=== PATIENT | female | born 1980 | race Caucasian/White ===

== ENCOUNTER 2020-08-30 12:00 | Emergency (ER) | payer MEDICAID ==
--- OUTSIDE RECORDS SUMMARY | 2020-08-30 12:07 | XMS REPORT | Continuity of Care Document ---
:1980 Author Organization [facility] t Address [address] [place] [address] Care Team Providers Name Role Phone Asked, Pcp Primary Care Physician Unavailable Problems Condition Condition Condition Status Onset Resolution Last Treating Co mments Source Name Details Category Date Date Treatment Clinician Date Tinea Tinea Problem Active [place] pedis Pedis 3-12 da 00:00: Medical 00 Group Diverticul Diverticul Problem Active [facility] itis itis 3-12 da 00:00: Medical 00 Group Irritable Irritable Problem Active [facility] bowel Bowel 3-12 da syndrome Syndrome 00:00: Medica l with with 00 Group diarrhea Diarrhea Calculus Calculus Problem Active [facility] of of 309 da gallbladde Gallbladde 00:00: Me dical r with r with 00 Group cholecysti Cholecysti tis tis Dysmenorrh Dysmenorrh Problem Active [facility] ea ea 3-09 da 00:00: Medical 00 Group Menometror Menometror Problem Active [facility] rhagia rhagia 3 da 00:00: Medical 00 Group Nausea and Nausea and Problem Active [facility] vomiting Vomiting 3 da 00:00: Medical 00 Group Chronic Chronic Problem Active [facility] post-traum Post-traum 1-23 da atic atic 00:00: [facility] stress Stress 00 al disorder Disorder [facility] Trichomona Trichomona Problem Active M [facility] l l 1-21 da vaginitis Vaginitis 00:00: Medi shan 00 Group Schizoaffe Schizoaffe Problem Active [facility] ctive ctive 1-20 da disorder, Disorder, 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 Bipolar 00 al type Type Health Outreac [facility] Program Polymenorr Polymenorr Problem Active [facility] hea hea 1-15 da 00:00: Medical 00 Group Gynecologi Gynecologi Problem Active [facility] c c 1-15 da examinatio Examinatio 00:00: Me dical n n 00 Group Venereal Venereal Problem Active [facility] disease Disease 1-15 da screening Screening 00:00: Medi shan 00 Group Screening Screening Problem Active [facility] for for 1-15 da malignant Malignant 00:00: Medi shan neoplasm Neoplasm 00 Group of breast of Breast Bipolar Bipolar Problem Active 2018-04 [facility] disorder Disorder 1-18 da 00:00: Medical 00 Group Anxiety Anxiety Problem Active 2018-04 [facility] 1-18 da 00:00: Medical 00 Group Posttrauma Posttrauma Problem Active 2018-04 [facility] tic stress tic Stress 1-18 da disorder Disorder 00:00: Medica l 00 Group DESIRES Diagnosis Active 2010-12-31 Sc moria PERMANENT 9-20 06:57:00 l STERILIZAT DESIRES 00:00: Her carlos ION PERMANENT 00 STERILIZAT ION Active 12/22/2010 [facility] V22.2 Diagnosis Active 2011-03-03 Mem oria 7-13 15:12:00 l V22.2 06:00: [place] 00 Active 10/14/2010 [facility] Allergies, Adverse Reactions, Alerts Allergy Allergy Status Severity Reaction(s) Onset Inactive Treating Comm ents Source Name Type Date Date Clinician Predniso Allergy Active Moderate Hallucinatio 2019-04 [place] ne to to severe ns 1-25 da [facility] 00:00: Medical e 00 Group Benztrop Propensi Active Anaphylaxis [place] ty to 07-31 Methodi adverse 00:00: st reaction 00 s to drug Butorpha Propensi Active Rash [place] nol ty to 07-31 Methodi Tartrate adverse 00:00: st reaction 00 s to drug Benadryl Allergy Active Moderate Hives [place] [facility] to da [facility] Medical e Group Cogentin Allergy Active Moderate Respiratory [place] to to severe distress da [facility] Medical e Group STADOL Allergy Active Moderate Hives [place] to da [facility] Medical e Group Social History Social Habit Start Date Stop Date Quantity Comments Source Tobacco use and 2017-12-02 2017-12-02 Never used [facility] ethodist exposure 00:00:00 00:00:00 Alcohol intake 2017-12-02 2017-12-02 Current drinker Judy on [facility] 00:00:00 00:00:00 of alcohol (finding) Sex Ass[birth year] At [birth year] [facility] ethodist 00:00:00 00:00:00 Smoking Status Start Date Stop Date Source Heavy Tobacco Smoker [facility] Current every day smoker 2017-12-02 00:00:00 [place] [facility] Medications Ordered Filled Start Stop Current Ordering Indication Dosage Frequency Signature Comments Components Source Medication Medication Date Date Medication? Clinician (SIG) Name Name acetaminoph No Abbye 1 tab, M emoria en-hydrocod 12-31 Ladonna Route: PO, l one 500 16:31: Keely Drug Form: He rmann mg-5 mg 00 TAB, Q4H, oral tablet PRN Pain, Start date: 12/31/10 11:31:00, Duration: 30 day, Stop date: 01/30/11 11:30:00 hydromorpho No Juan A 0.5 mg, Memoria ne 12-31 Brien 0.25 mL, l 14:44: Route: [place] 00 IVP, Drug form: INJ, Q5Min, PRN Pain, Start date: 12/31/10 9:44:00, Duration: 5 doses or times, Stop date: Limited # of times acetaminoph No Juan A 1,000 mg, Memoria en 10 mg/mL 12-31 Brien Route: IV, l intravenous 14:44: Drug form: [place] solution 00 INJ, ONCE, PRN Pain, Start date: 12/31/10 9:44:00, Duration: 1 doses or times, Stop date: Limited # of times, Infuse over 15 minutes (for patient weight 50 kg or greater)In fuse over 15 minutes (for patient weight 50 kg or greater) ondansetron No Juan A 4 mg, 2 Memoria 12-31 Brien mL, Route: l 14:44: IVP, Drug form: INJ, ONCE, PRN Nausea & Vomiting, Start date: 12/31/10 9:44:00 flumazenil No Juan A 0.2 mg, 2 Memoria 12-31 Brien mL, Route: l 14:44: IVP, Drug form: INJ, PRN, PRN Other -See Comment, Initial dose, Start date: 12/31/10 9:44:00, Duration: 30 day, Stop date: 01/30/11 9:43:00 naloxone No Juan A 0.04 mg, M emoria 12-31 Brien 0.1 mL, l 14:44: Route: [place] 00 IVP, Drug form: INJ, Q2MIN, PRN Narcotic Reversal, Start date: 12/31/10 9:44:00, Duration: 8 doses or times, Stop date: Limited # of times ibuprofen Yes Tatyana N 800 mg, 1 Memoria 800 mg oral 12-31 Paula tab, PO, l tablet 13:24: Q8H, PRN, Leodan n 34 30 tab, Pain, Substituti on Allowed, Take with foodTake with food Vicodin Yes Tatyana N 1 tab, PO, Memoria 5/500 oral 12-31 Paula Q4H, PRN, l tablet 13:24: 20 tab, [place] 29 for pain, Substituti on Allowed, Maintenanc e, TAB M-M-R II 2011-0 No Ginette 0.5 ml, Me moria 7-25 Dontrell Route: l 04:00: Alec SUB-Q, [place] 00 Drug Form: PDR/INJ, KALEE, Start date: 10/25/10 23:00:00, Duration: 1 doses or times Fluzone Fluzone No Fluzone [facility] Quad Quad Quad da [facility] (PF) 60 mcg (PF) 60 mcg (PF) 60 al (15 mcg x (15 mcg x mcg (15 He alth 4)/0.5 mL 4)/0.5 mL mcg x Outr eac IM syringe IM syringe 4)/0.5 mL h IM syringe Program hydroxyzine hydroxyzine No hydroxyzin [facility] HCl 50 mg HCl 50 mg e HCl 50 d a tablet Take tablet Take mg tablet [facility] 1 tablet 3 1 tablet 3 Take 1 a l times a day times a day tablet 3 Health by oral by oral times a Outrea c route as route as day by h needed. needed. oral route Pro gram as needed. medroxyprog medroxyprog No medroxypro [facility] esterone 10 esterone 10 gesterone da mg tablet mg tablet 10 mg Epis copy worker tablet al Health Outreac h Program ondansetron ondansetron No 1 QID ondansetro [facility] 4 mg 4 mg n 4 mg da disintegrat disintegrat disintegra Medical ing tablet ing tablet ting Jennifer up Place 1 Place 1 tablet tablet [address] 1 times a day times a day tablet 4 by by times a translingua translingua day by l route as l route as translingu needed for needed for al route 3 days. 3 days. as needed for 3 days. metronidazo metronidazo No metronidaz [place] le 500 mg le 500 mg ole 500 mg da tablet tablet tablet [facility] quetiapine quetiapine No .5 Q1D quetiapine [facility] 100 mg 100 mg 100 mg da tablet Take tablet Take tablet Medical 0.5 tablets 0.5 tablets Take 0.5 Group every day every day tablets by oral by oral every day route at route at by oral bedtime. bedtime. route at bedtime. topiramate topiramate No topiramate [facility] 100 mg 100 mg 100 mg da tablet TAKE tablet TAKE tablet Medical 1 TABLET BY 1 TABLET BY TAKE 1 Group MOUTH AT MOUTH AT TABLET BY BEDTIME BEDTIME MOUTH AT BEDTIME clonazepam clonazepam No clonazepam [facility] 0.5 mg 0.5 mg 0.5 mg da tablet TAKE tablet TAKE tablet Medical 1 TABLET BY 1 TABLET BY TAKE 1 Group MOUTH ONCE MOUTH ONCE TABLET BY DAILY DAILY MOUTH ONCE NEEDED FOR NEEDED FOR DAILY ANXIETY ANXIETY NEEDED FOR ANXIETY ibuprofen ibuprofen No ibuprofen [facility] 800 mg 800 mg 800 mg da tablet TAKE tablet TAKE tablet Medical 1 TABLET BY 1 TABLET BY TAKE 1 Group MOUTH EVERY MOUTH EVERY TABLET BY 8 HOURS 8 HOURS MOUTH NEEDED NEEDED EVERY 8 HOURS NEEDED Macrobid Macrobid No 1capsul Q12H Macrobid [facility] 100 mg 100 mg e(s) 100 mg da capsule capsule capsule Medica l Take 1 Take 1 Take 1 Group capsule capsule capsule every 12 every 12 every 12 hours by hours by hours by oral route oral route oral route for 7 days. for 7 days. for 7 days. naproxen naproxen No naproxen [facility] 500 mg 500 mg 500 mg da tablet tablet tablet [facility] Outre[facility] quetiapine quetiapine No quetiapine [facility] 200 mg 200 mg 200 mg da tablet tablet tablet [facility] Outreac [facility] Program quetiapine quetiapine No quetiapine [facility] ER 200 mg ER 200 mg ER 200 mg da tablet,exte tablet,exte tablet,ext [facility] nded nded ended al release 24 release 24 release 24 Health hr Take 2 hr Take 2 hr Take 2 Outreac tablets tablets tablets h every day every day every day Program by oral by oral by oral route at route at route at bedtime. bedtime. bedtime. Immunizations Ordered Immunization Filled Immunization Date Status Commen Source Name Name influenza, influenza, 2019-12-19 Completed [place] injectable, injectable, 00:00:00 [facility] Grou p quadrivalent quadrivalent influenza, influenza, 2019-04-19 Completed [place] injectable, injectable, 00:00:00 Medical Grou p quadrivalent quadrivalent influenza, influenza, 2018-12-03 Completed [place] injectable, injectable, 00:00:00 Medical Grou p quadrivalent quadrivalent Tdap 2017-12-02 Completed [place] 00:00:00 [facility] Vital Signs Vital Name Observation Time Observation Value Comments Source BP Diastolic 2020-08-27 00:00:00 76 mm[Hg] [facility] Height 2020-08-27 00:00:00 64 [in_i] [facility] BMI (Body Mass 2020-08-27 00:00:00 25.1 kg/m2 [facility] Medical Index) Group BP Systolic 2020-08-27 00:00:00 117 mm[Hg] [facility] Body Weight 2020-08-27 00:00:00 2344 [oz_av] [facility] BP Diastolic 2020-08-12 00:00:00 84 mm[Hg] [facility] Height 2020-08-12 00:00:00 64 [in_i] [facility] BMI (Body Mass 2020-08-12 00:00:00 25.1 kg/m2 [facility] Medical Index) Group BP Systolic 2020-08-12 00:00:00 126 mm[Hg] [facility] Body Weight 2020-08-12 00:00:00 2336 [oz_av] [facility] BP Diastolic 2020-07-09 00:00:00 82 mm[Hg] [facility] Height 2020-07-09 00:00:00 64 [in_i] [facility] BMI (Body Mass 2020-07-09 00:00:00 25.2 kg/m2 [facility] Medical Index) Group BP Systolic 2020-07-09 00:00:00 118 mm[Hg] [facility] Body Weight 2020-07-09 00:00:00 2352 [oz_av] [facility] BP Diastolic 2020-06-13 00:00:00 81 mm[Hg] [facility] Height 2020-06-13 00:00:00 64 [in_i] [facility] BMI (Body Mass 2020-06-13 00:00:00 26.4 kg/m2 [facility] Medical Index) Group BP Systolic 2020-06-13 00:00:00 133 mm[Hg] [facility] Body Weight 2020-06-13 00:00:00 2464 [oz_av] [facility] BP Diastolic 2020-04-08 00:00:00 86 mm[Hg] [facility] Height 2020-04-08 00:00:00 64 [in_i] [facility] BMI (Body Mass 2020-04-08 00:00:00 25.5 kg/m2 [facility] sponsor or advocate and Medical Index) Group BP Systolic 2020-04-08 00:00:00 132 mm[Hg] [facility] Body Weight 2020-04-08 00:00:00 2377.6 [oz_av] [facility] sponsor or advocate [facility] Medical Group BP Diastolic 2020-03-26 00:00:00 87 mm[Hg] [facility] Height 2020-03-26 00:00:00 64 [in_i] [facility] BMI (Body Mass 2020-03-26 00:00:00 24.8 kg/m2 [facility] advocate and Medical Index) Group BP Systolic 2020-03-26 00:00:00 129 mm[Hg] [facility] Body Weight 2020-03-26 00:00:00 2312 [oz_av] [facility] BP Diastolic 2020-03-10 00:00:00 78 mm[Hg] [facility] Height 2020-03-10 00:00:00 64 [in_i] [facility] BMI (Body Mass 2020-03-10 00:00:00 24.8 kg/m2 [facility] or advocate and Medical Index) Group BP Systolic 2020-03-10 00:00:00 120 mm[Hg] [facility] Body Weight 2020-03-10 00:00:00 2307.2 [oz_av] [facility] or advocate [facility] Group BP Diastolic 2020-02-25 00:00:00 59 mm[Hg] [facility] Height 2020-02-25 00:00:00 64 [in_i] [facility] BMI (Body Mass 2020-02-25 00:00:00 24.7 kg/m2 [facility] sponsor or advocate and Medical Index) Group BP Systolic 2020-02-25 00:00:00 96 mm[Hg] [facility] Body Weight 2020-02-25 00:00:00 2302.4 [oz_av] [facility] or advocate [facility] Medical Group BP Diastolic 2020-02-18 00:00:00 74 mm[Hg] [facility] Height 2020-02-18 00:00:00 64 [in_i] [facility] BMI (Body Mass 2020-02-18 00:00:00 24.9 [facility] BP Systolic 2020-02-18 00:00:00 110 mm[Hg] [facility] Body Weight 2020-02-18 00:00:00 2320 [oz_av] [facility] BP Diastolic 2019-12-31 00:00:00 71 mm[Hg] [facility] Height 2019-12-31 00:00:00 64 [in_i] [facility] BMI (Body Mass 2019-12-31 00:00:00 24.8 kg/[facility]2 [facility] BP Systolic 2019-12-31 00:00:00 114 mm[Hg] [facility] Body Weight 2019-12-31 00:00:00 2307.2 [oz_av] [facility] sponsor or advocate [facility] Medical Group BP Diastolic 2019-11-02 00:00:00 81 mm[Hg] [facility] Height 2019-11-02 00:00:00 64 [in_i] [facility] BMI (Body Mass 2019-11-02 00:00:00 24.7 kg/m2 [facility] BP Systolic 2019-11-02 00:00:00 117 mm[Hg] [facility] Body Weight 2019-11-02 00:00:00 2304 [oz_av] [facility] BP Diastolic 2019-10-01 00:00:00 80 mm[Hg] [facility] Height 2019-10-01 00:00:00 64 [in_i] [facility] BMI (Body Mass 2019-10-01 00:00:00 24.2 kg/m2 [facility] BP Systolic 2019-10-01 00:00:00 136 mm[Hg] [facility] Body Weight 2019-10-01 00:00:00 141 [lb_av] [facility] BP Diastolic 2019-09-25 00:00:00 82 mm[Hg] [facility] Height 2019-09-25 00:00:00 64 [in_i] [facility] BMI (Body Mass 2019-09-25 00:00:00 24[facility] BP Systolic 2019-09-25 00:00:00 134 mm[Hg] [facility] Body Weight 2019-09-25 00:00:00 2270.4 [oz_av] [facility] sponsor or advocate [facility] Group BP Diastolic 2019-09-21 00:00:00 76 mm[Hg] [facility] Height 2019-09-21 00:00:00 64 [in_i] [facility] BMI (Body Mass 2019-09-21 00:00:00 23.7 kg/m2 [facility] Medical Index) Group BP Systolic 2019-09-21 00:00:00 108 mm[Hg] [facility] Body Weight 2019-09-21 00:00:00 2208 [oz_av] [facility] BP Diastolic 2019-09-17 00:00:00 76 mm[Hg] [facility] Height 2019-09-17 00:00:00 64 [in_i] [facility] BMI (Body Mass 2019-09-17 00:00:00 23.9 [facility] BP Systolic 2019-09-17 00:00:00 112 mm[Hg] [facility] Body Weight 2019-09-17 00:00:00 2224 [oz_av] [facility] BP Diastolic 2019-06-22 00:00:00 77 mm[Hg] [facility] Height 2019-06-22 00:00:00 64 [in_i] [facility] BMI (Body Mass 2019-06-22 00:00:00 24.8 [facility] BP Systolic 2019-06-22 00:00:00 110 mm[Hg] [facility] Body Weight 2019-06-22 00:00:00 2310 [oz_av] [facility] BP Diastolic 2019-06-21 00:00:00 72 mm[Hg] [facility] Height 2019-06-21 00:00:00 64 [in_i] [facility] BMI (Body Mass 2019-06-21 00:00:00 24.9 kg/m2 [facility] or advocate and Medical Index) Group BP Systolic 2019-06-21 00:00:00 120 mm[Hg] [facility] Body Weight 2019-06-21 00:00:00 2320 [oz_av] [facility] BP Diastolic 2019-06-19 00:00:00 80 mm[Hg] [facility] Height 2019-06-19 00:00:00 64 [in_i] [facility] BMI (Body Mass 2019-06-19 00:00:00 25 kg/m2 [facility] or advocate and Medical Index) Group BP Systolic 2019-06-19 00:00:00 112 mm[Hg] [facility] Body Weight 2019-06-19 00:00:00 2327 [oz_av] [facility] BP Diastolic 2019-06-18 00:00:00 74 mm[Hg] [facility] Height 2019-06-18 00:00:00 64 [in_i] [facility] BMI (Body Mass 2019-06-18 00:00:00 24.7 kg/m2 [facility] or advocate and Medical Index) Group BP Systolic 2019-06-18 00:00:00 126 mm[Hg] [facility] Body Weight 2019-06-18 00:00:00 2299.2 [oz_av] [facility] or [facility] Group BP Diastolic 2019-06-14 00:00:00 63 mm[Hg] [facility] Height 2019-06-14 00:00:00 64 [in_i] [facility] BMI (Body Mass 2019-06-14 00:00:00 24.8 kg/m2 [facility] or advocate and Medical Index) Group BP Systolic 2019-06-14 00:00:00 128 mm[Hg] [facility] Body Weight 2019-06-14 00:00:00 144.4 [lb_av] [facility] BP Diastolic 2019-06-11 00:00:00 54 mm[Hg] [facility] Height 2019-06-11 00:00:00 64 [in_i] [facility] BMI (Body Mass 2019-06-11 00:00:00 25.6 kg/m2 [facility] or advocate and Medical Index) Group BP Systolic 2019-06-11 00:00:00 115 mm[Hg] [facility] Body Weight 2019-06-11 00:00:00 149 [lb_av] [facility] BP Diastolic 2019-05-15 00:00:00 82 mm[Hg] [facility] Height 2019-05-15 00:00:00 64 [in_i] [facility] BMI (Body Mass 2019-05-15 00:00:00 25.1 kg/m2 [facility] or advocate and Medical Index) Group BP Systolic 2019-05-15 00:00:00 124 mm[Hg] [facility] Body Weight 2019-05-15 00:00:00 2340 [oz_av] [facility] BP Diastolic 2019-05-08 00:00:00 86 mm[Hg] [facility] Height 2019-05-08 00:00:00 64 [in_i] [facility] BMI (Body Mass 2019-05-08 00:00:00 24 kg/m2 [facility] or advocate and Medical Index) Group BP Systolic 2019-05-08 00:00:00 139 mm[Hg] [facility] Body Weight 2019-05-08 00:00:00 2240 [oz_av] [facility] BP Diastolic 2019-05-04 00:00:00 85 mm[Hg] [facility] Height 2019-05-04 00:00:00 64 [in_i] [facility] BMI (Body Mass 2019-05-04 00:00:00 24.1 kg/m2 [facility] sponsor or advocate and Medical Index) Group BP Systolic 2019-05-04 00:00:00 120 mm[Hg] [facility] Body Weight 2019-05-04 00:00:00 140.2 [lb_av] [facility] Height 2019-04-23 00:00:00 64 [in_i] [facility] BMI (Body Mass 2019-04-23 00:00:00 24.2 kg/m2 [facility] sponsor or advocate [facility] Religious Index) [facility] Outreach [facility] Body Weight 2019-04-23 00:00:00 141 [lb_av] [facility] BP Diastolic 2019-04-18 00:00:00 72 mm[Hg] [facility] Height 2019-04-18 00:00:00 64 [in_i] [facility] BMI (Body Mass 2019-04-18 00:00:00 24.2 kg/m2 [facility] or advocate and Medical Index) Group BP Systolic 2019-04-18 00:00:00 114 mm[Hg] [facility] Body Weight 2019-04-18 00:00:00 140.8 [lb_av] [facility] BP Diastolic 2019-04-17 00:00:00 67 mm[Hg] [facility] Height 2019-04-17 00:00:00 64 [in_i] [facility] BMI (Body Mass 2019-04-17 00:00:00 24.9 kg/m2 [facility] or advocate and Medical Index) Group BP Systolic 2019-04-17 00:00:00 114 mm[Hg] [facility] Body Weight 2019-04-17 00:00:00 2325 [oz_av] [facility] BP Diastolic 2019-04-16 00:00:00 71 mm[Hg] [facility] Height 2019-04-16 00:00:00 64 [in_i] [facility] BMI (Body Mass 2019-04-16 00:00:00 24.6 kg/m2 [facility] sponsor or advocate and Medical Index) Group BP Systolic 2019-04-16 00:00:00 112 mm[Hg] [facility] Body Weight 2019-04-16 00:00:00 2291.2 [oz_av] [facility] BP Diastolic 2019-04-13 00:00:00 74 mm[Hg] [facility] Height 2019-04-13 00:00:00 64 [in_i] [facility] BMI (Body Mass 2019-04-13 00:00:00 29 kg/m2 [facility] or advocate and Medical Index) Group BP Systolic 2019-04-13 00:00:00 120 mm[Hg] [facility] Body Weight 2019-04-13 00:00:00 2705 [oz_av] [facility] BP Diastolic 2019-02-19 00:00:00 74 mm[Hg] [facility] Height 2019-02-19 00:00:00 64 [in_i] [facility] BMI (Body Mass 2019-02-19 00:00:00 24 kg/m2 [facility] or advocate and Medical Index) Group BP Systolic 2019-02-19 00:00:00 104 mm[Hg] [facility] Body Weight 2019-02-19 00:00:00 2240 [oz_av] [facility] BP Diastolic 2019-01-12 00:00:00 62 mm[Hg] [facility] BP Systolic 2019-01-12 00:00:00 116 mm[Hg] [facility] Body Weight 2019-01-12 00:00:00 2256 [oz_av] [facility] Systolic (mm Hg) 2010-12-31 16:00:00 Can rial [place] Respitory Rate 2010-12-31 16:00:00 Memori al [place] Diastolic (mm Hg) 2010-12-31 16:00:00 Mem orial [place] Respitory Rate 2010-12-31 15:30:00 Memori al [place] Diastolic (mm Hg) 2010-12-31 15:30:00 Mem orial [place] Systolic (mm Hg) 2010-12-31 15:30:00 Can rial [place] Diastolic (mm Hg) 2010-12-31 15:15:00 Mem orial [place] Systolic (mm Hg) 2010-12-31 15:15:00 Acn rial [place] Respitory Rate 2010-12-31 15:15:00 Memori al [place] Heart Rate 2010-12-31 12:44:00 [facility] Weight 2010-12-29 19:04:00 [facility] Height 2010-12-29 19:04:00 157.48 cm [facility] Procedures Procedure Date / Time Performing Clinician Source Performed XR, abdomen 2020-07-09 00:00:00 [place] [facility] Appendectomy 2019-09-24 00:00:[address] [place] [facility] [address], abdomen + pelvis, 2019-09-17 00:00:00 [facility] w/o contrast Group NM, hepatobiliary scan, 2019-06-19 00:00:00 [facility] US, abdomen 2019-06-14 00:00:00 [place] [facility] US, pelvis, complete 2019-06-11 00:00:00 [facility] XR, knee 2019-04-19 00:00:00 [place] [facility] MRI, knee, w/o contrast 2019-04-16 00:00:00 [facility] Tubal Ligation 2010-10-25 00:00:00 [place] [facility] Injection of Bilateral 2001-04-04 00:00:00 [facility] Breast Surgery [facility] [facility] Plan of Care Planned Activity Planned Date Details Comments Source Future Scheduled Test 2020-11-02 INFLUENZA VACCINE [facility] 00:00:00 [code = INFLUENZA VACCINE] Diagnostic Test 2020-08-27 urinalysis, [place] [facility] Pending 00:00:00 dipstick [code = Group urinalysis, dipstick] Future Scheduled Test 2000-11-20 Screening for [place] [facility] 00:00:00 malignant neoplasm of cervix (procedure) [code = 422089886] Future Scheduled Test 1997-11-20 Hepatitis C [place] [facility] 00:00:00 screening (procedure) [code = 931815829] Future Scheduled Test 1991 COVID-19 VACCINE [facility] [place] [facility] 00:00:00 (1) [code = COVID-19 VACCINE (1)] Instructions [facility] [facility] Encounters Start End Encounter Admission Attending Care Care Encounter Source Date/Time Date/Time Type Type Clinicians Facility Department ID 2020-08-27 2020-08-27 Kallie CARRANZA [place] - [id number] Jocelin guevara 00:00:00 00:00:00 Sofia Chao, Medical Medical SOFTWARE CONTROLS ENGINEER: [address], [place] [address] , Ph. 2020-08-12 2020-08-12 Kallie SHEPARD [place] - [id number] M [place] 00:00:00 00:00:00 Sofia Chao Medical Medical SOFTWARE CONTROLS ENGINEER: [address] [place] [address] , Ph. 2020-07-09 2020-07-09 Wendy SHEPARD [place] - [id number] M [place] 00:00:00 00:00:00 Discovery anselmo Wilcox SOFTWARE CONTROLS ENGINEER: [address] [place] [address] , Ph. 2020-06-13 2020-06-13 Kallie SHEPARD [place] - [id number] M [place] 00:00:00 00:00:00 Sofia Chao Medical Medical SOFTWARE CONTROLS ENGINEER: [address] [place] [phone] , Ph. 2020-04-08 2020-04-08 Kallie CARRANZA [place] - [id number] M [place] 00:00:00 00:00:00 Sofia Chao Medical Medical SOFTWARE CONTROLS ENGINEER: [address] [place] [phone] , Ph. 2020-03-26 2020-03-26 Kallie SHEPARD [place] - [id number] M [place] 00:00:00 00:00:00 Sofia Chao Medical Medical SOFTWARE CONTROLS ENGINEER: [address] [place] [address], [place] [address] , Ph. 2020-03-10 2020-03-10 Kallie SHEPARD [place] - [id number] M [place] 00:00:00 00:00:00 Sofia Chao Medical Medical SOFTWARE CONTROLS ENGINEER: [address] [place] [phone] , Ph. 2020-02-25 2020-02-25 Kallie SHEPARD [place] - [id number] M [place] 00:00:00 00:00:00 Sofia Chao Medical Medical SOFTWARE CONTROLS ENGINEER: [address] [facility] [address], [place] [address] , Ph. 2020-02-18 2020-02-18 Wendy MM [place] - [id number] M [place] 00:00:00 00:00:00 Discovery anselmo Wilcox SOFTWARE CONTROLS ENGINEER: [address] [place] [address] 201, [facility] [address] , Ph. 2019-12-31 2019-12-31 Kallie MM [place] - [id number] M [place] 00:00:00 00:00:00 Sofia Chao Medical Medical SOFTWARE CONTROLS ENGINEER: [address] [place] [address] 201, [place] [address] , Ph. 2019-11-02 2019-11-02 Kallie TERE [place] - [id number] M at[place] 00:00:00 00:00:00 Sofia Chao Medical Medical SOFTWARE CONTROLS ENGINEER: [address] [place] [address] 201, [place] [address] , Ph. 2019-10-01 2019-10-01 Tone TERE [place] - [id number] M [place] 00:00:00 00:00:00 DO Jed: Discovery abiola maya [address] [place] [address] 201, [facility] [address] , Ph. [phone] 2019-09-25 2019-09-25 Kallie MM [place] - [id number] M [place] 00:00:00 00:00:00 Sofia Chao Medical Medical SOFTWARE CONTROLS ENGINEER: [address] [place] [address] 201, [place] [address] , Ph. 2019-09-21 2019-09-21 Kallie MM [place] - [id number] M at[place] 00:00:00 00:00:00 Sofia Chao Medical Medical SOFTWARE CONTROLS ENGINEER: [address] [place] [address] 201, [place] [phone] , Ph. 2019-09-17 2019-09-17 Kallie CARRANZAG [place] - [id number] M at[place]or 00:00:00 00:00:00 Sofia Chao Medical Medical SOFTWARE CONTROLS ENGINEER: [address] [facility] [address], [place] [address] , Ph. 2019-08-29 2019-08-29 Wendy MMG [place] - [id number] M at[place] 00:00:00 00:00:00 Discovery anselmo Wilcox SOFTWARE CONTROLS ENGINEER: [address] [facility] 201, [facility] [address] , Ph. 2019-06-22 2019-06-22 Kallie CARRANZAG [place] - [id number] M at[place] 00:00:00 00:00:00 Sofia Chao Medical Medical SOFTWARE CONTROLS ENGINEER: [address] [facility] [address], [place] [address] , Ph. 2019-06-21 2019-06-21 Kallie MMG [place] - [id number] M at[place] 00:00:00 00:00:00 Sofia Chao Medical Medical SOFTWARE CONTROLS ENGINEER: [address] [facility] [address], [place] [address] , Ph. 2019-06-19 2019-06-19 Kallie MMG [place] - [id number] M at[place] 00:00:00 00:00:00 Sofia Chao Medical Medical SOFTWARE CONTROLS ENGINEER: [address] [facility] [address], [place] [address] , Ph. 2019-06-18 2019-06-18 Kallie MMTalon [place] - [id number] M at[place]or 00:00:00 00:00:00 Sofia Chao Medical Medical SOFTWARE CONTROLS ENGINEER: [address] [address], [place] [address] , Ph. 2019-06-14 2019-06-14 Efraín [facility] [place] - [id number] M atagor 00:00:00 00:00:00 Slick Rebollar MD: Medical Medica [address], [place] [address] , Ph. [phone] 2019-06-11 2019-06-11 Coby Rodriguez [facility] [place] - [id number] [place] 00:00:00 00:00:00 Discovery anselmo Sism NP: [address] [place] [address] 101, [place] [address] , Ph. [phone] 2019-05-15 2019-05-15 Kallie CARRANZA [place] - [id number] M at[place] 00:00:00 00:00:00 Sofia Chao Medical Medical SOFTWARE CONTROLS ENGINEER: [address] [place] [address] [address], [place] [address] , Ph. 2019-05-09 2019-05-09 Glynn CHAMBERLAIN [place] - [id number] M at[place]or 00:00:00 00:00:00 Lucinda Woods PSYD: [address] [place] [facility] - [address], [address], [facility] [address] Progr am , Ph. [phone] 2019-05-08 Kallie CARRANZA [place] - [id number] M at[place] 00:00:00 00:00:00 Sofia Chao Medical Medical SOFTWARE CONTROLS ENGINEER: [address] [place] [address] [address], [place] [address] , Ph. 2019-05-04 2019-05-04 Coby Rodriguez [facility] [place] - [id number] [place] 00:00:00 00:00:00 Discovery anselmo Sims WHNP: 600 [facility] 101, [place] [address] , Ph. [phone] 2019-04-30 2019-04-30 Glynn CHAMBERLAIN [place] - [id number] M [place] 00:00:00 00:00:00 Leon [place] da PSYD: [address] [place] [address], [facility] [address] [facility] am , Ph. [phone] 2019-04-26 Glynn CHAMBERLAIN [place] - [id number] M at[place] 00:00:00 00:00:00 Charlese, [place] da PSYD: [address] Religious Epi [address] [place] [facility] [address], Behavioral [facility] [address] [facility] am , Ph. [phone] 2019-04-23 Sam CHAMBERLAIN [place] - [id number] M [place] 00:00:00 00:00:00 Monet Puentes MD: Religious Epi scop 1700 HOP - [facility] [address] [facility] [address], [facility] [address] , Ph. [phone] 2019-04-18 Coby Rodriguez [facility] [place] - [id number] [place] 00:00:00 00:00:00 Discovery Emma SimsNP: [address] [facility] [address] [address] , Ph. [phone] 2019-04-17 2019-04-17 Kallie CARRANZA [place] - [id number] M [place] 00:00:00 00:00:00 Sofia Chao, Medical Medical SOFTWARE CONTROLS ENGINEER: [address] [facility] [address], [place] [address] , Ph. 2019-04-16 2019-04-16 Kallie CARRANZA [place] - [id number] M [place] 00:00:00 00:00:00 Sofia Chao Medical Medical SOFTWARE CONTROLS ENGINEER: [address], [place] [address] , Ph. 2019-04-13 2019-04-13 Kallie CARRANZA [place] - [id number] M [place] 00:00:00 00:00:00 Sofia Chao, Medical Medical SOFTWARE CONTROLS ENGINEER: [address] [facility] [address], [place] [address] , Ph. 2019-03-14 2019-03-14 Levi CARRANZA [place] - [id number] [place] 00:00:00 00:00:00 Ariel Ferrer Medical Medical MD: [address] [facility] [address], [place] [address] , Ph. 2019-02-19 2019-02-19 Levi CARRANZA [place] - [id number] [place] 00:00:00 00:00:00 Denton Ulloa Medical MD: [address] [facility] [address], [place] [address] , Ph. 2019-01-12 2019-01-12 Kallie CARRANZA [place] - [id number] M [place] 00:00:00 00:00:00 Sofia Chao Medical Medical SOFTWARE CONTROLS ENGINEER: [address] [facility] [address], [place] [address] , Ph. Results Test Description Test Time Test Comments Results Result Comments Source Urinalysis macro (dipstick) panel - Urine 2020-08-27 14:29:0 0 Test Item Value Reference Range Interpretation Comme nts Leukocytes (test code = Leukocytes) Negative Nitrite (test code = Nitrite) negative Urobilinogen (test code = Urobilinogen) 1 Protein (test code = Protein) Negative pH (test code = pH) 5.5 Blood (test code = Blood) Moderate Specific [place] (test code = Specific [place]) 1.030 Ketone (test code = Ketone) Trace Bilirubin (test code = Bilirubin) Small Glucose (test code = Glucose) Negative Appearance (test code = Appearance) Cloudy Color (test code = Color) Yellow [facility] W Auto Differential panel - [id number] 09:32:00 Test Item Value Reference Range Interpretation Comments white blood count (test code = 10.1 K/uL 4.0-11.5 white blood count) red blood count (test code = red 4.77 M/uL 3.80-5.20 blood count) hemoglobin (test code = 15.0 g/dL 10.5-15.7 hemoglobin) hematocrit (test code = 44.7 % 34.0-50.0 hematocrit) MCV [Entitic volume] (test code = 93.7 fL 86-100 85560-2) mean corpuscular hemoglobin (test 31.4 pg 26.2-33.4 code = mean corpuscular hemoglobin) mean corpuscular HGB conc (test 33.6 g/dL 30-34 code = mean corpuscular HGB conc) red cell distribution width (test 13.9 % 12.0-15.5 code = red cell distribution width) platelet count (test code = 205 K/uL 165-450 platelet count) mean platelet volume (test code = 10.5 fL 9.4-12.6 mean platelet volume) Segmented neutrophils/100 65.9 % 44.4-80.1 leukocytes in Blood (test code = 44679-5) Immature granulocytes [#/volume] 0.0 K/uL 0.0-0.03 in Blood (test code = 17557-3) lymphocyte% (test code = 25.2 % 10.0-50.0 lymphocyte%) mono % (test code = mono %) 6.3 % 3.6-12.0 eos % (test code = eos %) 1.7 % 0.0-5.4 Basophils/100 leukocytes in 0.6 % 0.1-1.2 Unspecified specimen (test code = 94261-7) Band form neutrophils [#/volume] 6.65 K/uL 1.56-6.13 H in Blood (test code = 73077-7) Lymphocytes [#/volume] in 2.5 K/uL 1.18-3.74 Unspecified specimen by Automated count (test code = 35156-3) mono # (test code = mono #) 0.63 K/uL 0.24-0.86 eos # (test code = eos #) 0.17 K/uL 0.04-0.36 basophil # (test code = basophil 0.06 K/uL 0.01-0.08 #) NRBC% (test code = NRBC%) 0 /100 WBC 0-0.2 NRBC# (test code = NRBC#) 0 K/uL [facility], method unspecified - [id number] 09:32:00NeutrophilsBandLymphocyteAtypical LymphMonocyteEosinophilBasophilMetamyelocyteMyelocytePromyelocyteBlastsNucleated Red Blood CellDifferential CommentAbs Neutrophil Count (Man)Abs Lymph Count (Man)Abs Monocyte Count (Man)Abs Eosinophil Count (Man)Abs Basophil Count (Man)Platelet EstimatePlatelet Morphol ogyPolychromasiaHypochromasiaPoikilocytosisAnisocytosisMicrocytosisMacrocytosisS chistocytesTarget CellsTear Drop CellsOvalocytesToxic GranulationHypersegmented PolysToxic VacuolationSmudge CellsGiant PlateletsSickle CellsConerly Critical Care HospitalUrinalysis complete W Reflex Culture panel - [id number] 09:32:00 Test Item Value Reference Range Interpretation Comments Color of Urine by Auto (test code dk. yellow = 10471-0) Appearance of Urine (test code = turbid clear 5767-9) Glucose [Mass/volume] in Urine negative negative (test code = 2350-7) bilirubin, urine (test code = moderate negative bilirubin, urine) ketone, urine (test code = trace negative H ketone, urine) Specific gravity of Urine by 1.020 1.003-1.030 Automated test strip (test code = 40146-4) Hemoglobin [Presence] in Urine by negative H Test strip (test code = 5794-3) pH of Urine (test code = 2756-5) 6.500 5-9 protein urine (UA) (test code = =1+ (30 negative H protein urine (UA)) Urobilinogen [Presence] in Urine 4.0 E.U./dL 0.2-1.0 (test code = 01174-6) Nitrite [Presence] in Urine by positive negative Test strip (test code = 5802-4) urine leukocyte esterase (test trace negative H code = urine leukocyte esterase) Erythrocytes [Presence] in Urine =4-6 0-5 H (test code = 32189-1) WBC, urine (test code = WBC, =0-2 0-5 urine) bacteria, urine (test code = few none detect bacteria, urine) Casts [#/area] in Urine sediment =2-5 none detect by Automated count (test code = 32612-9) urine culture added? (test code = yes urine culture added?) squamous epithelial cell urine =0-5 0-5 (test code = squamous epithelial cell urine) Amorphous sediment [Presence] in moderate none seen Urine sediment by Light microscopy (test code = 8246-1) [facility] HospitalBacteria identified in Urine by [id number] 09:32:00 Test Item Value Reference Range Interpretation Comments Bacteria identified in scant skin ambrose Urine by Culture (test present. pathogen not code = 630-4) present at 2 days. [facility] HospitalUrinalysis macro (dipstick) panel - [id number] 11:47:00 Test Item Value Reference Range Interpretation Comments Leukocytes (test code = Negative Leukocytes) Nitrite (test code = negative Nitrite) Urobilinogen (test code = .2 Urobilinogen) Protein (test code = Negative Protein) pH (test code = pH) 7.0 Blood (test code = Blood) Hemolyzed: Trace Specific [place] (test code 1.015 = Specific [place]) Ketone (test code = Ketone) Negative Bilirubin (test code = Negative Bilirubin) Glucose (test code = Negative Glucose) Appearance (test code = Cloudy Appearance) Color (test code = Color) Yellow [facility] HospitalUrinalysis macro (dipstick) panel - [id number] 11:47:00 Test Item Value Reference Range Interpretation Comments Leukocytes (test code = Negative Leukocytes) Nitrite (test code = negative Nitrite) Urobilinogen (test code = .2 Urobilinogen) Protein (test code = Negative Protein) pH (test code = pH) 7.0 Blood (test code = Blood) Hemolyzed: Trace Specific [place] (test code 1.015 = Specific [place]) Ketone (test code = Ketone) Negative Bilirubin (test code = Negative Bilirubin) Glucose (test code = Negative Glucose) Appearance (test code = Cloudy Appearance) Color (test code = Color) Yellow [facility] W Auto Differential panel - [id number] 11:00:00 Test Item Value Reference Range Interpretation Comments white blood count (test code = 10.1 K/uL 4.0-11.5 white blood count) red blood count (test code = red 3.82 M/uL 3.80-5.20 blood count) hemoglobin (test code = 12.1 g/dL 10.5-15.7 hemoglobin) hematocrit (test code = 35.6 % 34.0-50.0 hematocrit) MCV [Entitic volume] (test code = 93.2 fL 86-100 12224-9) mean corpuscular hemoglobin (test 31.7 pg 26.2-33.4 code = mean corpuscular hemoglobin) mean corpuscular HGB conc (test 34.0 g/dL 30-34 code = mean corpuscular HGB conc) red cell distribution width (test 14.8 % 12.0-15.5 code = red cell distribution width) platelet count (test code = 206 K/uL 165-450 platelet count) mean platelet volume (test code = 10.0 fL 9.4-12.6 mean platelet volume) Segmented neutrophils/100 66.9 % 44.4-80.1 leukocytes in Blood (test code = 56846-6) Immature granulocytes [#/volume] 0.0 K/uL 0.0-0.03 in Blood (test code = 46913-8) lymphocyte% (test code = 25.1 % 10.0-50.0 lymphocyte%) mono % (test code = mono %) 4.1 % 3.6-12.0 eos % (test code = eos %) 3.0 % 0.0-5.4 Basophils/100 leukocytes in 0.6 % 0.1-1.2 Unspecified specimen (test code = 91248-4) Band form neutrophils [#/volume] 6.77 K/uL 1.56-6.13 H in Blood (test code = 45055-3) Lymphocytes [#/volume] in 2.5 K/uL 1.18-3.74 Unspecified specimen by Automated count (test code = 09482-3) mono # (test code = mono #) 0.41 K/uL 0.24-0.86 eos # (test code = eos #) 0.30 K/uL 0.04-0.36 basophil # (test code = basophil 0.06 K/uL 0.01-0.08 #) NRBC% (test code = NRBC%) 0 /100 WBC 0-0.2 NRBC# (test code = NRBC#) 0 K/uL [facility] HospitalDifferential panel, method unspecified - [id number] 11:00:00NeutrophilsBandLymphocyteAtypical LymphMonocyteEosinophilBasophilMetamyelocyteMyelocytePromyelocyteBlastsNucleated Red Blood CellAbs Neutrophil Count (Man)Abs Lymph Count (Man)Abs Monocyte Count (Man)Abs Eosinophil Count (Man)Abs Basophil Count (Man)Platelet EstimatePlatelet MorphologyPoikilocytosisToxic GranulationBurr CellsConerly Critical Care HospitalBasi metabolic 2000 panel - Serum or [id number] 11:00:00 Test Item Value Reference Range Interpretation Comments glucose (test code = glucose) 86 mg/dL 74-106 Urea nitrogen [Mass/volume] in 9 mg/dL 6-20 Serum or Plasma (test code = 3094-0) osmolality calculated,serum (test 272 mOsm/kg 280-300 L code = osmolality calculated,serum) creatinine (test code = 0.8 mg/dL 0.50-0.90 creatinine) glomerular filtration rate (test >60.00 code = glomerular filtration rate) Urea nitrogen/Creatinine [Mass 11.3 12-20 L Ratio] in Serum or Plasma (test code = 3097-3) sodium level (test code = sodium 137 mmol/L 135-145 level) Potassium [Moles/volume] in Body 3.9 mmol/L 3.5-5.2 fluid (test code = 2821-7) chloride level (test code = 108 mmol/L 98-108 chloride level) CO2 (test code = CO2) 21 mmol/L 21-32 anion gap (test code = anion gap) 11.9 mEq/L 12-20 L calcium level (test code = 8.7 mg/dL 8.6-10.0 calcium level) [facility] W Auto Differential panel - [id number] 11:00:00 Test Item Value Reference Range Interpretation Comments white blood count (test code = 10.1 K/uL 4.0-11.5 white blood count) red blood count (test code = red 3.82 M/uL 3.80-5.20 blood count) hemoglobin (test code = 12.1 g/dL 10.5-15.7 hemoglobin) hematocrit (test code = 35.6 % 34.0-50.0 hematocrit) MCV [Entitic volume] (test code = 93.2 fL 86-100 18372-6) mean corpuscular hemoglobin (test 31.7 pg 26.2-33.4 code = mean corpuscular hemoglobin) mean corpuscular HGB conc (test 34.0 g/dL 30-34 code = mean corpuscular HGB conc) red cell distribution width (test 14.8 % 12.0-15.5 code = red cell distribution width) platelet count (test code = 206 K/uL 165-450 platelet count) mean platelet volume (test code = 10.0 fL 9.4-12.6 mean platelet volume) Segmented neutrophils/100 66.9 % 44.4-80.1 leukocytes in Blood (test code = 16187-3) Immature granulocytes [#/volume] 0.0 K/uL 0.0-0.03 in Blood (test code = 92374-6) lymphocyte% (test code = 25.1 % 10.0-50.0 lymphocyte%) mono % (test code = mono %) 4.1 % 3.6-12.0 eos % (test code = eos %) 3.0 % 0.0-5.4 Basophils/100 leukocytes in 0.6 % 0.1-1.2 Unspecified specimen (test code = 62416-3) Band form neutrophils [#/volume] 6.77 K/uL 1.56-6.13 H in Blood (test code = 51112-0) Lymphocytes [#/volume] in 2.5 K/uL 1.18-3.74 Unspecified specimen by Automated count (test code = 01403-4) mono # (test code = mono #) 0.41 K/uL 0.24-0.86 eos # (test code = eos #) 0.30 K/uL 0.04-0.36 basophil # (test code = basophil 0.06 K/uL 0.01-0.08 #) NRBC% (test code = NRBC%) 0 /100 WBC 0-0.2 NRBC# (test code = NRBC#) 0 K/uL [facility] HospitalDifferential panel, method unspecified - [id number] 11:00:00NeutrophilsBandLymphocyteAtypical LymphMonocyteEosinophilBasophilMetamyelocyteMyelocytePromyelocyteBlastsNucleated Red Blood CellAbs Neutrophil Count (Man)Abs Lymph Count (Man)Abs Monocyte Count (Man)Abs Eosinophil Count (Man)Abs Basophil Count (Man)Platelet EstimatePlatelet MorphologyPoikilocytosisToxic GranulationBurr CellsConerly Critical Care HospitalBasic metabolic 2000 panel - Serum or [id number] 11:00:00 Test Item Value Reference Range Interpretation Comments glucose (test code = glucose) 86 mg/dL 74-106 Urea nitrogen [Mass/volume] in 9 mg/dL 6-20 Serum or Plasma (test code = 3094-0) osmolality calculated,serum (test 272 mOsm/kg 280-300 L code = osmolality calculated,serum) creatinine (test code = 0.8 mg/dL 0.50-0.90 creatinine) glomerular filtration rate (test >60.00 code = glomerular filtration rate) Urea nitrogen/Creatinine [Mass 11.3 12-20 L Ratio] in Serum or Plasma (test code = 3097-3) sodium level (test code = sodium 137 mmol/L 135-145 level) Potassium [Moles/volume] in Body 3.9 mmol/L 3.5-5.2 fluid (test code = 2821-7) chloride level (test code = 108 mmol/L 98-108 chloride level) CO2 (test code = CO2) 21 mmol/L 21-32 anion gap (test code = anion gap) 11.9 mEq/L 12-20 L calcium level (test code = 8.7 mg/dL 8.6-10.0 calcium level) [facility] HospitalUrinalysis complete panel - [id number] 10:43:00 Test Item Value Reference Range Interpretation Comments Color of Urine by Auto (test yellow code = 55525-2) Appearance of Urine (test code cloudy clear A = 5767-9) Glucose [Presence] in Urine by negative negative Automated test strip (test code = 89716-4) Bilirubin.total [Mass/volume] negative negative in Urine (test code = 1978-6) Ketones [Mass/volume] in Urine negative negative by Automated test strip (test code = 54570-5) Specific gravity of Urine by 1.027 1.003-1.030 Automated test strip (test code = 80001-9) blood urine (test code = blood =1 negative H urine) pH of Urine (test code = 8.500 5-9 2756-5) protein urine (UA) (test code = trace negative protein urine (UA)) Urobilinogen [Presence] in normal 0.2-1.0 Urine (test code = 85055-0) Nitrite [Presence] in Urine by negative negative Test strip (test code = 5802-4) Leukocyte esterase [Presence] =1 negative H in Urine by Automated test strip (test code = 51377-1) Erythrocytes [#/volume] in =1-5 0-5 Urine by Automated count (test code = 798-9) Leukocytes [#/area] in Urine =1-5 0-5 sediment by Automated count (test code = 03104-7) Epithelial cells [Presence] in =1-5 0-5 Urine sediment by Light microscopy (test code = 37147-4) Bacteria identified in Urine by trace none detect Culture (test code = 630-4) Casts [#/area] in Urine none detected none detect sediment by Automated count (test code = 65147-1) urine culture added? (test code yes = urine culture added?) [facility] GroupBacteria identified in Urine by [id number] 10:43:00 Test Item Value Reference Range Interpretation Comments Bacteria identified in no growth at 1 day Urine by Culture (test code = 630-4) [facility] GroupUrinalysis complete panel - [id number] 10:43:00 Test Item Value Reference Range Interpretation Comments Color of Urine by Auto (test yellow code = 86113-2) Appearance of Urine (test code cloudy clear A = 5767-9) Glucose [Presence] in Urine by negative negative Automated test strip (test code = 73683-9) Bilirubin.total [Mass/volume] negative negative in Urine (test code = 1977-09) Ketones [Mass/volume] in Urine negative negative by Automated test strip (test code = 28358-3) Specific gravity of Urine by 1.027 1.003-1.030 Automated test strip (test code = 79177-3) blood urine (test code = blood =1 negative H urine) pH of Urine (test code = 8.500 5-9 2756-5) protein urine (UA) (test code = trace negative protein urine (UA)) Urobilinogen [Presence] in normal 0.2-1.0 Urine (test code = 42903-1) Nitrite [Presence] in Urine by negative negative Test strip (test code = 5802-4) Leukocyte esterase [Presence] =1 negative H in Urine by Automated test strip (test code = 85157-4) Erythrocytes [#/volume] in =1-5 0-5 Urine by Automated count (test code = 798-9) Leukocytes [#/area] in Urine =1-5 0-5 sediment by Automated count (test code = 38683-8) Epithelial cells [Presence] in =1-5 0-5 Urine sediment by Light microscopy (test code = 42414-8) Bacteria identified in Urine by trace none detect Culture (test code = 630-4) Casts [#/area] in Urine none detected none detect sediment by Automated count (test code = 01667-7) urine culture added? (test code yes = urine culture added?) [facility] HospitalBacteria identified in Urine by [id number] 10:43:00 Test Item Value Reference Range Interpretation Comments Bacteria identified in no growth at 1 day Urine by Culture (test code = 630-4) [facility] HospitalUrinalysis complete panel - [id number] 09:25:00 Test Item Value Reference Range Interpretation Comments Color of Urine by Auto (test code = yellow 32940-1) Appearance of Urine (test code = SL cloudy clear A 5767-9) Glucose [Presence] in Urine by negative negative Automated test strip (test code = 52691-2) Bilirubin.total [Mass/volume] in negative negative Urine (test code = 1977-09) Ketones [Mass/volume] in Urine by =1 negative H Automated test strip (test code = 70606-6) Specific gravity of Urine by 1.032 1.003-1.030 H Automated test strip (test code = 41138-5) blood urine (test code = blood =2 negative H urine) pH of Urine (test code = 2756-5) 6.000 5-9 protein urine (UA) (test code = =1+ (30 negative H protein urine (UA)) Urobilinogen [Presence] in Urine =2.0 0.2-1.0 H (test code = 19790-0) Nitrite [Presence] in Urine by Test negative negative strip (test code = 5802-4) Leukocyte esterase [Presence] in negative negative Urine by Automated test strip (test code = 82604-5) Erythrocytes [#/volume] in Urine by =11-14 0-5 H Automated count (test code = 798-9) Leukocytes [#/area] in Urine =1-5 0-5 sediment by Automated count (test code = 27075-3) Epithelial cells [Presence] in =6-10 0-5 Urine sediment by Light microscopy (test code = 68644-4) Bacteria identified in Urine by small(1 none detect Culture (test code = 630-4) Casts [#/area] in Urine sediment by =2-5 none detect Automated count (test code = 10092-3) urine culture added? (test code = no urine culture added?) [facility] Group[facility]inal[facility] complete [facility] - [id number] 09:25:00 Test Item Value Reference Range Interpretation Comments Color of Urine by Auto (test code = yellow 76171-9) Appearance of Urine (test code = SL cloudy clear A 5767-9) Glucose [Presence] in Urine by negative negative Automated test strip (test code = 56810-4) Bilirubin.total [Mass/volume] in negative negative Urine (test code = 1978-6) Ketones [Mass/volume] in Urine by =1 negative H Automated test strip (test code = 17497-1) Specific gravity of Urine by 1.032 1.003-1.030 H Automated test strip (test code = 82954-8) blood urine (test code = blood =2 negative H urine) pH of Urine (test code = 2756-5) 6.000 5-9 protein urine (UA) (test code = =1+ (30 negative H protein urine (UA)) Urobilinogen [Presence] in Urine =2.0 0.2-1.0 H (test code = 44601-4) Nitrite [Presence] in Urine by Test negative negative strip (test code = 5802-4) Leukocyte esterase [Presence] in negative negative Urine by Automated test strip (test code = 68589-3) Erythrocytes [#/volume] in Urine by =11-14 0-5 H Automated count (test code = 798-9) Leukocytes [#/area] in Urine =1-5 0-5 sediment by Automated count (test code = 78960-4) Epithelial cells [Presence] in =6-10 0-5 Urine sediment by Light microscopy (test code = 58620-8) Bacteria identified in Urine by small(1 none detect Culture (test code = 630-4) Casts [#/area] in Urine sediment by =2-5 none detect Automated count (test code = 95845-2) urine culture added? (test code = no urine culture added?) [facility] GroupUrinalysis complete panel - [id number] 09:25:00 Test Item Value Reference Range Interpretation Comments Color of Urine by Auto (test code = yellow 73571-6) Appearance of Urine (test code = SL cloudy clear A 5767-9) Glucose [Presence] in Urine by negative negative Automated test strip (test code = 66529-5) Bilirubin.total [Mass/volume] in negative negative Urine (test code = 1978-6) Ketones [Mass/volume] in Urine by =1 negative H Automated test strip (test code = 91868-2) Specific gravity of Urine by 1.032 1.003-1.030 H Automated test strip (test code = 07101-2) blood urine (test code = blood =2 negative H urine) pH of Urine (test code = 2756-5) 6.000 5-9 protein urine (UA) (test code = =1+ (30 negative H protein urine (UA)) Urobilinogen [Presence] in Urine =2.0 0.2-1.0 H (test code = 25258-6) Nitrite [Presence] in Urine by Test negative negative strip (test code = 5802-4) Leukocyte esterase [Presence] in negative negative Urine by Automated test strip (test code = 72767-5) Erythrocytes [#/volume] in Urine by =11-14 0-5 H Automated count (test code = 798-9) Leukocytes [#/area] in Urine =1-5 0-5 sediment by Automated count (test code = 04940-5) Epithelial cells [Presence] in =6-10 0-5 Urine sediment by Light microscopy (test code = 61567-7) Bacteria identified in Urine by small(1 none detect Culture (test code = 630-4) Casts [#/area] in Urine sediment by =2-5 none detect Automated count (test code = 68881-3) urine culture added? (test code = no urine culture added?) [facility] W Auto Differential panel - [id number] 08:06:00 Test Item Value Reference Range Interpretation Comments white blood count (test code = 13.2 K/uL 4.0-11.5 white blood count) red blood count (test code = red 4.84 M/uL 3.80-5.20 blood count) hemoglobin (test code = 14.8 g/dL 10.5-15.7 hemoglobin) hematocrit (test code = 43.4 % 34.0-50.0 hematocrit) MCV [Entitic volume] (test code = 89.7 fL 86-100 72939-4) mean corpuscular hemoglobin (test 30.6 pg 26.2-33.4 code = mean corpuscular hemoglobin) mean corpuscular HGB conc (test 34.1 g/dL 30-34 H code = mean corpuscular HGB conc) red cell distribution width (test 13.1 % 12.0-15.5 code = red cell distribution width) platelet count (test code = 182 K/uL 165-450 platelet count) mean platelet volume (test code = 10.3 fL 9.4-12.6 mean platelet volume) Segmented neutrophils/100 72.9 % 44.4-80.1 leukocytes in Blood (test code = 63159-2) Immature granulocytes [#/volume] 0.0 K/uL 0.0-0.03 in Blood (test code = 06935-3) lymphocyte% (test code = 19.5 % 10.0-50.0 lymphocyte%) mono % (test code = mono %) 5.1 % 3.6-12.0 eos % (test code = eos %) 1.7 % 0.0-5.4 Basophils/100 leukocytes in 0.5 % 0.1-1.2 Unspecified specimen (test code = 28167-2) Band form neutrophils [#/volume] 9.66 K/uL 1.56-6.13 H in Blood (test code = 75659-6) Lymphocytes [#/volume] in 2.6 K/uL 1.18-3.74 Unspecified specimen by Automated count (test code = 88854-9) mono # (test code = mono #) 0.67 K/uL 0.24-0.86 eos # (test code = eos #) 0.23 K/uL 0.04-0.36 basophil # (test code = basophil 0.06 K/uL 0.01-0.08 #) NRBC% (test code = NRBC%) 0 /100 WBC 0-0.2 NRBC# (test code = NRBC#) 0 K/uL [facility] method unspecified - [id number] 08:06:00NeutrophilsBandLymphocyteMonocyteEosinophilPlatelet EstimateMataTrace [facility] HospitalComprehensive metabolic 2000 panel - Serum or [id number] 08:06:00 Test Item Value Reference Range Interpretation Comments Glucose [Mass/volume] in Serum or 103 mg/dL 74-106 Plasma (test code = 2345-7) Urea nitrogen [Mass/volume] in 11 mg/dL 6-20 Serum or Plasma (test code = 3094-0) osmolality calculated,serum (test 274 mOsm/kg 280-300 L code = osmolality calculated,serum) creatinine (test code = 0.8 mg/dL 0.50-0.90 creatinine) glomerular filtration rate (test >60.00 code = glomerular filtration rate) Urea nitrogen/Creatinine [Mass 13.8 12-20 Ratio] in Serum or Plasma (test code = 3097-3) sodium level (test code = sodium 137 mmol/L 135-145 level) potassium level (test code = 4.1 mmol/L 3.5-5.2 potassium level) chloride level (test code = 103 mmol/L 98-108 chloride level) CO2 (test code = CO2) 21 mmol/L 21-32 anion gap (test code = anion gap) 17.1 mEq/L 12-20 calcium level (test code = 9.5 mg/dL 8.6-10.0 calcium level) total protein (test code = total 7.8 g/dL 6.6-8.7 protein) albumin (test code = albumin) 4.6 g/dL 3.5-5.2 globulin (test code = globulin) 3.2 gm/dL A/G ratio (test code = A/G ratio) 1.4 >1.0 bilirubin,total (test code = 1.2 mg/dL 0.0-1.2 bilirubin,total) AST/SGOT (test code = AST/SGOT) 17 U/L 15-32 Alanine aminotransferase 10 U/L 0-33 [Enzymatic activity/volume] in Serum or Plasma (test code = 1742-6) Alkaline phosphatase [Enzymatic 63 U/L 35-105 activity/volume] in Serum or Plasma (test code = 6768-6) [facility] [En[facility]atic activity/volume] in Serum or Plasma 2019-09-24 08:06:00 Test Item Value Reference Range Interpretation Comments lipase (test code = lipase) 27 U/L 13-60 [facility] W Auto Differential panel - [id number] 08:06:00 Test Item Value Reference Range Interpretation Comments white blood count (test code = 13.2 K/uL 4.0-11.5 white blood count) red blood count (test code = red 4.84 M/uL 3.80-5.20 blood count) hemoglobin (test code = 14.8 g/dL 10.5-15.7 hemoglobin) hematocrit (test code = 43.4 % 34.0-50.0 hematocrit) MCV [Entitic volume] (test code = 89.7 fL 86-100 91093-9) mean corpuscular hemoglobin (test 30.6 pg 26.2-33.4 code = mean corpuscular hemoglobin) mean corpuscular HGB conc (test 34.1 g/dL 30-34 H code = mean corpuscular HGB conc) red cell distribution width (test 13.1 % 12.0-15.5 code = red cell distribution width) platelet count (test code = 182 K/uL 165-450 platelet count) mean platelet volume (test code = 10.3 fL 9.4-12.6 mean platelet volume) Segmented neutrophils/100 72.9 % 44.4-80.1 leukocytes in Blood (test code = 99975-1) Immature granulocytes [#/volume] 0.0 K/uL 0.0-0.03 in Blood (test code = 71534-0) lymphocyte% (test code = 19.5 % 10.0-50.0 lymphocyte%) mono % (test code = mono %) 5.1 % 3.6-12.0 eos % (test code = eos %) 1.7 % 0.0-5.4 Basophils/100 leukocytes in 0.5 % 0.1-1.2 Unspecified specimen (test code = 13773-8) Band form neutrophils [#/volume] 9.66 K/uL 1.56-6.13 H in Blood (test code = 58918-2) Lymphocytes [#/volume] in 2.6 K/uL 1.18-3.74 Unspecified specimen by Automated count (test code = 22519-0) mono # (test code = mono #) 0.67 K/uL 0.24-0.86 eos # (test code = eos #) 0.23 K/uL 0.04-0.36 basophil # (test code = basophil 0.06 K/uL 0.01-0.08 #) NRBC% (test code = NRBC%) 0 /100 WBC 0-0.2 NRBC# (test code = NRBC#) 0 K/uL [facility], method unspecified - [id number] 08:06:00NeutrophilsBandLymphocyteMonocyteEosinophilPlatelet EstimateMataTrace [facility] HospitalComprehensive metabolic 2000 panel - Serum or [id number] 08:06:00 Test Item Value Reference Range Interpretation Comments Glucose [Mass/volume] in Serum or 103 mg/dL 74-106 Plasma (test code = 2345-7) Urea nitrogen [Mass/volume] in 11 mg/dL 6-20 Serum or Plasma (test code = 3094-0) osmolality calculated,serum (test 274 mOsm/kg 280-300 L code = osmolality calculated,serum) creatinine (test code = 0.8 mg/dL 0.50-0.90 creatinine) glomerular filtration rate (test >60.00 code = glomerular filtration rate) Urea nitrogen/Creatinine [Mass 13.8 12-20 Ratio] in Serum or Plasma (test code = 3097-3) sodium level (test code = sodium 137 mmol/L 135-145 level) potassium level (test code = 4.1 mmol/L 3.5-5.2 potassium level) chloride level (test code = 103 mmol/L 98-108 chloride level) CO2 (test code = CO2) 21 mmol/L 21-32 anion gap (test code = anion gap) 17.1 mEq/L 12-20 calcium level (test code = 9.5 mg/dL 8.6-10.0 calcium level) total protein (test code = total 7.8 g/dL 6.6-8.7 protein) albumin (test code = albumin) 4.6 g/dL 3.5-5.2 globulin (test code = globulin) 3.2 gm/dL A/G ratio (test code = A/G ratio) 1.4 >1.0 bilirubin,total (test code = 1.2 mg/dL 0.0-1.2 bilirubin,total) AST/SGOT (test code = AST/SGOT) 17 U/L 15-32 Alanine aminotransferase 10 U/L 0-33 [Enzymatic activity/volume] in Serum or Plasma (test code = 1742-6) Alkaline phosphatase [Enzymatic 63 U/L 35-105 activity/volume] in Serum or Plasma (test code = 6768-6) [facility] [Enzymatic activity/volume] in Serum or Plasma 2019-09-24 08:06:00 Test Item Value Reference Range Interpretation Comments lipase (test code = lipase) 27 U/L 13-60 [facility] W Auto Differential panel - [id number] 08:06:00 Test Item Value Reference Range Interpretation Comments white blood count (test code = 13.2 K/uL 4.0-11.5 white blood count) red blood count (test code = red 4.84 M/uL 3.80-5.20 blood count) hemoglobin (test code = 14.8 g/dL 10.5-15.7 hemoglobin) hematocrit (test code = 43.4 % 34.0-50.0 hematocrit) MCV [Entitic volume] (test code = 89.7 fL 86-100 87849-7) mean corpuscular hemoglobin (test 30.6 pg 26.2-33.4 code = mean corpuscular hemoglobin) mean corpuscular HGB conc (test 34.1 g/dL 30-34 H code = mean corpuscular HGB conc) red cell distribution width (test 13.1 % 12.0-15.5 code = red cell distribution width) platelet count (test code = 182 K/uL 165-450 platelet count) mean platelet volume (test code = 10.3 fL 9.4-12.6 mean platelet volume) Segmented neutrophils/100 72.9 % 44.4-80.1 leukocytes in Blood (test code = 98302-0) Immature granulocytes [#/volume] 0.0 K/uL 0.0-0.03 in Blood (test code = 46156-9) lymphocyte% (test code = 19.5 % 10.0-50.0 lymphocyte%) mono % (test code = mono %) 5.1 % 3.6-12.0 eos % (test code = eos %) 1.7 % 0.0-5.4 Basophils/100 leukocytes in 0.5 % 0.1-1.2 Unspecified specimen (test code = 59059-9) Band form neutrophils [#/volume] 9.66 K/uL 1.56-6.13 H in Blood (test code = 36723-3) Lymphocytes [#/volume] in 2.6 K/uL 1.18-3.74 Unspecified specimen by Automated count (test code = 61526-6) mono # (test code = mono #) 0.67 K/uL 0.24-0.86 eos # (test code = eos #) 0.23 K/uL 0.04-0.36 basophil # (test code = basophil 0.06 K/uL 0.01-0.08 #) NRBC% (test code = NRBC%) 0 /100 WBC 0-0.2 NRBC# (test code = NRBC#) 0 K/uL [facility]Different[facility], method unspecified - [id number] 08:06:00NeutrophilsBandLymphocyteMonocyteEosinophilPlatelet EstimateConerly Critical Care HospitalComprehensive metabolic 2000 panel - Serum or [id number] 08:06:00 Test Item Value Reference Range Interpretation Comments Glucose [Mass/volume] in Serum or 103 mg/dL 74-106 Plasma (test code = 2345-7) Urea nitrogen [Mass/volume] in 11 mg/dL 6-20 Serum or Plasma (test code = 3094-0) osmolality calculated,serum (test 274 mOsm/kg 280-300 L code = osmolality calculated,serum) creatinine (test code = 0.8 mg/dL 0.50-0.90 creatinine) glomerular filtration rate (test >60.00 code = glomerular filtration rate) Urea nitrogen/Creatinine [Mass 13.8 12-20 Ratio] in Serum or Plasma (test code = 3097-3) sodium level (test code = sodium 137 mmol/L 135-145 level) potassium level (test code = 4.1 mmol/L 3.5-5.2 potassium level) chloride level (test code = 103 mmol/L 98-108 chloride level) CO2 (test code = CO2) 21 mmol/L 21-32 anion gap (test code = anion gap) 17.1 mEq/L 12-20 calcium level (test code = 9.5 mg/dL 8.6-10.0 calcium level) total protein (test code = total 7.8 g/dL 6.6-8.7 protein) albumin (test code = albumin) 4.6 g/dL 3.5-5.2 globulin (test code = globulin) 3.2 gm/dL A/G ratio (test code = A/G ratio) 1.4 >1.0 bilirubin,total (test code = 1.2 mg/dL 0.0-1.2 bilirubin,total) AST/SGOT (test code = AST/SGOT) 17 U/L 15-32 Alanine aminotransferase 10 U/L 0-33 [Enzymatic activity/volume] in Serum or Plasma (test code = 1742-6) Alkaline phosphatase [Enzymatic 63 U/L 35-105 activity/volume] in Serum or Plasma (test code = 6768-6) [facility] HospitalLip[facility] [Enzymatic activity/volume] in Serum or Plasma 2019-09-24 08:06:00 Test Item Value Reference Range Interpretation Comments lipase (test code = lipase) 27 [facility] 13-60 [facility] [id number] 01:35:00Results [facility] HospitalUrinalysis macro (dipstick) panel - [id number] 08:40:00 Test Item Value Reference Range Interpretation Comments Leukocytes (test code = Negative Leukocytes) Nitrite (test code = negative Nitrite) Urobilinogen (test code = 1 Urobilinogen) Protein (test code = Negative Protein) pH (test code = pH) 8.5 Blood (test code = Blood) Hemolyzed: Trace Specific [place] (test code 1.025 = Specific [place]) Ketone (test code = Ketone) Negative Bilirubin (test code = Negative Bilirubin) Glucose (test code = Negative Glucose) Appearance (test code = Cloudy Appearance) Color (test code = Color) Yellow [facility] HospitalUrinalysis macro (dipstick) panel - [id number] 08:40:00 Test Item Value Reference Range Interpretation Comments Leukocytes (test code = Negative Leukocytes) Nitrite (test code = negative Nitrite) Urobilinogen (test code = 1 Urobilinogen) Protein (test code = Negative Protein) pH (test code = pH) 8.5 Blood (test code = Blood) Hemolyzed: Trace Specific [place] (test code 1.025 = Specific [place]) Ketone (test code = Ketone) Negative Bilirubin (test code = Negative Bilirubin) Glucose (test code = Negative Glucose) Appearance (test code = Cloudy Appearance) Color (test code = Color) Yellow [facility] HospitalUr[facility] macro (dipstick) panel - [id number] 08:40:00 Test Item Value Reference Range Interpretation Comments Leukocytes (test code = Negative Leukocytes) Nitrite (test code = negative Nitrite) Urobilinogen (test code = 1 Urobilinogen) Protein (test code = Negative Protein) pH (test code = pH) 8.5 Blood (test code = Blood) Hemolyzed: Trace Specific [place] (test code 1.025 = Specific [place]) Ketone (test code = Ketone) Negative Bilirubin (test code = Negative Bilirubin) Glucose (test code = Negative Glucose) Appearance (test code = Cloudy Appearance) Color (test code = Color) Yellow [facility] Hospital[facility] macro (dipstick) panel - [id number] 08:40:00 Test Item Value Reference Range Interpretation Comments Leukocytes (test code = Negative Leukocytes) Nitrite (test code = negative Nitrite) Urobilinogen (test code = 1 Urobilinogen) Protein (test code = Negative Protein) pH (test code = pH) 8.5 Blood (test code = Blood) Hemolyzed: Trace Specific [place] (test code 1.025 = Specific [place]) Ketone (test code = Ketone) Negative Bilirubin (test code = Negative Bilirubin) Glucose (test code = Negative Glucose) Appearance (test code = Cloudy Appearance) Color (test code = Color) Yellow [facility] HospitalAc[facility] hepatitis 2000 panel - Serum [id number] 10:52:00 Test Item Value Reference Range Interpretation Comments hep B core Ab,IgM (test code = hep B negative negative core Ab,IgM) hepatitis C virus antibody (test <0.1 0.0-0.9 code = hepatitis C virus antibody) hepatitis A IgM antibody (test code negative negative = hepatitis A IgM antibody) .hepatitis B surface antigen (test negative negative code = .hepatitis B surface antigen) [facility] HospitalAmylase [Enzymatic activity/volume] in Serum or Plasma 2019-06-19 10:05:00 Test Item Value Reference Range Interpretation Comments Amylase [Enzymatic activity/volume] in 60 U/L 28-100 Serum or Plasma (test code = 1798-8) [facility] [Enzymatic activity/volume] in Serum or Plasma 2019-06-19 10:05:00 Test Item Value Reference Range Interpretation Comments lipase (test code = lipase) 52 U/L 13-60 [facility] W Auto Differential panel - [id number] 08:00:00 Test Item Value Reference Range Interpretation Comments white blood count (test code = 7.6 K/uL 4.0-11.5 white blood count) red blood count (test code = red 4.41 M/uL 3.80-5.20 blood count) hemoglobin (test code = 13.8 g/dL 10.5-15.7 hemoglobin) hematocrit (test code = 40.7 % 34.0-50.0 hematocrit) Erythrocyte mean corpuscular 92.3 fL 86-100 volume [Entitic volume] (test code = 46437-3) mean corpuscular hemoglobin (test 31.3 pg 26.2-33.4 code = mean corpuscular hemoglobin) mean corpuscular HGB conc (test 33.9 g/dL 30-34 code = mean corpuscular HGB conc) red cell distribution width (test 13.4 % 12.0-15.5 code = red cell distribution width) platelet count (test code = 185 K/uL 165-450 platelet count) mean platelet volume (test code = 10.3 fL 9.4-12.6 mean platelet volume) Neutrophils.segmented/100 60.5 % 44.4-80.1 leukocytes in Blood (test code = 63735-2) Granulocytes Immature [#/volume] 0.0 K/uL 0.0-0.03 in Blood (test code = 94862-3) lymphocyte% (test code = 30.4 % 10.0-50.0 lymphocyte%) mono % (test code = mono %) 6.3 % 3.6-12.0 eos % (test code = eos %) 2.0 % 0.0-5.4 Basophils/100 leukocytes in 0.4 % 0.1-1.2 Unspecified specimen (test code = 77951-0) Neutrophils.band form [#/volume] 4.59 K/uL 1.56-6.13 in Blood (test code = 49371-4) Lymphocytes [#/volume] in 2.3 K/uL 1.18-3.74 Unspecified specimen by Automated count (test code = 87351-9) mono # (test code = mono #) 0.48 K/uL 0.24-0.86 eos # (test code = eos #) 0.15 K/uL 0.04-0.36 basophil # (test code = basophil 0.03 K/uL 0.01-0.08 #) NRBC% (test code = NRBC%) 0 /100 WBC 0-0.2 NRBC# (test code = NRBC#) 0 K/uL [facility], [id number] 08:00:00 NeutrophilsBandLymphocyteAtypical LymphMonocyteEosinophilBasophilMetamyelocyteMyelocyteNucleated RedBlood CellPlatelet EstimatePlatelet MorphologyPolychromasiaPoikilocytosisAnisocytosisMacrocytosisToxic GranulationDohle BodiesBurr CellsRouleauToxic VacuolationGiant PlateletsDifferential comment-[facility] GroupComprehensive metabolic 2000 panel - Serum or [id number] 08:00:00 Test Item Value Reference Range Interpretation Comments glucose (test code = glucose) 100 mg/dL 74-106 Urea nitrogen [Mass/volume] in 8 mg/dL 6-20 Serum or Plasma (test code = 3094-0) osmolality calculated,serum (test 276 mOsm/kg 280-300 L code = osmolality calculated,serum) creatinine (test code = 0.8 mg/dL 0.50-0.90 creatinine) glomerular filtration rate (test >60.00 code = glomerular filtration rate) Urea nitrogen/Creatinine [Mass 10.0 12-20 L Ratio] in Serum or Plasma (test code = 3097-3) sodium level (test code = sodium 139 mmol/L 135-145 level) Potassium [Moles/volume] in Body 4.0 mmol/L 3.5-5.2 fluid (test code = 2821-7) chloride level (test code = 100 mmol/L 98-108 chloride level) CO2 (test code = CO2) 27 mmol/L 21-32 anion gap (test code = anion gap) 16.0 mEq/L 12-20 calcium level (test code = 9.5 mg/dL 8.6-10.0 calcium level) total protein (test code = total 7.8 g/dL 6.6-8.7 protein) albumin (test code = albumin) 4.6 g/dL 3.5-5.2 globulin (test code = globulin) 3.2 gm/dL A/G ratio (test code = A/G ratio) 1.4 >1.0 bilirubin,total (test code = 0.8 mg/dL 0.0-1.2 bilirubin,total) AST/SGOT (test code = AST/SGOT) 16 U/L 15-32 Alanine aminotransferase 9 U/L 0-33 [Enzymatic activity/volume] in Serum or Plasma (test code = 1742-6) Alkaline phosphatase [Enzymatic 64 U/L 35-105 activity/volume] in Serum or Plasma (test code = 6768-6) [facility] W Auto Differential panel - [id number] 08:00:00 Test Item Value Reference Range Interpretation Comments white blood count (test code = 7.6 K/uL 4.0-11.5 white blood count) red blood count (test code = red 4.41 M/uL 3.80-5.20 blood count) hemoglobin (test code = 13.8 g/dL 10.5-15.7 hemoglobin) hematocrit (test code = 40.7 % 34.0-50.0 hematocrit) Erythrocyte mean corpuscular 92.3 fL 86-100 volume [Entitic volume] (test code = 31767-8) mean corpuscular hemoglobin (test 31.3 pg 26.2-33.4 code = mean corpuscular hemoglobin) mean corpuscular HGB conc (test 33.9 g/dL 30-34 code = mean corpuscular HGB conc) red cell distribution width (test 13.4 % 12.0-15.5 code = red cell distribution width) platelet count (test code = 185 K/uL 165-450 platelet count) mean platelet volume (test code = 10.3 fL 9.4-12.6 mean platelet volume) Neutrophils.segmented/100 60.5 % 44.4-80.1 leukocytes in Blood (test code = 40753-6) Granulocytes Immature [#/volume] 0.0 K/uL 0.0-0.03 in Blood (test code = 89633-9) lymphocyte% (test code = 30.4 % 10.0-50.0 lymphocyte%) mono % (test code = mono %) 6.3 % 3.6-12.0 eos % (test code = eos %) 2.0 % 0.0-5.4 Basophils/100 leukocytes in 0.4 % 0.1-1.2 Unspecified specimen (test code = 65653-3) Neutrophils.band form [#/volume] 4.59 K/uL 1.56-6.13 in Blood (test code = 46304-2) Lymphocytes [#/volume] in 2.3 K/uL 1.18-3.74 Unspecified specimen by Automated count (test code = 28457-7) mono # (test code = mono #) 0.48 K/uL 0.24-0.86 eos # (test code = eos #) 0.15 K/uL 0.04-0.36 basophil # (test code = basophil 0.03 K/uL 0.01-0.08 #) NRBC% (test code = NRBC%) 0 /100 WBC 0-0.2 NRBC# (test code = NRBC#) 0 K/uL [facility], [id number] 08:00:00 NeutrophilsBandLymphocyteAtypical LymphMonocyteEosinophilBasophilMetamyelocyteMyelocyteNucleated RedBlood CellPlatelet EstimatePlatelet MorphologyPolychromasiaPoikilocytosisAnisocytosisMacrocytosisToxic GranulationDohle BodiesBurr CellsRouleauToxic VacuolationGiant PlateletsDifferential comment-[facility]Comprehensive metabolic 2000 panel - Serum or [id number] 08:00:00 Test Item Value Reference Range Interpretation Comments glucose (test code = glucose) 100 mg/dL 74-106 Urea nitrogen [Mass/volume] in 8 mg/dL 6-20 Serum or Plasma (test code = 3094-0) osmolality calculated,serum (test 276 mOsm/kg 280-300 L code = osmolality calculated,serum) creatinine (test code = 0.8 mg/dL 0.50-0.90 creatinine) glomerular filtration rate (test >60.00 code = glomerular filtration rate) Urea nitrogen/Creatinine [Mass 10.0 12-20 L Ratio] in Serum or Plasma (test code = 3097-3) sodium level (test code = sodium 139 mmol/L 135-145 level) Potassium [Moles/volume] in Body 4.0 mmol/L 3.5-5.2 fluid (test code = 2821-7) chloride level (test code = 100 mmol/L 98-108 chloride level) CO2 (test code = CO2) 27 mmol/L 21-32 anion gap (test code = anion gap) 16.0 mEq/L 12-20 calcium level (test code = 9.5 mg/dL 8.6-10.0 calcium level) total protein (test code = total 7.8 g/dL 6.6-8.7 protein) albumin (test code = albumin) 4.6 g/dL 3.5-5.2 globulin (test code = globulin) 3.2 gm/dL A/G ratio (test code = A/G ratio) 1.4 >1.0 bilirubin,total (test code = 0.8 mg/dL 0.0-1.2 bilirubin,total) AST/SGOT (test code = AST/SGOT) 16 U/L 15-32 Alanine aminotransferase 9 U/L 0-33 [Enzymatic activity/volume] in Serum or Plasma (test code = 1742-6) Alkaline phosphatase [Enzymatic 64 U/L 35-105 activity/volume] in Serum or Plasma (test code = 6768-6) [facility] W Auto Differential panel - [id number] 08:00:00 Test Item Value Reference Range Interpretation Comments white blood count (test code = 7.6 K/uL 4.0-11.5 white blood count) red blood count (test code = red 4.41 M/uL 3.80-5.20 blood count) hemoglobin (test code = 13.8 g/dL 10.5-15.7 hemoglobin) hematocrit (test code = 40.7 % 34.0-50.0 hematocrit) Erythrocyte mean corpuscular 92.3 fL 86-100 volume [Entitic volume] (test code = 14030-8) mean corpuscular hemoglobin (test 31.3 pg 26.2-33.4 code = mean corpuscular hemoglobin) mean corpuscular HGB conc (test 33.9 g/dL 30-34 code = mean corpuscular HGB conc) red cell distribution width (test 13.4 % 12.0-15.5 code = red cell distribution width) platelet count (test code = 185 K/uL 165-450 platelet count) mean platelet volume (test code = 10.3 fL 9.4-12.6 mean platelet volume) Neutrophils.segmented/100 60.5 % 44.4-80.1 leukocytes in Blood (test code = 66680-4) Granulocytes Immature [#/volume] 0.0 K/uL 0.0-0.03 in Blood (test code = 15142-0) lymphocyte% (test code = 30.4 % 10.0-50.0 lymphocyte%) mono % (test code = mono %) 6.3 % 3.6-12.0 eos % (test code = eos %) 2.0 % 0.0-5.4 Basophils/100 leukocytes in 0.4 % 0.1-1.2 Unspecified specimen (test code = 97342-1) Neutrophils.band form [#/volume] 4.59 K/uL 1.56-6.13 in Blood (test code = 92234-4) Lymphocytes [#/volume] in 2.3 K/uL 1.18-3.74 Unspecified specimen by Automated count (test code = 42544-7) mono # (test code = mono #) 0.48 K/uL 0.24-0.86 eos # (test code = eos #) 0.15 K/uL 0.04-0.36 basophil # (test code = basophil 0.03 K/uL 0.01-0.08 #) NRBC% (test code = NRBC%) 0 /100 WBC 0-0.2 NRBC# (test code = NRBC#) 0 K/uL [facility] [id number] 08:00:00 NeutrophilsBandLymphocyteAtypical LymphMonocyteEosinophilBasophilMetamyelocyteMyelocyteNucleated RedBlood CellPlatelet EstimatePlatelet MorphologyPolychromasiaPoikilocytosisAnisocytosisMacrocytosisToxic GranulationDohle BodiesBurr CellsRouleauToxic VacuolationGiant PlateletsDifferential comment-[facility]Comprehensive metabolic 2000 panel - Serum or [id number] 08:00:00 Test Item Value Reference Range Interpretation Comments glucose (test code = glucose) 100 mg/dL 74-106 Urea nitrogen [Mass/volume] in 8 mg/dL 6-20 Serum or Plasma (test code = 3094-0) osmolality calculated,serum (test 276 mOsm/kg 280-300 L code = osmolality calculated,serum) creatinine (test code = 0.8 mg/dL 0.50-0.90 creatinine) glomerular filtration rate (test >60.00 code = glomerular filtration rate) Urea nitrogen/Creatinine [Mass 10.0 12-20 L Ratio] in Serum or Plasma (test code = 3097-3) sodium level (test code = sodium 139 mmol/L 135-145 level) Potassium [Moles/volume] in Body 4.0 mmol/L 3.5-5.2 fluid (test code = 2821-7) chloride level (test code = 100 mmol/L 98-108 chloride level) CO2 (test code = CO2) 27 mmol/L 21-32 anion gap (test code = anion gap) 16.0 mEq/L 12-20 calcium level (test code = 9.5 mg/dL 8.6-10.0 calcium level) total protein (test code = total 7.8 g/dL 6.6-8.7 protein) albumin (test code = albumin) 4.6 g/dL 3.5-5.2 globulin (test code = globulin) 3.2 gm/dL A/G ratio (test code = A/G ratio) 1.4 >1.0 bilirubin,total (test code = 0.8 mg/dL 0.0-1.2 bilirubin,total) AST/SGOT (test code = AST/SGOT) 16 U/L 15-32 Alanine aminotransferase 9 U/L 0-33 [Enzymatic activity/volume] in Serum or Plasma (test code = 1742-6) Alkaline phosphatase [Enzymatic 64 U/L 35-105 activity/volume] in Serum or Plasma (test code = 6768-6) [facility] W Auto Differential panel - [id number] 08:00:00 Test Item Value Reference Range Interpretation Comments white blood count (test code = 7.6 K/uL 4.0-11.5 white blood count) red blood count (test code = red 4.41 M/uL 3.80-5.20 blood count) hemoglobin (test code = 13.8 g/dL 10.5-15.7 hemoglobin) hematocrit (test code = 40.7 % 34.0-50.0 hematocrit) Erythrocyte mean corpuscular 92.3 fL 86-100 volume [Entitic volume] (test code = 17119-6) mean corpuscular hemoglobin (test 31.3 pg 26.2-33.4 code = mean corpuscular hemoglobin) mean corpuscular HGB conc (test 33.9 g/dL 30-34 code = mean corpuscular HGB conc) red cell distribution width (test 13.4 % 12.0-15.5 code = red cell distribution width) platelet count (test code = 185 K/uL 165-450 platelet count) mean platelet volume (test code = 10.3 fL 9.4-12.6 mean platelet volume) Neutrophils.segmented/100 60.5 % 44.4-80.1 leukocytes in Blood (test code = 79562-3) Granulocytes Immature [#/volume] 0.0 K/uL 0.0-0.03 in Blood (test code = 17442-3) lymphocyte% (test code = 30.4 % 10.0-50.0 lymphocyte%) mono % (test code = mono %) 6.3 % 3.6-12.0 eos % (test code = eos %) 2.0 % 0.0-5.4 Basophils/100 leukocytes in 0.4 % 0.1-1.2 Unspecified specimen (test code = 89636-5) Neutrophils.band form [#/volume] 4.59 K/uL 1.56-6.13 in Blood (test code = 40091-3) Lymphocytes [#/volume] in 2.3 K/uL 1.18-3.74 Unspecified specimen by Automated count (test code = 51469-1) mono # (test code = mono #) 0.48 K/uL 0.24-0.86 eos # (test code = eos #) 0.15 K/uL 0.04-0.36 basophil # (test code = basophil 0.03 K/uL 0.01-0.08 #) NRBC% (test code = NRBC%) 0 /100 WBC 0-0.2 NRBC# (test code = NRBC#) 0 K/uL [facility], [id number] 08:00:00 NeutrophilsBandLymphocyteAtypical LymphMonocyteEosinophilBasophilMetamyelocyteMyelocyteNucleated RedBlood CellPlatelet EstimatePlatelet MorphologyPolychromasiaPoikilocytosisAnisocytosisMacrocytosisToxic GranulationDohle BodiesBurr CellsRouleauToxic VacuolationGiant PlateletsDifferential comment-[facility]idianComprehensive metabolic 2000 panel - Serum or [id number] 08:00:00 Test Item Value Reference Range Interpretation Comments glucose (test code = glucose) 100 mg/dL 74-106 Urea nitrogen [Mass/volume] in 8 mg/dL 6-20 Serum or Plasma (test code = 3094-0) osmolality calculated,serum (test 276 mOsm/kg 280-300 L code = osmolality calculated,serum) creatinine (test code = 0.8 mg/dL 0.50-0.90 creatinine) glomerular filtration rate (test >60.00 code = glomerular filtration rate) Urea nitrogen/Creatinine [Mass 10.0 12-20 L Ratio] in Serum or Plasma (test code = 3097-3) sodium level (test code = sodium 139 mmol/L 135-145 level) Potassium [Moles/volume] in Body 4.0 mmol/L 3.5-5.2 fluid (test code = 2821-7) chloride level (test code = 100 mmol/L 98-108 chloride level) CO2 (test code = CO2) 27 mmol/L 21-32 anion gap (test code = anion gap) 16.0 mEq/L 12-20 calcium level (test code = 9.5 mg/dL 8.6-10.0 calcium level) total protein (test code = total 7.8 g/dL 6.6-8.7 protein) albumin (test code = albumin) 4.6 g/dL 3.5-5.2 globulin (test code = globulin) 3.2 gm/dL A/G ratio (test code = A/G ratio) 1.4 >1.0 bilirubin,total (test code = 0.8 mg/dL 0.0-1.2 bilirubin,total) AST/SGOT (test code = AST/SGOT) 16 U/L 15-32 Alanine aminotransferase 9 U/L 0-33 [Enzymatic activity/volume] in Serum or Plasma (test code = 1742-6) Alkaline phosphatase [Enzymatic 64 U/L 35-105 activity/volume] in Serum or Plasma (test code = 6768-6) [facility] GroupUrinal[facility] macro (dipstick) panel - [id number] 10:09:35 Test Item Value Reference Range Interpretation Comments Leukocytes (test code = Negative Leukocytes) Nitrite (test code = negative Nitrite) Urobilinogen (test code = 1 Urobilinogen) Protein (test code = Trace Protein) pH (test code = pH) 6.0 Blood (test code = Blood) Hemolyzed: Trace Specific [place] (test code 1.030 = Specific [place]) Ketone (test code = Ketone) Trace Bilirubin (test code = Moderate Bilirubin) Glucose (test code = Negative Glucose) Appearance (test code = Clear Appearance) Color (test code = Color) Dark Yellow [facility] (dipstick) panel - [id number] 10:09:35 Test Item Value Reference Range Interpretation Comments Leukocytes (test code = Negative Leukocytes) Nitrite (test code = negative Nitrite) Urobilinogen (test code = 1 Urobilinogen) Protein (test code = Trace Protein) pH (test code = pH) 6.0 Blood (test code = Blood) Hemolyzed: Trace Specific [place] (test code 1.030 = Specific [place]) Ketone (test code = Ketone) Trace Bilirubin (test code = Moderate Bilirubin) Glucose (test code = Negative Glucose) Appearance (test code = Clear Appearance) Color (test code = Color) Dark Yellow [facility] (dipstick) panel - [id number] 10:09:35 Test Item Value Reference Range Interpretation Comments Leukocytes (test code = Negative Leukocytes) Nitrite (test code = negative Nitrite) Urobilinogen (test code = 1 Urobilinogen) Protein (test code = Trace Protein) pH (test code = pH) 6.0 Blood (test code = Blood) Hemolyzed: Trace Specific [place] (test code 1.030 = Specific [place]) Ketone (test code = Ketone) Trace Bilirubin (test code = Moderate Bilirubin) Glucose (test code = Negative Glucose) Appearance (test code = Clear Appearance) Color (test code = Color) Dark Yellow [facility] (dipstick) panel - [id number] 10:09:35 Test Item Value Reference Range Interpretation Comments Leukocytes (test code = Negative Leukocytes) Nitrite (test code = negative Nitrite) Urobilinogen (test code = 1 Urobilinogen) Protein (test code = Trace Protein) pH (test code = pH) 6.0 Blood (test code = Blood) Hemolyzed: Trace Specific [place] (test code 1.030 = Specific [place]) Ketone (test code = Ketone) Trace Bilirubin (test code = Moderate Bilirubin) Glucose (test code = Negative Glucose) Appearance (test code = Clear Appearance) Color (test code = Color) Dark Yellow [facility] (dipstick) panel - [id number] 10:09:35 Test Item Value Reference Range Interpretation Comments Leukocytes (test code = Negative Leukocytes) Nitrite (test code = negative Nitrite) Urobilinogen (test code = 1 Urobilinogen) Protein (test code = Trace Protein) pH (test code = pH) 6.0 Blood (test code = Blood) Hemolyzed: Trace Specific [place] (test code 1.030 = Specific [place]) Ketone (test code = Ketone) Trace Bilirubin (test code = Moderate Bilirubin) Glucose (test code = Negative Glucose) Appearance (test code = Clear Appearance) Color (test code = Color) Dark Yellow [facility] (dipstick) panel - [id number] 10:09:35 Test Item Value Reference Range Interpretation Comments Leukocytes (test code = Negative Leukocytes) Nitrite (test code = negative Nitrite) Urobilinogen (test code = 1 Urobilinogen) Protein (test code = Trace Protein) pH (test code = pH) 6.0 Blood (test code = Blood) Hemolyzed: Trace Specific [place] (test code 1.030 = Specific [place]) Ketone (test code = Ketone) Trace Bilirubin (test code = Moderate Bilirubin) Glucose (test code = Negative Glucose) Appearance (test code = Clear Appearance) Color (test code = Color) Dark Yellow [facility] W Auto Differential panel - [id number] 08:58:00 Test Item Value Reference Range Interpretation Comments white blood count (test code = 8.6 K/uL 4.0-11.5 white blood count) red blood count (test code = red 4.35 M/uL 3.80-5.20 blood count) hemoglobin (test code = 13.5 g/dL 10.5-15.7 hemoglobin) hematocrit (test code = 40.8 % 34.0-50.0 hematocrit) Erythrocyte mean corpuscular 93.8 fL 86-100 volume [Entitic volume] (test code = 15031-4) mean corpuscular hemoglobin (test 31.0 pg 26.2-33.4 code = mean corpuscular hemoglobin) mean corpuscular HGB conc (test 33.1 g/dL 30-34 code = mean corpuscular HGB conc) red cell distribution width (test 13.4 % 12.0-15.5 code = red cell distribution width) platelet count (test code = 178 K/uL 165-450 platelet count) mean platelet volume (test code = 10.0 fL 9.4-12.6 mean platelet volume) Neutrophils.segmented/100 63.6 % 44.4-80.1 leukocytes in Blood (test code = 41738-9) Granulocytes Immature [#/volume] 0.0 K/uL 0.0-0.03 in Blood (test code = 71134-2) lymphocyte% (test code = 26.4 % 10.0-50.0 lymphocyte%) mono % (test code = mono %) 6.3 % 3.6-12.0 eos % (test code = eos %) 2.8 % 0.0-5.4 Basophils/100 leukocytes in 0.7 % 0.1-1.2 Unspecified specimen (test code = 35195-4) Neutrophils.band form [#/volume] 5.49 K/uL 1.56-6.13 in Blood (test code = 64596-9) Lymphocytes [#/volume] in 2.3 K/uL 1.18-3.74 Unspecified specimen by Automated count (test code = 93324-0) mono # (test code = mono #) 0.54 K/uL 0.24-0.86 eos # (test code = eos #) 0.24 K/uL 0.04-0.36 basophil # (test code = basophil 0.06 K/uL 0.01-0.08 #) NRBC% (test code = NRBC%) 0 /100 WBC 0-0.2 NRBC# (test code = NRBC#) 0 K/uL [facility], [id number] 08:58:00 NeutrophilsBandLymphocyteAtypical LymphMonocyteEosinophilBasophilMetamyelocyteMyelocytePlatelet EstimatePlatelet MorphologyRouleauDifferential comment-PMaH. C. Watkins [facility] HospitalComprehensive metabolic 2000 panel - Serum or [id number] 08:58:00 Test Item Value Reference Range Interpretation Comments glucose (test code = glucose) 96 mg/dL 74-106 Urea nitrogen [Mass/volume] in 8 mg/dL 6-20 Serum or Plasma (test code = 3094-0) osmolality calculated,serum (test 274 mOsm/kg 280-300 L code = osmolality calculated,serum) creatinine (test code = 0.6 mg/dL 0.50-0.90 creatinine) glomerular filtration rate (test >60.00 code = glomerular filtration rate) Urea nitrogen/Creatinine [Mass 13.3 12-20 Ratio] in Serum or Plasma (test code = 3097-3) sodium level (test code = sodium 138 mmol/L 135-145 level) Potassium [Moles/volume] in Body 4.1 mmol/L 3.5-5.2 fluid (test code = 2821-7) chloride level (test code = 99 mmol/L 98-108 chloride level) CO2 (test code = CO2) 26 mmol/L 21-32 anion gap (test code = anion gap) 17.1 mEq/L 12-20 calcium level (test code = 9.2 mg/dL 8.6-10.0 calcium level) total protein (test code = total 7.5 g/dL 6.6-8.7 protein) albumin (test code = albumin) 4.4 g/dL 3.5-5.2 globulin (test code = globulin) 3.1 gm/dL A/G ratio (test code = A/G ratio) 1.4 >1.0 bilirubin,total (test code = 0.6 mg/dL 0.0-1.2 bilirubin,total) AST/SGOT (test code = AST/SGOT) 16 U/L 15-32 Alanine aminotransferase 9 U/L 0-33 [Enzymatic activity/volume] in Serum or Plasma (test code = 1742-6) Alkaline phosphatase [Enzymatic 67 U/L 35-105 activity/volume] in Serum or Plasma (test code = 6768-6) [facility] - Serum or [id number] 08:58:00 Test Item Value Reference Range Interpretation Comments Bilirubin.direct [Mass/volume] in Serum <0.20 0.0-0.3 or Plasma (test code = 1968-7) [facility] W Auto Differential panel - [id number] 08:58:00 Test Item Value Reference Range Interpretation Comments white blood count (test code = 8.6 K/uL 4.0-11.5 white blood count) red blood count (test code = red 4.35 M/uL 3.80-5.20 blood count) hemoglobin (test code = 13.5 g/dL 10.5-15.7 hemoglobin) hematocrit (test code = 40.8 % 34.0-50.0 hematocrit) Erythrocyte mean corpuscular 93.8 fL 86-100 volume [Entitic volume] (test code = 65167-7) mean corpuscular hemoglobin (test 31.0 pg 26.2-33.4 code = mean corpuscular hemoglobin) mean corpuscular HGB conc (test 33.1 g/dL 30-34 code = mean corpuscular HGB conc) red cell distribution width (test 13.4 % 12.0-15.5 code = red cell distribution width) platelet count (test code = 178 K/uL 165-450 platelet count) mean platelet volume (test code = 10.0 fL 9.4-12.6 mean platelet volume) Neutrophils.segmented/100 63.6 % 44.4-80.1 leukocytes in Blood (test code = 60312-4) Granulocytes Immature [#/volume] 0.0 K/uL 0.0-0.03 in Blood (test code = 03024-1) lymphocyte% (test code = 26.4 % 10.0-50.0 lymphocyte%) mono % (test code = mono %) 6.3 % 3.6-12.0 eos % (test code = eos %) 2.8 % 0.0-5.4 Basophils/100 leukocytes in 0.7 % 0.1-1.2 Unspecified specimen (test code = 52182-0) Neutrophils.band form [#/volume] 5.49 K/uL 1.56-6.13 in Blood (test code = 16121-2) Lymphocytes [#/volume] in 2.3 K/uL 1.18-3.74 Unspecified specimen by Automated count (test code = 22792-0) mono # (test code = mono #) 0.54 K/uL 0.24-0.86 eos # (test code = eos #) 0.24 K/uL 0.04-0.36 basophil # (test code = basophil 0.06 K/uL 0.01-0.08 #) NRBC% (test code = NRBC%) 0 /100 WBC 0-0.2 NRBC# (test code = NRBC#) 0 K/uL [facility], [id number] 08:58:00 NeutrophilsBandLymphocyteAtypical LymphMonocyteEosinophilBasophilMetamyelocyteMyelocytePlatelet EstimatePlatelet MorphologyRouleauDifferential comment-[facility]idianComprehensive metabolic 2000 panel - Serum or [id number] 08:58:00 Test Item Value Reference Range Interpretation Comments glucose (test code = glucose) 96 mg/dL 74-106 Urea nitrogen [Mass/volume] in 8 mg/dL 6-20 Serum or Plasma (test code = 3094-0) osmolality calculated,serum (test 274 mOsm/kg 280-300 L code = osmolality calculated,serum) creatinine (test code = 0.6 mg/dL 0.50-0.90 creatinine) glomerular filtration rate (test >60.00 code = glomerular filtration rate) Urea nitrogen/Creatinine [Mass 13.3 12-20 Ratio] in Serum or Plasma (test code = 3097-3) sodium level (test code = sodium 138 mmol/L 135-145 level) Potassium [Moles/volume] in Body 4.1 mmol/L 3.5-5.2 fluid (test code = 2821-7) chloride level (test code = 99 mmol/L 98-108 chloride level) CO2 (test code = CO2) 26 mmol/L 21-32 anion gap (test code = anion gap) 17.1 mEq/L 12-20 calcium level (test code = 9.2 mg/dL 8.6-10.0 calcium level) total protein (test code = total 7.5 g/dL 6.6-8.7 protein) albumin (test code = albumin) 4.4 g/dL 3.5-5.2 globulin (test code = globulin) 3.1 gm/dL A/G ratio (test code = A/G ratio) 1.4 >1.0 bilirubin,total (test code = 0.6 mg/dL 0.0-1.2 bilirubin,total) AST/SGOT (test code = AST/SGOT) 16 U/L 15-32 Alanine aminotransferase 9 U/L 0-33 [Enzymatic activity/volume] in Serum or Plasma (test code = 1742-6) Alkaline phosphatase [Enzymatic 67 U/L 35-105 activity/volume] in Serum or Plasma (test code = 6768-6) [facility] - Serum or [id number] 08:58:00 Test Item Value Reference Range Interpretation Comments Bilirubin.direct [Mass/volume] in Serum <0.20 0.0-0.3 or Plasma (test code = 1968-7) [facility] W Auto Differential panel - [id number] 08:58:00 Test Item Value Reference Range Interpretation Comments white blood count (test code = 8.6 K/uL 4.0-11.5 white blood count) red blood count (test code = red 4.35 M/uL 3.80-5.20 blood count) hemoglobin (test code = 13.5 g/dL 10.5-15.7 hemoglobin) hematocrit (test code = 40.8 % 34.0-50.0 hematocrit) Erythrocyte mean corpuscular 93.8 fL 86-100 volume [Entitic volume] (test code = 79716-9) mean corpuscular hemoglobin (test 31.0 pg 26.2-33.4 code = mean corpuscular hemoglobin) mean corpuscular HGB conc (test 33.1 g/dL 30-34 code = mean corpuscular HGB conc) red cell distribution width (test 13.4 % 12.0-15.5 code = red cell distribution width) platelet count (test code = 178 K/uL 165-450 platelet count) mean platelet volume (test code = 10.0 fL 9.4-12.6 mean platelet volume) Neutrophils.segmented/100 63.6 % 44.4-80.1 leukocytes in Blood (test code = 81958-1) Granulocytes Immature [#/volume] 0.0 K/uL 0.0-0.03 in Blood (test code = 33067-3) lymphocyte% (test code = 26.4 % 10.0-50.0 lymphocyte%) mono % (test code = mono %) 6.3 % 3.6-12.0 eos % (test code = eos %) 2.8 % 0.0-5.4 Basophils/100 leukocytes in 0.7 % 0.1-1.2 Unspecified specimen (test code = 97516-6) Neutrophils.band form [#/volume] 5.49 K/uL 1.56-6.13 in Blood (test code = 50109-0) Lymphocytes [#/volume] in 2.3 K/uL 1.18-3.74 Unspecified specimen by Automated count (test code = 71035-1) mono # (test code = mono #) 0.54 K/uL 0.24-0.86 eos # (test code = eos #) 0.24 K/uL 0.04-0.36 basophil # (test code = basophil 0.06 K/uL 0.01-0.08 #) NRBC% (test code = NRBC%) 0 /100 WBC 0-0.2 NRBC# (test code = NRBC#) 0 K/uL [facility], [id number] 08:58:00 NeutrophilsBandLymphocyteAtypical LymphMonocyteEosinophilBasophilMetamyelocyteMyelocytePlatelet EstimatePlatelet MorphologyRouleauDifferential comment-[facility]idianComprehensive metabolic 2000 panel - Serum or [id number] 08:58:00 Test Item Value Reference Range Interpretation Comments glucose (test code = glucose) 96 mg/dL 74-106 Urea nitrogen [Mass/volume] in 8 mg/dL 6-20 Serum or Plasma (test code = 3094-0) osmolality calculated,serum (test 274 mOsm/kg 280-300 L code = osmolality calculated,serum) creatinine (test code = 0.6 mg/dL 0.50-0.90 creatinine) glomerular filtration rate (test >60.00 code = glomerular filtration rate) Urea nitrogen/Creatinine [Mass 13.3 12-20 Ratio] in Serum or Plasma (test code = 3097-3) sodium level (test code = sodium 138 mmol/L 135-145 level) Potassium [Moles/volume] in Body 4.1 mmol/L 3.5-5.2 fluid (test code = 2821-7) chloride level (test code = 99 mmol/L 98-108 chloride level) CO2 (test code = CO2) 26 mmol/L 21-32 anion gap (test code = anion gap) 17.1 mEq/L 12-20 calcium level (test code = 9.2 mg/dL 8.6-10.0 calcium level) total protein (test code = total 7.5 g/dL 6.6-8.7 protein) albumin (test code = albumin) 4.4 g/dL 3.5-5.2 globulin (test code = globulin) 3.1 gm/dL A/G ratio (test code = A/G ratio) 1.4 >1.0 bilirubin,total (test code = 0.6 mg/dL 0.0-1.2 bilirubin,total) AST/SGOT (test code = AST/SGOT) 16 U/L 15-32 Alanine aminotransferase 9 U/L 0-33 [Enzymatic activity/volume] in Serum or Plasma (test code = 1742-6) Alkaline phosphatase [Enzymatic 67 U/L 35-105 activity/volume] in Serum or Plasma (test code = 6768-6) [facility] - Serum or [id number] 08:58:00 Test Item Value Reference Range Interpretation Comments Bilirubin.direct [Mass/volume] in Serum <0.20 0.0-0.3 or Plasma (test code = 1968-7) [facility] W Auto Differential panel - [id number] 08:58:00 Test Item Value Reference Range Interpretation Comments white blood count (test code = 8.6 K/uL 4.0-11.5 white blood count) red blood count (test code = red 4.35 M/uL 3.80-5.20 blood count) hemoglobin (test code = 13.5 g/dL 10.5-15.7 hemoglobin) hematocrit (test code = 40.8 % 34.0-50.0 hematocrit) Erythrocyte mean corpuscular 93.8 fL 86-100 volume [Entitic volume] (test code = 17788-7) mean corpuscular hemoglobin (test 31.0 pg 26.2-33.4 code = mean corpuscular hemoglobin) mean corpuscular HGB conc (test 33.1 g/dL 30-34 code = mean corpuscular HGB conc) red cell distribution width (test 13.4 % 12.0-15.5 code = red cell distribution width) platelet count (test code = 178 K/uL 165-450 platelet count) mean platelet volume (test code = 10.0 fL 9.4-12.6 mean platelet volume) Neutrophils.segmented/100 63.6 % 44.4-80.1 leukocytes in Blood (test code = 25393-2) Granulocytes Immature [#/volume] 0.0 K/uL 0.0-0.03 in Blood (test code = 82404-4) lymphocyte% (test code = 26.4 % 10.0-50.0 lymphocyte%) mono % (test code = mono %) 6.3 % 3.6-12.0 eos % (test code = eos %) 2.8 % 0.0-5.4 Basophils/100 leukocytes in 0.7 % 0.1-1.2 Unspecified specimen (test code = 98380-8) Neutrophils.band form [#/volume] 5.49 K/uL 1.56-6.13 in Blood (test code = 16337-5) Lymphocytes [#/volume] in 2.3 K/uL 1.18-3.74 Unspecified specimen by Automated count (test code = 22380-1) mono # (test code = mono #) 0.54 K/uL 0.24-0.86 eos # (test code = eos #) 0.24 K/uL 0.04-0.36 basophil # (test code = basophil 0.06 K/uL 0.01-0.08 #) NRBC% (test code = NRBC%) 0 /100 WBC 0-0.2 NRBC# (test code = NRBC#) 0 K/uL [facility], [id number] 08:58:00 NeutrophilsBandLymphocyteAtypical LymphMonocyteEosinophilBasophilMetamyelocyteMyelocytePlatelet EstimatePlatelet MorphologyRouleauDifferential comment-[facility]idianComprehensive metabolic 2000 panel - Serum or [id number] 08:58:00 Test Item Value Reference Range Interpretation Comments glucose (test code = glucose) 96 mg/dL 74-106 Urea nitrogen [Mass/volume] in 8 mg/dL 6-20 Serum or Plasma (test code = 3094-0) osmolality calculated,serum (test 274 mOsm/kg 280-300 L code = osmolality calculated,serum) creatinine (test code = 0.6 mg/dL 0.50-0.90 creatinine) glomerular filtration rate (test >60.00 code = glomerular filtration rate) Urea nitrogen/Creatinine [Mass 13.3 12-20 Ratio] in Serum or Plasma (test code = 3097-3) sodium level (test code = sodium 138 mmol/L 135-145 level) Potassium [Moles/volume] in Body 4.1 mmol/L 3.5-5.2 fluid (test code = 2821-7) chloride level (test code = 99 mmol/L 98-108 chloride level) CO2 (test code = CO2) 26 mmol/L 21-32 anion gap (test code = anion gap) 17.1 mEq/L 12-20 calcium level (test code = 9.2 mg/dL 8.6-10.0 calcium level) total protein (test code = total 7.5 g/dL 6.6-8.7 protein) albumin (test code = albumin) 4.4 g/dL 3.5-5.2 globulin (test code = globulin) 3.1 gm/dL A/G ratio (test code = A/G ratio) 1.4 >1.0 bilirubin,total (test code = 0.6 mg/dL 0.0-1.2 bilirubin,total) AST/SGOT (test code = AST/SGOT) 16 U/L 15-32 Alanine aminotransferase 9 U/L 0-33 [Enzymatic activity/volume] in Serum or Plasma (test code = 1742-6) Alkaline phosphatase [Enzymatic 67 U/L 35-105 activity/volume] in Serum or Plasma (test code = 6768-6) [facility] - Serum or [id number] 08:58:00 Test Item Value Reference Range Interpretation Comments Bilirubin.direct [Mass/volume] in Serum <0.20 0.0-0.3 or Plasma (test code = 1968-7) [facility] W Auto Differential panel - [id number] 08:58:00 Test Item Value Reference Range Interpretation Comments white blood count (test code = 8.6 K/uL 4.0-11.5 white blood count) red blood count (test code = red 4.35 M/uL 3.80-5.20 blood count) hemoglobin (test code = 13.5 g/dL 10.5-15.7 hemoglobin) hematocrit (test code = 40.8 % 34.0-50.0 hematocrit) Erythrocyte mean corpuscular 93.8 fL 86-100 volume [Entitic volume] (test code = 30775-1) mean corpuscular hemoglobin (test 31.0 pg 26.2-33.4 code = mean corpuscular hemoglobin) mean corpuscular HGB conc (test 33.1 g/dL 30-34 code = mean corpuscular HGB conc) red cell distribution width (test 13.4 % 12.0-15.5 code = red cell distribution width) platelet count (test code = 178 K/uL 165-450 platelet count) mean platelet volume (test code = 10.0 fL 9.4-12.6 mean platelet volume) Neutrophils.segmented/100 63.6 % 44.4-80.1 leukocytes in Blood (test code = 00955-9) Granulocytes Immature [#/volume] 0.0 K/uL 0.0-0.03 in Blood (test code = 40015-4) lymphocyte% (test code = 26.4 % 10.0-50.0 lymphocyte%) mono % (test code = mono %) 6.3 % 3.6-12.0 eos % (test code = eos %) 2.8 % 0.0-5.4 Basophils/100 leukocytes in 0.7 % 0.1-1.2 Unspecified specimen (test code = 14686-2) Neutrophils.band form [#/volume] 5.49 K/uL 1.56-6.13 in Blood (test code = 46329-7) Lymphocytes [#/volume] in 2.3 K/uL 1.18-3.74 Unspecified specimen by Automated count (test code = 00748-8) mono # (test code = mono #) 0.54 K/uL 0.24-0.86 eos # (test code = eos #) 0.24 K/uL 0.04-0.36 basophil # (test code = basophil 0.06 K/uL 0.01-0.08 #) NRBC% (test code = NRBC%) 0 /100 WBC 0-0.2 NRBC# (test code = NRBC#) 0 K/uL [facility], [id number] 08:58:00 NeutrophilsBandLymphocyteAtypical LymphMonocyteEosinophilBasophilMetamyelocyteMyelocytePlatelet EstimatePlatelet MorphologyRouleauDifferential comment-[facility]Comprehensive metabolic 2000 panel - Serum or [id number] 08:58:00 Test Item Value Reference Range Interpretation Comments glucose (test code = glucose) 96 mg/dL 74-106 Urea nitrogen [Mass/volume] in 8 mg/dL 6-20 Serum or Plasma (test code = 3094-0) osmolality calculated,serum (test 274 mOsm/kg 280-300 L code = osmolality calculated,serum) creatinine (test code = 0.6 mg/dL 0.50-0.90 creatinine) glomerular filtration rate (test >60.00 code = glomerular filtration rate) Urea nitrogen/Creatinine [Mass 13.3 12-20 Ratio] in Serum or Plasma (test code = 3097-3) sodium level (test code = sodium 138 mmol/L 135-145 level) Potassium [Moles/volume] in Body 4.1 mmol/L 3.5-5.2 fluid (test code = 2821-7) chloride level (test code = 99 mmol/L 98-108 chloride level) CO2 (test code = CO2) 26 mmol/L 21-32 anion gap (test code = anion gap) 17.1 mEq/L 12-20 calcium level (test code = 9.2 mg/dL 8.6-10.0 calcium level) total protein (test code = total 7.5 g/dL 6.6-8.7 protein) albumin (test code = albumin) 4.4 g/dL 3.5-5.2 globulin (test code = globulin) 3.1 gm/dL A/G ratio (test code = A/G ratio) 1.4 >1.0 bilirubin,total (test code = 0.6 mg/dL 0.0-1.2 bilirubin,total) AST/SGOT (test code = AST/SGOT) 16 U/L 15-32 Alanine aminotransferase 9 U/L 0-33 [Enzymatic activity/volume] in Serum or Plasma (test code = 1742-6) Alkaline phosphatase [Enzymatic 67 U/L 35-105 activity/volume] in Serum or Plasma (test code = 6768-6) [facility] 2000 [facility] - Serum or [id number] 08:58:00 Test Item Value Reference Range Interpretation Comments Bilirubin.direct [Mass/volume] in Serum <0.20 0.0-0.3 or Plasma (test code = 1968-7) [facility], [id number] 00:00:00 Test Item Value Reference Range Interpretation Comments gardnerella vaginalis by negative real-time PCR (test code = gardnerella vaginalis by real-time PCR) atopobium vaginae by real-time negative PCR (test code = atopobium vaginae by real-time PCR) bacterial vaginosis associated negative bacterium 2 (bvab2) by real-time PCR (test code = bacterial vaginosis associated bacterium 2 (bvab2) by real-time PCR) megasphaera species (type 1 and negative type 2) by real-time PCR (test code = megasphaera species (type 1 and type 2) by real-time PCR) lactobacillus (bv & av panel) by see comment real time PCR (test code = lactobacillus (bv & av panel) by real time PCR) [facility], [id number] 00:00:00 Test Item Value Reference Range Interpretation Comments gardnerella vaginalis by negative real-time PCR (test code = gardnerella vaginalis by real-time PCR) atopobium vaginae by real-time negative PCR (test code = atopobium vaginae by real-time PCR) bacterial vaginosis associated negative bacterium 2 (bvab2) by real-time PCR (test code = bacterial vaginosis associated bacterium 2 (bvab2) by real-time PCR) megasphaera species (type 1 and negative type 2) by real-time PCR (test code = megasphaera species (type 1 and type 2) by real-time PCR) lactobacillus (bv & av panel) by see comment real time PCR (test code = lactobacillus (bv & av panel) by real time PCR) [facility], [id number] 00:00:00 Test Item Value Reference Range Interpretation Comments gardnerella vaginalis by negative real-time PCR (test code = gardnerella vaginalis by real-time PCR) atopobium vaginae by real-time negative PCR (test code = atopobium vaginae by real-time PCR) bacterial vaginosis associated negative bacterium 2 (bvab2) by real-time PCR (test code = bacterial vaginosis associated bacterium 2 (bvab2) by real-time PCR) megasphaera species (type 1 and negative type 2) by real-time PCR (test code = megasphaera species (type 1 and type 2) by real-time PCR) lactobacillus (bv & av panel) by see comment real time PCR (test code = lactobacillus (bv & av panel) by real time PCR) [facility] + reflex [id number] 00:00:00 Test Item Value Reference Range Interpretation Comments chlamydia trachomatis by negative real-time PCR (reflex to azithromycin resistance by pyrosequencing) (test code = chlamydia trachomatis by real-time PCR (reflex to azithromycin resistance by pyrosequencing)) trichomonas vaginalis by positive A real-time PCR (reflex to metronidazole resistance) (test code = trichomonas vaginalis by real-time PCR (reflex to metronidazole resistance)) neisseria gonorrhoeae by negative real-time PCR (reflex to antibiotic resistance by molecular analysis) (test code = neisseria gonorrhoeae by real-time PCR (reflex to antibiotic resistance by molecular analysis)) human papillomavirus types 16 not detected and 18 by multiplex real-time PCR (test code = human papillomavirus types 16 and 18 by multiplex real-time PCR) liquid Pap test (test code = normal liquid Pap test) [facility], LB + reflex [id number] 00:00:00 Test Item Value Reference Range Interpretation Comments chlamydia trachomatis by negative real-time PCR (reflex to azithromycin resistance by pyrosequencing) (test code = chlamydia trachomatis by real-time PCR (reflex to azithromycin resistance by pyrosequencing)) trichomonas vaginalis by positive A real-time PCR (reflex to metronidazole resistance) (test code = trichomonas vaginalis by real-time PCR (reflex to metronidazole resistance)) neisseria gonorrhoeae by negative real-time PCR (reflex to antibiotic resistance by molecular analysis) (test code = neisseria gonorrhoeae by real-time PCR (reflex to antibiotic resistance by molecular analysis)) human papillomavirus types 16 not detected and 18 by multiplex real-time PCR (test code = human papillomavirus types 16 and 18 by multiplex real-time PCR) liquid Pap test (test code = normal liquid Pap test) [facility] [id number] 00:00:00 Test Item Value Reference Range Interpretation Comments chlamydia trachomatis by negative real-time PCR (reflex to azithromycin resistance by pyrosequencing) (test code = chlamydia trachomatis by real-time PCR (reflex to azithromycin resistance by pyrosequencing)) trichomonas vaginalis by positive A real-time PCR (reflex to metronidazole resistance) (test code = trichomonas vaginalis by real-time PCR (reflex to metronidazole resistance)) neisseria gonorrhoeae by negative real-time PCR (reflex to antibiotic resistance by molecular analysis) (test code = neisseria gonorrhoeae by real-time PCR (reflex to antibiotic resistance by molecular analysis)) human papillomavirus types 16 not detected and 18 by multiplex real-time PCR (test code = human papillomavirus types 16 and 18 by multiplex real-time PCR) liquid Pap test (test code = normal liquid Pap test) [facility] W Auto Differential panel - [id number] 07:42:00 Test Item Value Reference Range Interpretation Comments white blood count (test code = 9.3 K/uL 4.0-11.5 white blood count) red blood count (test code = red 4.33 M/uL 3.80-5.20 blood count) hemoglobin (test code = 13.5 g/dL 10.5-15.7 hemoglobin) hematocrit (test code = 41.2 % 34.0-50.0 hematocrit) Erythrocyte mean corpuscular 95.2 fL 86-100 volume [Entitic volume] (test code = 80863-1) mean corpuscular hemoglobin (test 31.2 pg 26.2-33.4 code = mean corpuscular hemoglobin) mean corpuscular HGB conc (test 32.8 g/dL 30-34 code = mean corpuscular HGB conc) red cell distribution width (test 12.4 % 12.0-15.5 code = red cell distribution width) platelet count (test code = 177 K/uL 165-450 platelet count) mean platelet volume (test code = 10.9 fL 9.4-12.6 mean platelet volume) Neutrophils.segmented/100 66.1 % 44.4-80.1 leukocytes in Blood (test code = 95319-5) Granulocytes Immature [#/volume] 0.0 K/uL 0.0-0.03 in Blood (test code = 64541-5) lymphocyte% (test code = 24.4 % 10.0-50.0 lymphocyte%) mono % (test code = mono %) 5.2 % 3.6-12.0 eos % (test code = eos %) 3.8 % 0.0-5.4 Basophils/100 leukocytes in 0.3 % 0.1-1.2 Unspecified specimen (test code = 88384-3) Neutrophils.band form [#/volume] 6.15 K/uL 1.56-6.13 H in Blood (test code = 77436-0) Lymphocytes [#/volume] in 2.3 K/uL 1.18-3.74 Unspecified specimen by Automated count (test code = 54847-0) mono # (test code = mono #) 0.48 K/uL 0.24-0.86 eos # (test code = eos #) 0.35 K/uL 0.04-0.36 basophil # (test code = basophil 0.03 K/uL 0.01-0.08 #) NRBC% (test code = NRBC%) 0 /100 WBC 0-0.2 NRBC# (test code = NRBC#) 0 K/uL [facility], [id number] 07:42:00 NeutrophilsBandLymphocyteAtypical LymphMonocyteBasophilPlatelet EstimateDifferential comment-PMaH. C. [facility] HospitalComprehensive metabolic 2000 panel - Serum or [id number] 07:42:00 Test Item Value Reference Range Interpretation Comments Glucose [Mass/volume] in Serum or 88 mg/dL 74-106 Plasma (test code = 2345-7) Urea nitrogen [Mass/volume] in 9 mg/dL 6-20 Serum or Plasma (test code = 3094-0) osmolality calculated,serum (test 276 mOsm/kg 280-300 L code = osmolality calculated,serum) creatinine (test code = 0.7 mg/dL 0.50-0.90 creatinine) glomerular filtration rate (test >60.00 code = glomerular filtration rate) Urea nitrogen/Creatinine [Mass 12.9 12-20 Ratio] in Serum or Plasma (test code = 3097-3) sodium level (test code = sodium 139 mmol/L 135-145 level) potassium level (test code = 4.1 mmol/L 3.5-5.2 potassium level) chloride level (test code = 102 mmol/L 98-108 chloride level) CO2 (test code = CO2) 24 mmol/L 21-32 anion gap (test code = anion gap) 17.1 mEq/L 12-20 calcium level (test code = 9.1 mg/dL 8.6-10.0 calcium level) total protein (test code = total 7.0 g/dL 6.6-8.7 protein) albumin (test code = albumin) 4.3 g/dL 3.5-5.2 globulin (test code = globulin) 2.7 gm/dL A/G ratio (test code = A/G ratio) 1.6 >1.0 bilirubin,total (test code = 0.5 mg/dL 0.0-1.2 bilirubin,total) AST/SGOT (test code = AST/SGOT) 15 U/L 15-32 Alanine aminotransferase 10 U/L 0-33 [Enzymatic activity/volume] in Serum or Plasma (test code = 1742-6) Alkaline phosphatase [Enzymatic 53 U/L 35-105 activity/volume] in Serum or Plasma (test code = 6768-6) [facility] Hospital[facility] 1996 panel - Serum or [id number] 07:42:00 Test Item Value Reference Range Interpretation Comments cholesterol level (test code = 141 mg/dL 150-200 L cholesterol level) triglycerides level (test code = 110 mg/dL <150 triglycerides level) HDL cholesterol (test code = HDL 54 mg/dL >65 L cholesterol) LDL cholesterol direct (test code = 77 mg/dL <100 LDL cholesterol direct) cholesterol risk ratio (test code = 2.611 cholesterol risk ratio) [facility] HospitalThyrotropin [Units/volume] in Serum or [id number] 07:42:00 Test Item Value Reference Range Interpretation Comments Thyrotropin [Units/volume] in 1.29 uIU/mL 0.36-3.74 Serum or Plasma (test code = 3016-3) [facility] HospitalHIV 1+2 Ab [Presence] in [id number] 07:42:00HIV P24 AgHIV-1/2 AbMaH. C. Watkins [facility] HospitalThyroxine (T4) free [Mass/volume] in Serum or [id number] 07:42:00 Test Item Value Reference Range Interpretation Comments free T4 (test code = free T4) 1.42 NG/dL 0.93-1.7 [facility] HospitalReagin Ab [Presence] in Serum by [id number] 07:42:00 Test Item Value Reference Range Interpretation Comments Reagin Ab [Presence] in Serum by nonreactive nonreactive RPR (test code = 43614-9) [facility] HospitalFollitropin [Units/volume] in Serum or [id number] 07:42:00 Test Item Value Reference Range Interpretation Comments follicle stimulating hormone (test 4.1 mIU/mL . code = follicle stimulating hormone) [facility] HospitalProlactin [Mass/volume] in Serum or [id number] 07:42:00 Test Item Value Reference Range Interpretation Comments Prolactin [Mass/volume] in Serum 11.2 NG/mL 4.8-23.3 or Plasma (test code = 2842-3) [facility] HospitalEstradiol (E2) [Mass/volume] in Serum or [id number] 07:42:00 Test Item Value Reference Range Interpretation Comments estradiol serum (test code = 70.5 pg/mL . estradiol serum) [facility] HospitalHepatitis B virus surface Ag [Presence] in Serum 2019-04-19 07:42:00 Test Item Value Reference Range Interpretation Comments .hepatitis B surface antigen (test negative negative code = .hepatitis B surface antigen) [facility] HospitalHepatitis C virus RNA [Units/volume] (viral load) in Serum or Plasma by Probe and signal amplification [id number] 07:42:00 Test Item Value Reference Range Interpretation Comments hepatitis C RNA JAVIER,qual (test code negative negative = hepatitis C RNA JAVIER,qual) [facility] W Auto Differential panel - [id number] 07:42:00 Test Item Value Reference Range Interpretation Comments white blood count (test code = 9.3 K/uL 4.0-11.5 white blood count) red blood count (test code = red 4.33 M/uL 3.80-5.20 blood count) hemoglobin (test code = 13.5 g/dL 10.5-15.7 hemoglobin) hematocrit (test code = 41.2 % 34.0-50.0 hematocrit) Erythrocyte mean corpuscular 95.2 fL 86-100 volume [Entitic volume] (test code = 25326-6) mean corpuscular hemoglobin (test 31.2 pg 26.2-33.4 code = mean corpuscular hemoglobin) mean corpuscular HGB conc (test 32.8 g/dL 30-34 code = mean corpuscular HGB conc) red cell distribution width (test 12.4 % 12.0-15.5 code = red cell distribution width) platelet count (test code = 177 K/uL 165-450 platelet count) mean platelet volume (test code = 10.9 fL 9.4-12.6 mean platelet volume) Neutrophils.segmented/100 66.1 % 44.4-80.1 leukocytes in Blood (test code = 63496-4) Granulocytes Immature [#/volume] 0.0 K/uL 0.0-0.03 in Blood (test code = 07916-1) lymphocyte% (test code = 24.4 % 10.0-50.0 lymphocyte%) mono % (test code = mono %) 5.2 % 3.6-12.0 eos % (test code = eos %) 3.8 % 0.0-5.4 Basophils/100 leukocytes in 0.3 % 0.1-1.2 Unspecified specimen (test code = 01401-0) Neutrophils.band form [#/volume] 6.15 K/uL 1.56-6.13 H in Blood (test code = 47498-4) Lymphocytes [#/volume] in 2.3 K/uL 1.18-3.74 Unspecified specimen by Automated count (test code = 35790-5) mono # (test code = mono #) 0.48 K/uL 0.24-0.86 eos # (test code = eos #) 0.35 K/uL 0.04-0.36 basophil # (test code = basophil 0.03 K/uL 0.01-0.08 #) NRBC% (test code = NRBC%) 0 /100 WBC 0-0.2 NRBC# (test code = NRBC#) 0 K/uL [facility] Hospitaldifferent[facility] panel, [id number] 07:42:00 NeutrophilsBandLymphocyteAtypical LymphMonocyteBasophilPlatelet EstimateDifferential comment-[facility]idianComprehensive metabolic 2000 panel - Serum or [id number] 07:42:00 Test Item Value Reference Range Interpretation Comments Glucose [Mass/volume] in Serum or 88 mg/dL 74-106 Plasma (test code = 2345-7) Urea nitrogen [Mass/volume] in 9 mg/dL 6-20 Serum or Plasma (test code = 3094-0) osmolality calculated,serum (test 276 mOsm/kg 280-300 L code = osmolality calculated,serum) creatinine (test code = 0.7 mg/dL 0.50-0.90 creatinine) glomerular filtration rate (test >60.00 code = glomerular filtration rate) Urea nitrogen/Creatinine [Mass 12.9 12-20 Ratio] in Serum or Plasma (test code = 3097-3) sodium level (test code = sodium 139 mmol/L 135-145 level) potassium level (test code = 4.1 mmol/L 3.5-5.2 potassium level) chloride level (test code = 102 mmol/L 98-108 chloride level) CO2 (test code = CO2) 24 mmol/L 21-32 anion gap (test code = anion gap) 17.1 mEq/L 12-20 calcium level (test code = 9.1 mg/dL 8.6-10.0 calcium level) total protein (test code = total 7.0 g/dL 6.6-8.7 protein) albumin (test code = albumin) 4.3 g/dL 3.5-5.2 globulin (test code = globulin) 2.7 gm/dL A/G ratio (test code = A/G ratio) 1.6 >1.0 bilirubin,total (test code = 0.5 mg/dL 0.0-1.2 bilirubin,total) AST/SGOT (test code = AST/SGOT) 15 U/L 15-32 Alanine aminotransferase 10 U/L 0-33 [Enzymatic activity/volume] in Serum or Plasma (test code = 1742-6) Alkaline phosphatase [Enzymatic 53 U/L 35-105 activity/volume] in Serum or Plasma (test code = 6768-6) [facility] HospitalLip[facility] panel - Serum or [id number] 07:42:00 Test Item Value Reference Range Interpretation Comments cholesterol level (test code = 141 mg/dL 150-200 L cholesterol level) triglycerides level (test code = 110 mg/dL <150 triglycerides level) HDL cholesterol (test code = HDL 54 mg/dL >65 L cholesterol) LDL cholesterol direct (test code = 77 mg/dL <100 LDL cholesterol direct) cholesterol risk ratio (test code = 2.611 cholesterol risk ratio) [facility] HospitalThyrotropin [Units/volume] in Serum or [id number] 07:42:00 Test Item Value Reference Range Interpretation Comments Thyrotropin [Units/volume] in 1.29 uIU/mL 0.36-3.74 Serum or Plasma (test code = 3016-3) [facility]HIV [facility]+2 Ab [Presence] in [id number] 07:42:00HIV P24 AgHIV-1/2 AbMaH. C. Watkins Memorial HospitalThyroxine (T4) free [Mass/volume] in Serum or [id number] 07:42:00 Test Item Value Reference Range Interpretation Comments free T4 (test code = free T4) 1.42 NG/dL 0.93-1.7 [facility] HospitalReagin Ab [Presence] in Serum by [id number] 07:42:00 Test Item Value Reference Range Interpretation Comments Reagin Ab [Presence] in Serum by nonreactive nonreactive RPR (test code = 85283-9) [facility] HospitalFollitropin [Units/volume] in Serum or [id number] 07:42:00 Test Item Value Reference Range Interpretation Comments follicle stimulating hormone (test 4.1 mIU/mL . code = follicle stimulating hormone) [facility] HospitalProlactin [Mass/volume] in Serum or [id number] 07:42:00 Test Item Value Reference Range Interpretation Comments Prolactin [Mass/volume] in Serum 11.2 NG/mL 4.8-23.3 or Plasma (test code = 2842-3) [facility] HospitalEstradiol (E2) [Mass/volume] in Serum or [id number] 07:42:00 Test Item Value Reference Range Interpretation Comments estradiol serum (test code = 70.5 pg/mL . estradiol serum) [facility] HospitalHen[facility] hospitaltis [facility] virus surface Ag [Presence] in Serum 2019-04-19 07:42:00 Test Item Value Reference Range Interpretation Comments .hepatitis B surface antigen (test negative negative code = .hepatitis B surface antigen) [facility] [Units/volume] (viral load) in Serum or Plasma by Probe and signal amplification [id number] 07:42:00 Test Item Value Reference Range Interpretation Comments hepatitis C RNA JAVIER,qual (test code negative negative = hepatitis C RNA JAVIER,qual) [facility] W Auto Differential panel - [id number] 07:42:00 Test Item Value Reference Range Interpretation Comments white blood count (test code = 9.3 K/uL 4.0-11.5 white blood count) red blood count (test code = red 4.33 M/uL 3.80-5.20 blood count) hemoglobin (test code = 13.5 g/dL 10.5-15.7 hemoglobin) hematocrit (test code = 41.2 % 34.0-50.0 hematocrit) Erythrocyte mean corpuscular 95.2 fL 86-100 volume [Entitic volume] (test code = 02821-1) mean corpuscular hemoglobin (test 31.2 pg 26.2-33.4 code = mean corpuscular hemoglobin) mean corpuscular HGB conc (test 32.8 g/dL 30-34 code = mean corpuscular HGB conc) red cell distribution width (test 12.4 % 12.0-15.5 code = red cell distribution width) platelet count (test code = 177 K/uL 165-450 platelet count) mean platelet volume (test code = 10.9 fL 9.4-12.6 mean platelet volume) Neutrophils.segmented/100 66.1 % 44.4-80.1 leukocytes in Blood (test code = 81881-7) Granulocytes Immature [#/volume] 0.0 K/uL 0.0-0.03 in Blood (test code = 51119-5) lymphocyte% (test code = 24.4 % 10.0-50.0 lymphocyte%) mono % (test code = mono %) 5.2 % 3.6-12.0 eos % (test code = eos %) 3.8 % 0.0-5.4 Basophils/100 leukocytes in 0.3 % 0.1-1.2 Unspecified specimen (test code = 72416-7) Neutrophils.band form [#/volume] 6.15 K/uL 1.56-6.13 H in Blood (test code = 77363-9) Lymphocytes [#/volume] in 2.3 K/uL 1.18-3.74 Unspecified specimen by Automated count (test code = 30523-8) mono # (test code = mono #) 0.48 K/uL 0.24-0.86 eos # (test code = eos #) 0.35 K/uL 0.04-0.36 basophil # (test code = basophil 0.03 K/uL 0.01-0.08 #) NRBC% (test code = NRBC%) 0 /100 WBC 0-0.2 NRBC# (test code = NRBC#) 0 K/uL [facility]different[facility], [id number] 07:42:00 NeutrophilsBandLymphocyteAtypical LymphMonocyteBasophilPlatelet EstimateDifferential comment-[facility]idianComprehensive metabolic 2000 panel - Serum or [id number] 07:42:00 Test Item Value Reference Range Interpretation Comments Glucose [Mass/volume] in Serum or 88 mg/dL 74-106 Plasma (test code = 2345-7) Urea nitrogen [Mass/volume] in 9 mg/dL 6-20 Serum or Plasma (test code = 3094-0) osmolality calculated,serum (test 276 mOsm/kg 280-300 L code = osmolality calculated,serum) creatinine (test code = 0.7 mg/dL 0.50-0.90 creatinine) glomerular filtration rate (test >60.00 code = glomerular filtration rate) Urea nitrogen/Creatinine [Mass 12.9 12-20 Ratio] in Serum or Plasma (test code = 3097-3) sodium level (test code = sodium 139 mmol/L 135-145 level) potassium level (test code = 4.1 mmol/L 3.5-5.2 potassium level) chloride level (test code = 102 mmol/L 98-108 chloride level) CO2 (test code = CO2) 24 mmol/L 21-32 anion gap (test code = anion gap) 17.1 mEq/L 12-20 calcium level (test code = 9.1 mg/dL 8.6-10.0 calcium level) total protein (test code = total 7.0 g/dL 6.6-8.7 protein) albumin (test code = albumin) 4.3 g/dL 3.5-5.2 globulin (test code = globulin) 2.7 gm/dL A/G ratio (test code = A/G ratio) 1.6 >1.0 bilirubin,total (test code = 0.5 mg/dL 0.0-1.2 bilirubin,total) AST/SGOT (test code = AST/SGOT) 15 U/L 15-32 Alanine aminotransferase 10 U/L 0-33 [Enzymatic activity/volume] in Serum or Plasma (test code = 1742-6) Alkaline phosphatase [Enzymatic 53 U/L 35-105 activity/volume] in Serum or Plasma (test code = 6768-6) [facility] - Serum or [id number] 07:42:00 Test Item Value Reference Range Interpretation Comments cholesterol level (test code = 141 mg/dL 150-200 L cholesterol level) triglycerides level (test code = 110 mg/dL <150 triglycerides level) HDL cholesterol (test code = HDL 54 mg/dL >65 L cholesterol) LDL cholesterol direct (test code = 77 mg/dL <100 LDL cholesterol direct) cholesterol risk ratio (test code = 2.611 cholesterol risk ratio) [facility] HospitalThyrotropin [Units/volume] in Serum or [id number] 07:42:00 Test Item Value Reference Range Interpretation Comments Thyrotropin [Units/volume] in 1.29 uIU/mL 0.36-3.74 Serum or Plasma (test code = 3016-3) [facility] HospitalHIV 1+2 Ab [Presence] in [id number] 07:42:00HIV P24 AgHIV-1/2 AbMaH. C. [facility] HospitalThyroxine (T4) free [Mass/volume] in Serum or [id number] 07:42:00 Test Item Value Reference Range Interpretation Comments free T4 (test code = free T4) 1.42 NG/dL 0.93-1.7 [facility] HospitalReagin Ab [Presence] in Serum by [id number] 07:42:00 Test Item Value Reference Range Interpretation Comments Reagin Ab [Presence] in Serum by nonreactive nonreactive RPR (test code = 07405-5) [facility] HospitalFollitropin [Units/volume] in Serum or [id number] 07:42:00 Test Item Value Reference Range Interpretation Comments follicle stimulating hormone (test 4.1 mIU/mL . code = follicle stimulating hormone) [facility] HospitalProlactin [Mass/volume] in Serum or [id number] 07:42:00 Test Item Value Reference Range Interpretation Comments Prolactin [Mass/volume] in Serum 11.2 NG/mL 4.8-23.3 or Plasma (test code = 2842-3) [facility] HospitalEstradiol (E2) [Mass/volume] in Serum or [id number] 07:42:00 Test Item Value Reference Range Interpretation Comments estradiol serum (test code = 70.5 pg/mL . estradiol serum) [facility] HospitalHepatitis B virus surface Ag [Presence] in Serum 2019-04-19 07:42:00 Test Item Value Reference Range Interpretation Comments .hepatitis B surface antigen (test negative negative code = .hepatitis B surface antigen) [facility] HospitalHepatitis C virus RNA [Units/volume] (viral load) in Serum or Plasma by Probe and signal amplification [id number] 07:42:00 Test Item Value Reference Range Interpretation Comments hepatitis C RNA JAVIER,qual (test code negative negative = hepatitis C RNA JAVIER,qual) [facility] W Auto Differential panel - [id number] 07:42:00 Test Item Value Reference Range Interpretation Comments white blood count (test code = 9.3 K/uL 4.0-11.5 white blood count) red blood count (test code = red 4.33 M/uL 3.80-5.20 blood count) hemoglobin (test code = 13.5 g/dL 10.5-15.7 hemoglobin) hematocrit (test code = 41.2 % 34.0-50.0 hematocrit) Erythrocyte mean corpuscular 95.2 fL 86-100 volume [Entitic volume] (test code = 79296-7) mean corpuscular hemoglobin (test 31.2 pg 26.2-33.4 code = mean corpuscular hemoglobin) mean corpuscular HGB conc (test 32.8 g/dL 30-34 code = mean corpuscular HGB conc) red cell distribution width (test 12.4 % 12.0-15.5 code = red cell distribution width) platelet count (test code = 177 K/uL 165-450 platelet count) mean platelet volume (test code = 10.9 fL 9.4-12.6 mean platelet volume) Neutrophils.segmented/100 66.1 % 44.4-80.1 leukocytes in Blood (test code = 19971-6) Granulocytes Immature [#/volume] 0.0 K/uL 0.0-0.03 in Blood (test code = 16674-3) lymphocyte% (test code = 24.4 % 10.0-50.0 lymphocyte%) mono % (test code = mono %) 5.2 % 3.6-12.0 eos % (test code = eos %) 3.8 % 0.0-5.4 Basophils/100 leukocytes in 0.3 % 0.1-1.2 Unspecified specimen (test code = 75411-5) Neutrophils.band form [#/volume] 6.15 K/uL 1.56-6.13 H in Blood (test code = 62105-1) Lymphocytes [#/volume] in 2.3 K/uL 1.18-3.74 Unspecified specimen by Automated count (test code = 33863-7) mono # (test code = mono #) 0.48 K/uL 0.24-0.86 eos # (test code = eos #) 0.35 K/uL 0.04-0.36 basophil # (test code = basophil 0.03 K/uL 0.01-0.08 #) NRBC% (test code = NRBC%) 0 /100 WBC 0-0.2 NRBC# (test code = NRBC#) 0 K/uL [facility] Hospitaldifferential panel, [id number] 07:42:00 NeutrophilsBandLymphocyteAtypical LymphMonocyteBasophilPlatelet EstimateDifferential comment-[facility]idianComprehensive metabolic 2000 panel - Serum or [id number] 07:42:00 Test Item Value Reference Range Interpretation Comments Glucose [Mass/volume] in Serum or 88 mg/dL 74-106 Plasma (test code = 2345-7) Urea nitrogen [Mass/volume] in 9 mg/dL 6-20 Serum or Plasma (test code = 3094-0) osmolality calculated,serum (test 276 mOsm/kg 280-300 L code = osmolality calculated,serum) creatinine (test code = 0.7 mg/dL 0.50-0.90 creatinine) glomerular filtration rate (test >60.00 code = glomerular filtration rate) Urea nitrogen/Creatinine [Mass 12.9 12-20 Ratio] in Serum or Plasma (test code = 3097-3) sodium level (test code = sodium 139 mmol/L 135-145 level) potassium level (test code = 4.1 mmol/L 3.5-5.2 potassium level) chloride level (test code = 102 mmol/L 98-108 chloride level) CO2 (test code = CO2) 24 mmol/L 21-32 anion gap (test code = anion gap) 17.1 mEq/L 12-20 calcium level (test code = 9.1 mg/dL 8.6-10.0 calcium level) total protein (test code = total 7.0 g/dL 6.6-8.7 protein) albumin (test code = albumin) 4.3 g/dL 3.5-5.2 globulin (test code = globulin) 2.7 gm/dL A/G ratio (test code = A/G ratio) 1.6 >1.0 bilirubin,total (test code = 0.5 mg/dL 0.0-1.2 bilirubin,total) AST/SGOT (test code = AST/SGOT) 15 U/L 15-32 Alanine aminotransferase 10 U/L 0-33 [Enzymatic activity/volume] in Serum or Plasma (test code = 1742-6) Alkaline phosphatase [Enzymatic 53 U/L 35-105 activity/volume] in Serum or Plasma (test code = 6768-6) [facility] 1996 panel - Serum or [id number] 07:42:00 Test Item Value Reference Range Interpretation Comments cholesterol level (test code = 141 mg/dL 150-200 L cholesterol level) triglycerides level (test code = 110 mg/dL <150 triglycerides level) HDL cholesterol (test code = HDL 54 mg/dL >65 L cholesterol) LDL cholesterol direct (test code = 77 mg/dL <100 LDL cholesterol direct) cholesterol risk ratio (test code = 2.611 cholesterol risk ratio) [facility] HospitalThyrotropin [Units/volume] in Serum or [id number] 07:42:00 Test Item Value Reference Range Interpretation Comments Thyrotropin [Units/volume] in 1.29 uIU/mL 0.36-3.74 Serum or Plasma (test code = 3016-3) [facility] HospitalHIV 1+2 Ab [Presence] in [id number] 07:42:00HIV P24 AgHIV-1/2 AbMaH. C. Watkins Memorial HospitalThyroxine (T4) free [Mass/volume] in Serum or [id number] 07:42:00 Test Item Value Reference Range Interpretation Comments free T4 (test code = free T4) 1.42 NG/dL 0.93-1.7 [facility] HospitalReagin Ab [Presence] in Serum by [id number] 07:42:00 Test Item Value Reference Range Interpretation Comments Reagin Ab [Presence] in Serum by nonreactive nonreactive RPR (test code = 91565-5) [facility] HospitalFollitropin [Units/volume] in Serum or [id number] 07:42:00 Test Item Value Reference Range Interpretation Comments follicle stimulating hormone (test 4.1 mIU/mL . code = follicle stimulating hormone) [facility] HospitalProlactin [Mass/volume] in Serum or [id number] 07:42:00 Test Item Value Reference Range Interpretation Comments Prolactin [Mass/volume] in Serum 11.2 NG/mL 4.8-23.3 or Plasma (test code = 2842-3) [facility] HospitalEstradiol (E2) [Mass/volume] in Serum or [id number] 07:42:00 Test Item Value Reference Range Interpretation Comments estradiol serum (test code = 70.5 pg/mL . estradiol serum) [facility] HospitalHepatitis B virus surface Ag [Presence] in Serum 2019-04-19 07:42:00 Test Item Value Reference Range Interpretation Comments .hepatitis B surface antigen (test negative negative code = .hepatitis B surface antigen) [facility] HospitalHepatitis C virus RNA [Units/volume] (viral load) in Serum or Plasma by Probe and signal amplification [id number] 07:42:00 Test Item Value Reference Range Interpretation Comments hepatitis C RNA JAVIER,qual (test code negative negative = hepatitis C RNA JAVIER,qual) [facility] HospitalUrinalysis macro (dipstick) panel - [id number] 10:09:00 Test Item Value Reference Range Interpretation Comments Leukocytes (test code = Leukocytes) Negative Nitrite (test code = Nitrite) negative Urobilinogen (test code = .2 Urobilinogen) Protein (test code = Protein) Negative pH (test code = pH) 7.0 Blood (test code = Blood) Negative Specific [place] (test code = 1.015 Specific [place]) Ketone (test code = Ketone) Negative Bilirubin (test code = Bilirubin) Negative Glucose (test code = Glucose) Negative Appearance (test code = Appearance) Clear Color (test code = Color) Yellow [facility] HospitalUrinalysis macro (dipstick) panel - [id number] 10:09:00 Test Item Value Reference Range Interpretation Comments Leukocytes (test code = Leukocytes) Negative Nitrite (test code = Nitrite) negative Urobilinogen (test code = .2 Urobilinogen) Protein (test code = Protein) Negative pH (test code = pH) 7.0 Blood (test code = Blood) Negative Specific [place] (test code = 1.015 Specific [place]) Ketone (test code = Ketone) Negative Bilirubin (test code = Bilirubin) Negative Glucose (test code = Glucose) Negative Appearance (test code = Appearance) Clear Color (test code = Color) Yellow [facility]BL[facility] [id number] 12:50:00Positive 1(12/31/2010 07:50:00) ??[facility] [id number] 12:38:00Negative (12/31/2010 07:38:00) ??[facility] [id number] 12:37:00 Test Item Value Reference Range Interpretation Comments INR (test code = INR) 1.1 1 0.85-1.[address] [facility]A[id number] 12:37:00 Test Item Value Reference Range Interpretation Comments PT (test code = PT) 14.2 s 12.0-14.[address] [facility] HospitalRknzalnMHIASZOXFG0723-28-53 12:37:00 Test Item Value Reference Range Interpretation Comments PTT (test code = PTT) 35.7 s 22.9-35.8 N [facility] [id number] 16:00:009.3[facility] 2010-[facility] 16:00:55073.0[facility] QmdcxqbJFIQPMTTHM3137-87-69 16:00:0024.5 [facility] LaoqvuzSRUTMJNKFK7660-97-59 16:00:0033.9[facility] 2010-12-29 16:00:00 Test Item Value Reference Range Interpretation Comments MCH (test code = MCH) 28.0 pg 27.0-31.0 N [facility] [id number] 16:00:0082.5[facility] 2010-12-29 16:00:0035.4[facility] AxweiycAXRLRYPRGZ3547-82-98 16:00:0012.0[facility] VviawqjMMWCVKOHBB6130-80-86 16:00:004.29[facility] GammkgbFEUGPHQQCK4989-58-11 16:00:008.6[facility] [id number] 16:00:00Slight *ABN*(12/29/2010 11:00:00) ??[facility] WibwtgsWVUAZDYWRL6079-98-95 16:00:000.1[facility] [id number] 16:00:001+ *ABN*(12/29/2010 11:00:00) ??[facility] [id number] 16:00:00Slight (12/29/2010 11:00:00) ??[facility] XJZBMSZKJC3781-81-98 16:00:000.5[facility] PlipnncXSRKBIEXJQ8064-27-21 16:00:00 54.3[facility] QwmvvstWFCXCYWWNC4867-62-59 16:00:005.6[facility] 2010-12-29 16:00:000.9[facility] OpiqadyPMMHGDBQTD2410-03-16 16:00:004.7[facility] WrgmfhmOIFWRZPSKZ2262-20-75 16:00:000.5[facility] WbjyowkDZYGLWPLCY7297-36-13 16:00:002.9[facility] JajgimvZUKZLTCQQP9903-92-70 16:00:005.5[facility] PVLQGPMCBM2912-24-22 16:00:0033.7[facility]
[2020-08-30 12:37] LABS: Urine Blood 2+ (Negative); Urine Glucose Negative (Negative); Urine Protein 1+ (Negative)
[2020-08-30 13:33] LABS: Urine Bacteria 20-50 /HPF (<20); Urine RBC <5 /HPF (NONE SEEN); Urine Yeast PRESENT (NONE SEEN)
[2020-08-30] MEDS ORDERED: FENTANYL CITR 100 MCG/2 ML ONE (13:55)
[2020-08-30] MEDS ORDERED: ONDANSETRON 4 MG/2 ML VIAL ONE ×2 (13:55→16:11)
[2020-08-30 14:02] LABS: Absolute Lymphocytes (CBC) 1.4 K/uL (0.7-4.9); Basophils % 0.4 % (0-1.3); Hematocrit 36.6 % (36.0-45.0); Lymphocytes % 20.2 % (15.3-44.8); MPV 8.7 fL (7.6-11.3); RBC Red Blood Cell Count 3.93 M/uL (3.86-4.86)
--- NOTE | 2020-08-30 14:24 | RAD REPORT ---
EXAM DESCRIPTION: CT - Abdomen Pelvis W Contrast - 08/30/2020 2:01 pm CLINICAL HISTORY: Abdominal pain COMPARISON: none. TECHNIQUE: Computed axial tomography of the abdomen pelvis was obtained. 100 cc Isovue-300 was admin istered intravenously. Oral contrast was not requested which limits evaluation of bowel. All CT scans are performed using dose optimization technique as appropriate and may include automated exposure control or mA/KV adjustment according to patient size. FINDINGS: The liver, spleen, pancreas, adrenal and kidneys appear unremarkable. There is no evidence of diverticulitis. Small supraumbilical hernia contains fat. Small to moderate amount of free fluid within cul-de-sac. A 2 centimeter irregularly-shaped right ova heidi cyst IMPRESSION: 2 centimeter irregularly-shaped right ovarian cyst probably has recently ruptured. Small to moderate amount of free fluid within the cul-de-sac.
[2020-08-30 14:40] LABS: Albumin 3.6 g/dL (3.4-5.0); Bilirubin Direct 0.2 mg/dL (0-0.2); Bilirubin Total 0.9 mg/dL (0.2-1.0); Protein, Total 7.8 g/dL (6.4-8.2)
[2020-08-30] MEDS ORDERED: FLUCONAZOLE 100 MG TAB ONE (14:50)
[2020-08-30] MEDS ORDERED: NA CHLORIDE 0.9% 500 ML ONE ×2 (14:51→16:02)
[2020-08-30 14:55] LABS: Potassium 2.9 mmol/L (3.5-5.1)
[2020-08-30 15:13] LABS: Urine Blood 1+ (Negative); Urine Glucose Negative (Negative); Urine Protein Negative (Negative); Urine Specific Gravity <=1.005 (1.005-1.030)
[2020-08-30 15:52] LABS: Urine Bacteria <20 /HPF (<20)
[2020-08-30] MEDS ORDERED: POTASSIUM CL SA 10 MEQ TAB PO ONE (16:02)
[2020-08-30] MEDS ORDERED: KCL 20 MEQ/100 mL IVPB 20 MEQ/100 ML BAG IV ONE (16:02)
--- NOTE | 2020-08-30 16:02 | EDPHYS ---
Physician Documentation [facility] Name: Ashley Boykin Age: 39 yrs Sex: Female : 1980 Arrival Date: 08/30/2020 Time: 12:07 Bed 14 Private MD: TRIP Physician Lyle Beard HPI: 08/30 14:08 This 39 yrs old Female presents to ER via Ambulatory with complaints of UTI, Vomiting, jr8 Abdominal pain . 14:25 The patient presents with abdominal pain in the lower abdomen. Onset: The jr8 symptoms/episode began/occurred gradually. The symptoms do not radiate. Associated signs and symptoms: Pertinent positives: nausea and vomiting. The symptoms are described as crampy. Modifying factors: The symptoms are alleviated by nothing, the symptoms are aggravated by movement. Severity of pain: At its worst the pain was moderate in the emergency department the pain is unchanged. The patient has not experienced similar symptoms in the past. The patient has been recently seen by a physician:. Patient stated that she had seen PCP for abdominal cramping. Saw that she had blood in urine and started her on Abx. Still having pain and now nausea with vomiting. Denies fevers at this time . 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 Flu vaccine is up to date. - Social history:: Smoking status: Patient reports the use of cigarette tobacco products, smokes one-half pack cigarettes per day. ROS: 14:25 Eyes: Negative for injury, pain, redness, and discharge, ENT: Negative for injury, jr8 pain, and discharge, Neck: Negative for injury, pain, and swelling, Cardiovascular: Negative for chest pain, palpitations, and edema, Respiratory: Negative for shortness of breath, cough, wheezing, and pleuritic chest pain, Back: Negative for injury and pain, MS/Extremity: Negative for injury and deformity, Skin: Negative for injury, rash, and discoloration, Neuro: Negative for headache, weakness, numbness, tingling, and seizure. 14:25 Abdomen/GI: Positive for abdominal pain, nausea and vomiting, abdominal cramps, Negative for abdominal distension, hematemesis, rectal bleeding. Exam: 14:31 Constitutional: This is a well developed, well nourished patient who is awake, alert, jr8 and in no acute distress. ENT: Nares patent. No nasal discharge, no septal abnormalities noted. Tympanic membranes are normal and external auditory canals are clear. Oropharynx with no redness, swelling, or masses, exudates, or evidence of obstruction, uvula midline. Mucous membranes moist. Neck: Trachea midline, no thyromegaly or masses palpated, and no cervical lymphadenopathy. Supple, full range of motion without nuchal rigidity, or vertebral point tenderness. No Meningismus. Cardiovascular: Regular rate and rhythm with a normal S1 and S2. No gallops, murmurs, or rubs. Normal PMI, no JVD. No pulse deficits. Respiratory: Lungs have equal breath sounds bilaterally, clear to auscultation and percussion. No rales, rhonchi or wheezes noted. No increased work of breathing, no retractions or nasal flaring. Abdomen/GI: Soft with mild tenderness to lower abdomen bilaterally with normal bowel sounds. No distension or tympany. No guarding or rebound. No evidence of tenderness throughout. Back: No spinal tenderness. No costovertebral tenderness. Full range of motion. Skin: Warm, dry with normal turgor. Normal color with no rashes, no lesions, and no evidence of cellulitis. MS/ Extremity: Pulses equal, no cyanosis. Neurovascular intact. Full, normal range of motion. Neuro: Awake and alert, GCS 15, oriented to person, place, time, and situation. Cranial nerves II-XII grossly intact. Motor strength 5/5 in all extremities. Sensory grossly intact. Cerebellar exam normal. Normal gait. Vital Signs: 12:17 BP 116 / 78; Pulse 84; Resp 16 S; Temp 97.5(TE); Pulse Ox 98% on R/A; Weight 66.22 kg ca1 (R); Height 5 ft. 2 in. (157.48 cm) (R); Pain 7/10; 12:30 BP 124 / 88; Pulse 91; Resp 16; Pulse Ox 100% on R/A; zb 13:30 BP 118 / 76; Pulse 74; Resp 16; Pulse Ox 98% on R/A; zb 17:00 BP 107 / 78; Pulse 70; Resp 16; Pulse Ox 100% on R/A; zb 12:17 Body Mass Index 26.70 (66.22 kg, 157.48 cm) ca1 MDM: 12:40 Patient medically screened. [facility] 16:01 Data reviewed: vital signs, nurses notes, lab test result(s), radiologic studies, CT [facility] scan. Data interpreted: Pulse oximetry: on room air is 98 %. Interpretation: normal. Counseling: I had a detailed discussion with the patient and/or guardian regarding: the historical points, exam findings, and any diagnostic results supporting the discharge/admit diagnosis, lab results, radiology results, the need for outpatient follow up, an OB/Gyne specialist, to return to the emergency department if symptoms worsen or persist or if there are any questions or concerns that arise at home. Response to treatment: the patient's symptoms have markedly improved after treatment. 08/30 12:36 Order name: Urine Dipstick-Ancillary; Complete Time: 12:40 EDMO 08/30 12:39 Order name: Urine --Ancillary (enter results); Complete Time: 13:45 ds4 08/30 12:40 Order name: Urine Microscopic Only; Complete Time: 13:45 [facility] 08/30 13:20 Order name: Basic Metabolic Panel; Complete Time: 14:55 [facility] 08/30 13:20 Order name: CBC with Diff; Complete Time: 14:07 [facility] 08/30 13:20 Order name: Hepatic Function; Complete Time: 14:55 [facility] 08/30 13:20 Order name: Lipase; Complete Time: 14:55 [facility] 08/30 13:22 Order name: CT Abd/Pelvis - IV Contrast Only; Complete Time: 14:25 [facility] 08/30 15:10 Order name: Urine Microscopic Only; Complete Time: 16:00 [facility] 08/30 15:10 Order name: Urine Culture [facility] 08/30 15:12 Order name: Urine Dipstick-Ancillary; Complete Time: 15:21 [facility] 08/30 13:20 Order name: IV Saline Lock; Complete Time: 13:30 [facility] 08/30 13:20 Order name: Labs collected and sent; Complete Time: 13:30 jr8 08/30 13:46 Order name: Straight Cath; Complete Time: 15:14 jr8 Administered Medications: 13:44 Drug: fentaNYL (PF) 50 mcg {Note: RASS 0.} Route: IVP; Site: right antecubital; zb 14:35 Follow up: Response: No adverse reaction; No change in condition; Pain is decreased; zb RASS: Alert and Calm (0) 13:44 Drug: Zofran (Ondansetron) 4 mg Route: IVP; Site: right antecubital; zb 14:35 Follow up: Response: No adverse reaction; Nausea is decreased zb 14:35 Drug: NS 0.9% 500 ml Route: IV; Rate: bolus; Site: right antecubital; zb 16:02 Follow up: Response: No adverse reaction; IV Status: Completed infusion; IV Intake: zb 500ml 14:35 Drug: DiFLUcan (fluconazole) 150 mg Route: PO; zb 16:01 Follow up: Response: No adverse reaction zb 16:01 Drug: Potassium Chloride 20 mEq Route: IV; Rate: calculated rate; Site: right zb antecubital; 17:00 Follow up: Response: No adverse reaction; IV Status: Order to discontinue infusion; IV zb Intake: 50ml 16:01 Drug: NS 0.9% 500 ml Route: IV; Rate: bolus; Site: right antecubital; zb 17:00 Follow up: Response: No adverse reaction; IV Status: Completed infusion; IV Intake: zb 500ml 16:01 Drug: Potassium Chloride 40 mEq Route: PO; zb 17:00 Follow up: Response: No adverse reaction zb 16:03 Drug: Zofran (Ondansetron) 4 mg Route: IVP; Site: right antecubital; zb 17:00 Follow up: Response: No adverse reaction; Nausea is decreased zb 16:03 Drug: TORadol - (ketorolac) 15 mg Route: IVP; Site: right antecubital; zb 17:00 Follow up: Response: No adverse reaction; Marked relief of symptoms zb Disposition: 08/30/20 16:02 Discharged to Home. Impression: Unspecified ovarian cysts - With rupture, Abdominal and pelvic pain. - Condition is Stable. - Discharge Instructions: Abdominal Pain, Adult, Ovarian Cyst. - Prescriptions for Ibuprofen 800 mg Oral Tablet - take 1 tablet by ORAL route every 12 hours As needed take with food; 20 tablet. - Medication Reconciliation Form, Thank You Letter, Antibiotic Education, Prescription Opioid Use, Work release form form. - Follow up: Private Physician; When: 5 - 6 days; Reason: Recheck today's complaints, Continuance of care, Re-evaluation by your physician. - Problem is new. - Symptoms have improved. 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 Signatures: Dispatcher [employer] EDLyle oFwler MD MD cha Roszak, Josh, PA PA jr8 [address], RN RN Radha Lee RN RN zb Corrections: (The following items were deleted from the chart) 08/30 17:02 16:02 08/30/2020 16:02 Discharged to Home. Impression: Unspecified ovarian cysts - With zb rupture; Abdominal and pelvic pain. Condition is Stable. Forms are Medication Reconciliation Form, Thank You Letter, Antibiotic Education, Prescription Opioid Use. Follow up: Private Physician; When: 5 - 6 days; Reason: Recheck today's complaints, Continuance of care, Re-evaluation by your physician. Problem is new. Symptoms have improved. jr8
--- NOTE | 2020-08-30 16:02 | ER ---
Nurse's Notes [facility] Name: Ashley Boykin Age: 39 yrs Sex: Female : 1980 Arrival Date: 08/30/2020 Time: 12:07 Bed 14 Private MD: Diagnosis: Unspecified ovarian cysts-With rupture;Abdominal and pelvic pain Presentation: 08/30 12:17 Chief complaint: Patient states: Was diagnosed with UTI 4 days RN ORTHOPAEDIC, was prescribed ABX ca1 and Zofran but still having N/V, now starting to get dizzy. Coronavirus screen: Client denies travel out of the [place] in the last 14 days. nausea, vomiting. Client presents with at least one sign or symptom that may indicate coronavirus-19. Standard/surgical mask placed on the client. Provider contacted for isolation considerations. Ebola Screen: Patient negative for fever greater than or equal to 101.5 degrees Fahrenheit, and additional compatible Ebola Virus Disease symptoms Patient denies exposure to infectious person. Patient denies travel to an Ebola-affected area in the 21 days before illness onset. No symptoms or risks identified at this time. Initial Sepsis Screen: Does the patient meet any 2 criteria? No. Patient's initial sepsis screen is negative. Does the patient have a suspected source of infection? No. Patient's initial sepsis screen is negative. Risk Assessment: Do you want to hurt yourself or someone else? Patient reports no desire to harm self or others. Onset of symptoms was August 30, 2020. 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 Flu vaccine is up to date. - Social history:: Smoking status: Patient reports the use of cigarette tobacco products, smokes one-half pack cigarettes per day. Screenin:27 Abuse screen: Denies threats or abuse. Denies injuries from another. Nutritional zb screening: No deficits noted. Tuberculosis screening: No symptoms or risk factors identified. Fall Risk None identified. Assessment: 12:25 General: Appears in no apparent distress. uncomfortable, Behavior is calm, cooperative, zb appropriate for age. Pain: Complains of pain in right femoral area, left femoral area and suprapubic area Pain radiates to low back area Pain currently is 6 out of 10 on a pain scale. Quality of pain is described as crampy, throbbing, Pain began 2-3 days ago. Is continuous, Aggravated by eating, drinking, Also complains of nausea. Neuro: Level of Consciousness is awake, alert, obeys commands, Oriented to person, place, time, situation. Cardiovascular: Reports None Patient's skin is warm and dry. Respiratory: Airway is patent Trachea midline Respiratory effort is even, unlabored, Respiratory pattern is regular, symmetrical. GI: Abdomen is round Bowel sounds present X 4 quads. Abd is soft and non tender X 4 quads. Reports intolerance of fluids, intolerance of food, nausea, vomiting. : Reports cramping, in bilateral lower quadrant(s) lower back pain urgency, urinary frequency. Derm: Skin is intact, is healthy with good turgor, Skin is dry, Skin is normal, Skin temperature is warm. Musculoskeletal: Capillary refill < 3 seconds, in bilateral Range of motion: intact in all extremities. 15:14 Reassessment: ECP at bedside discussing care with patient. zb 16:04 Reassessment: d/c pending completion of IV medication. zb 16:59 Reassessment: patient stated that she wanted to go home. before IV medication zb completion notified ecp. elza'ed. IV d/c. discharge instructions given. patient gait even and steady. family at bedside. Vital Signs: 12:17 BP 116 / 78; Pulse 84; Resp 16 S; Temp 97.5(TE); Pulse Ox 98% on R/A; Weight 66.22 kg ca1 (R); Height 5 ft. 2 in. (157.48 cm) (R); Pain 7/10; 12:30 BP 124 / 88; Pulse 91; Resp 16; Pulse Ox 100% on R/A; zb 13:30 BP 118 / 76; Pulse 74; Resp 16; Pulse Ox 98% on R/A; zb 17:00 BP 107 / 78; Pulse 70; Resp 16; Pulse Ox 100% on R/A; zb 12:17 Body Mass Index 26.70 (66.22 kg, 157.48 cm) ca1 ED Course: 12:07 Patient arrived in ED. bp1 12:18 Triage completed. ca1 12:19 Arm band placed on right wrist. ca1 12:21 Radha Gagnon, RN is Primary Nurse. zb 12:28 Patient has correct armband on for positive identification. Bed in low position. Call zb light in reach. Side rails up X 1. Adult w/ patient. Pulse ox on. NIBP on. 12:28 No provider procedures requiring assistance completed. zb 12:39 Montez Ford PA is PHCP. jr8 12:39 Lyle Beard MD is Attending Physician. jr8 14:01 CT Abd/Pelvis - IV Contrast Only In Process Unspecified. EDMS 15:14 Urine collected: straight cath specimen, clear, Amount Returned: 150mL. zb 17:02 IV discontinued, intact, bleeding controlled, No redness/swelling at site. Pressure zb dressing applied. Administered Medications: 13:44 Drug: fentaNYL (PF) 50 mcg {Note: RASS 0.} Route: IVP; Site: right antecubital; zb 14:35 Follow up: Response: No adverse reaction; No change in condition; Pain is decreased; zb RASS: Alert and Calm (0) 13:44 Drug: Zofran (Ondansetron) 4 mg Route: IVP; Site: right antecubital; zb 14:35 Follow up: Response: No adverse reaction; Nausea is decreased zb 14:35 Drug: NS 0.9% 500 ml Route: IV; Rate: bolus; Site: right antecubital; zb 16:02 Follow up: Response: No adverse reaction; IV Status: Completed infusion; IV Intake: zb 500ml 14:35 Drug: DiFLUcan (fluconazole) 150 mg Route: PO; zb 16:01 Follow up: Response: No adverse reaction zb 16:01 Drug: Potassium Chloride 20 mEq Route: IV; Rate: calculated rate; Site: right zb antecubital; 17:00 Follow up: Response: No adverse reaction; IV Status: Order to discontinue infusion; IV zb Intake: 50ml 16:01 Drug: NS 0.9% 500 ml Route: IV; Rate: bolus; Site: right antecubital; zb 17:00 Follow up: Response: No adverse reaction; IV Status: Completed infusion; IV Intake: zb 500ml 16:01 Drug: Potassium Chloride 40 mEq Route: PO; zb 17:00 Follow up: Response: No adverse reaction zb 16:03 Drug: Zofran (Ondansetron) 4 mg Route: IVP; Site: right antecubital; zb 17:00 Follow up: Response: No adverse reaction; Nausea is decreased zb 16:03 Drug: TORadol - (ketorolac) 15 mg Route: IVP; Site: right antecubital; zb 17:00 Follow up: Response: No adverse reaction; Marked relief of symptoms zb Intake: 16:02 IV: 500ml; Total: 500ml. zb 17:00 IV: 500ml; Total: 1000ml. zb 17:00 IV: 50ml; Total: 1050ml. zb Outcome: 16:02 Discharge ordered by . nubia 17:00 Discharged to home ambulatory, with family. zb 17:00 Condition: stable 17:00 Discharge instructions given to patient, family, Instructed on discharge instructions, follow up and referral plans. medication usage, Demonstrated understanding of instructions, follow-up care, medications, Prescriptions given X 1. 17:02 Patient left the ED. zb Signatures: Dispatcher [employer] EDMS Montez Ford PA PA jrMaegan Velasquez RN RN ca1 Paniauga, Brittany bp1 Brown, Zipporah, RN RN zyadi
[2020-08-30] MEDS ORDERED: KETOROLAC 30 MG/ML INJ ONE (16:11)
[2020-08-30 17:17] VITALS: TEMP 97.5
[2020-08-30 17:29] VITALS: BP 107/78; O2SAT 100
== END 2020-08-30 17:02 | disposition home or self-care (01) ==
LOC: ER 12:00
DX: N83.201 Unspecified ovarian cyst, right side (principal); F41.9 Anxiety disorder, unspecified; F20.9 Schizophrenia, unspecified; F32.9 Major depressive disorder, single episode, unspecified; F17.210 Nicotine dependence, cigarettes, uncomplicated
CPT/HCPCS: 96365; 96361; 87088; 85025; 87086; 80048; 36415; 81025; 82565; 80076; 83690; 74177; 96375; 99284; Q9967; J3480; J3010; J7040 ×2; J2405 ×2; 81003; 81015

== ENCOUNTER 2020-11-10 19:15 | Emergency (ER) | payer OTHER ==
--- OUTSIDE RECORDS SUMMARY | 2020-11-10 19:22 | XMS REPORT | Continuity of Care Document ---
:1980 Author Organization [facility] t Address [address] [place] [address] Care Team Providers Name Role Phone Unavailable Unavailable Unavailable Problems Condition Condition Condition Status Onset Resolution Last Treating Co mments Source Name Details Category Date Date Treatment Clinician Date Tinea Tinea Problem Active [facility] pedis Pedis 3-12 da 00:00: Medical 00 Group Diverticul Diverticul Problem Active M [facility] itis itis 312 da 00:00: Medical 00 Group Irritable Irritable Problem Active [facility] bowel Bowel 312 da syndrome Syndrome 00:00: Medica l with with 00 Group diarrhea Diarrhea Calculus Calculus Problem Active [facility] of of 309 da gallbladde Gallbladde 00:00: Me dical r with r with 00 Group cholecysti Cholecysti tis tis Dysmenorrh Dysmenorrh Problem Active 2019-0 M [facility] ea ea 309 da 00:00: Medical 00 Group Menometror Menometror Problem Active 2019- M [facility] rhagia rhagia 309 da 00:00: Medical 00 Group Nausea and Nausea and Problem Active M [facility] vomiting Vomiting 3-09 da 00:00: Medical 00 Group Chronic Chronic Problem Active [facility] post-traum Post-traum 1-23 da atic atic 00:00: [facility] stress Stress 00 al disorder Disorder [facility] Trichomona Trichomona Problem Active M [facility] l l 1-21 da vaginitis Vaginitis 00:00: Medi shan 00 Group Schizoaffe Schizoaffe Problem Active [facility] ctive ctive 1-20 da disorder, Disorder, 00:00: Epis rn endoscopy bipolar Bipolar 00 al type Type Health [...] l 00 Group DESIRES Diagnosis Active 2010-12-31 Me moria PERMANENT 9-20 06:57:00 l STERILIZAT DESIRES 00:00: Her carlos ION PERMANENT 00 STERILIZAT ION Active 12/22/2010 [facility] V22.2 Diagnosis Active 2011-03-03 Mem oria 7-13 15:12:00 l V22.2 06:00: [place] 00 Active 10/14/2010 [facility] Allergies, Adverse Reactions, Alerts Allergy Allergy Status Severity Reaction(s) Onset Inactive Treating Comm ents Source Name Type Date Date Clinician Predniso Allergy Active Moderate Hallucinatio 2019-04 [place] ne to to severe ns 1-25 da [facility] 00:00: Medical e 00 Group Benadryl Allergy Active Moderate Hives [place] [facility] to [facility] Medical e Group Cogentin Allergy Active Moderate Respiratory [place] to to severe distress da [facility] Medical e Group STADOL Allergy Active Moderate Hives [place] to [facility] Medical e Group Social History Smoking Status Start Date Stop Date Source Heavy Tobacco Smoker Luc[facility] Medications Ordered Filled Start Stop Current Ordering Indication Dosage Frequency Signature Comments Components Source Medication Medication Date Date Medication? Clinician (SIG) Name Name acetaminoph No Abbey 1 tab, M emoria en-hydrocod 12-31 Ladonna Route: PO, l one 500 16:31: Keely Drug Form: He rmann mg-5 mg 00 TAB, Q4H, oral tablet PRN Pain, Start date: 12/31/10 11:31:00, Duration: 30 day, Stop date: 01/30/11 11:30:00 hydromorpho No Juan A 0.5 mg, Memoria ne 12-31 Brien 0.25 mL, l 14:44: Route: Duncan 00 IVP, Drug form: INJ, Q5Min, PRN Pain, Start date: 12/31/10 9:44:00, Duration: 5 doses or times, Stop date: Limited # of times acetaminoph No Juan A 1,000 mg, Memoria en 10 mg/mL 12-31 Brien Route: IV, l intravenous 14:44: Drug form: Duncan solution 00 INJ, ONCE, PRN Pain, Start date: 12/31/10 9:44:00, Duration: 1 doses or times, Stop date: Limited # of times, Infuse over 15 minutes (for patient weight 50 kg or greater)In fuse over 15 minutes (for patient weight 50 kg or greater) ondansetron No Juan A 4 mg, 2 Memoria 12-31 Brien mL, Route: l 14:44: IVP, Drug [place] 00 form: INJ, ONCE, PRN Nausea & Vomiting, Start date: 12/31/10 9:44:00 flumazenil No Juan A 0.2 mg, 2 Memoria 12-31 Brien mL, Route: l 14:44: IVP, Drug [place] 00 form: INJ, PRN, PRN Other -See Comment, Initial dose, Start date: 12/31/10 9:44:00, Duration: 30 day, Stop date: 01/30/11 9:43:00 naloxone No Juan A 0.04 mg, M stanislavria 12-31 Brien 0.1 mL, l 14:44: Route: IVP, Drug form: INJ, Q2MIN, PRN Narcotic [...] Q4H, PRN, l tablet 13:24: 20 tab, [place] 29 for pain, Substituti on Allowed, Maintenanc e, TAB M-M-R II No Ginette 0.5 ml, Me moria 10-26 Dontrell Route: l 04:00: Alec SUB-Q, Drug Form: PDR/INJ, ONCALL, Start date: 10/25/10 23:00:00, Duration: 1 doses [...] mg tablet mg tablet 10 mg Epis rn endoscopy tablet al [facility] acetaminoph acetaminoph No acetaminop [facility] en 300 en 300 hen 300 da mg-codeine mg-codeine mg-codeine Medical 30 mg 30 mg 30 mg Group tablet TAKE tablet TAKE tablet ONE (1) OR ONE (1) OR TAKE ONE TWO (2) TWO (2) (1) OR TWO TABLET(S) TABLET(S) (2) BY MOUTH BY MOUTH TABLET(S) EVERY SIX EVERY SIX BY MOUTH HOURS HOURS EVERY SIX NEEDED FOR NEEDED FOR HOURS PAIN. PAIN. NEEDED FOR PAIN. metronidazo metronidazo No metronidaz [facility] le 500 mg le 500 mg ole 500 mg da tablet tablet tablet [facility] clonazepam clonazepam No clonazepam [facility] 0.5 mg 0.5 mg 0.5 mg da tablet TAKE tablet TAKE tablet Medical ONE (1) ONE (1) TAKE ONE Group TABLET(S) TABLET(S) (1) BY MOUTH BY MOUTH TABLET(S) ONCE A DAY ONCE A DAY BY MOUTH NEEDED NEEDED ONCE A DAY FOR FOR NEEDED ANXIETY. ANXIETY. FOR ANXIETY. ibuprofen ibuprofen No ibuprofen [facility] 800 mg 800 mg 800 mg da tablet TAKE tablet TAKE tablet Medical ONE (1) ONE (1) TAKE ONE Group TABLET(S) TABLET(S) (1) BY MOUTH BY MOUTH TABLET(S) EVERY EIGHT EVERY EIGHT BY MOUTH HOURS HOURS EVERY NEEDED. NEEDED. EIGHT HOURS NEEDED. ondansetron ondansetron No ondansetro [facility] 4 mg 4 mg n 4 mg da disintegrat disintegrat disintegra Medical ing tablet ing tablet ting Jennifer up DISSOLVE DISSOLVE tablet ONE (1) ONE (1) DISSOLVE TABLET(S) TABLET(S) ONE (1) BY MOUTH BY MOUTH TABLET(S) FOUR TIMES FOUR TIMES BY MOUTH A DAY A DAY FOUR TIMES NEEDED. NEEDED. A DAY NEEDED. Paxil 10 mg Paxil 10 mg No 1 Q1D Paxil 10 [facility] tablet Take tablet Take mg tablet da 1 tablet 1 tablet Take 1 Medic al every day every day tablet Jennifer up by oral by oral every day route. route. by oral route. quetiapine quetiapine No quetiapine [facility] 100 mg 100 mg 100 mg da tablet TAKE tablet TAKE tablet Medical ONE (1) ONE (1) TAKE ONE Group TABLET BY TABLET BY (1) TABLET MOUTH AT MOUTH AT BY MOUTH BEDTIME. BEDTIME. AT BEDTIME. topiramate topiramate No topiramate [facility] 100 mg 100 mg 100 mg da tablet TAKE tablet TAKE tablet Medical ONE (1) ONE (1) TAKE ONE Group TABLET BY TABLET BY (1) TABLET MOUTH AT MOUTH AT BY MOUTH BEDTIME. BEDTIME. AT BEDTIME. naproxen naproxen No naproxen [facility] 500 mg 500 mg 500 mg da tablet tablet tablet [facility] quetiapine quetiapine No quetiapine [facility] 200 mg 200 mg 200 mg da tablet tablet tablet [facility] quetiapine quetiapine No quetiapine [...] Ordered Immunization Filled Immunization Date Status Commen ts Source Name Name influenza, influenza, 2019-12-19 Completed [facility] injectable, injectable, 00:00:00 Medical Grou p quadrivalent quadrivalent influenza, influenza, 2019-04-19 Completed [facility] injectable, injectable, 00:00:00 Medical Grou p quadrivalent quadrivalent influenza, influenza, 2018-12-03 Completed [facility] injectable, injectable, 00:00:00 Medical Grou p quadrivalent quadrivalent measles/mumps/rubell 2010-10-27 Completed [facility] a virus vaccine 11:36:00 Vital Signs Vital Name Observation Time Observation Value Comments Source BP Diastolic 2020-11-04 00:00:00 79 mm[Hg] [facility] Height 2020-11-04 00:00:00 64 [in_i] [facility] BMI (Body Mass 2020-11-04 00:00:00 24 kg/m2 [facility] 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) Group BP Systolic 2020-11-04 00:00:00 120 mm[Hg] [facility] Body Weight 2020-11-04 00:00:00 140.1 [lb_av] [facility] BP Diastolic 2020-10-03 00:00:00 83 mm[Hg] [facility] Height 2020-10-03 00:00:00 64 [in_i] [facility] BMI (Body Mass 2020-10-03 00:00:00 23.9 kg/m2 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 BP Systolic 2020-10-03 00:00:00 117 mm[Hg] [facility] Body Weight 2020-10-03 00:00:00 139.3 [lb_av] [facility] BP Diastolic 2020-09-23 00:00:00 83 mm[Hg] [facility] Height 2020-09-23 00:00:00 64 [in_i] [facility] BMI (Body Mass 2020-09-23 00:00:00 24.2 kg/m2 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) Group BP Systolic 2020-09-23 00:00:00 129 mm[Hg] [facility] Body Weight 2020-09-23 00:00:00 141 [lb_av] [facility] BP Diastolic 2020-09-16 00:00:00 85 mm[Hg] [facility] Height 2020-09-16 00:00:00 64 [in_i] [facility] BMI (Body Mass 2020-09-16 00:00:00 23.9 kg/m2 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) Group BP Systolic 2020-09-16 00:00:00 119 mm[Hg] [facility] Body Weight 2020-09-16 00:00:00 2230.4 [oz_av] [facility] BP Diastolic 2020-09-12 00:00:00 92 mm[Hg] [facility] Height 2020-09-12 00:00:00 64 [in_i] [facility] BMI (Body Mass 2020-09-12 00:00:00 24.2 kg/m2 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) Group BP Systolic 2020-09-12 00:00:00 144 mm[Hg] [facility] Body Weight 2020-09-12 00:00:00 141 [lb_av] [facility] BP Diastolic 2020-09-03 00:00:00 71 mm[Hg] [facility] Height 2020-09-03 00:00:00 64 [in_i] [facility] BMI (Body Mass 2020-09-03 00:00:00 24.8 kg/m2 [facility] Medical Index) Group BP Systolic 2020-09-03 00:00:00 108 mm[Hg] [facility] Body Weight 2020-09-03 00:00:00 2312 [oz_av] [facility] BP Diastolic 2020-08-27 00:00:00 76 mm[Hg] [facility] Height 2020-08-27 00:00:00 64 [in_i] [facility] BMI (Body Mass 2020-08-27 00:00:00 25.1 kg/m2 [facility] Medical Index) Group BP Systolic 2020-08-27 00:00:00 117 mm[Hg] [facility] Body Weight 2020-08-27 00:00:00 2344 [oz_av] [facility] BP Diastolic 2020-08-12 00:00:00 84 mm[Hg] [facility] Height 2020-08-12 00:00:00 64 [in_i] [facility] BMI (Body Mass 2020-08-12 00:00:00 25.1 kg/m2 [facility] Medical Index) Group BP Systolic 2020-08-12 00:00:00 126 mm[Hg] [facility] Body Weight 2020-08-12 00:00:00 2336 [oz_av] [facility] BP Diastolic 2020-07-09 00:00:00 82 mm[Hg] [facility] Height 2020-07-09 00:00:00 64 [in_i] [facility] BMI (Body Mass 2020-07-09 00:00:00 25.2 kg/m2 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) Group BP Systolic 2020-07-09 00:00:00 118 mm[Hg] [facility] Body Weight 2020-07-09 00:00:00 2352 [oz_av] [facility] BP Diastolic 2020-06-13 00:00:00 81 mm[Hg] [facility] Height 2020-06-13 00:00:00 64 [in_i] [facility] BMI (Body Mass 2020-06-13 00:00:00 26.4 [facility] BP Systolic 2020-06-13 00:00:00 133 mm[Hg] [facility] Body Weight 2020-06-13 00:00:00 2464 [oz_av] [facility] BP Diastolic 2020-04-08 00:00:00 86 mm[Hg] [facility] Height 2020-04-08 00:00:00 64 [in_i] [facility] BMI (Body Mass 2020-04-08 00:00:00 25.5 kg/m2 [facility] Medical Index) Group BP Systolic 2020-04-08 00:00:00 132 mm[Hg] [facility] Body Weight 2020-04-08 00:00:00 2377.6 [oz_av] [facility] BP Diastolic 2020-03-26 00:00:00 87 mm[Hg] [facility] Height 2020-03-26 00:00:00 64 [in_i] [facility] BMI (Body Mass 2020-03-26 00:00:00 24.8 kg/m2 [facility] BP Systolic 2020-03-26 00:00:00 129 mm[Hg] [facility] Body Weight 2020-03-26 00:00:00 2312 [oz_av] [facility] BP Diastolic 2020-03-10 00:00:00 78 mm[Hg] [facility] Height 2020-03-10 00:00:00 64 [in_i] [facility] BMI (Body Mass 2020-03-10 00:00:00 24.8 kg/m2 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) Group BP Systolic 2020-03-10 00:00:00 120 mm[Hg] [facility] Body Weight 2020-03-10 00:00:00 2307.2 [oz_av] [facility] BP Diastolic 2020-02-25 00:00:00 59 mm[Hg] [facility] Height 2020-02-25 00:00:00 64 [in_i] [facility] BMI (Body Mass 2020-02-25 00:00:00 24.7 kg/m2 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) Group BP Systolic 2020-02-25 00:00:00 96 mm[Hg] [facility] Body Weight 2020-02-25 00:00:00 2302.4 [oz_av] [facility] BP Diastolic 2020-02-18 00:00:00 74 mm[Hg] [facility] Height 2020-02-18 00:00:00 64 [in_i] [facility] BMI (Body Mass 2020-02-18 00:00:00 24.9 kg/m2 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) Group BP Systolic 2020-02-18 00:00:00 110 mm[Hg] [facility] Body Weight 2020-02-18 00:00:00 2320 [oz_av] [facility] BP Diastolic 2019-12-31 00:00:00 71 mm[Hg] [facility] Height 2019-12-31 00:00:00 64 [in_i] [facility] BMI (Body Mass 2019-12-31 00:00:00 24.8 kg/m2 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) Group BP Systolic 2019-12-31 00:00:00 114 mm[Hg] [facility] Body Weight 2019-12-31 00:00:00 2307.2 [oz_av] [facility] BP Diastolic 2019-11-02 00:00:00 81 mm[Hg] [facility] Height 2019-11-02 00:00:00 64 [in_i] [facility] BMI (Body Mass 2019-11-02 00:00:00 24.7 kg/m2 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) Group BP Systolic 2019-11-02 00:00:00 117 mm[Hg] [facility] Body Weight 2019-11-02 00:00:00 2304 [oz_av] [facility] BP Diastolic 2019-10-01 00:00:00 80 mm[Hg] [facility] Height 2019-10-01 00:00:00 64 [in_i] [facility] BMI (Body Mass 2019-10-01 00:00:00 24.2 kg/m2 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) Group BP Systolic 2019-10-01 00:00:00 136 mm[Hg] [facility] Body Weight 2019-10-01 00:00:00 141 [lb_av] [facility] BP Diastolic 2019-09-25 00:00:00 82 mm[Hg] [facility] Height 2019-09-25 00:00:00 64 [in_i] [facility] BMI (Body Mass 2019-09-25 00:00:00 24.4 kg/m2 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) Group BP Systolic 2019-09-25 00:00:00 134 mm[Hg] [facility] Body Weight 2019-09-25 00:00:00 2270.4 [oz_av] [facility] BP Diastolic 2019-09-21 00:00:00 76 mm[Hg] [facility] Height 2019-09-21 00:00:00 64 [in_i] [facility] BMI (Body Mass 2019-09-21 00:00:00 23.7 kg/m2 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) Group BP Systolic 2019-09-21 00:00:00 108 mm[Hg] [facility] Body Weight 2019-09-21 00:00:00 2208 [oz_av] [facility] BP Diastolic 2019-09-17 00:00:00 76 mm[Hg] [facility] Height 2019-09-17 00:00:00 64 [in_i] [facility] BMI (Body Mass 2019-09-17 00:00:00 23.9 kg/m2 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) Group BP Systolic 2019-09-17 00:00:00 112 mm[Hg] [facility] Body Weight 2019-09-17 00:00:00 2224 [oz_av] [facility] BP Diastolic 2019-06-22 00:00:00 77 mm[Hg] [facility] Height 2019-06-22 00:00:00 64 [in_i] [facility] BMI (Body Mass 2019-06-22 00:00:00 24.8 kg/m2 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) Group BP Systolic 2019-06-22 00:00:00 110 mm[Hg] [facility] Body Weight 2019-06-22 00:00:00 2310 [oz_av] [facility] BP Diastolic 2019-06-21 00:00:00 72 mm[Hg] [facility] Height 2019-06-21 00:00:00 64 [in_i] [facility] BMI (Body Mass 2019-06-21 00:00:00 24.9 kg/m2 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) Group BP Systolic 2019-06-21 00:00:00 120 mm[Hg] [facility] Body Weight 2019-06-21 00:00:00 2320 [oz_av] [facility] BP Diastolic 2019-06-19 00:00:00 80 mm[Hg] [facility] Height 2019-06-19 00:00:00 64 [in_i] [facility] BMI (Body Mass 2019-06-19 00:00:00 25 kg/m2 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) Group BP Systolic 2019-06-19 00:00:00 112 mm[Hg] [facility] Body Weight 2019-06-19 00:00:00 2327 [oz_av] [facility] BP Diastolic 2019-06-18 00:00:00 74 mm[Hg] [facility] Height 2019-06-18 00:00:00 64 [in_i] [facility] BMI (Body Mass 2019-06-18 00:00:00 24.7 kg/m2 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) Group BP Systolic 2019-06-18 00:00:00 126 mm[Hg] [facility] Body Weight 2019-06-18 00:00:00 2299.2 [oz_av] [facility] BP Diastolic 2019-06-14 00:00:00 63 mm[Hg] [facility] Height 2019-06-14 00:00:00 64 [in_i] [facility] BMI (Body Mass 2019-06-14 00:00:00 24.8 kg/m2 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) Group BP Systolic 2019-06-14 00:00:00 128 mm[Hg] [facility] Body Weight 2019-06-14 00:00:00 144.4 [lb_av] [facility] BP Diastolic 2019-06-11 00:00:00 54 mm[Hg] [facility] Height 2019-06-11 00:00:00 64 [in_i] [facility] BMI (Body Mass 2019-06-11 00:00:00 25.6 kg/m2 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) Group BP Systolic 2019-06-11 00:00:00 115 mm[Hg] [facility] Body Weight 2019-06-11 00:00:00 149 [lb_av] [facility] BP Diastolic 2019-05-15 00:00:00 82 mm[Hg] [facility] Height 2019-05-15 00:00:00 64 [in_i] [facility] BMI (Body Mass 2019-05-15 00:00:00 25.1 kg/m2 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) Group BP Systolic 2019-05-15 00:00:00 124 mm[Hg] [facility] Body Weight 2019-05-15 00:00:00 2340 [oz_av] [facility] BP Diastolic 2019-05-08 00:00:00 86 mm[Hg] [facility] Height 2019-05-08 00:00:00 64 [in_i] [facility] BMI (Body Mass 2019-05-08 00:00:00 24 kg/m2 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) Group BP Systolic 2019-05-08 00:00:00 139 mm[Hg] [facility] Body Weight 2019-05-08 00:00:00 2240 [oz_av] [facility] BP Diastolic 2019-05-04 00:00:00 85 mm[Hg] [facility] Height 2019-05-04 00:00:00 64 [in_i] [facility] BMI (Body Mass 2019-05-04 00:00:00 24.1 kg/m2 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) Group BP Systolic 2019-05-04 00:00:00 120 mm[Hg] [facility] Body Weight 2019-05-04 00:00:00 140.2 [lb_av] [facility] Height 2019-04-23 00:00:00 64 [in_i] [facility] BMI (Body Mass 2019-04-23 00:00:00 24.2 kg/m2 [facility] helper Tao[facility] Index) [facility] Body Weight 2019-04-23 00:00:00 141 [lb_av] [facility] BP Diastolic 2019-04-18 00:00:00 72 mm[Hg] [facility] Height 2019-04-18 00:00:00 64 [in_i] [facility] BMI (Body Mass 2019-04-18 00:00:00 24.2 kg/m2 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) Group BP Systolic 2019-04-18 00:00:00 114 mm[Hg] [facility] Body Weight 2019-04-18 00:00:00 140.8 [lb_av] [facility] BP Diastolic 2019-04-17 00:00:00 67 mm[Hg] [facility] Height 2019-04-17 00:00:00 64 [in_i] [facility] BMI (Body Mass 2019-04-17 00:00:00 24.9 kg/m2 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) Group BP Systolic 2019-04-17 00:00:00 114 mm[Hg] [facility] Body Weight 2019-04-17 00:00:00 2325 [oz_av] [facility] BP Diastolic 2019-04-16 00:00:00 71 mm[Hg] [facility] Height 2019-04-16 00:00:00 64 [in_i] [facility] BMI (Body Mass 2019-04-16 00:00:00 24.6 kg/m2 [facility] 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) Group BP Systolic 2019-04-16 00:00:00 112 mm[Hg] [facility] Body Weight 2019-04-16 00:00:00 2291.2 [oz_av] [facility] BP Diastolic 2019-04-13 00:00:00 74 mm[Hg] [facility] Height 2019-04-13 00:00:00 64 [in_i] [facility] BMI (Body Mass 2019-04-13 00:00:00 29 kg/m2 [facility] 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) Group BP Systolic 2019-04-13 00:00:00 120 mm[Hg] [facility] Body Weight 2019-04-13 00:00:00 2705 [oz_av] [facility] BP Diastolic 2019-02-19 00:00:00 74 mm[Hg] [facility] Height 2019-02-19 00:00:00 64 [in_i] [facility] BMI (Body Mass 2019-02-19 00:00:00 24 kg/m2 [facility] Medical Index) Group BP Systolic 2019-02-19 00:00:00 [...] [facility] Respitory Rate 2010-12-31 16:00:00 Memori al [place] Diastolic (mm Hg) 2010-12-31 16:00:00 Mem orial [facility] Respitory Rate 2010-12-31 15:30:00 Memori al [place] Diastolic (mm Hg) 2010-12-31 15:30:00 Mem orial [facility] Systolic (mm Hg) 2010-12-31 15:30:00 Can zhang [place] Diastolic (mm Hg) 2010-12-31 15:15:00 Mem origilberto [place] Systolic (mm Hg) 2010-12-31 15:15:00 Can zhang [place] Respitory Rate 2010-12-31 15:15:00 Teresa Graysonann Heart Rate 2010-12-31 12:44[facility]00 [facility] 2010-12-29 19:04:00 [facility] Height 2010-12-29 19:04:00 157.48 cm [facility] Procedures Procedure Date / Time Performing Clinician Source Performed US, transvaginal 2020-09-23 00:00:00 [facility] XR, abdomen 2020-07-09 00:00:00 [facility] Appendectomy 2019-09-24 00:00:[address] [facility] [address] [address], abdomen + pelvis, 2019-09-17 00:00:00 [facility] w/o contrast Group NM, hepatobiliary scan, 2019-06-19 00:00:00 [facility] US, abdomen 2019-06-14 00:00:00 [facility] US, pelvis, complete 2019-06-11 00:00:00 [facility] XR, knee 2019-04-19 00:00:00 [facility] MRI, knee, w/o contrast 2019-04-16 00:00:00 [facility] Tubal Ligation 2010-10-25 00:00:00 [facility] Injection of Bilateral 2001-04-04 00:00:00 [facility] Breast [facility] Plan of Care Planned Activity Planned Date Details Comments Source Future Appointment 2020-11-25 [facility] 14:45:[address] [place] [address] Group [address]; , [place] [address] Encounters Start End Encounter Admission Attending Care Care Encounter Source Date/Time Date/Time Type Type Clinicians Facility Department ID 2020-11-10 Preadmit nullFlavo [facility] [id number] Memoria 19:16:57 r Medical 94 l [facility] 2020-11-04 2020-11-04 Adia [facility] [place] - [id number] M atagor 00:00:00 00:00:00 [facility] maciel MURRY: [address] [place] [phone] , Ph. [phone] 2020-10-03 2020-10-03 Adia [facility] [place] - [id number] M atagor 00:00:00 00:00:00 [facility] Medicfrancesco st MD: [address] [place] [phone] , Ph. [phone] 2020-09-23 2020-09-23 Adia [facility] [place] - [id number] M atagor 00:00:00 00:00:00 Denton Vasquez Medicfrancesco ts MD: [address] [place] [phone] , Ph. [phone] 2020-09-16 2020-09-16 Kallie [facility] [place] - [id number] M atagor 00:00:00 00:00:00 Denton Castro Medical SQL SERVER DEVELOPER: [address] [place] [phone] , Ph. 2020-09-12 2020-09-12 Christian [facility] [place] - [id number] M atagor 00:00:00 00:00:00 Discovery anselmo Castañeda MD: [address] [place] [phone] , Ph. 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 2020-08-27 2020-08-27 Kallie [place] - [id number] M atagor 00:00:00 00:00:00 [facility] SQL SERVER DEVELOPER: [address] [place] [address] 201, [place] [address] , Ph. 2020-08-12 2020-08-12 Kallie SHEPARD [place] - [id number] M atagor 00:00:00 00:00:00 [facility] SQL SERVER DEVELOPER: [address] [place] [address] 201, [place] [address] , Ph. 2020-07-09 2020-07-09 Wendy SHEPARD [place] - [id number] M atagor 00:00:00 00:00:00 Discovery anselmo Wilcox SQL SERVER DEVELOPER: [address] [place] [address] , Ph. 2020-06-13 2020-06-13 Kallie CARRANZA [place] - [id number] M atagor 00:00:00 00:00:00 [facility] SQL SERVER DEVELOPER: [address] [place] [address], [place] [address] , Ph. 2020-04-08 2020-04-08 Kallie CARRANZA [place] - [id number] M atagor 00:00:00 00:00:00 [facility] SQL SERVER DEVELOPER: [address] [place] [address], [place] [address] , Ph. 2020-03-26 2020-03-26 Kallie CARRANZA [place] - [id number] M atagor 00:00:00 00:00:00 [facility] SQL SERVER DEVELOPER: [address] [place] [address] 201, [place] [address] , Ph. 2020-03-10 2020-03-10 Kallie CARRANZATalon [place] - [id number] M atagor 00:00:00 00:00:00 [facility] SQL SERVER DEVELOPER: [address] [place] [address], [place] [address] , Ph. 2020-02-25 2020-02-25 Kallie MMG [place] - [id number] M atagor 00:00:00 00:00:00 [facility] SQL SERVER DEVELOPER: [address] [place] [address], [place] [address] , Ph. 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 2019-12-31 2019-12-31 Kallie TERE [place] - [id number] M atagor 00:00:00 00:00:00 [facility] SQL SERVER DEVELOPER: [address] [place] [address], [place] [address] , Ph. 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 2019-10-01 2019-10-01 Tone MM [place] - [id number] M atagor 00:00:00 00:00:00 DO Jed: Discovery abiola maya [address] [place] [address], [facility] [address] , Ph. 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 2019-09-21 2019-09-21 Kallie MMG [place] - [id number] M atagor 00:00:00 00:00:00 [facility] SQL SERVER DEVELOPER: [address] [facility] 201, [place] [address] , Ph. 2019-09-17 2019-09-17 Kallie MMG [place] - [id number] M atagor 00:00:00 00:00:00 [facility] SQL SERVER DEVELOPER: [address] [facility] 201, [place] [address] , Ph. 2019-08-29 2019-08-29 Wendy MM [place] - [id number] M atagor 00:00:00 00:00:00 Discovery anselmo Wilcox SQL SERVER DEVELOPER: [address] [place] [address] 201[facility] [address] , Ph. 2019-06-22 2019-06-22 Kallie MM [place] - [id number] M atagor 00:00:00 00:00:00 [facility] SQL SERVER DEVELOPER: [address] [facility] 201, [place] [address] , Ph. 2019-06-21 2019-06-21 Kallie MMG [place] - [id number] M atagor 00:00:00 00:00:00 [facility] SQL SERVER DEVELOPER: [address] [place] [address] 201, [place] [address] , Ph. 2019-06-19 2019-06-19 Kallie MMG [place] - [id number] M atagor 00:00:00 00:00:00 [facility] SQL SERVER DEVELOPER: [address] [address], [place] [address] , Ph. 2019-06-18 2019-06-18 Kallie [facility] [place] - [id number] M atagor 00:00:00 00:00:00 [facility] SQL SERVER DEVELOPER: [address] [place] [address] 201, [place] [address] , Ph. 2019-06-14 2019-06-14 Efraín [facility] [place] - [id number] M atagor 00:00:00 00:00:00 Slick Rebollar MD: Medical Medica l [address] [place] [address] 201, [place] [address] , Ph. [phone] 2019-06-11 2019-06-11 Coby Rodriguez [facility] [place] - [id number] [place] 00:00:00 00:00:00 Discovery Emma SimsNP: [facility] Medical Medica [facility] [address], [place] [address] , Ph. 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 2019-05-09 2019-05-09 Glynn CHAMBERLAIN [place] - [id number] M atagor 00:00:00 00:00:00 Lucinda Woods PSYD: [address] [employer] [place] [address] - [address], Behavioral [facility] [address] Progr am , Ph. 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 2019-05-04 2019-05-04 Coby Rodriguez [facility] [place] - [id number] [place] 00:00:00 00:00:00 Discovery anselmo Sims WHNP: [address] [address] , Ph. [phone] 2019-04-30 2019-04-30 Glynn CHAMBERLAIN [place] - [id number] M atagor 00:00:00 00:00:00 Saglime, Curry da PSYD: [address] [employer] E[employer] [address] [address], Behavioral [facility] [address] [facility] , Ph. ([phone]) --20072019-04-26 2019-04-26 Glynn CHAMBERLAIN [place] - [id number] M atagor 00:00:00 00:00:00 Charlese, Curry da PSYD: [address] [employer] Epi sc[address] [place] [address], Behavioral [facility] [address] [facility] , Ph. ([phone]) --20072019-04-23 2019-04-23 Sam CHAMBERLAIN [place] - [id number] M atagor 00:00:00 00:00:00 Monet Puentes MD: Taoist Epi scop [address] HOP - [address] [facility], [address], [facility] [place] [place] [address] , Ph. ([phone]) --20072019-04-18 2019-04-18 Coby Rodriguez MM [place] - [id number] [place] 00:00:00 00:00:00 LeviDiscovery briones WHNP: [address] [place] [address] , Ph. [phone] 2019-04-17 2019-04-17 Kallie CARRANZA [place] - [id number] M atagor 00:00:00 00:00:00 Sofia Chao, Medical Medical SQL SERVER DEVELOPER: [address] [facility] 201, [place] [address] , Ph. 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 2019-03-14 2019-03-14 Levi [facility] [place] - [id number] [place] 00:00:00 00:00:00 Ariel Ferrer Medical Medical MD: [address] [place] [address] 201, [place] [address] , Ph. 2019-02-19 2019-02-19 Levi [facility] [place] - [id number] [place] 00:00:00 00:00:00 Ariel Ferrer Medical Medical MD: [address] [place] [address] 201, [place] [address] , Ph. 2019-01-12 2019-01-12 Kallie [facility] [place] - [id number] M atagor 00:00:00 00:00:00 Sofia [facility] Medical SQL SERVER DEVELOPER: [address] [place] [address] 201, [place] [address] , Ph. 2010-12-31 2010-12-31 DS nullFlavo [facility] [id number] 775 Memoria 06:57:00 06:57:[address] Results Test Description Test Time Test Comments Results Result Comments Source pap, LB + CT/NG/TV 2020-09-25 00:00:00 Test Item Value Reference Range Interpretation Comme nts chlamydia trachomatis by real-time PCR (reflex to azithromycin nega tive resistance by pyrosequencing) (test code = chlamydia trachomatis by real-time PCR (reflex to azithromycin resistance by pyrosequencing)) trichomonas vaginalis by real-time PCR (reflex to metronidazole neg ative resistance) (test code = trichomonas vaginalis by real-time PCR (reflex to metronidazole resistance)) mycoplasma genitalium by real-time PCR (reflex to azithromycin and negative fluoroquinolone resistance) (test code = mycoplasma genitalium by real-time PCR (reflex to azithromycin and fluoroquinolone resistance)) neisseria gonorrhoeae by real-time PCR (reflex to antibiotic negati ve resistance by molecular analysis) (test code = neisseria gonorrhoeae by real-time PCR (reflex to antibiotic resistance by molecular analysis)) HPV type-detect 3.0 by next gen sequencing (reflex to HPV-16 ris k not detected assessment status) (test code = HPV type-detect 3.0 by next gen sequencing (reflex to HPV-16 risk assessment status)) liquid Pap test (test code = liquid Pap test) normal [facility] panel - [id number] 14:29:00 Test Item Value Reference Range Interpretation Comments Leukocytes (test code = Leukocytes) Negative Nitrite (test code = Nitrite) negative Urobilinogen (test code = 1 Urobilinogen) Protein (test code = Protein) Negative pH (test code = pH) 5.5 Blood (test code = Blood) Moderate Specific [place] (test code = 1.030 Specific [place]) Ketone (test code = Ketone) Trace Bilirubin (test code = Bilirubin) Small Glucose (test code = Glucose) Negative Appearance (test code = Appearance) Cloudy Color (test code = Color) Yellow [facility]dipstick) panel - [id number] 14:29:00 Test Item Value Reference Range Interpretation Comments Leukocytes (test code = Leukocytes) Negative Nitrite (test code = Nitrite) negative Urobilinogen (test code = 1 Urobilinogen) Protein (test code = Protein) Negative pH (test code = pH) 5.5 Blood (test code = Blood) Moderate Specific [place] (test code = 1.030 Specific [place]) Ketone (test code = Ketone) Trace Bilirubin (test code = Bilirubin) Small Glucose (test code = Glucose) Negative Appearance (test code = Appearance) Cloudy Color (test code = Color) Yellow [facility] (dipstick) panel - [id number] 14:29:00 Test Item Value Reference Range Interpretation Comments Leukocytes (test code = Leukocytes) Negative Nitrite (test code = Nitrite) negative Urobilinogen (test code = 1 Urobilinogen) Protein (test code = Protein) Negative pH (test code = pH) 5.5 Blood (test code = Blood) Moderate Specific [place] (test code = 1.030 Specific [place]) Ketone (test code = Ketone) Trace Bilirubin (test code = Bilirubin) Small Glucose (test code = Glucose) Negative Appearance (test code = Appearance) Cloudy Color (test code = Color) Yellow [facility] (dipstick) panel - [id number] 14:29:00 Test Item Value Reference Range Interpretation Comments Leukocytes (test code = Leukocytes) Negative Nitrite (test code = Nitrite) negative Urobilinogen (test code = 1 Urobilinogen) Protein (test code = Protein) Negative pH (test code = pH) 5.5 Blood (test code = Blood) Moderate Specific [place] (test code = 1.030 Specific [place]) Ketone (test code = Ketone) Trace Bilirubin (test code = Bilirubin) Small Glucose (test code = Glucose) Negative Appearance (test code = Appearance) Cloudy Color (test code = Color) Yellow [facility] (dipstick) panel - [id number] 14:29:00 Test Item Value Reference Range Interpretation Comments Leukocytes (test code = Leukocytes) Negative Nitrite (test code = Nitrite) negative Urobilinogen (test code = 1 Urobilinogen) Protein (test code = Protein) Negative pH (test code = pH) 5.5 Blood (test code = Blood) Moderate Specific [place] (test code = 1.030 Specific [place]) Ketone (test code = Ketone) Trace Bilirubin (test code = Bilirubin) Small Glucose (test code = Glucose) Negative Appearance (test code = Appearance) Cloudy Color (test code = Color) Yellow [facility] W Auto Differential panel - [id number] 09:32:00 Test Item Value Reference Range Interpretation Comments white blood count (test code = 10.1 K/uL 4.0-11.5 white blood count) red blood count (test code = red 4.77 M/uL 3.80-5.20 blood count) hemoglobin (test code = 15.0 g/dL 10.5-15.7 hemoglobin) hematocrit (test code = 44.7 % 34.0-50.0 hematocrit) MCV [Entitic volume] (test code = 93.7 fL 86-100 97981-2) mean corpuscular hemoglobin (test 31.4 pg 26.2-33.4 [...] 44.4-80.1 leukocytes in Blood (test code = 51841-5) Immature granulocytes [#/volume] 0.0 K/uL 0.0-0.03 in Blood (test code = 65706-5) lymphocyte% (test code = 25.2 % 10.0-50.0 lymphocyte%) mono % (test code = mono %) 6.3 % 3.6-12.0 eos % (test code = eos %) 1.7 % 0.0-5.4 Basophils/100 leukocytes in 0.6 % 0.1-1.2 Unspecified specimen (test code = 28556-7) Band form neutrophils [#/volume] 6.65 K/uL 1.56-6.13 H in Blood (test code = 35140-8) Lymphocytes [#/volume] in 2.5 K/uL 1.18-3.74 Unspecified specimen by Automated count (test code = 50191-4) mono # (test code = mono #) 0.63 K/uL 0.24-0.86 eos # (test code = eos #) 0.17 K/uL 0.04-0.36 basophil # (test code = basophil 0.06 K/uL 0.01-0.08 #) NRBC% (test code = NRBC%) 0 /100 WBC 0-0.2 NRBC# (test code = NRBC#) 0 K/uL [facility] HospitalDifferential panel, method unspecified - [id number] 09:32:00NeutrophilsBandLymphocyteAtypical LymphMonocyteEosinophilBasophilMetamyelocyteMyelocytePromyelocyteBlastsNucleated Red Blood CellDifferential CommentAbs Neutrophil Count (Man)Abs Lymph Count (Man)Abs Monocyte Count (Man)Abs Eosinophil Count (Man)Abs Basophil Count (Man)Platelet EstimatePlatelet Morphol ogyPolychromasiaHypochromasiaPoikilocytosisAnisocytosisMicrocytosisMacrocytosisS chistocytesTarget CellsTear Drop CellsOvalocytesToxic GranulationHypersegmented PolysToxic VacuolationSmudge CellsGiant PlateletsSickle CellsWayne General HospitalUrinalysis complete W Reflex Culture panel - [id number] 09:32:00 Test Item Value Reference Range Interpretation Comments Color of Urine by Auto (test code dk. yellow = 99459-2) Appearance of Urine (test code = turbid clear 5767-9) Glucose [Mass/volume] in Urine negative negative (test code = 2350-7) bilirubin, urine (test code = moderate negative bilirubin, urine) ketone, urine (test code = trace negative H ketone, urine) Specific gravity of Urine by 1.020 1.003-1.030 Automated test strip (test code = 94343-6) Hemoglobin [Presence] in Urine by negative H Test strip (test code = 5794-3) pH of Urine (test code = 2756-5) 6.500 5-9 protein urine (UA) (test code = =1+ (30 negative H protein urine (UA)) Urobilinogen [Presence] in Urine 4.0 E.U./dL 0.2-1.0 (test code = 51178-9) Nitrite [Presence] in Urine by positive negative Test strip (test code = 5802-4) urine leukocyte esterase (test trace negative H code = urine leukocyte esterase) Erythrocytes [Presence] in Urine =4-6 0-5 H (test code = 88786-8) WBC, urine (test code = WBC, =0-2 0-5 urine) bacteria, urine (test code = few none detect bacteria, urine) Casts [#/area] in Urine sediment =2-5 none detect by Automated count (test code = 70290-6) urine culture added? (test code = yes urine culture added?) squamous epithelial cell urine =0-5 0-5 (test code = squamous epithelial cell urine) Amorphous sediment [Presence] in moderate none seen Urine sediment by Light microscopy (test code = 8246-1) [facility] HospitalBacteria identified in Urine by [id number] 09:32:00 Test Item Value Reference Range Interpretation Comments Bacteria identified in scant skin ambrose Urine by Culture (test present. pathogen not code = 630-4) present at 2 days. [facility] HospitalUrinalysis macro (dipstick) panel - [id number] 11:47:00 Test Item Value Reference Range Interpretation Comments Leukocytes (test code = Negative Leukocytes) Nitrite (test code = negative Nitrite) Urobilinogen (test code = .2 Urobilinogen) Protein (test code = Negative Protein) pH (test code = pH) 7.0 Blood (test code = Blood) Hemolyzed: Trace Specific [place] (test code 1.015 = Specific [place]) Ketone (test code = Ketone) Negative Bilirubin (test code = Negative Bilirubin) Glucose (test code = Negative Glucose) Appearance (test code = Cloudy Appearance) Color (test code = Color) Yellow [facility] HospitalUrinalysis macro (dipstick) panel - [id number] 11:47:00 Test Item Value Reference Range Interpretation Comments Leukocytes (test code = Negative Leukocytes) Nitrite (test code = negative Nitrite) Urobilinogen (test code = .2 Urobilinogen) Protein (test code = Negative Protein) pH (test code = pH) 7.0 Blood (test code = Blood) Hemolyzed: Trace Specific [place] (test code 1.015 = Specific [place]) Ketone (test code = Ketone) Negative Bilirubin (test code = Negative Bilirubin) Glucose (test code = Negative Glucose) Appearance (test code = Cloudy Appearance) Color (test code = Color) Yellow [facility] HospitalCB W Auto Differential panel - [id number] 11:00:00 Test Item Value Reference Range Interpretation Comments white blood count (test code = 10.1 K/uL 4.0-11.5 white blood count) red blood count (test code = red 3.82 M/uL 3.80-5.20 blood count) hemoglobin (test code = 12.1 g/dL 10.5-15.7 hemoglobin) hematocrit (test code = 35.6 % 34.0-50.0 hematocrit) MCV [Entitic volume] (test code = 93.2 fL 86-100 09160-0) mean corpuscular hemoglobin (test 31.7 pg 26.2-33.4 [...] 44.4-80.1 leukocytes in Blood (test code = 01097-0) Immature granulocytes [#/volume] 0.0 K/uL 0.0-0.03 in Blood (test code = 52988-4) lymphocyte% (test code = 25.1 % 10.0-50.0 lymphocyte%) mono % (test code = mono %) 4.1 % 3.6-12.0 eos % (test code = eos %) 3.0 % 0.0-5.4 Basophils/100 leukocytes in 0.6 % 0.1-1.2 Unspecified specimen (test code = 78826-2) Band form neutrophils [#/volume] 6.77 K/uL 1.56-6.13 H in Blood (test code = 00937-0) Lymphocytes [#/volume] in 2.5 K/uL 1.18-3.74 Unspecified specimen by Automated count (test code = 54673-6) mono # (test code = mono #) 0.41 K/uL 0.24-0.86 eos # (test code = eos #) 0.30 K/uL 0.04-0.36 basophil # (test code = basophil 0.06 K/uL 0.01-0.08 #) NRBC% (test code = NRBC%) 0 /100 WBC 0-0.2 NRBC# (test code = NRBC#) 0 K/uL [facility] HospitalDifferential panel, method unspecified - [id number] 11:00:00NeutrophilsBandLymphocyteAtypical LymphMonocyteEosinophilBasophilMetamyelocyteMyelocytePromyelocyteBlastsNucleated Red Blood CellAbs Neutrophil Count (Man)Abs Lymph Count (Man)Abs Monocyte Count (Man)Abs Eosinophil Count (Man)Abs Basophil Count (Man)Platelet EstimatePlatelet MorphologyPoikilocytosisToxic GranulationBurr CellsWayne General HospitalBauofl health - [facility] metabolic 2000 panel - Serum or [id number] 11:00:00 Test Item Value Reference Range Interpretation [...] code = 8.7 mg/dL 8.6-10.0 calcium level) [facility] W Auto Differential panel - [id number] 11:00:00 Test Item Value Reference Range Interpretation Comments white blood count (test code = 10.1 K/uL 4.0-11.5 white blood count) red blood count (test code = red 3.82 M/uL 3.80-5.20 blood count) hemoglobin (test code = 12.1 g/dL 10.5-15.7 hemoglobin) hematocrit (test code = 35.6 % 34.0-50.0 hematocrit) MCV [Entitic volume] (test code = 93.2 fL 86-100 72381-9) mean corpuscular hemoglobin (test 31.7 pg 26.2-33.4 [...] 44.4-80.1 leukocytes in Blood (test code = 06390-1) Immature granulocytes [#/volume] 0.0 K/uL 0.0-0.03 in Blood (test code = 11094-8) lymphocyte% (test code = 25.1 % 10.0-50.0 lymphocyte%) mono % (test code = mono %) 4.1 % 3.6-12.0 eos % (test code = eos %) 3.0 % 0.0-5.4 Basophils/100 leukocytes in 0.6 % 0.1-1.2 Unspecified specimen (test code = 27793-1) Band form neutrophils [#/volume] 6.77 K/uL 1.56-6.13 H in Blood (test code = 20832-0) Lymphocytes [#/volume] in 2.5 K/uL 1.18-3.74 Unspecified specimen by Automated count (test code = 71211-5) mono # (test code = mono #) 0.41 K/uL 0.24-0.86 eos # (test code = eos #) 0.30 K/uL 0.04-0.36 basophil # (test code = basophil 0.06 K/uL 0.01-0.08 #) NRBC% (test code = NRBC%) 0 /100 WBC 0-0.2 NRBC# (test code = NRBC#) 0 K/uL [facility] HospitalDifferential panel, method unspecified - [id number] 11:00:00NeutrophilsBandLymphocyteAtypical LymphMonocyteEosinophilBasophilMetamyelocyteMyelocytePromyelocyteBlastsNucleated Red Blood CellAbs Neutrophil Count (Man)Abs Lymph Count (Man)Abs Monocyte Count (Man)Abs Eosinophil Count (Man)Abs Basophil Count (Man)Platelet EstimatePlatelet MorphologyPoikilocytosisToxic GranulationBurr CellsMaJefferson Davis Community HospitalBasic metabolic 2000 panel - Serum or [id number] 11:00:00 Test Item Value Reference Range Interpretation [...] code = 8.7 mg/dL 8.6-10.0 calcium level) [facility] HospitalUrinalysis complete panel - [id number] 10:43:00 Test Item Value Reference Range Interpretation Comments Color of Urine by Auto (test yellow code = 78553-4) Appearance of Urine (test code cloudy clear A = 5767-9) Glucose [Presence] in Urine by negative negative Automated test strip (test code = 38599-7) Bilirubin.total [Mass/volume] negative negative in Urine (test code = 1977-09) Ketones [Mass/volume] in Urine negative negative by Automated test strip (test code = 20377-4) Specific gravity of Urine by 1.027 1.003-1.030 Automated test strip (test code = 10542-3) blood urine (test code = blood =1 negative H urine) pH of Urine (test code = 8.500 5-9 2756-5) protein urine (UA) (test code = trace negative protein urine (UA)) Urobilinogen [Presence] in normal 0.2-1.0 Urine (test code = 87834-0) Nitrite [Presence] in Urine by negative negative Test strip (test code = 5802-4) Leukocyte esterase [Presence] =1 negative H in Urine by Automated test strip (test code = 67488-9) Erythrocytes [#/volume] in =1-5 0-5 Urine by Automated count (test code = 798-9) Leukocytes [#/area] in Urine =1-5 0-5 sediment by Automated count (test code = 66811-9) Epithelial cells [Presence] in =1-5 0-5 Urine sediment by Light microscopy (test code = 62618-9) Bacteria identified in Urine by trace none detect Culture (test code = 630-4) Casts [#/area] in Urine none detected none detect sediment by Automated count (test code = 48011-9) urine culture added? (test code yes = urine culture added?) [facility] HospitalBacteria identified in Urine by [id number] 10:43:00 Test Item Value Reference Range Interpretation Comments Bacteria identified in no growth at 1 day Urine by Culture (test code = 630-4) [facility] HospitalUrinalysis complete panel - [id number] 10:43:00 Test Item Value Reference Range Interpretation Comments Color of Urine by Auto (test yellow code = 57079-6) Appearance of Urine (test code cloudy clear A = 5767-9) Glucose [Presence] in Urine by negative negative Automated test strip (test code = 59889-8) Bilirubin.total [Mass/volume] negative negative in Urine (test code = 1977-09) Ketones [Mass/volume] in Urine negative negative by Automated test strip (test code = 50961-3) Specific gravity of Urine by 1.027 1.003-1.030 Automated test strip (test code = 75648-5) blood urine (test code = blood =1 negative H urine) pH of Urine (test code = 8.500 5-9 2756-5) protein urine (UA) (test code = trace negative protein urine (UA)) Urobilinogen [Presence] in normal 0.2-1.0 Urine (test code = 37461-3) Nitrite [Presence] in Urine by negative negative Test strip (test code = 5802-4) Leukocyte esterase [Presence] =1 negative H in Urine by Automated test strip (test code = 41356-4) Erythrocytes [#/volume] in =1-5 0-5 Urine by Automated count (test code = 798-9) Leukocytes [#/area] in Urine =1-5 0-5 sediment by Automated count (test code = 53089-7) Epithelial cells [Presence] in =1-5 0-5 Urine sediment by Light microscopy (test code = 75268-1) Bacteria identified in Urine by trace none detect Culture (test code = 630-4) Casts [#/area] in Urine none detected none detect sediment by Automated count (test code = 02586-9) urine culture added? (test code yes = urine culture added?) [facility] HospitalBacteria identified in Urine by [id number] 10:43:00 Test Item Value Reference Range Interpretation Comments Bacteria identified in no growth at 1 day Urine by Culture (test code = 630-4) [facility] HospitalUrinalysis complete panel - [id number] 09:25:00 Test Item Value Reference Range Interpretation Comments Color of Urine by Auto (test code = yellow 67031-1) Appearance of Urine (test code = SL cloudy clear A 5767-9) Glucose [Presence] in Urine by negative negative Automated test strip (test code = 88990-5) Bilirubin.total [Mass/volume] in negative negative Urine (test code = 1978-6) Ketones [Mass/volume] in Urine by =1 negative H Automated test strip (test code = 82562-4) Specific gravity of Urine by 1.032 1.003-1.030 H Automated test strip (test code = 65294-8) blood urine (test code = blood =2 negative H urine) pH of Urine (test code = 2756-5) 6.000 5-9 protein urine (UA) (test code = =1+ (30 negative H protein urine (UA)) Urobilinogen [Presence] in Urine =2.0 0.2-1.0 H (test code = 71211-2) Nitrite [Presence] in Urine by Test negative negative strip (test code = 5802-4) Leukocyte esterase [Presence] in negative negative Urine by Automated test strip (test code = 96595-6) Erythrocytes [#/volume] in Urine by =11-14 0-5 H Automated count (test code = 798-9) Leukocytes [#/area] in Urine =1-5 0-5 sediment by Automated count (test code = 77074-3) Epithelial cells [Presence] in =6-10 0-5 Urine sediment by Light microscopy (test code = 27899-7) Bacteria identified in Urine by small(1 none detect Culture (test code = 630-4) Casts [#/area] in Urine sediment by =2-5 none detect Automated count (test code = 35638-0) urine culture added? (test code = no urine culture added?) [facility] - [id number] 09:25:00 Test Item Value Reference Range Interpretation Comments Color of Urine by Auto (test code = yellow 48203-5) Appearance of Urine (test code = SL cloudy clear A 5767-9) Glucose [Presence] in Urine by negative negative Automated test strip (test code = 66404-5) Bilirubin.total [Mass/volume] in negative negative Urine (test code = 1978-6) Ketones [Mass/volume] in Urine by =1 negative H Automated test strip (test code = 97028-5) Specific gravity of Urine by 1.032 1.003-1.030 H Automated test strip (test code = 39365-5) blood urine (test code = blood =2 negative H urine) pH of Urine (test code = 2756-5) 6.000 5-9 protein urine (UA) (test code = =1+ (30 negative H protein urine (UA)) Urobilinogen [Presence] in Urine =2.0 0.2-1.0 H (test code = 08773-0) Nitrite [Presence] in Urine by Test negative negative strip (test code = 5802-4) Leukocyte esterase [Presence] in negative negative Urine by Automated test strip (test code = 08276-7) Erythrocytes [#/volume] in Urine by =11-14 0-5 H Automated count (test code = 798-9) Leukocytes [#/area] in Urine =1-5 0-5 sediment by Automated count (test code = 42554-8) Epithelial cells [Presence] in =6-10 0-5 Urine sediment by Light microscopy (test code = 80255-6) Bacteria identified in Urine by small(1 none detect Culture (test code = 630-4) Casts [#/area] in Urine sediment by =2-5 none detect Automated count (test code = 78520-8) urine culture added? (test code = no urine culture added?) [facility] [id number] 09:25:00 Test Item Value Reference Range Interpretation Comments Color of Urine by Auto (test code = yellow 89967-4) Appearance of Urine (test code = SL cloudy clear A 5767-9) Glucose [Presence] in Urine by negative negative Automated test strip (test code = 02547-1) Bilirubin.total [Mass/volume] in negative negative Urine (test code = 1978-6) Ketones [Mass/volume] in Urine by =1 negative H Automated test strip (test code = 45144-8) Specific gravity of Urine by 1.032 1.003-1.030 H Automated test strip (test code = 60090-2) blood urine (test code = blood =2 negative H urine) pH of Urine (test code = 2756-5) 6.000 5-9 protein urine (UA) (test code = =1+ (30 negative H protein urine (UA)) Urobilinogen [Presence] in Urine =2.0 0.2-1.0 H (test code = 92714-5) Nitrite [Presence] in Urine by Test negative negative strip (test code = 5802-4) Leukocyte esterase [Presence] in negative negative Urine by Automated test strip (test code = 78749-8) Erythrocytes [#/volume] in Urine by =11-14 0-5 H Automated count (test code = 798-9) Leukocytes [#/area] in Urine =1-5 0-5 sediment by Automated count (test code = 44635-3) Epithelial cells [Presence] in =6-10 0-5 Urine sediment by Light microscopy (test code = 74261-6) Bacteria identified in Urine by small(1 none detect Culture (test code = 630-4) Casts [#/area] in Urine sediment by =2-5 none detect Automated count (test code = 16558-6) urine culture added? (test code = no urine culture added?) [facility] W Auto Differential panel - [id number] 08:06:00 Test Item Value Reference Range Interpretation Comments white blood count (test code = 13.2 K/uL 4.0-11.5 white blood count) red blood count (test code = red 4.84 M/uL 3.80-5.20 blood count) hemoglobin (test code = 14.8 g/dL 10.5-15.7 hemoglobin) hematocrit (test code = 43.4 % 34.0-50.0 hematocrit) MCV [Entitic volume] (test code = 89.7 fL 86-100 53582-2) mean corpuscular hemoglobin (test 30.6 pg 26.2-33.4 [...] 44.4-80.1 leukocytes in Blood (test code = 90703-3) Immature granulocytes [#/volume] 0.0 K/uL 0.0-0.03 in Blood (test code = 79263-8) lymphocyte% (test code = 19.5 % 10.0-50.0 lymphocyte%) mono % (test code = mono %) 5.1 % 3.6-12.0 eos % (test code = eos %) 1.7 % 0.0-5.4 Basophils/100 leukocytes in 0.5 % 0.1-1.2 Unspecified specimen (test code = 99036-6) Band form neutrophils [#/volume] 9.66 K/uL 1.56-6.13 H in Blood (test code = 95066-9) Lymphocytes [#/volume] in 2.6 K/uL 1.18-3.74 Unspecified specimen by Automated count (test code = 26694-6) mono # (test code = mono #) 0.67 K/uL 0.24-0.86 eos # (test code = eos #) 0.23 K/uL 0.04-0.36 basophil # (test code = basophil 0.06 K/uL 0.01-0.08 #) NRBC% (test code = NRBC%) 0 /100 WBC 0-0.2 NRBC# (test code = NRBC#) 0 K/uL [facility]Different[facility], method unspecified - [id number] 08:06:00NeutrophilsBandLymphocyteMonocyteEosinophilPlatelet EstimateMataSelect Specialty HospitalComprehensive metabolic 2000 panel - Serum or [id number] 08:06:00 Test Item Value Reference Range Interpretation [...] Serum or Plasma (test code = 6768-6) [facility] HospitalLipase [Enzymatic activity/volume] in Serum or Plasma 2019-09-24 08:06:00 Test Item Value Reference Range Interpretation Comments lipase (test code = lipase) 27 U/L 13-60 [facility] W Auto Differential panel - [id number] 08:06:00 Test Item Value Reference Range Interpretation Comments white blood count (test code = 13.2 K/uL 4.0-11.5 white blood count) red blood count (test code = red 4.84 M/uL 3.80-5.20 blood count) hemoglobin (test code = 14.8 g/dL 10.5-15.7 hemoglobin) hematocrit (test code = 43.4 % 34.0-50.0 hematocrit) MCV [Entitic volume] (test code = 89.7 fL 86-100 27498-7) mean corpuscular hemoglobin (test 30.6 pg 26.2-33.4 [...] 44.4-80.1 leukocytes in Blood (test code = 58157-0) Immature granulocytes [#/volume] 0.0 K/uL 0.0-0.03 in Blood (test code = 98282-5) lymphocyte% (test code = 19.5 % 10.0-50.0 lymphocyte%) mono % (test code = mono %) 5.1 % 3.6-12.0 eos % (test code = eos %) 1.7 % 0.0-5.4 Basophils/100 leukocytes in 0.5 % 0.1-1.2 Unspecified specimen (test code = 01679-3) Band form neutrophils [#/volume] 9.66 K/uL 1.56-6.13 H in Blood (test code = 56882-7) Lymphocytes [#/volume] in 2.6 K/uL 1.18-3.74 Unspecified specimen by Automated count (test code = 13081-6) mono # (test code = mono #) 0.67 K/uL 0.24-0.86 eos # (test code = eos #) 0.23 K/uL 0.04-0.36 basophil # (test code = basophil 0.06 K/uL 0.01-0.08 #) NRBC% (test code = NRBC%) 0 /100 WBC 0-0.2 NRBC# (test code = NRBC#) 0 K/uL [facility] HospitalDifferent[facility] panel, method unspecified - [id number] 08:06:00NeutrophilsBandLymphocyteMonocyteEosinophilPlatelet EstimateMataSelect Specialty HospitalComprehensive metabolic 2000 panel - Serum or [id number] 08:06:00 Test Item Value Reference Range Interpretation [...] Serum or Plasma (test code = 6768-6) [facility] HospitalLipase [Enzymatic activity/volume] in Serum or Plasma 2019-09-24 08:06:00 Test Item Value Reference Range Interpretation Comments lipase (test code = lipase) 27 U/L 13-60 [facility] W Auto Differential panel - [id number] 08:06:00 Test Item Value Reference Range Interpretation Comments white blood count (test code = 13.2 K/uL 4.0-11.5 white blood count) red blood count (test code = red 4.84 M/uL 3.80-5.20 blood count) hemoglobin (test code = 14.8 g/dL 10.5-15.7 hemoglobin) hematocrit (test code = 43.4 % 34.0-50.0 hematocrit) MCV [Entitic volume] (test code = 89.7 fL 86-100 82831-2) mean corpuscular hemoglobin (test 30.6 pg 26.2-33.4 [...] 44.4-80.1 leukocytes in Blood (test code = 12408-5) Immature granulocytes [#/volume] 0.0 K/uL 0.0-0.03 in Blood (test code = 23688-8) lymphocyte% (test code = 19.5 % 10.0-50.0 lymphocyte%) mono % (test code = mono %) 5.1 % 3.6-12.0 eos % (test code = eos %) 1.7 % 0.0-5.4 Basophils/100 leukocytes in 0.5 % 0.1-1.2 Unspecified specimen (test code = 02652-6) Band form neutrophils [#/volume] 9.66 K/uL 1.56-6.13 H in Blood (test code = 76653-5) Lymphocytes [#/volume] in 2.6 K/uL 1.18-3.74 Unspecified specimen by Automated count (test code = 10824-3) mono # (test code = mono #) 0.67 K/uL 0.24-0.86 eos # (test code = eos #) 0.23 K/uL 0.04-0.36 basophil # (test code = basophil 0.06 K/uL 0.01-0.08 #) NRBC% (test code = NRBC%) 0 /100 WBC 0-0.2 NRBC# (test code = NRBC#) 0 K/uL [facility] HospitalDifferential panel, method unspecified - [id number] 08:06:00NeutrophilsBandLymphocyteMonocyteEosinophilPlatelet EstimateWayne General HospitalComprehensive metabolic 2000 panel - Serum or [id number] 08:06:00 Test Item Value Reference Range Interpretation [...] Serum or Plasma (test code = 6768-6) [facility] HospitalLipase [Enzymatic activity/volume] in Serum or Plasma 2019-09-24 08:06:00 Test Item Value Reference Range Interpretation Comments lipase (test code = lipase) 27 U/L 13-60 [facility] [id number] 01:35:00Results [facility] HospitalUrinalysis macro (dipstick) panel - [id number] 08:40:00 Test Item Value Reference Range Interpretation Comments Leukocytes (test code = Negative Leukocytes) Nitrite (test code = negative Nitrite) Urobilinogen (test code = 1 Urobilinogen) Protein (test code = Negative Protein) pH (test code = pH) 8.5 Blood (test code = Blood) Hemolyzed: Trace Specific [place] (test code 1.025 = Specific [place]) Ketone (test code = Ketone) Negative Bilirubin (test code = Negative Bilirubin) Glucose (test code = Negative Glucose) Appearance (test code = Cloudy Appearance) Color (test code = Color) Yellow [facility] HospitalUrinalysis macro (dipstick) panel - [id number] 08:40:00 Test Item Value Reference Range Interpretation Comments Leukocytes (test code = Negative Leukocytes) Nitrite (test code = negative Nitrite) Urobilinogen (test code = 1 Urobilinogen) Protein (test code = Negative Protein) pH (test code = pH) 8.5 Blood (test code = Blood) Hemolyzed: Trace Specific [place] (test code 1.025 = Specific [place]) Ketone (test code = Ketone) Negative Bilirubin (test code = Negative Bilirubin) Glucose (test code = Negative Glucose) Appearance (test code = Cloudy Appearance) Color (test code = Color) Yellow [facility] HospitalUrinalysis macro (dipstick) panel - [id number] 08:40:00 Test Item Value Reference Range Interpretation Comments Leukocytes (test code = Negative Leukocytes) Nitrite (test code = negative Nitrite) Urobilinogen (test code = 1 Urobilinogen) Protein (test code = Negative Protein) pH (test code = pH) 8.5 Blood (test code = Blood) Hemolyzed: Trace Specific [place] (test code 1.025 = Specific [place]) Ketone (test code = Ketone) Negative Bilirubin (test code = Negative Bilirubin) Glucose (test code = Negative Glucose) Appearance (test code = Cloudy Appearance) Color (test code = Color) Yellow [facility] HospitalUrinalysis macro (dipstick) panel - [id number] 08:40:00 Test Item Value Reference Range Interpretation Comments Leukocytes (test code = Negative Leukocytes) Nitrite (test code = negative Nitrite) Urobilinogen (test code = 1 Urobilinogen) Protein (test code = Negative Protein) pH (test code = pH) 8.5 Blood (test code = Blood) Hemolyzed: Trace Specific [place] (test code 1.025 = Specific [place]) Ketone (test code = Ketone) Negative Bilirubin (test code = Negative Bilirubin) Glucose (test code = Negative Glucose) Appearance (test code = Cloudy Appearance) Color (test code = Color) Yellow [facility] HospitalAcute hepatitis 2000 panel - Serum [id number] 10:52:00 Test Item Value Reference Range Interpretation Comments hep B core Ab,IgM (test code = hep B negative negative core Ab,IgM) hepatitis C virus antibody (test <0.1 0.0-0.9 code = hepatitis C virus antibody) hepatitis A IgM antibody (test code negative negative = hepatitis A IgM antibody) .hepatitis B surface antigen (test negative negative code = .hepatitis B surface antigen) [facility] HospitalAmylase [Enzymatic activity/volume] in Serum or Plasma 2019-06-19 10:05:00 Test Item Value Reference Range Interpretation Comments Amylase [Enzymatic activity/volume] in 60 U/L 28-100 Serum or Plasma (test code = 1798-8) [facility] HospitalLipase [Enzymatic activity/volume] in Serum or Plasma 2019-06-19 10:05:00 Test Item Value Reference Range Interpretation Comments lipase (test code = lipase) 52 U/L 13-60 [facility] W Auto Differential panel - [id number] 08:00:00 Test Item Value Reference Range Interpretation Comments white blood count (test code = 7.6 K/uL 4.0-11.5 white blood count) red blood count (test code = red 4.41 M/uL 3.80-5.20 blood count) hemoglobin (test code = 13.8 g/dL 10.5-15.7 hemoglobin) hematocrit (test code = 40.7 % 34.0-50.0 hematocrit) Erythrocyte mean corpuscular 92.3 fL 86-100 volume [Entitic volume] (test code = 99255-0) mean corpuscular hemoglobin (test 31.3 pg 26.2-33.4 [...] 44.4-80.1 leukocytes in Blood (test code = 92453-2) Granulocytes Immature [#/volume] 0.0 K/uL 0.0-0.03 in Blood (test code = 50770-2) lymphocyte% (test code = 30.4 % 10.0-50.0 lymphocyte%) mono % (test code = mono %) 6.3 % 3.6-12.0 eos % (test code = eos %) 2.0 % 0.0-5.4 Basophils/100 leukocytes in 0.4 % 0.1-1.2 Unspecified specimen (test code = 94953-0) Neutrophils.band form [#/volume] 4.59 K/uL 1.56-6.13 in Blood (test code = 34699-2) Lymphocytes [#/volume] in 2.3 K/uL 1.18-3.74 Unspecified specimen by Automated count (test code = 44927-9) mono # (test code = mono #) 0.48 K/uL 0.24-0.86 eos # (test code = eos #) 0.15 K/uL 0.04-0.36 basophil # (test code = basophil 0.03 K/uL 0.01-0.08 #) NRBC% (test code = NRBC%) 0 /100 WBC 0-0.2 NRBC# (test code = NRBC#) 0 K/uL [facility]differential panel, [id number] 08:00:00 NeutrophilsBandLymphocyteAtypical LymphMonocyteEosinophilBasophilMetamyelocyteMyelocyteNucleated RedBlood CellPlatelet EstimatePlatelet MorphologyPolychromasiaPoikilocytosisAnisocytosisMacrocytosisToxic GranulationDohle BodiesBurr CellsRouleauToxic VacuolationGiant PlateletsDifferential comment-[facility] HospitalComprehensive metabolic 2000 panel - Serum or [id number] 08:00:00 Test Item Value Reference Range Interpretation [...] Serum or Plasma (test code = 6768-6) [facility] HospitalCBC W Auto Differential panel - [id number] 08:00:00 Test Item Value Reference Range Interpretation Comments white blood count (test code = 7.6 K/uL 4.0-11.5 white blood count) red blood count (test code = red 4.41 M/uL 3.80-5.20 blood count) hemoglobin (test code = 13.8 g/dL 10.5-15.7 hemoglobin) hematocrit (test code = 40.7 % 34.0-50.0 hematocrit) Erythrocyte mean corpuscular 92.3 fL 86-100 volume [Entitic volume] (test code = 42951-9) mean corpuscular hemoglobin (test 31.3 pg 26.2-33.4 [...] 44.4-80.1 leukocytes in Blood (test code = 42675-8) Granulocytes Immature [#/volume] 0.0 K/uL 0.0-0.03 in Blood (test code = 86362-8) lymphocyte% (test code = 30.4 % 10.0-50.0 lymphocyte%) mono % (test code = mono %) 6.3 % 3.6-12.0 eos % (test code = eos %) 2.0 % 0.0-5.4 Basophils/100 leukocytes in 0.4 % 0.1-1.2 Unspecified specimen (test code = 94981-3) Neutrophils.band form [#/volume] 4.59 K/uL 1.56-6.13 in Blood (test code = 16017-2) Lymphocytes [#/volume] in 2.3 K/uL 1.18-3.74 Unspecified specimen by Automated count (test code = 54408-0) mono # (test code = mono #) 0.48 K/uL 0.24-0.86 eos # (test code = eos #) 0.15 K/uL 0.04-0.36 basophil # (test code = basophil 0.03 K/uL 0.01-0.08 #) NRBC% (test code = NRBC%) 0 /100 WBC 0-0.2 NRBC# (test code = NRBC#) 0 K/uL [facility]different[facility] panel, [id number] 08:00:00 NeutrophilsBandLymphocyteAtypical LymphMonocyteEosinophilBasophilMetamyelocyteMyelocyteNucleated RedBlood CellPlatelet EstimatePlatelet MorphologyPolychromasiaPoikilocytosisAnisocytosisMacrocytosisToxic GranulationDohle BodiesBurr CellsRouleauToxic VacuolationGiant PlateletsDifferential comment-[facility] HospitalComprehensive metabolic 2000 panel - Serum or [id number] 08:00:00 Test Item Value Reference Range Interpretation [...] Serum or Plasma (test code = 6768-6) [facility] W Auto Differential panel - [id number] 08:00:00 Test Item Value Reference Range Interpretation Comments white blood count (test code = 7.6 K/uL 4.0-11.5 white blood count) red blood count (test code = red 4.41 M/uL 3.80-5.20 blood count) hemoglobin (test code = 13.8 g/dL 10.5-15.7 hemoglobin) hematocrit (test code = 40.7 % 34.0-50.0 hematocrit) Erythrocyte mean corpuscular 92.3 fL 86-100 volume [Entitic volume] (test code = 63738-9) mean corpuscular hemoglobin (test 31.3 pg 26.2-33.4 [...] 44.4-80.1 leukocytes in Blood (test code = 82467-6) Granulocytes Immature [#/volume] 0.0 K/uL 0.0-0.03 in Blood (test code = 43784-9) lymphocyte% (test code = 30.4 % 10.0-50.0 lymphocyte%) mono % (test code = mono %) 6.3 % 3.6-12.0 eos % (test code = eos %) 2.0 % 0.0-5.4 Basophils/100 leukocytes in 0.4 % 0.1-1.2 Unspecified specimen (test code = 72502-9) Neutrophils.band form [#/volume] 4.59 K/uL 1.56-6.13 in Blood (test code = 02088-4) Lymphocytes [#/volume] in 2.3 K/uL 1.18-3.74 Unspecified specimen by Automated count (test code = 78787-1) mono # (test code = mono #) 0.48 K/uL 0.24-0.86 eos # (test code = eos #) 0.15 K/uL 0.04-0.36 basophil # (test code = basophil 0.03 K/uL 0.01-0.08 #) NRBC% (test code = NRBC%) 0 /100 WBC 0-0.2 NRBC# (test code = NRBC#) 0 K/uL [facility]different[facility] panel, [id number] 08:00:00 NeutrophilsBandLymphocyteAtypical LymphMonocyteEosinophilBasophilMetamyelocyteMyelocyteNucleated RedBlood CellPlatelet EstimatePlatelet MorphologyPolychromasiaPoikilocytosisAnisocytosisMacrocytosisToxic GranulationDohle BodiesBurr CellsRouleauToxic VacuolationGiant PlateletsDifferential comment-[facility] HospitalComprehensive metabolic 2000 panel - Serum or [id number] 08:00:00 Test Item Value Reference Range Interpretation [...] Serum or Plasma (test code = 6768-6) [facility] W Auto Differential panel - [id number] 08:00:00 Test Item Value Reference Range Interpretation Comments white blood count (test code = 7.6 K/uL 4.0-11.5 white blood count) red blood count (test code = red 4.41 M/uL 3.80-5.20 blood count) hemoglobin (test code = 13.8 g/dL 10.5-15.7 hemoglobin) hematocrit (test code = 40.7 % 34.0-50.0 hematocrit) Erythrocyte mean corpuscular 92.3 fL 86-100 volume [Entitic volume] (test code = 86753-4) mean corpuscular hemoglobin (test 31.3 pg 26.2-33.4 [...] 44.4-80.1 leukocytes in Blood (test code = 33621-8) Granulocytes Immature [#/volume] 0.0 K/uL 0.0-0.03 in Blood (test code = 98338-7) lymphocyte% (test code = 30.4 % 10.0-50.0 lymphocyte%) mono % (test code = mono %) 6.3 % 3.6-12.0 eos % (test code = eos %) 2.0 % 0.0-5.4 Basophils/100 leukocytes in 0.4 % 0.1-1.2 Unspecified specimen (test code = 50750-5) Neutrophils.band form [#/volume] 4.59 K/uL 1.56-6.13 in Blood (test code = 39514-6) Lymphocytes [#/volume] in 2.3 K/uL 1.18-3.74 Unspecified specimen by Automated count (test code = 28168-6) mono # (test code = mono #) 0.48 K/uL 0.24-0.86 eos # (test code = eos #) 0.15 K/uL 0.04-0.36 basophil # (test code = basophil 0.03 K/uL 0.01-0.08 #) NRBC% (test code = NRBC%) 0 /100 WBC 0-0.2 NRBC# (test code = NRBC#) 0 K/uL [facility]different[facility], [id number] 08:00:00 NeutrophilsBandLymphocyteAtypical LymphMonocyteEosinophilBasophilMetamyelocyteMyelocyteNucleated RedBlood CellPlatelet EstimatePlatelet MorphologyPolychromasiaPoikilocytosisAnisocytosisMacrocytosisToxic GranulationDohle BodiesBurr CellsRouleauToxic VacuolationGiant PlateletsDifferential comment-PMaJefferson Davis Community HospitalComprehensive metabolic 2000 panel - Serum or [id number] 08:00:00 Test Item Value Reference Range Interpretation [...] Serum or Plasma (test code = 6768-6) [facility] ([facility]stick) panel - [id number] 10:09:35 Test Item Value Reference Range Interpretation Comments Leukocytes (test code = Negative Leukocytes) Nitrite (test code = negative Nitrite) Urobilinogen (test code = 1 Urobilinogen) Protein (test code = Trace Protein) pH (test code = pH) 6.0 Blood (test code = Blood) Hemolyzed: Trace Specific [place] (test code 1.030 = Specific [place]) Ketone (test code = Ketone) Trace Bilirubin (test code = Moderate Bilirubin) Glucose (test code = Negative Glucose) Appearance (test code = Clear Appearance) Color (test code = Color) Dark Yellow [facility] HospitalUrinalysis macro (dipstick) panel - [id number] 10:09:35 Test Item Value Reference Range Interpretation Comments Leukocytes (test code = Negative Leukocytes) Nitrite (test code = negative Nitrite) Urobilinogen (test code = 1 Urobilinogen) Protein (test code = Trace Protein) pH (test code = pH) 6.0 Blood (test code = Blood) Hemolyzed: Trace Specific [place] (test code 1.030 = Specific [place]) Ketone (test code = Ketone) Trace Bilirubin (test code = Moderate Bilirubin) Glucose (test code = Negative Glucose) Appearance (test code = Clear Appearance) Color (test code = Color) Dark Yellow [facility] HospitalUrinalysis macro (dipstick) panel - [id number] 10:09:35 Test Item Value Reference Range Interpretation Comments Leukocytes (test code = Negative Leukocytes) Nitrite (test code = negative Nitrite) Urobilinogen (test code = 1 Urobilinogen) Protein (test code = Trace Protein) pH (test code = pH) 6.0 Blood (test code = Blood) Hemolyzed: Trace Specific [place] (test code 1.030 = Specific [place]) Ketone (test code = Ketone) Trace Bilirubin (test code = Moderate Bilirubin) Glucose (test code = Negative Glucose) Appearance (test code = Clear Appearance) Color (test code = Color) Dark Yellow [facility]Ur[facility] (dipstick) panel - [id number] 10:09:35 Test Item Value Reference Range Interpretation Comments Leukocytes (test code = Negative Leukocytes) Nitrite (test code = negative Nitrite) Urobilinogen (test code = 1 Urobilinogen) Protein (test code = Trace Protein) pH (test code = pH) 6.0 Blood (test code = Blood) Hemolyzed: Trace Specific [place] (test code 1.030 = Specific [place]) Ketone (test code = Ketone) Trace Bilirubin (test code = Moderate Bilirubin) Glucose (test code = Negative Glucose) Appearance (test code = Clear Appearance) Color (test code = Color) Dark Yellow [facility] HospitalUr[facility]ysis macro (dipstick) panel - [id number] 10:09:35 Test Item Value Reference Range Interpretation Comments Leukocytes (test code = Negative Leukocytes) Nitrite (test code = negative Nitrite) Urobilinogen (test code = 1 Urobilinogen) Protein (test code = Trace Protein) pH (test code = pH) 6.0 Blood (test code = Blood) Hemolyzed: Trace Specific [place] (test code 1.030 = Specific [place]) Ketone (test code = Ketone) Trace Bilirubin (test code = Moderate Bilirubin) Glucose (test code = Negative Glucose) Appearance (test code = Clear Appearance) Color (test code = Color) Dark Yellow [facility] HospitalUr[facility]ysis macro (dipstick) panel - [id number] 10:09:35 Test Item Value Reference Range Interpretation Comments Leukocytes (test code = Negative Leukocytes) Nitrite (test code = negative Nitrite) Urobilinogen (test code = 1 Urobilinogen) Protein (test code = Trace Protein) pH (test code = pH) 6.0 Blood (test code = Blood) Hemolyzed: Trace Specific [place] (test code 1.030 = Specific [place]) Ketone (test code = Ketone) Trace Bilirubin (test code = Moderate Bilirubin) Glucose (test code = Negative Glucose) Appearance (test code = Clear Appearance) Color (test code = Color) Dark Yellow [facility] W Auto Differential panel - [id number] 08:58:00 Test Item Value Reference Range Interpretation Comments white blood count (test code = 8.6 K/uL 4.0-11.5 white blood count) red blood count (test code = red 4.35 M/uL 3.80-5.20 blood count) hemoglobin (test code = 13.5 g/dL 10.5-15.7 hemoglobin) hematocrit (test code = 40.8 % 34.0-50.0 hematocrit) Erythrocyte mean corpuscular 93.8 fL 86-100 volume [Entitic volume] (test code = 01974-4) mean corpuscular hemoglobin (test 31.0 pg 26.2-33.4 [...] 44.4-80.1 leukocytes in Blood (test code = 40387-1) Granulocytes Immature [#/volume] 0.0 K/uL 0.0-0.03 in Blood (test code = 26439-5) lymphocyte% (test code = 26.4 % 10.0-50.0 lymphocyte%) mono % (test code = mono %) 6.3 % 3.6-12.0 eos % (test code = eos %) 2.8 % 0.0-5.4 Basophils/100 leukocytes in 0.7 % 0.1-1.2 Unspecified specimen (test code = 67061-7) Neutrophils.band form [#/volume] 5.49 K/uL 1.56-6.13 in Blood (test code = 47801-9) Lymphocytes [#/volume] in 2.3 K/uL 1.18-3.74 Unspecified specimen by Automated count (test code = 32271-0) mono # (test code = mono #) 0.54 K/uL 0.24-0.86 eos # (test code = eos #) 0.24 K/uL 0.04-0.36 basophil # (test code = basophil 0.06 K/uL 0.01-0.08 #) NRBC% (test code = NRBC%) 0 /100 WBC 0-0.2 NRBC# (test code = NRBC#) 0 K/uL [facility] [id number] 08:58:00 NeutrophilsBandLymphocyteAtypical LymphMonocyteEosinophilBasophilMetamyelocyteMyelocytePlatelet EstimatePlatelet MorphologyRouleauDifferential comment-[facility] HospitalCom[facility] 2000 panel - Serum or [id number] 08:58:00 Test Item Value Reference Range Interpretation [...] Serum or Plasma (test code = 6768-6) [facility]Hep[facility] function 2000 [facility] - Serum or [id number] 08:58:00 Test Item Value Reference Range Interpretation Comments Bilirubin.direct [Mass/volume] in Serum <0.20 0.0-0.3 or Plasma (test code = 1968-7) [facility] W Auto Differential panel - [id number] 08:58:00 Test Item Value Reference Range Interpretation Comments white blood count (test code = 8.6 K/uL 4.0-11.5 white blood count) red blood count (test code = red 4.35 M/uL 3.80-5.20 blood count) hemoglobin (test code = 13.5 g/dL 10.5-15.7 hemoglobin) hematocrit (test code = 40.8 % 34.0-50.0 hematocrit) Erythrocyte mean corpuscular 93.8 fL 86-100 volume [Entitic volume] (test code = 83177-3) mean corpuscular hemoglobin (test 31.0 pg 26.2-33.4 [...] 44.4-80.1 leukocytes in Blood (test code = 10920-9) Granulocytes Immature [#/volume] 0.0 K/uL 0.0-0.03 in Blood (test code = 31115-7) lymphocyte% (test code = 26.4 % 10.0-50.0 lymphocyte%) mono % (test code = mono %) 6.3 % 3.6-12.0 eos % (test code = eos %) 2.8 % 0.0-5.4 Basophils/100 leukocytes in 0.7 % 0.1-1.2 Unspecified specimen (test code = 17513-1) Neutrophils.band form [#/volume] 5.49 K/uL 1.56-6.13 in Blood (test code = 23703-9) Lymphocytes [#/volume] in 2.3 K/uL 1.18-3.74 Unspecified specimen by Automated count (test code = 68362-8) mono # (test code = mono #) 0.54 K/uL 0.24-0.86 eos # (test code = eos #) 0.24 K/uL 0.04-0.36 basophil # (test code = basophil 0.06 K/uL 0.01-0.08 #) NRBC% (test code = NRBC%) 0 /100 WBC 0-0.2 NRBC# (test code = NRBC#) 0 K/uL [facility], [id number] 08:58:00 NeutrophilsBandLymphocyteAtypical LymphMonocyteEosinophilBasophilMetamyelocyteMyelocytePlatelet EstimatePlatelet MorphologyRouleauDifferential comment-[facility] HospitalComprehensive metabolic 2000 panel - Serum or [id number] 08:58:00 Test Item Value Reference Range Interpretation [...] Serum or Plasma (test code = 6768-6) [facility]Hep[facility] function 2000 [facility] - Serum or [id number] 08:58:00 Test Item Value Reference Range Interpretation Comments Bilirubin.direct [Mass/volume] in Serum <0.20 0.0-0.3 or Plasma (test code = 1968-7) [facility]CB [facility] - [id number] 08:58:00 Test Item Value Reference Range Interpretation Comments white blood count (test code = 8.6 K/uL 4.0-11.5 white blood count) red blood count (test code = red 4.35 M/uL 3.80-5.20 blood count) hemoglobin (test code = 13.5 g/dL 10.5-15.7 hemoglobin) hematocrit (test code = 40.8 % 34.0-50.0 hematocrit) Erythrocyte mean corpuscular 93.8 fL 86-100 volume [Entitic volume] (test code = 69790-6) mean corpuscular hemoglobin (test 31.0 pg 26.2-33.4 [...] 44.4-80.1 leukocytes in Blood (test code = 05067-4) Granulocytes Immature [#/volume] 0.0 K/uL 0.0-0.03 in Blood (test code = 85834-8) lymphocyte% (test code = 26.4 % 10.0-50.0 lymphocyte%) mono % (test code = mono %) 6.3 % 3.6-12.0 eos % (test code = eos %) 2.8 % 0.0-5.4 Basophils/100 leukocytes in 0.7 % 0.1-1.2 Unspecified specimen (test code = 82437-4) Neutrophils.band form [#/volume] 5.49 K/uL 1.56-6.13 in Blood (test code = 51247-1) Lymphocytes [#/volume] in 2.3 K/uL 1.18-3.74 Unspecified specimen by Automated count (test code = 18374-8) mono # (test code = mono #) 0.54 K/uL 0.24-0.86 eos # (test code = eos #) 0.24 K/uL 0.04-0.36 basophil # (test code = basophil 0.06 K/uL 0.01-0.08 #) NRBC% (test code = NRBC%) 0 /100 WBC 0-0.2 NRBC# (test code = NRBC#) 0 K/uL [facility]different[facility], [id number] 08:58:00 NeutrophilsBandLymphocyteAtypical LymphMonocyteEosinophilBasophilMetamyelocyteMyelocytePlatelet EstimatePlatelet MorphologyRouleauDifferential comment-[facility] HospitalComprehensive metabolic 2000 panel - Serum or [id number] 08:58:00 Test Item Value Reference Range Interpretation [...] Serum or Plasma (test code = 6768-6) [facility] HospitalHep[facility] function 2000 panel - Serum or [id number] 08:58:00 Test Item Value Reference Range Interpretation Comments Bilirubin.direct [Mass/volume] in Serum <0.20 0.0-0.3 or Plasma (test code = 1968-7) [facility] W Auto Differential panel - [id number] 08:58:00 Test Item Value Reference Range Interpretation Comments white blood count (test code = 8.6 K/uL 4.0-11.5 white blood count) red blood count (test code = red 4.35 M/uL 3.80-5.20 blood count) hemoglobin (test code = 13.5 g/dL 10.5-15.7 hemoglobin) hematocrit (test code = 40.8 % 34.0-50.0 hematocrit) Erythrocyte mean corpuscular 93.8 fL 86-100 volume [Entitic volume] (test code = 48139-8) mean corpuscular hemoglobin (test 31.0 pg 26.2-33.4 [...] 44.4-80.1 leukocytes in Blood (test code = 63867-0) Granulocytes Immature [#/volume] 0.0 K/uL 0.0-0.03 in Blood (test code = 85369-4) lymphocyte% (test code = 26.4 % 10.0-50.0 lymphocyte%) mono % (test code = mono %) 6.3 % 3.6-12.0 eos % (test code = eos %) 2.8 % 0.0-5.4 Basophils/100 leukocytes in 0.7 % 0.1-1.2 Unspecified specimen (test code = 38318-8) Neutrophils.band form [#/volume] 5.49 K/uL 1.56-6.13 in Blood (test code = 52945-7) Lymphocytes [#/volume] in 2.3 K/uL 1.18-3.74 Unspecified specimen by Automated count (test code = 39266-5) mono # (test code = mono #) 0.54 K/uL 0.24-0.86 eos # (test code = eos #) 0.24 K/uL 0.04-0.36 basophil # (test code = basophil 0.06 K/uL 0.01-0.08 #) NRBC% (test code = NRBC%) 0 /100 WBC 0-0.2 NRBC# (test code = NRBC#) 0 K/uL [facility]different[facility], [id number] 08:58:00 NeutrophilsBandLymphocyteAtypical LymphMonocyteEosinophilBasophilMetamyelocyteMyelocytePlatelet EstimatePlatelet MorphologyRouleauDifferential comment-[facility] HospitalComprehensive metabolic 2000 panel - Serum or [id number] 08:58:00 Test Item Value Reference Range Interpretation [...] Serum or Plasma (test code = 6768-6) [facility]Hep[facility] function 2000 [facility] - Serum or [id number] 08:58:00 Test Item Value Reference Range Interpretation Comments Bilirubin.direct [Mass/volume] in Serum <0.20 0.0-0.3 or Plasma (test code = 1968-7) [facility] W Auto Differential panel - [id number] 08:58:00 Test Item Value Reference Range Interpretation Comments white blood count (test code = 8.6 K/uL 4.0-11.5 white blood count) red blood count (test code = red 4.35 M/uL 3.80-5.20 blood count) hemoglobin (test code = 13.5 g/dL 10.5-15.7 hemoglobin) hematocrit (test code = 40.8 % 34.0-50.0 hematocrit) Erythrocyte mean corpuscular 93.8 fL 86-100 volume [Entitic volume] (test code = 29645-5) mean corpuscular hemoglobin (test 31.0 pg 26.2-33.4 [...] 44.4-80.1 leukocytes in Blood (test code = 65103-6) Granulocytes Immature [#/volume] 0.0 K/uL 0.0-0.03 in Blood (test code = 92349-8) lymphocyte% (test code = 26.4 % 10.0-50.0 lymphocyte%) mono % (test code = mono %) 6.3 % 3.6-12.0 eos % (test code = eos %) 2.8 % 0.0-5.4 Basophils/100 leukocytes in 0.7 % 0.1-1.2 Unspecified specimen (test code = 98838-3) Neutrophils.band form [#/volume] 5.49 K/uL 1.56-6.13 in Blood (test code = 30776-3) Lymphocytes [#/volume] in 2.3 K/uL 1.18-3.74 Unspecified specimen by Automated count (test code = 92328-7) mono # (test code = mono #) 0.54 K/uL 0.24-0.86 eos # (test code = eos #) 0.24 K/uL 0.04-0.36 basophil # (test code = basophil 0.06 K/uL 0.01-0.08 #) NRBC% (test code = NRBC%) 0 /100 WBC 0-0.2 NRBC# (test code = NRBC#) 0 K/uL [facility]different[facility], [id number] 08:58:00 NeutrophilsBandLymphocyteAtypical LymphMonocyteEosinophilBasophilMetamyelocyteMyelocytePlatelet EstimatePlatelet MorphologyRouleauDifferential comment-[facility] HospitalComprehensive metabolic 2000 panel - Serum or [id number] 08:58:00 Test Item Value Reference Range Interpretation [...] Serum or Plasma (test code = 6768-6) [facility]Hep[facility] 2000 [facility] - Serum or [id number] 08:58:00 Test Item Value Reference Range Interpretation Comments Bilirubin.direct [Mass/volume] in Serum <0.20 0.0-0.3 or Plasma (test code = 1968-7) [facility], [id number] 00:00:00 Test Item Value Reference Range Interpretation [...] & av panel) by real time PCR) [facility], [id number] 00:00:00 Test Item Value Reference Range Interpretation [...] & av panel) by real time PCR) [facility], [id number] 00:00:00 Test Item Value Reference Range Interpretation [...] & av panel) by real time PCR) [facility], LB + reflex [id number] 00:00:00 Test Item Value Reference Range Interpretation [...] (test code = normal liquid Pap test) [facility], LB + reflex [id number] 00:00:00 Test Item Value Reference Range Interpretation [...] (test code = normal liquid Pap test) [facility] reflex [id number] 00:00:00 Test Item Value Reference Range Interpretation [...] (test code = normal liquid Pap test) [facility] W Auto Differential panel - [id number] 07:42:00 Test Item Value Reference Range Interpretation Comments white blood count (test code = 9.3 K/uL 4.0-11.5 white blood count) red blood count (test code = red 4.33 M/uL 3.80-5.20 blood count) hemoglobin (test code = 13.5 g/dL 10.5-15.7 hemoglobin) hematocrit (test code = 41.2 % 34.0-50.0 hematocrit) Erythrocyte mean corpuscular 95.2 fL 86-100 volume [Entitic volume] (test code = 72480-7) mean corpuscular hemoglobin (test 31.2 pg 26.2-33.4 [...] 44.4-80.1 leukocytes in Blood (test code = 39232-6) Granulocytes Immature [#/volume] 0.0 K/uL 0.0-0.03 in Blood (test code = 03336-6) lymphocyte% (test code = 24.4 % 10.0-50.0 lymphocyte%) mono % (test code = mono %) 5.2 % 3.6-12.0 eos % (test code = eos %) 3.8 % 0.0-5.4 Basophils/100 leukocytes in 0.3 % 0.1-1.2 Unspecified specimen (test code = 41600-4) Neutrophils.band form [#/volume] 6.15 K/uL 1.56-6.13 H in Blood (test code = 21098-3) Lymphocytes [#/volume] in 2.3 K/uL 1.18-3.74 Unspecified specimen by Automated count (test code = 11284-8) mono # (test code = mono #) 0.48 K/uL 0.24-0.86 eos # (test code = eos #) 0.35 K/uL 0.04-0.36 basophil # (test code = basophil 0.03 K/uL 0.01-0.08 #) NRBC% (test code = NRBC%) 0 /100 WBC 0-0.2 NRBC# (test code = NRBC#) 0 K/uL [facility]different[facility], [id number] 07:42:00 NeutrophilsBandLymphocyteAtypical LymphMonocyteBasophilPlatelet EstimateDifferential comment-PMaJeff[facility] HospitalComprehensive metabolic 2000 panel - Serum or [id number] 07:42:00 Test Item Value Reference Range Interpretation [...] Serum or Plasma (test code = 6768-6) [facility] HospitalLipid 1996 panel - Serum or [id number] 07:42:00 Test Item Value Reference Range Interpretation Comments cholesterol level (test code = 141 mg/dL 150-200 L cholesterol level) triglycerides level (test code = 110 mg/dL <150 triglycerides level) HDL cholesterol (test code = HDL 54 mg/dL >65 L cholesterol) LDL cholesterol direct (test code = 77 mg/dL <100 LDL cholesterol direct) cholesterol risk ratio (test code = 2.611 cholesterol risk ratio) [facility] HospitalThyrotropin [Units/volume] in Serum or [id number] 07:42:00 Test Item Value Reference Range Interpretation Comments Thyrotropin [Units/volume] in 1.29 uIU/mL 0.36-3.74 Serum or Plasma (test code = 3016-3) [facility] HospitalHIV 1+2 Ab [Presence] in [id number] 07:42:00HIV P24 AgHIV-1/2 AbMaJefferson Davis Community HospitalThyroxine (T4) free [Mass/volume] in Serum or [id number] 07:42:00 Test Item Value Reference Range Interpretation Comments free T4 (test code = free T4) 1.42 NG/dL 0.93-1.7 [facility] HospitalReagin Ab [Presence] in Serum by [id number] 07:42:00 Test Item Value Reference Range Interpretation Comments Reagin Ab [Presence] in Serum by nonreactive nonreactive RPR (test code = 05307-0) [facility] HospitalFollitropin [Units/volume] in Serum or [id number] 07:42:00 Test Item Value Reference Range Interpretation Comments follicle stimulating hormone (test 4.1 mIU/mL . code = follicle stimulating hormone) [facility] HospitalProlactin [Mass/volume] in Serum or [id number] 07:42:00 Test Item Value Reference Range Interpretation Comments Prolactin [Mass/volume] in Serum 11.2 NG/mL 4.8-23.3 or Plasma (test code = 2842-3) [facility] HospitalEstradiol (E2) [Mass/volume] in Serum or [id number] 07:42:00 Test Item Value Reference Range Interpretation Comments estradiol serum (test code = 70.5 pg/mL . estradiol serum) [facility] HospitalHepatitis B virus surface Ag [Presence] in Serum 2019-04-19 07:42:00 Test Item Value Reference Range Interpretation Comments .hepatitis B surface antigen (test negative negative code = .hepatitis B surface antigen) [facility] HospitalHepatitis C virus RNA [Units/volume] (viral load) in Serum or Plasma by Probe and signal amplification [id number] 07:42:00 Test Item Value Reference Range Interpretation Comments hepatitis C RNA JAVIER,qual (test code negative negative = hepatitis C RNA JAVIER,qual) [facility] W Auto Differential panel - [id number] 07:42:00 Test Item Value Reference Range Interpretation Comments white blood count (test code = 9.3 K/uL 4.0-11.5 white blood count) red blood count (test code = red 4.33 M/uL 3.80-5.20 blood count) hemoglobin (test code = 13.5 g/dL 10.5-15.7 hemoglobin) hematocrit (test code = 41.2 % 34.0-50.0 hematocrit) Erythrocyte mean corpuscular 95.2 fL 86-100 volume [Entitic volume] (test code = 72088-6) mean corpuscular hemoglobin (test 31.2 pg 26.2-33.4 [...] 44.4-80.1 leukocytes in Blood (test code = 98000-7) Granulocytes Immature [#/volume] 0.0 K/uL 0.0-0.03 in Blood (test code = 22170-3) lymphocyte% (test code = 24.4 % 10.0-50.0 lymphocyte%) mono % (test code = mono %) 5.2 % 3.6-12.0 eos % (test code = eos %) 3.8 % 0.0-5.4 Basophils/100 leukocytes in 0.3 % 0.1-1.2 Unspecified specimen (test code = 75124-5) Neutrophils.band form [#/volume] 6.15 K/uL 1.56-6.13 H in Blood (test code = 96557-4) Lymphocytes [#/volume] in 2.3 K/uL 1.18-3.74 Unspecified specimen by Automated count (test code = 57386-5) mono # (test code = mono #) 0.48 K/uL 0.24-0.86 eos # (test code = eos #) 0.35 K/uL 0.04-0.36 basophil # (test code = basophil 0.03 K/uL 0.01-0.08 #) NRBC% (test code = NRBC%) 0 /100 WBC 0-0.2 NRBC# (test code = NRBC#) 0 K/uL [facility]different[facility] panel, [id number] 07:42:00 NeutrophilsBandLymphocyteAtypical LymphMonocyteBasophilPlatelet EstimateDifferential comment-[facility] HospitalComprehensive metabolic 2000 panel - Serum or [id number] 07:42:00 Test Item Value Reference Range Interpretation [...] Serum or Plasma (test code = 6768-6) [facility] HospitalLipid 1996 panel - Serum or [id number] 07:42:00 Test Item Value Reference Range Interpretation Comments cholesterol level (test code = 141 mg/dL 150-200 L cholesterol level) triglycerides level (test code = 110 mg/dL <150 triglycerides level) HDL cholesterol (test code = HDL 54 mg/dL >65 L cholesterol) LDL cholesterol direct (test code = 77 mg/dL <100 LDL cholesterol direct) cholesterol risk ratio (test code = 2.611 cholesterol risk ratio) [facility] HospitalThyrotropin [Units/volume] in Serum or [id number] 07:42:00 Test Item Value Reference Range Interpretation Comments Thyrotropin [Units/volume] in 1.29 uIU/mL 0.36-3.74 Serum or Plasma (test code = 3016-3) [facility] HospitalHIV 1+2 Ab [Presence] in [id number] 07:42:00HIV P24 AgHIV-1/2 AbMaJefferson Davis Community HospitalThyroxine (T4) free [Mass/volume] in Serum or [id number] 07:42:00 Test Item Value Reference Range Interpretation Comments free T4 (test code = free T4) 1.42 NG/dL 0.93-1.7 [facility] HospitalReagin Ab [Presence] in Serum by [id number] 07:42:00 Test Item Value Reference Range Interpretation Comments Reagin Ab [Presence] in Serum by nonreactive nonreactive RPR (test code = 19024-4) [facility] HospitalFollitropin [Units/volume] in Serum or [id number] 07:42:00 Test Item Value Reference Range Interpretation Comments follicle stimulating hormone (test 4.1 mIU/mL . code = follicle stimulating hormone) [facility] HospitalProlactin [Mass/volume] in Serum or [id number] 07:42:00 Test Item Value Reference Range Interpretation Comments Prolactin [Mass/volume] in Serum 11.2 NG/mL 4.8-23.3 or Plasma (test code = 2842-3) [facility] HospitalEstradiol (E2) [Mass/volume] in Serum or [id number] 07:42:00 Test Item Value Reference Range Interpretation Comments estradiol serum (test code = 70.5 pg/mL . estradiol serum) [facility] HospitalHepatitis B virus surface Ag [Presence] in Serum 2019-04-19 07:42:00 Test Item Value Reference Range Interpretation Comments .hepatitis B surface antigen (test negative negative code = .hepatitis B surface antigen) [facility] HospitalHecl[facility] medical centertis C virus RNA [Units/volume] (viral load) in Serum or Plasma by Probe and signal amplification [id number] 07:42:00 Test Item Value Reference Range Interpretation Comments hepatitis C RNA JAVIER,qual (test code negative negative = hepatitis C RNA JAVIER,qual) [facility] W Auto Differential panel - [id number] 07:42:00 Test Item Value Reference Range Interpretation Comments white blood count (test code = 9.3 K/uL 4.0-11.5 white blood count) red blood count (test code = red 4.33 M/uL 3.80-5.20 blood count) hemoglobin (test code = 13.5 g/dL 10.5-15.7 hemoglobin) hematocrit (test code = 41.2 % 34.0-50.0 hematocrit) Erythrocyte mean corpuscular 95.2 fL 86-100 volume [Entitic volume] (test code = 17849-9) mean corpuscular hemoglobin (test 31.2 pg 26.2-33.4 [...] 44.4-80.1 leukocytes in Blood (test code = 06268-7) Granulocytes Immature [#/volume] 0.0 K/uL 0.0-0.03 in Blood (test code = 29814-8) lymphocyte% (test code = 24.4 % 10.0-50.0 lymphocyte%) mono % (test code = mono %) 5.2 % 3.6-12.0 eos % (test code = eos %) 3.8 % 0.0-5.4 Basophils/100 leukocytes in 0.3 % 0.1-1.2 Unspecified specimen (test code = 14519-8) Neutrophils.band form [#/volume] 6.15 K/uL 1.56-6.13 H in Blood (test code = 58819-9) Lymphocytes [#/volume] in 2.3 K/uL 1.18-3.74 Unspecified specimen by Automated count (test code = 90216-2) mono # (test code = mono #) 0.48 K/uL 0.24-0.86 eos # (test code = eos #) 0.35 K/uL 0.04-0.36 basophil # (test code = basophil 0.03 K/uL 0.01-0.08 #) NRBC% (test code = NRBC%) 0 /100 WBC 0-0.2 NRBC# (test code = NRBC#) 0 K/uL [facility]different[facility] panel, [id number] 07:42:00 NeutrophilsBandLymphocyteAtypical LymphMonocyteBasophilPlatelet EstimateDifferential comment-[facility] HospitalComprehensive metabolic 2000 panel - Serum or [id number] 07:42:00 Test Item Value Reference Range Interpretation [...] Serum or Plasma (test code = 6768-6) [facility] HospitalLipid 1996 panel - Serum or [id number] 07:42:00 Test Item Value Reference Range Interpretation Comments cholesterol level (test code = 141 mg/dL 150-200 L cholesterol level) triglycerides level (test code = 110 mg/dL <150 triglycerides level) HDL cholesterol (test code = HDL 54 mg/dL >65 L cholesterol) LDL cholesterol direct (test code = 77 mg/dL <100 LDL cholesterol direct) cholesterol risk ratio (test code = 2.611 cholesterol risk ratio) [facility] HospitalThyrotropin [Units/volume] in Serum or [id number] 07:42:00 Test Item Value Reference Range Interpretation Comments Thyrotropin [Units/volume] in 1.29 uIU/mL 0.36-3.74 Serum or Plasma (test code = 3016-3) [facility]HIV [facility]2 Ab [Presence] in [id number] 07:42:00HIV P24 AgHIV-1/2 AbMaJefferson Davis Community HospitalThyroxine (T4) free [Mass/volume] in Serum or [id number] 07:42:00 Test Item Value Reference Range Interpretation Comments free T4 (test code = free T4) 1.42 NG/dL 0.93-1.7 [facility] HospitalReagin Ab [Presence] in Serum by [id number] 07:42:00 Test Item Value Reference Range Interpretation Comments Reagin Ab [Presence] in Serum by nonreactive nonreactive RPR (test code = 05861-2) [facility] HospitalFollitropin [Units/volume] in Serum or [id number] 07:42:00 Test Item Value Reference Range Interpretation Comments follicle stimulating hormone (test 4.1 mIU/mL . code = follicle stimulating hormone) [facility] HospitalProlactin [Mass/volume] in Serum or [id number] 07:42:00 Test Item Value Reference Range Interpretation Comments Prolactin [Mass/volume] in Serum 11.2 NG/mL 4.8-23.3 or Plasma (test code = 2842-3) [facility] HospitalEstradiol (E2) [Mass/volume] in Serum or [id number] 07:42:00 Test Item Value Reference Range Interpretation Comments estradiol serum (test code = 70.5 pg/mL . estradiol serum) [facility] HospitalHepatitis B virus surface Ag [Presence] in Serum 2019-04-19 07:42:00 Test Item Value Reference Range Interpretation Comments .hepatitis B surface antigen (test negative negative code = .hepatitis B surface antigen) [facility] HospitalHepatitis C virus RNA [Units/volume] (viral load) in Serum or Plasma by Probe and signal amplification [id number] 07:42:00 Test Item Value Reference Range Interpretation Comments hepatitis C RNA JAVIER,qual (test code negative negative = hepatitis C RNA JAVIER,qual) [facility] W Auto Differential panel - [id number] 07:42:00 Test Item Value Reference Range Interpretation Comments white blood count (test code = 9.3 K/uL 4.0-11.5 white blood count) red blood count (test code = red 4.33 M/uL 3.80-5.20 blood count) hemoglobin (test code = 13.5 g/dL 10.5-15.7 hemoglobin) hematocrit (test code = 41.2 % 34.0-50.0 hematocrit) Erythrocyte mean corpuscular 95.2 fL 86-100 volume [Entitic volume] (test code = 69497-0) mean corpuscular hemoglobin (test 31.2 pg 26.2-33.4 [...] 44.4-80.1 leukocytes in Blood (test code = 57046-0) Granulocytes Immature [#/volume] 0.0 K/uL 0.0-0.03 in Blood (test code = 04971-6) lymphocyte% (test code = 24.4 % 10.0-50.0 lymphocyte%) mono % (test code = mono %) 5.2 % 3.6-12.0 eos % (test code = eos %) 3.8 % 0.0-5.4 Basophils/100 leukocytes in 0.3 % 0.1-1.2 Unspecified specimen (test code = 79569-9) Neutrophils.band form [#/volume] 6.15 K/uL 1.56-6.13 H in Blood (test code = 32555-6) Lymphocytes [#/volume] in 2.3 K/uL 1.18-3.74 Unspecified specimen by Automated count (test code = 43305-8) mono # (test code = mono #) 0.48 K/uL 0.24-0.86 eos # (test code = eos #) 0.35 K/uL 0.04-0.36 basophil # (test code = basophil 0.03 K/uL 0.01-0.08 #) NRBC% (test code = NRBC%) 0 /100 WBC 0-0.2 NRBC# (test code = NRBC#) 0 K/uL [facility], [id number] 07:42:00 NeutrophilsBandLymphocyteAtypical LymphMonocyteBasophilPlatelet EstimateDifferential comment-[facility] HospitalComprehensive [facility] 2000 panel - Serum or [id number] 07:42:00 Test Item Value Reference Range Interpretation [...] Serum or Plasma (test code = 6768-6) [facility] HospitalLipid 1996 panel - Serum or [id number] 07:42:00 Test Item Value Reference Range Interpretation Comments cholesterol level (test code = 141 mg/dL 150-200 L cholesterol level) triglycerides level (test code = 110 mg/dL <150 triglycerides level) HDL cholesterol (test code = HDL 54 mg/dL >65 L cholesterol) LDL cholesterol direct (test code = 77 mg/dL <100 LDL cholesterol direct) cholesterol risk ratio (test code = 2.611 cholesterol risk ratio) [facility] HospitalThyrotropin [Units/volume] in Serum or [id number] 07:42:00 Test Item Value Reference Range Interpretation Comments Thyrotropin [Units/volume] in 1.29 uIU/mL 0.36-3.74 Serum or Plasma (test code = 3016-3) [facility] HospitalHIV 1+2 Ab [Presence] in [id number] 07:42:00HIV P24 AgHIV-1/2 AbMataSelect Specialty HospitalThyroxine (T4) free [Mass/volume] in Serum or [id number] 07:42:00 Test Item Value Reference Range Interpretation Comments free T4 (test code = free T4) 1.42 NG/dL 0.93-1.7 [facility] HospitalReagin Ab [Presence] in Serum by [id number] 07:42:00 Test Item Value Reference Range Interpretation Comments Reagin Ab [Presence] in Serum by nonreactive nonreactive RPR (test code = 05898-3) [facility] HospitalFollitropin [Units/volume] in Serum or [id number] 07:42:00 Test Item Value Reference Range Interpretation Comments follicle stimulating hormone (test 4.1 mIU/mL . code = follicle stimulating hormone) [facility] HospitalProlactin [Mass/volume] in Serum or [id number] 07:42:00 Test Item Value Reference Range Interpretation Comments Prolactin [Mass/volume] in Serum 11.2 NG/mL 4.8-23.3 or Plasma (test code = 2842-3) [facility] HospitalEstradiol (E2) [Mass/volume] in Serum or [id number] 07:42:00 Test Item Value Reference Range Interpretation Comments estradiol serum (test code = 70.5 pg/mL . estradiol serum) [facility] HospitalHepatitis B virus surface Ag [Presence] in Serum 2019-04-19 07:42:00 Test Item Value Reference Range Interpretation Comments .hepatitis B surface antigen (test negative negative code = .hepatitis B surface antigen) [facility] HospitalHecl[facility] medical centertis C virus RNA [Units/volume] (viral load) in Serum or Plasma by Probe and signal amplification [id number] 07:42:00 Test Item Value Reference Range Interpretation Comments hepatitis C RNA JAVIER,qual (test code negative negative = hepatitis C RNA JAVIER,qual) [facility] HospitalUrinalysis macro (dipstick) panel - [id number] 10:09:00 Test Item Value Reference Range Interpretation Comments Leukocytes (test code = Leukocytes) Negative Nitrite (test code = Nitrite) negative Urobilinogen (test code = .2 Urobilinogen) Protein (test code = Protein) Negative pH (test code = pH) 7.0 Blood (test code = Blood) Negative Specific [place] (test code = 1.015 Specific [place]) Ketone (test code = Ketone) Negative Bilirubin (test code = Bilirubin) Negative Glucose (test code = Glucose) Negative Appearance (test code = Appearance) Clear Color (test code = Color) Yellow [facility] HospitalUrinalysis macro (dipstick) panel - [id number] 10:09:00 Test Item Value Reference Range Interpretation Comments Leukocytes (test code = Leukocytes) Negative Nitrite (test code = Nitrite) negative Urobilinogen (test code = .2 Urobilinogen) Protein (test code = Protein) Negative pH (test code = pH) 7.0 Blood (test code = Blood) Negative Specific [place] (test code = 1.015 Specific [place]) Ketone (test code = Ketone) Negative Bilirubin (test code = Bilirubin) Negative Glucose (test code = Glucose) Negative Appearance (test code = Appearance) Clear Color (test code = Color) Yellow [facility] HospitalBL[facility] B[facility] [id number] 12:50:00Positive 1(12/31/2010 07:50:00) [facility]NwbdfhaSWOHNEBHV8960-66-60 12:38:00Negative (12/31/2010 07:38:00) [facility] HospitalJlydbzdIHXIFXOLIL9762-25-38 12:37:00 Test Item Value Reference Range Interpretation Comments INR (test code = INR) 1.1 1 0.85-1.17 N [facility] HospitalNrpjtvmCETYLHVFQP3343-25-76 12:37:00 Test Item Value Reference Range Interpretation Comments PT (test code = PT) 14.2 s 12.0-14.7 N [facility] HospitalYrnhaokDFRSFBEFNR6174-16-26 12:37:00 Test Item Value Reference Range Interpretation Comments PTT (test code = PTT) 35.7 s 22.9-35.8 N [facility] HospitalIyeqlkrMDSVBZMBTT5579-89-08 16:00:009.3[facility] 2010-12-29 16:00:81582.0[facility] EgwtbdvHZNSNXTWDY3369-49-41 16:00:0024.5 [facility] HospitalGqehzqcBYDNPXGDKX3096-82-50 16:00:0033.9[facility] 2010-12-29 16:00:00 Test Item Value Reference Range Interpretation Comments MCH (test code = MCH) 28.0 pg 27.0-31.0 N [facility] HospitalWhljdhtAYKZXTSUJK0020-24-68 16:00:0082.5[facility] 2010-12-29 16:00:0035.4[facility] DwxrcbdUKFIVEBECA1499-93-56 16:00:0012.0[facility] ZaunzhwCBYLUUONSU8347-93-68 16:00:004.29[facility] QcprcbwKTIWYPZSFQ7273-95-85 16:00:008.6[facility] ShxdvniHMYEGKOGPY5929-51-06 16:00:00Slight *ABN*(12/29/2010 11:00:00) ??[facility] HospitalTpbgkfyFFGKOIGQUV6721-68-57 16:00:000.1[facility] SNENKWLHTI5659-14-50 16:00:001+ *ABN*(12/29/2010 11:00:00) ??[facility] EISTKHSGTF6282-37-80 16:00:00Slight (12/29/2010 11:00:00) ??[facility] QIVCCXZXHL4786-20-44 16:00:000.5[facility] LtvthcgPQTYZPKHGN5865-02-04 16:00:00 54.3[facility] HgrvfrzULSMMXDWOO5013-07-20 16:00:005.6[facility] 2010-12-29 16:00:000.9[facility] MyiqiubDXUQJLAEXS0411-31-07 16:00:004.7[facility] HzosnlzBOUNUKPMGO1340-48-24 16:00:000.5[facility] QoiksxiBTMWDXHXEX5985-40-85 16:00:002.9[facility] BhwypolKHPVMEKEJA9855-74-92 16:00:005.5[facility] JZMWYEKVBB2184-38-99 16:00:0033.7[facility]
[2020-11-10] MEDS ORDERED: MORPHINE 4 MG/ML SYR ONE ×2 (21:15→21:35)
[2020-11-10] MEDS ORDERED: FAMOTIDINE 20 MG/2 ML VIAL IV ONE (21:16)
[2020-11-10] MEDS ORDERED: ONDANSETRON 4 MG/2 ML VIAL ONE (21:16)
[2020-11-10] MEDS ORDERED: NA CHLORIDE 0.9% 100 ML ONE (21:16)
[2020-11-10] MEDS ORDERED: NA CHLORIDE 0.9% 1,000 ML ONE (21:16)
[2020-11-10] MEDS ORDERED: PIPERACIL/TAZO 3.375 GM VIAL IV ONE (21:16)
[2020-11-10 21:17] LABS: Urine Blood 2+ (Negative); Urine Glucose Negative (Negative); Urine Protein Trace (Negative); Urine Specific Gravity 1.025 (1.005-1.030)
--- NOTE | 2020-11-10 21:19 | RAD REPORT ---
EXAM DESCRIPTION: RAD - Chest Single View - 11/10/2020 9:12 pm CLINICAL HISTORY: ABDOMINAL DISTENTION COMPARISON: Abdomen Pelvis W Contrast dated 08/30/2020 FINDINGS: No evidence of edema or pneumonia. The heart size is within normal limits.No acute osseous abnormality. No significant pleural effusions or pneumothorax. Bilateral breast prostheses. IMPRESSION: No acute cardiopulmonary disease.
[2020-11-10 21:33] LABS: Absolute Lymphocytes (CBC) 1.5 K/uL (0.7-4.9); Basophils % 0.2 % (0-1.3); Hematocrit 31.1 % (36.0-45.0); Lymphocytes % 13.3 % (15.3-44.8); MPV 7.5 fL (7.6-11.3); RBC Red Blood Cell Count 3.33 M/uL (3.86-4.86)
[2020-11-10 21:39] LABS: ALT/SGPT 21 U/L (12-78); AST/SGOT 22 U/L (15-37); Albumin 3.7 g/dL (3.4-5.0); Alkaline Phosphatase 64 U/L (45-117); BUN Blood Urea Nitrogen 11 mg/dL (7-18); Bicarbonate 20 mmol/L (21-32); Bilirubin Direct 0.2 mg/dL (0-0.2); Bilirubin Total 0.6 mg/dL (0.2-1.0); Glucose Level 108 mg/dL (74-106); Lipase 70 U/L (73-393); Magnesium 1.9 mg/dL (1.8-2.4); NT PRO-BNP 20 pg/mL (<125); Potassium 3.6 mmol/L (3.5-5.1); Sodium Level 137 mmol/L (136-145); Troponin (Emerg Dept Use Only) < 0.02 ng/mL (0.0-0.045)
[2020-11-10 21:50] LABS: Urine Bacteria <20 /HPF (<20); Urine Mucus 2+ /HPF (NONE SEEN)
[2020-11-10 21:58] LABS: Protime INR 1.18
[2020-11-10] MEDS ORDERED: HYDROMORPHONE HCL 2 MG/ML inj ONE ×2 (22:09→23:31)
--- NOTE | 2020-11-11 00:02 | ER ---
Nurse's Notes [facility] Name: Ashley Boykin Age: 39 yrs Sex: Female : 1980 Arrival Date: 11/10/2020 Time: 19:19 Bed 8 Private MD: Diagnosis: Fever, unspecified;Lower abdominal pain, unspecified-SP LAPROSCOPIC ASSISTED VAGINAL HYSTERECTOMY Presentation: 11/10 20:16 Chief complaint: Patient states: she had a hysterectomy on and now is having bb severe lower abdominal pain and fever. Coronavirus screen: At this time, the client does not indicate any symptoms associated with coronavirus-19. Ebola Screen: No symptoms or risks identified at this time. Initial Sepsis Screen: Does the patient meet any 2 criteria? No. Patient's initial sepsis screen is negative. Does the patient have a suspected source of infection? Yes: Acute abdominal pain. Risk Assessment:. Risk Assessment: Do you want to hurt yourself or someone else? Patient reports no desire to harm self or others. Onset of symptoms was November 10, 2020. 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 - Social history:: Smoking status: Patient reports the use of cigarette tobacco products, smokes one-half pack cigarettes per day. Assessment: 11/11 00:26 Reassessment: Report given to receiving nurse at [facility]\Dawna\Susanne 01:15 Reassessment: Patient and/or family updated on plan of care and expected duration. Pain bs2 level reassessed. Patient is alert, oriented x 3, equal unlabored respirations, skin warm/dry/pink. LJ EMS at facility for transfer, pt left ED via ambulance tolerating well. Vital Signs: 11/10 20:16 BP 116 / 72; Pulse 105; Resp 18 S; Temp 98.4(O); Pulse Ox 100% on R/A; Weight 63.05 kg bb (R); Height 5 ft. 2 in. (157.48 cm) (R); Pain 10/10; 20:16 Body Mass Index 25.42 (63.05 kg, 157.48 cm) bb ED Course: 19:19 Patient arrived in ED. es 20:18 Triage completed. bb 20:18 Arm band placed on Patient placed in waiting room, Patient notified of wait time. bb Family accompanied patient. 20:32 Lyle Beard MD is Attending Physician. vishal 20:49 Letty Oneill RN is Primary Nurse. ea 20:55 Inserted saline lock: 22 gauge in right antecubital area, using aseptic technique. ds4 Blood collected. 21:11 XRAY Chest (1 view) In Process Unspecified. EDMS 22:08 CT Abd/Pelvis - IV Contrast Only: sp hysterectomy In Process Unspecified. EDMS 22:[address] Beard with Dr. Zaman. [facility] 11/11 00:00 administrative approval given by Venkat Bates/ patient has been accepted to [address]/ Dr. Zaman accepted the patient in transfer/ report to be called to [phone]. Administered Medications: 11/10 21:00 Drug: morphine 4 mg Route: IVP; Site: right antecubital; ea 22:13 Follow up: Response: No adverse reaction bs2 21:00 Drug: Zofran (Ondansetron) 4 mg Route: IVP; Site: right antecubital; ea 22:13 Follow up: Response: No adverse reaction bs2 21:00 Drug: NS 0.9% 1000 ml Route: IV; Rate: 1 bolus; Site: right antecubital; ea 21:00 Drug: Zosyn (piperacillin-tazobactam) 3.375 grams Route: IVPB; Infused Over: 60 mins; ea Site: right antecubital; 21:00 Drug: Pepcid (famotidine) 20 mg Route: IVP; Site: right antecubital; ea 22:12 Follow up: Response: No adverse reaction bs2 21:17 Drug: morphine 4 mg Route: IVP; Site: right antecubital; ea 21:20 Follow up: Response: No adverse reaction; Pain is unchanged, physician notified bs2 21:48 Drug: Dilaudid (HYDROmorphone) 1 mg Route: IVP; Site: right antecubital; bs2 23:10 Drug: Dilaudid (HYDROmorphone) 1 mg Route: IVP; Site: left antecubital; bs2 08 01:14 Drug: Zofran (Ondansetron) 4 mg Route: IVP; Site: right antecubital; bs2 01:15 Drug: Dilaudid (HYDROmorphone) 1 mg Route: IVP; Site: right antecubital; bs2 Outcome: 00:01 ER care complete, transfer ordered by MD. rodgers 01:16 Patient left the ED. bs2 Signatures: Dispatcher [employer] Lyle De Guzman MD MD cha Salyer, Edna es Ballard, Brenda RN Louie Celis ds4 Letty Oneill RN RN ea [place], MyKena mw2 Leslie Franco RN RN bs2
--- NOTE | 2020-11-11 00:02 | EDPHYS ---
Physician Documentation [facility] Name: Ashley Boykin Age: 39 yrs Sex: Female : 1980 Arrival Date: 11/10/2020 Time: 19:19 Bed 8 Private MD: ED Physician Lyle Beard HPI: 11/10 20:48 This 39 yrs old Female presents to ER via Wheelchair with complaints of Fever, vishal Post Surgical Pain. 20:48 The patient reports fever, that was measured at 100.2 degrees Fahrenheit. Onset: The vishal symptoms/episode began/occurred 1 day(s) ago. Modifying factors: sp lap assisted vag hyst. Associated signs and symptoms: Pertinent positives: abdominal pain. Severity of symptoms: At their worst the symptoms were moderate today, in the emergency department the symptoms are worse mildly. The patient has not experienced similar symptoms in the past. 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 - Social history:: Smoking status: Patient reports the use of cigarette tobacco products, smokes one-half pack cigarettes per day. ROS: 20:50 Constitutional: Negative for fever, chills, and weight loss, Eyes: Negative for injury, vishal pain, redness, and discharge, ENT: Negative for injury, pain, and discharge, Neck: Negative for injury, pain, and swelling, Cardiovascular: Negative for chest pain, palpitations, and edema, Respiratory: Negative for shortness of breath, cough, wheezing, and pleuritic chest pain, Back: Negative for injury and pain, : Negative for injury, bleeding, discharge, and swelling, MS/Extremity: Negative for injury and deformity, Skin: Negative for injury, rash, and discoloration, Neuro: Negative for headache, weakness, numbness, tingling, and seizure, Psych: Negative for depression, anxiety, suicide ideation, homicidal ideation, and hallucinations, Allergy/Immunology: Negative for hives, rash, and allergies, Endocrine: Negative for neck swelling, polydipsia, polyuria, polyphagia, and marked weight changes, Hematologic/Lymphatic: Negative for swollen nodes, abnormal bleeding, and unusual bruising. 20:50 Abdomen/GI: Positive for abdominal pain, of the right lower quadrant and left lower quadrant. Exam: 20:50 Constitutional: This is a well developed, well nourished patient who is awake, alert, vishal and in no acute distress. Head/Face: Normocephalic, atraumatic. Eyes: Pupils equal round and reactive to light, extra-ocular motions intact. Lids and lashes normal. Conjunctiva and sclera are non-icteric and not injected. Cornea within normal limits. Periorbital areas with no swelling, redness, or edema. ENT: Nares patent. No nasal discharge, no septal abnormalities noted. Tympanic membranes are normal and external auditory canals are clear. Oropharynx with no redness, swelling, or masses, exudates, or evidence of obstruction, uvula midline. Mucous membranes moist. Neck: Trachea midline, no thyromegaly or masses palpated, and no cervical lymphadenopathy. Supple, full range of motion without nuchal rigidity, or vertebral point tenderness. No Meningismus. Chest/axilla: Normal chest wall appearance and motion. Nontender with no deformity. No lesions are appreciated. Cardiovascular: Regular rate and rhythm with a normal S1 and S2. No gallops, murmurs, or rubs. Normal PMI, no JVD. No pulse deficits. Respiratory: Lungs have equal breath sounds bilaterally, clear to auscultation and percussion. No rales, rhonchi or wheezes noted. No increased work of breathing, no retractions or nasal flaring. Back: No spinal tenderness. No costovertebral tenderness. Full range of motion. Skin: Warm, dry with normal turgor. Normal color with no rashes, no lesions, and no evidence of cellulitis. MS/ Extremity: Pulses equal, no cyanosis. Neurovascular intact. Full, normal range of motion. Neuro: Awake and alert, GCS 15, oriented to person, place, time, and situation. Cranial nerves II-XII grossly intact. Motor strength 5/5 in all extremities. Sensory grossly intact. Cerebellar exam normal. Normal gait. Psych: Awake, alert, with orientation to person, place and time. Behavior, mood, and affect are within normal limits. 20:50 Abdomen/GI: Inspection: abdomen appears normal, Bowel sounds: normal, Palpation: moderate abdominal tenderness, in the right lower quadrant and left lower quadrant, rebound tenderness, is not appreciated, voluntary guarding, is elicited in the right lower quadrant and left lower quadrant, Liver: no appreciated palpable abnormalities, Hernia: not appreciated. 21:16 ECG was reviewed by the Attending Physician. [facility] Vital Signs: 20:16 BP 116 / 72; Pulse 105; Resp 18 S; Temp 98.4(O); Pulse Ox 100% on R/A; Weight 63.05 kg bb (R); Height 5 ft. 2 in. (157.48 cm) (R); Pain 10/10; 20:16 Body Mass Index 25.42 (63.05 kg, 157.48 cm) bb MDM: 20:33 Patient medically screened. vishal 20:52 Differential diagnosis: bacterial infection, pneumonia urinary tract infection, vishal non-specific abd pain, post surgical. Data reviewed: vital signs, nurses notes, lab test result(s), EKG, radiologic studies, CT scan, plain films. 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 Test interpretation: by ED physician or midlevel provider: ECG, plain radiologic studies. Counseling: I had a detailed discussion with the patient and/or guardian regarding: the historical points, exam findings, and any diagnostic results supporting the discharge/admit diagnosis, lab results. 11/10 20:46 Order name: Basic Metabolic Panel [facility] 11/10 20:46 Order name: CBC with Diff [facility] 11/10 20:46 Order name: LFT's [facility] 11/10 20:46 Order name: Magnesium [facility] 11/10 20:46 Order name: NT PRO-BNP [facility] 11/10 20:46 Order name: PT-INR; Complete Time: 22:59 [facility] 11/10 20:46 Order name: Troponin (emerg Dept Use Only); Complete Time: 21:45 [facility] 11/10 20:46 Order name: Lipase; Complete Time: 21:45 [facility] 11/10 20:46 Order name: Lactate; Complete Time: 21:45 [facility] 11/10 20:46 Order name: Basic Metabolic Panel; Complete Time: 21:45 EDMS 11/10 20:46 Order name: CBC with Automated Diff; Complete Time: 21:45 EDMS 11/10 20:46 Order name: Liver (Hepatic) Function; Complete Time: 21:45 [facility] 11/10 20:46 Order name: Magnesium; Complete Time: 21:45 [facility] 11/10 20:46 Order name: NT PRO-BNP; Complete Time: 21:45 [facility] 11/10 20:46 Order name: XRAY Chest (1 view); Complete Time: 21:45 [facility] 11/10 20:46 Order name: CT Abd/Pelvis - IV Contrast Only: sp hysterectomy [facility] 11/10 20:48 Order name: COVID-19 : Document "Date of Symptom Onset" if Symptomatic. [facility] 11/10 21:16 Order name: Urine Dipstick-Ancillary; Complete Time: 21:18 [facility] 11/10 21:17 Order name: Urine Microscopic Only; Complete Time: 22:59 ds 11/10 21:52 Order name: Urine Culture [facility] 11/10 23:02 Order name: SARS-COV-2 RT PCR; Complete Time: 23:02 [facility] 11/10 20:46 Order name: EKG; Complete Time: 20:46 [facility] 11/10 20:46 Order name: Cardiac monitoring; Complete Time: 21:17 [facility] 11/10 20:46 Order name: EKG - Nurse/Tech; Complete Time: 21:17 [facility] 11/10 20:46 Order name: IV Saline Lock; Complete Time: 20:59 [facility] 11/10 20:46 Order name: Labs collected and sent; Complete Time: 20:59 [facility] 11/10 20:46 Order name: O2 Per Protocol; Complete Time: 20:59 [facility] 11/10 20:46 Order name: O2 Sat Monitoring; Complete Time: 20:59 [facility] EC:16 Rate is 105 beats/min. Rhythm is regular. QRS Leonard is Normal. WI interval is normal. [facility] QRS interval is normal. QT interval is normal. No Q waves. T waves are Normal. No ST changes noted. Clinical impression: Sinus tachycardia and No evidence of ischemia. Interpreted by me. Reviewed by me. Administered Medications: 21:00 Drug: morphine 4 mg Route: IVP; Site: right antecubital; ea 22:13 Follow up: Response: No adverse reaction bs2 21:00 Drug: Zofran (Ondansetron) 4 mg Route: IVP; Site: right antecubital; ea 22:13 Follow up: Response: No adverse reaction bs2 21:00 Drug: NS 0.9% 1000 ml Route: IV; Rate: 1 bolus; Site: right antecubital; ea 21:00 Drug: Zosyn (piperacillin-tazobactam) 3.375 grams Route: IVPB; Infused Over: 60 mins; ea Site: right antecubital; 21:00 Drug: Pepcid (famotidine) 20 mg Route: IVP; Site: right antecubital; ea 22:12 Follow up: Response: No adverse reaction bs2 21:17 Drug: morphine 4 mg Route: IVP; Site: right antecubital; ea 21:20 Follow up: Response: No adverse reaction; Pain is unchanged, physician notified bs2 21:48 Drug: Dilaudid (HYDROmorphone) 1 mg Route: IVP; Site: right antecubital; bs2 23:10 Drug: Dilaudid (HYDROmorphone) 1 mg Route: IVP; Site: left antecubital; bs2 11/11 01:14 Drug: Zofran (Ondansetron) 4 mg Route: IVP; Site: right antecubital; bs2 01:15 Drug: Dilaudid (HYDROmorphone) 1 mg Route: IVP; Site: right antecubital; bs2 Disposition Summary: 11/11/20 00:01 Transfer Ordered Transfer Location: Other Acute Care Facility vishal Reason: Higher level of care vishal Condition: Fair vishal Problem: new vishal Symptoms: have improved vishal Accepting Physician: to [facility](11/11/20 01:16) bs2 Diagnosis - Fever, unspecified vishal - Lower abdominal pain, unspecified - SP LAPROSCOPIC ASSISTED VAGINAL HYSTERECTOMY vishal Forms: - Medication Reconciliation Form vishal - SBAR form vishal Signatures: Dispatcher [employer] Lyle De Guzman MD MD cha Ballard, Brenda RN Letty Willoughby RN RN ea Smith, Bridget, RN RN bs2 Corrections: (The following items were deleted from the chart) 11/10 22:02 20:49 CORONAVIRUS ordered. TRIPTN CANDELARIO 11/11 01:16 00:01 to [facility] bs2
[2020-11-11 01:21] VITALS: BP 116/72; TEMP 98.4; O2SAT 100
[2020-11-11] MEDS ORDERED: HYDROMORPHONE HCL 1 MG/ML INJ ONE (01:25)
[2020-11-11] MEDS ORDERED: ONDANSETRON 4 MG/2 ML VIAL ONE (01:26)
--- NOTE | 2020-11-11 07:56 | EKG ---
Test Date: 2020-11-10 Test Time: 21:08:47 [employer] Manager: JODIE MEASUREMENT RESULTS: Intervals: Rate: 85 VA: 134 QRSD: 76 QT: 352 QTc: 418 [place]: P: 74 VA: 134 QRS: 79 T: 44 INTERPRETIVE STATEMENTS: Normal sinus rhythm Nonspecific ST abnormality Abnormal ECG No previous ECG available for comparison Electronically Signed On 11-11-20 07:55:58 CDT by Valentin Balderas
--- NOTE | 2020-11-11 12:17 | RAD REPORT ---
EXAM DESCRIPTION: CT - Abdomen Pelvis W Contrast - 11/11/2020 6:34 am CLINICAL HISTORY: 39 years Female Abd pain;Fever COMPARISON: None TECHNIQUE: Images were obtained in axial, sagittal, and coronal planes. Intravenous contrast was adm inistered. This exam was performed according to our departmental dose-optimization program which includes use of Automated Exposure Control, adjustment of the mA and/or kV according to patient size and/or use of iterative reconstruction technique. FINDINGS: No abnormality involving the liver, pancreas, gallbladder, or adrenal glands bilaterally. Spleen is enlarged measuring 14.3 cm in greatest dimension. No obstructing renal or ureteral calculi bilaterally. No hydronephrosis bilaterally. Air is seen with in the bladder likely related to recent instrumentation. Surgical clips right lower abdomen. No visualization appendix consistent with history of prior append ectomy. No bowel obstruction, or perforation. Recent total hysterectomy. Moderate pelvic fluid mid an d right presacral region. The fluid measures 32 Hounsfield units and is likely related to postsurgica l change. No associated air collections to indicate inflammatory process. The fluid collection measur es 5.6 x 4.6 x 3 cm. Additional mesenteric stranding likely related to postsurgical change. No abnormality of abdominal aorta or portal vein. No adenopathy. Dependent atelectatic change lower lungs bilaterally. Right breast implant. No acute osseous abnormality. IMPRESSION: 1. Recent total hysterectomy with moderate pelvic fluid mid and right presacral region . The fluid measures 32 Hounsfield units and is may be related to postsurgical change. No associated air collections to indicate inflammatory process. Correlation with pelvic ultrasound and follow-up im aging suggested to exclude developing inflammatory process. 2. Enlarged spleen. 3. Otherwise unremarkable study. Electronically signed by: Janine Zaldivar MD 11/10/2020 10:47 PM CDT Due to temporary technical issues with the PACS/Fluency reporting system, reports are being signed by the in house radiologists without review as a courtesy to insure prompt reporting. The interpreting radiologist is fully responsible for the content of the report.
== END 2020-11-11 01:16 ==
LOC: ER 19:15
DX: R10.30 Lower abdominal pain, unspecified (principal); Z90.710 Acquired absence of both cervix and uterus; F17.210 Nicotine dependence, cigarettes, uncomplicated; Z88.5 Allergy status to narcotic agent; Z88.6 Allergy status to analgesic agent; Z88.8 Allergy status to other drugs, medicaments and biological substances; Z20.822 Contact with and (suspected) exposure to COVID-19
CPT/HCPCS: 93005; 87088; 85025; 87086; 80048; 36415; 83735; 85610; 80076; 83605; 84484; 83690; 83880; 74177; 71045; U0003; Q9967; J2543; J1170 ×3; J7030; J2405 ×2; 81003; 81015; 87077; 87186; 99284

== ENCOUNTER → 2023-04-22 | Emergency (ER) | payer SELFPAY ==
--- NOTE | 2023-04-22 14:22 | RAD REPORT ---
EXAM DESCRIPTION: RAD - Foot Left 3 View - 04/22/2023 2:07 pm CLINICAL HISTORY: foot inj COMPARISON: No comparisons TECHNIQUE: Left foot, 3 views. FINDINGS: No fracture, dislocation or periosteal reaction. No air or foreign body in the soft tissues. IMPRESSION: Negative left foot radiographs.
--- NOTE | 2023-04-22 15:33 | EDPHYS ---
Physician Documentation [facility] Name: Ashley Boykin Age: 42 yrs Sex: Female : 1980 Arrival Date: 04/22/2023 Time: 13:39 Bed DX1 Private MD: ED Physician Clifford Cheema HPI: 04/22 14:06 This 42 yrs old Female presents to ER via Ambulatory with complaints of Foot ec2 Injury - Left. 14:06 Patient arrives today for evaluation of a left foot injury. States she was walking ec2 downstairs and slipped and subsequently twisted and landed on her left foot. Patient complaining of left pinky pain. Denies any fall down to the ground, denies head strike or neck pain.. Historical: - Allergies: 13:54 Benadryl; ap3 13:54 Cogentin; ap3 13:54 Stadol; ap3 13:54 steroids; ap3 - PMHx: 13:54 Anxiety; Depression; Schizophrenia; ap3 - Immunization history:: Client reports receiving the 2nd dose of the Covid vaccine, Last tetanus immunization: unknown, Flu vaccine is not up to date. - Social history:: Smoking status: Patient reports the use of cigarette tobacco products, smokes one-half pack cigarettes per day. ROS: 14:06 Constitutional: as per hpi ec2 Exam: 14:06 Constitutional: GEN: NAD Head: atraumatic Eyes: EOMI Ears: External ears are ec2 normal. CV: regular rate LUNGS: no respiratory distress ABD: non-distended SKIN: no evidence of rashes MSK: Ecchymosis noted to the fifth metatarsal area, TTP NEURO: moves all extremities equally Vital Signs: 13:52 BP 122 / 77; Pulse 72; Resp 17; Temp 99.2; Pulse Ox 96% ; Weight 58.97 kg; Height 5 ft. ap3 2 in. ; Pain 10/10; 13:52 Body Mass Index 23.78 (58.97 kg, 157.48 cm) ap3 13:52 Pain Scale: Adult ap3 MDM: 13:49 Patient medically screened. ec2 14:06 Data reviewed: vital signs. ED course: Patient arrives today for left foot injury. ec2 Examination remarkable for MSK findings as noted above. Will obtain radiographs of the left foot. Currently considering ligamentous injury, bony fracture, muscular injury.. 15:00 ED course: Foot x-ray shows no bony fracture. On reassessment patient remains ec2 well-appearing in no acute distress. Will discharge home. Return precautions given. Instructed on [id number] medications for pain relief.. 04/22 13:58 Order name: Foot Left 3 View XRAY; Complete Time: 15:00 ec2 04/22 15:13 Order name: Post-op shoe; Complete Time: 15:53 ec2 Administered Medications: No medications were administered Disposition Summary: 04/22/23 15:32 Discharge Ordered Notes: Location: Home ec2 Condition: Stable ec2 Diagnosis - Pain in left foot ec2 Followup: ec2 - With: Private Physician - When: - Reason: Recheck today's complaints Discharge Instructions: - Discharge Summary Sheet ec2 - Foot Sprain ec2 Forms: - Work release form ec2 - Medication Reconciliation Form ec2 - Thank You Letter ec2 - Antibiotic Education ec2 - Prescription Opioid Use ec2 - Patient Portal Instructions ec2 - Leadership Thank You Letter ec2 Signatures: Dispatcher [employer] Alisa Chester RN RN ap3 Clifford Cheema MD MD ec2
--- NOTE | 2023-04-22 15:33 | ER ---
Nurse's Notes [facility] Name: Ashley Boykin Age: 42 yrs Sex: Female : 1980 Arrival Date: 04/22/2023 Time: 13:39 Bed DX1 Private MD: Diagnosis: Pain in left foot Presentation: 04/22 13:52 Chief complaint: Patient states: she slipped going down the stairs yesterday and ap3 injured here left foot, and left pinky toe. patient currently rates her pain as a 10/10. Coronavirus screen: At this time, the client does not indicate any symptoms associated with coronavirus-19. Ebola Screen: No symptoms or risks identified at this time. Initial Sepsis Screen: Does the patient meet any 2 criteria? No. Patient's initial sepsis screen is negative. Does the patient have a suspected source of infection? No. Patient's initial sepsis screen is negative. Risk Assessment: Do you want to hurt yourself or someone else? Patient reports no desire to harm self or others. Onset of symptoms was April 21, 2023. 13:52 Method Of Arrival: Ambulatory ap3 14:38 Acuity: CHRISTOPH 3 ap3 Triage Assessment: 13:54 General: Appears in no apparent distress. Behavior is calm, cooperative, appropriate ap3 for age. Pain: Complains of pain in dorsum of left foot and left fifth toe Pain currently is 10 out of 10 on a pain scale. Pain began 1 day ago. Neuro: Level of Consciousness is awake, alert, obeys commands, Oriented to person, place, time, situation, Appropriate for age. Cardiovascular: Patient's skin is warm and dry. Respiratory: Airway is patent Respiratory effort is even, unlabored, Respiratory pattern is regular, symmetrical. Derm: Bruising that is dark purple, on left foot. Musculoskeletal: Reports pain in dorsum of left foot and left fifth toe. Historical: - Allergies: 13:54 Benadryl; ap3 13:54 Cogentin; ap3 13:54 Stadol; ap3 13:54 steroids; ap3 - PMHx: 13:54 Anxiety; Depression; Schizophrenia; ap3 - Immunization history:: Client reports receiving the 2nd dose of the Covid vaccine, Last tetanus immunization: unknown, Flu vaccine is not up to date. - Social history:: Smoking status: Patient reports the use of cigarette tobacco products, smokes one-half pack cigarettes per day. Screenin:55 Abuse screen: Denies threats or abuse. Nutritional screening: No deficits noted. ap3 Tuberculosis screening: No symptoms or risk factors identified. Vital Signs: 13:52 BP 122 / 77; Pulse 72; Resp 17; Temp 99.2; Pulse Ox 96% ; Weight 58.97 kg; Height 5 ft. ap3 2 in. ; Pain 10/10; 13:52 Body Mass Index 23.78 (58.97 kg, 157.48 cm) ap3 13:52 Pain Scale: Adult ap3 ED Course: 13:44 Patient arrived in ED. im 13:46 Clifford Cheema MD is Attending Physician. ec2 13:54 Triage completed. ap3 13:55 Arm band placed on right wrist. ap3 14:09 Foot Left 3 View XRAY In Process Unspecified. EDMS Administered Medications: No medications were administered Outcome: 15:32 Discharge ordered by . ec2 15:56 Patient left the ED. hb Signatures: Dispatcher [employer] EDMS Bonnie Oliva RN RN Alisa Covarrubias RN RN ap3 Eneida Paul Clifford Cheema MD MD ec2 Corrections: (The following items were deleted from the chart) 14:38 13:52 Acuity: CHRISTOPH 4 ap3 ap3
[2023-04-22 16:57] VITALS: BP 122/77; TEMP 99.2; O2SAT 96
== END ==
LOC: ER 13:39
DX: M79.672 Pain in left foot (principal); F41.9 Anxiety disorder, unspecified; F32.A Depression, unspecified; F20.9 Schizophrenia, unspecified; F17.210 Nicotine dependence, cigarettes, uncomplicated; Z88.8 Allergy status to other drugs, medicaments and biological substances
CPT/HCPCS: 99281

== ENCOUNTER 2023-11-30 09:04 | Emergency (ER) | payer SELFPAY ==
[2023-11-30] MEDS ORDERED: LIDOCAINE 1% MPF 5 ML VIAL ONE (09:23)
[2023-11-30] MEDS ORDERED: TDAP (DIPHTH,PERTUSS(ACELL),TET VAC) 0.5 ML VIAL IMVAC ONE (09:24)
--- NOTE | 2023-11-30 10:23 | ER ---
Nurse's Notes [facility] Name: Ashley Boykin Age: 43 yrs Sex: Female : 1980 Arrival Date: 11/30/2023 Time: 09:04 Bed 20 Private MD: Diagnosis: Laceration without foreign body of right middle finger without damage to nail Presentation: 11/29 09:09 Chief complaint: Patient states: was slicing bread at work and sliced her right middle iw finger , no fingernail involvement. Coronavirus screen: At this time, the client does not indicate any symptoms associated with coronavirus-19. Ebola Screen: No symptoms or risks identified at this time. Complicating Factors: There are no complicating factors for this patient. Initial Sepsis Screen: Does the patient meet any 2 criteria? No. Patient's initial sepsis screen is negative. Does the patient have a suspected source of infection? No. Patient's initial sepsis screen is negative. Risk Assessment: Do you want to hurt yourself or someone else? Patient reports no desire to harm self or others. Onset of symptoms was November 30, 2023. 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 - Infectious Disease History:: Denies. - Social history:: Smoking status: . - Family history:: not pertinent. - Hospitalizations: : No recent hospitalization is reported. Screenin:31 [facility] ED Fall Risk Assessment (Adult) History of falling in the last 3 months, kc6 including since admission No falls in past 3 months (0 pts) Confusion or Disorientation No (0 pts) Intoxicated or Sedated No (0 pts) Impaired Gait No (0 pts) Mobility Assist Device Used No (0 pt) Altered Elimination No (0 pt) Score/Fall Risk Level 0 - 2 = Low Risk. Abuse screen: Denies threats or abuse. Denies injuries from another. Nutritional screening: No deficits noted. Tuberculosis screening: No symptoms or risk factors identified. Assessment: 09:32 General: Appears in no apparent distress. comfortable, well groomed, well developed, kc6 Behavior is calm, cooperative, appropriate for age. Pain: Complains of pain in right hand. Neuro: Level of Consciousness is awake, alert, obeys commands, Oriented to person, place, time, situation, Appropriate for age. Cardiovascular: Capillary refill < 3 seconds. Respiratory: Airway is patent Trachea midline Respiratory effort is even, unlabored, Respiratory pattern is regular, symmetrical. GI: No signs and/or symptoms were reported involving the gastrointestinal system. : No signs and/or symptoms were reported regarding the genitourinary system. EENT: No signs and/or symptoms were reported regarding the EENT system. Derm: Skin is healthy with good turgor, Skin is pink, warm \T\ dry. Musculoskeletal: Circulation, motion, and sensation intact. Capillary refill < 3 seconds, Range of motion: intact in all extremities. Injury Description: Laceration sustained to right hand is clean, was sustained 30-60 minutes ago. is bleeding a small amount. Vital Signs: 09:09 BP 133 / 68; Pulse 98; Resp 16; Pulse Ox 100% on R/A; Weight 58.97 kg; Height 5 ft. 2 iw in. ; Pain 8/10; 09:09 Body Mass Index 23.78 (58.97 kg, 157.48 cm) iw 09:09 Pain Scale: Adult iw ED Course: 09:05 Patient arrived in ED. ra3 09:11 Triage completed. iw 09:12 Arm band placed on. iw 09:13 Cisco Solis MD is Attending Physician. rn 09:20 Claudia Ko, ABIGAIL is Primary Nurse. kc6 09:31 Patient has correct armband on for positive identification. Bed in low position. Call kc6 light in reach. Side rails up X 1. Adult w/ patient. Pulse ox on. NIBP on. Door closed. Noise minimized. Pillow given. 10:21 Assist provider with laceration repair on right hand that was 2.5 cm. or less using kc6 sutures. Set up tray. Performed by Cisco Solis MD Dressed with 4X4s, Patient tolerated well. 10:35 Patient did not have IV access during this emergency room visit. kc6 Administered Medications: 09:26 Drug: Tetanus Toxoid,Adsorbed IM 0.5 ml IM once; Provide Vaccine Information Statement kc6 (VIS). 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: [employer]; Exp: TueJan 21 2026; Lot #: [id number]; Series: 1 of ; Patient Consent: Obtained; Date/Time: ; Source Name: Ashley Boykin; Source Relationship: Self; Address Information: [address] [place] [address], [facility] [address]; ; Education: Provided; VIS Presented Date: ; VIS Publication: Tetanus/Diphtheria (Td) Vaccine VIS 07/13/2016 (historic)} Route: IM; Site: right deltoid; 10:34 Follow up: Response: No adverse reaction kc6 10:16 Drug: Lidocaine Infiltration (1 %) 1 vials 5 ml Infiltration once; to bedside Volume: 5 kc6 ml; Route: Infiltration; 10:35 Follow up: Response: No adverse reaction; Pain is decreased kc6 Medication: 10:35 VIS not applicable for this client. kc6 Outcome: 10:23 Discharge ordered by . rn 10:35 Discharged to home ambulatory, with significant other, kc6 10:35 Condition: good 10:35 Discharge instructions given to patient, significant other, Instructed on discharge instructions, follow up and referral plans. medication usage, wound care, Demonstrated understanding of instructions, follow-up care, medications, wound care, Prescriptions given X 1, 10:35 Patient left the ED. kc6 Signatures: Marisol Marley RN RN iw Cisco Solis MD MD rn Campbell, Kaitlyn, RN RN kc6 Dalia Day ra3 Corrections: (The following items were deleted from the chart) :12 09:11 PSHx: None; sania lui
--- NOTE | 2023-11-30 10:23 | EDPHYS ---
Physician Documentation [facility] Name: Ashley Boykin Age: 43 yrs Sex: Female : 1980 Arrival Date: 11/30/2023 Time: 09:04 Bed 20 Private MD: ED Physician Cisco Solis HPI: 11/29 10:18 This 43 yrs old Female presents to ER via Ambulatory with complaints of Laceration - to rn finger. 10:18 The patient has a laceration occurred at work, and there are no complicating factors. rn Onset: The symptoms/episode began/occurred just prior to arrival. The patient has not experienced similar symptoms in the past. The patient has not recently seen a physician. Pt reports accidental laceration to right 3rd finger tip. Happened at work. Unknown last tetanus. . Historical: - Allergies: 09:11 Benadryl; iw 09:11 Cogentin; iw 09:11 Stadol; iw 09:11 steroids; iw - PMHx: 09:11 Anxiety; Depression; Schizophrenia; iw - PSHx: 09:11 breast augmentation; Appendectomy; hysterectomy; iw - Immunization history:: Last tetanus immunization: unknown. - Infectious Disease History:: Denies. - Social history:: Smoking status: . - Family history:: not pertinent. - Hospitalizations: : No recent hospitalization is reported. ROS: 10:18 MS/Extremity: Positive for laceration to the fingertip pad of the right third finger. rn No involvement of the nail. Slow venous bleeding noted. Exam: 10:18 Constitutional: This is a well developed, well nourished patient who is awake, alert, rn and in no acute distress. MS/ Extremity: Pulses equal, no cyanosis. Neurovascular intact. Full, normal range of motion. Pad of right middle finger with 3 cm semicircular laceration, angulated, no extension into the nailbed. No arterial bleeding. No foreign body. Vital Signs: 09:09 BP 133 / 68; Pulse 98; Resp 16; Pulse Ox 100% on R/A; Weight 58.97 kg; Height 5 ft. 2 iw in. ; Pain 8/10; 09:09 Body Mass Index 23.78 (58.97 kg, 157.48 cm) iw 09:09 Pain Scale: Adult iw Laceration: 10:18 Wound Repair of 3cm ( 1.2in ) subcutaneous laceration to right 3rd fingertip. Distal rn neuro/vascular/tendon intact. Anesthesia: Digital block administered with 3 mls of 1% lidocaine. Wound prep: Moderate cleansing with hibiclenz by nurse, Wound explored extensively. Skin closed with 5 5-0 Prolene using interrupted sutures and sterile technique. Dressed with 4x4's. Patient tolerated well. MDM: 09:14 Patient medically screened. rn 10:18 Differential diagnosis: superficial laceration. Data reviewed: vital signs, nurses rn notes, and as a result, I will discharge patient. Counseling: I had a detailed discussion with the patient and/or guardian regarding the historical points, exam findings, and any diagnostic results supporting the discharge/admit diagnosis, the need for outpatient follow up, to return to the emergency department if symptoms worsen or persist or if there are any questions or concerns that arise at home. Special discussion: I discussed with the patient/guardian in detail that at this point there is no indication for admission to the hospital. It is understood, however, that if the symptoms persist or worsen the patient needs to return immediately for re-evaluation. 11/29 09:19 Order name: Suture Tray at Bedside; Complete Time: 09:26 rn 11/29 09:19 Order name: Wound Care; Complete Time: : rn Administered Medications: : Drug: Tetanus Toxoid,Adsorbed IM 0.5 ml IM once; Provide Vaccine Information Statement kc6 (VIS). 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: [employer]; Exp: TueJan 21 2026; Lot #: [id number]; Series: 1 of ; Patient Consent: Obtained; Date/Time: ; Source Name: Ashley Boykin; Source Relationship: Self; Address Information: [address] [place] [address], [facility] [address]; ; Education: Provided; VIS Presented Date: ; VIS Publication: Tetanus/Diphtheria (Td) Vaccine VIS 07/13/2016 (historic)} Route: IM; Site: right deltoid; 10:34 Follow up: Response: No adverse reaction kc6 10:16 Drug: Lidocaine Infiltration (1 %) 1 vials 5 ml Infiltration once; to bedside Volume: 5 kc6 ml; Route: Infiltration; 10:35 Follow up: Response: No adverse reaction; Pain is decreased kc6 Disposition Summary: 11/30/23 10:23 Discharge Ordered Notes: Location: Home rn Problem: new rn Symptoms: have improved rn Condition: Stable rn Diagnosis - Laceration without foreign body of right middle finger without damage to nail rn Followup: rn - With: Emergency Department - When: 12-14 days - Reason: Staple/Suture removal Discharge Instructions: - Discharge Summary Sheet rn - Laceration Care, Adult rn Forms: - Medication Reconciliation Form rn - Antibiotic assistant attorney general - Prescription Opioid Use rn - Patient Portal Instructions rn - Leadership Thank You Letter rn - Work release form kc6 Prescriptions: - Augmentin 875-125 mg Oral Tablet - take 1 tablet ORAL route every 12 hours for 10 days; 20 tablet; Refills: 0, rn Product Selection Permitted Signatures: Marisol Marley RN RN Cisco Solis MD MD rn Campbell, Kaitlyn, RN RN kc6 Corrections: (The following items were deleted from the chart) 09:12 09:11 PSHx: None; [facility]
[2023-11-30 10:42] VITALS: BP 133/68; O2SAT 100
== END 2023-11-30 10:35 | disposition home or self-care (01) ==
LOC: ER 09:04
PROC: 0HQFXZZ Repair Right Hand Skin, External Approach (ICD-10-PCS; principal; 2023-11-30)
DX: S61.212A Laceration without foreign body of right middle finger without damage to nail, initial encounter (principal)
CPT/HCPCS: J2001

== ENCOUNTER 2024-11-19 13:39 | Emergency (ER) | payer OTHER ==
--- OUTSIDE RECORDS SUMMARY | 2024-11-19 13:49 | XMS REPORT | Continuity of Care Document ---
Author Name Unknown Address [address] [facility] [address] [place] [address] [facility] [address] [facility] [address] [place] [address] Care Team Providers Care Watch Crystal Edge Grinder Name Role Phone KALLIE LOWE Primary Care Physician Unavaila michelle Tavarez Attending Clinician Unavailable KALLIE LOWE Attending Clinician Unavailab le RADIOLOGY Attending Clinician Unavailable Radiology Attending Clinician Unavailable UMER ROCHA Attending Clinician Unavail able UMER ROCHA Attending Clinician Unavail able Umer Rocha MD Attending Clinician Doctor Unassigned, Ben Bolt Attending Clinician U KAROLINA Doe Attending Clinician Unavailable HORTENCIA Attending Clinician Unavailable Clinic, [facility] Neurology Continuity Attending Jovan lawton Unavailable FRANK VINCENT Attending Clinician Unavailable JAX DE PAZ Attending Clinician Unavaila ble IHDE_G Attending Clinician Unavailable quique Attending Clinician Unavailable Parth Lewis Attending Clinician Unavailable ADIA BORREGO Attending Clinician Unavaila ble Zuniga_S Attending Clinician Unavailable Jeri Attending Clinician Unavailable SIXTO DWYER Attending Clinician Unavailable Tone Adkins Attending Clinician Unavailable V_Levi Attending Clinician Unavailable COBY SIMS Attending Clinician Unavailable RODOLFO_AMY Attending Clinician Unavailable Zuniga_F Attending Clinician Unavailable JAYCOB VALENZUELA Attending Clinician Unavail able EARNEST ALICIA Attending Clinician Unavaila ble Hawrebecca_Jocelin Admitting Clinician Unavailable KALLIE LOWE Admitting Clinician Unavailable UMER ROCHA Admitting Clinician Unavail able HORTENCIA Admitting Clinician Unavailable IHDE_G Admitting Clinician Unavailable matrenuka Admitting Clinician Unavailable Physician, No Primary or Family Admitting Clinic leelee Unavailable ADIA BORREGO Admitting Clinician Unavaila ble Zuniga_S Admitting Clinician Unavailable Jeri Admitting Clinician Unavailable Parminder_Levi Admitting Clinician Unavailable RODOLFO_AMY Admitting Clinician Unavailable Zuniga_F Admitting Clinician Unavailable Payers Payer Name Policy Type Policy Number Effective Date Expirati on Date Source [facility] (MEDICAID HMO) [id number] 2019 00:00:00 [facility] [id number] [facility] [id number] 2022 00:00:00 [place] [facility] [id number] Problems Condition Name Condition Details Condition Category Status Onset Date Resolution Date Last Treatment Date Treating Clinician Comments Source Overweight Overweight Problem Active 08-06 00:00: 00 [facility] Has a sore throat Has a Sore Throat Problem Active 08-06 00:00: 00 [facility] Nausea Nausea Problem Active 08-06 00:00: 00 [facility] Insomnia disorder related to another mental disorder Insomnia Disorder Related to Another Mental Disorder Problem Active 08-06 00:00: 00 [facility] Infection of tooth Infection of Tooth Problem Active 3-03 00:00: 00 [facility] Loss of teeth due to extraction Loss of Teeth Due to Extraction Problem Active 3-03 00:00: 00 [facility] Lichen sclerosus of vulva Lichen Sclerosus of Vulva Problem Active 2-21 00:00: 00 [facility] Hypokalemi a Hypokalemi a Problem Active 2021-04 0-30 00:00: 00 [facility] Chronic pain Chronic Pain Problem Active 2021-04 0-30 00:00: 00 [facility] Seasonal allergic rhinitis Seasonal Allergic Rhinitis Problem Active 2021-04 0 00:00: 00 [facility] Tinea pedis Tinea Pedis Problem Active 3-12 00:00: 00 [facility] Diverticul itis Diverticul itis Problem Active 312 00:00: 00 [facility] Irritable bowel syndrome with diarrhea Irritable Bowel Syndrome with Diarrhea Problem Active 312 00:00: 00 [facility] Calculus of gallbladde r with cholecysti tis Calculus of Gallbladde r with Cholecysti tis Problem Active 3-09 00:00: 00 [facility] Dysmenorrh ea Dysmenorrh ea Problem Active 3-09 00:00: 00 [facility] Menometror rhagia Menometror rhagia Problem Active 3-09 00:00: 00 [facility] Nausea and vomiting Nausea and Vomiting Problem Active 3-09 00:00: 00 [facility] Chronic post-traum atic stress disorder Chronic Post-traum atic Stress Disorder Problem Active 1-23 00:00: 00 [facility] Trichomona l vaginitis Trichomona l Vaginitis Problem Active 1-21 00:00: 00 [facility] Schizoaffe ctive disorder, bipolar type Schizoaffe ctive Disorder, Bipolar Type Problem Active 1-20 00:00: 00 [facility] Polymenorr hea Polymenorr hea Problem Active 04-18 00:00: 00 [facility] Gynecologi c examinatio n Gynecologi c Examinatio n Problem Active 04-18 00:00: 00 [facility] Venereal disease screening Venereal Disease Screening Problem Active 04-18 00:00: 00 [facility] Screening for malignant neoplasm of breast Screening for Malignant Neoplasm of Breast Problem Active 04-18 00:00: 00 [facility] Bipolar disorder Bipolar Disorder Problem Active 2018-04 00:00: 00 [facility] Anxiety Anxiety Problem Active 2018-04 00:00: 00 [facility] Posttrauma tic stress disorder Posttrauma tic Stress Disorder Problem Active 2018-04 00:00: 00 [facility] DESIRES PERMANENT STERILIZAT ION DESIRES PERMANENT STERILIZAT ION Active 12/22/2010 [facility] Diagnosis Active 12-22 00:00: 00 2010-12-31 06:57:00 Tasneem Song V22.2 V22.2 Active 10/14/2010 [facility] Diagnosis Active 10-14 06:00: 00 2011-03-03 15:12:00 Tasneem Song No known active problems No known active problems Disease [facility] Allergies, Adverse Reactions, Alerts Allergy Name Allergy Type Status Severity Reaction(s) Onset Date Inactive Date Treating Clinician Comments Source BENZTROP INE DRUG INGREDI Active High SOB 08-03 00:00: 00 [facility] DIPHENHY DRAMINE HCL DRUG INGREDI Active Med Hives 08-03 00:00: 00 [facility] Benztrop ine Drug Allergy Active Shortness of Breath 08-03 00:00: 00 [facility] Diphenhy dramine Hcl Drug Allergy Active Hives 08-03 00:00: 00 [facility] butorpha nol DA Active U UNKNOWN 2020-04 00:00: 00 [facility] benztrop ine DA Active U UNKNOWN 2020-04 00:00: 00 [facility] are [facility] st diphenhy dramine DA Active U UNKNOWN 2020-04 00:00: 00 [facility] are [facility] st Predniso ne Allergy to substanc e Active Moderate to severe Hallucinatio ns 2019-04 00:00: 00 [facility] PREDNISO NE DRUG INGREDI Active High Hallucinates 2019-04 00:00: 00 [facility] Predniso ne Drug Allergy Active Hallucinatio ns 2019-04 00:00: 00 [facility] Benadryl Allergy to substanc e Active Moderate Hives [facility] Cogentin Allergy to substanc e Active Moderate to severe Respiratory distress [facility] STADOL Allergy to substanc e Active Moderate Hives [facility] Social History Social Habit Start Date Stop Date Quantity Comments Source Exposure to SARS-CoV-2 (event) 2022-01-30 00:00:00 2022-02-09 09:38:[address] [facility] Sex Assigned At 1980 00:00:00 1980 00:00:00 [facility] Smoking Status Start Date Stop Date Source Former Smoker [facility] Tobacco smoking consumption unknown [facility] Medications Ordered Medication Name Filled Medication Name Start Date Stop Date Current Medication? Ordering Clinician Indication Dosage Frequency Signature (SIG) Comments Components Source ALPRAZolam 1 mg tablet 08-03 14:52: 52 Yes alprazolam 1 mg tablet TAKE 1 TABLET BY MOUTH THREE TIMES DAILY NEEDED [facility] naloxone (NARCAN) 4 mg/actuatio n nasal spray 08-03 14:52: 52 Yes Narcan 4 mg/actuati on nasal spray ADMINISTER A SINGLE SPRAY INTRANASAL LY INTO ONE NOSTRIL. CALL 911. MAY REPEAT X 1. [facility] hydrOXYzine 25 mg capsule 07-01 00:00: 00 Yes TAKE ONE (1) CAPSULE BY MOUTH EVERY 6 HOURS NEEDED FOR ANXIETY. [facility] acetaminoph en-hydrocod one 500 mg-5 mg oral tablet 12-31 16:31: 00 No Abbey Riggs 1 tab, Route: PO, Drug Form: TAB, Q4H, PRN Pain, Start date: 12/31/10 11:31:00, Duration: 30 day, Stop date: 01/30/11 11:30:00 Tasneem Song acetaminoph en-hydrocod one 500 mg-5 mg oral tablet 12-31 16:31: 00 No Abbey Riggs 1 tab, Route: PO, Drug Form: TAB, Q4H, PRN Pain, Start date: 12/31/10 11:31:00, Duration: 30 day, Stop date: 01/30/11 11:30:00 Tasneem Song acetaminoph en 10 mg/mL intravenous solution 12-31 14:44: 00 No Juan A Brien 1,000 mg, Route: IV, Drug form: INJ, ONCE, PRN Pain, Start date: 12/31/10 9:44:00, Duration: 1 doses or times, Stop date: Limited # of times, Infuse over 15 minutes (for patient weight 50 kg or greater)In fuse over 15 minutes (for patient weight 50 kg or greater) Tasneem Song ondansetron 12-31 14:44: 00 No Juan A Brien 4 mg, 2 mL, Route: IVP, Drug form: INJ, ONCE, PRN Nausea & Vomiting, Start date: 12/31/10 9:44:00 Tasneem Song flumazenil 12-31 14:44: 00 No Juan A Rbien 0.2 mg, 2 mL, Route: IVP, Drug form: INJ, PRN, PRN Other -See Comment, Initial dose, Start date: 12/31/10 9:44:00, Duration: 30 day, Stop date: 01/30/11 9:43:00 Tasneem Song naloxone 12-31 14:44: 00 No Juan A Brien 0.04 mg, 0.1 mL, Route: IVP, Drug form: INJ, Q2MIN, PRN Narcotic Reversal, Start date: 12/31/10 9:44:00, Duration: 8 doses or times, Stop date: Limited # of times Tasneem Song hydromorpho ne 12-31 14:44: 00 No Juan A Brien 0.5 mg, 0.25 mL, Route: IVP, Drug form: INJ, Q5Min, PRN Pain, Start date: 12/31/10 9:44:00, Duration: 5 doses or times, Stop date: Limited # of times Tasneem Song acetaminoph en 10 mg/mL intravenous solution 12-31 14:44: 00 No Juan A Brien 1,000 mg, Route: IV, Drug form: INJ, ONCE, PRN Pain, Start date: 12/31/10 9:44:00, Duration: 1 doses or times, Stop date: Limited # of times, Infuse over 15 minutes (for patient weight 50 kg or greater)In fuse over 15 minutes (for patient weight 50 kg or greater) Tasneem Vaughnann ondansetron 12-31 14:44: 00 No Juan A Brien 4 mg, 2 mL, Route: IVP, Drug form: INJ, ONCE, PRN Nausea & Vomiting, Start date: 12/31/10 9:44:00 Memjessica Song flumazenil 12-31 14:44: 00 No Juan A Brien 0.2 mg, 2 mL, Route: IVP, Drug form: INJ, PRN, PRN Other -See Comment, Initial dose, Start date: 12/31/10 9:44:00, Duration: 30 day, Stop date: 01/30/11 9:43:00 Sosajessica maciel Song naloxone 12-31 14:44: 00 No Juan A Brien 0.04 mg, 0.1 mL, Route: IVP, Drug form: INJ, Q2MIN, PRN Narcotic Reversal, Start date: 12/31/10 9:44:00, Duration: 8 doses or times, Stop date: Limited # of times Memjessica Song hydromorpho ne 12-31 14:44: 00 No Juan A Brien 0.5 mg, 0.25 mL, Route: IVP, Drug form: INJ, Q5Min, PRN Pain, Start date: 12/31/10 9:44:00, Duration: 5 doses or times, Stop date: Limited # of times Memjessica Song ibuprofen 800 mg oral tablet 12-31 13:24: 34 Yes Tatyana Shannon Paula 800 mg, 1 tab, PO, Q8H, PRN, 30 tab, Pain, Substituti on Allowed, Take with foodTake with food Memjessica Song ibuprofen 800 mg oral tablet 12-31 13:24: 34 Yes Tatyana N Paula 800 mg, 1 tab, PO, Q8H, PRN, 30 tab, Pain, Substituti on Allowed, Take with foodTake with food Memjessica Song Vicodin 5/500 oral tablet 12-31 13:24: 29 Yes Tatyana N Paula 1 tab, PO, Q4H, PRN, 20 tab, for pain, Substituti on Allowed, Maintenanc e, TAB Memjessica Song Vicodin 5/500 oral tablet 12-31 13:24: 29 Yes Tatyana N Paula 1 tab, PO, Q4H, PRN, 20 tab, for pain, Substituti on Allowed, Maintenanc e, TAB Memjessica Monreal-M-R II 10-26 04:00: 00 No Ginette Dontrell Alec 0.5 ml, Route: SUB-Q, Drug Form: PDR/INJ, ONCALL, Start date: 10/25/10 23:00:00, Duration: 1 doses or times Memjessica Monreal-M-R II 10-26 04:00: 00 No Ginette Dontrell Alec 0.5 ml, Route: SUB-Q, Drug Form: PDR/INJ, ONCALL, Start date: 10/25/10 23:00:00, Duration: 1 doses or times Tasneem Song Fluzone Quad (PF) 60 mcg (15 mcg x 4)/0.5 mL IM syringe Fluzone Quad (PF) 60 mcg (15 mcg x 4)/0.5 mL IM syringe No Fluzone Quad (PF) 60 mcg (15 mcg x 4)/0.5 mL IM syringe [facility] hydroxyzine HCl 50 mg tablet Take 1 tablet 3 times a day by oral route as needed. hydroxyzine HCl 50 mg tablet Take 1 tablet 3 times a day by oral route as needed. No hydroxyzin e HCl 50 mg tablet Take 1 tablet 3 times a day by oral route as needed. [facility] medroxyprog esterone 10 mg tablet medroxyprog esterone 10 mg tablet No medroxypro gesterone 10 mg tablet [facility] metronidazo le 500 mg tablet metronidazo le 500 mg tablet No metronidaz ole 500 mg tablet [facility] naproxen 500 mg tablet naproxen 500 mg tablet No naproxen 500 mg tablet [facility] quetiapine 200 mg tablet quetiapine 200 mg tablet No quetiapine 200 mg tablet [facility] quetiapine ER 200 mg tablet,exte nded release 24 hr Take 2 tablets every day by oral route at bedtime. quetiapine ER 200 mg tablet,exte nded release 24 hr Take 2 tablets every day by oral route at bedtime. No quetiapine ER 200 mg tablet,ext ended release 24 hr Take 2 tablets every day by oral route at bedtime. [facility] clobetasol 0.05 % topical ointment APPLY A THIN LAYER TO THE AFFECTED AREA(S) 2 TIMES PER DAY. clobetasol 0.05 % topical ointment APPLY A THIN LAYER TO THE AFFECTED AREA(S) 2 TIMES PER DAY. No clobetasol 0.05 % topical ointment APPLY A THIN LAYER TO THE AFFECTED AREA(S) 2 TIMES PER DAY. [facility] ibuprofen 800 mg tablet TAKE 1 TABLET BY MOUTH EVERY 8 HOURS NEEDED FOR 15 DAYS ibuprofen 800 mg tablet TAKE 1 TABLET BY MOUTH EVERY 8 HOURS NEEDED FOR 15 DAYS No ibuprofen 800 mg tablet TAKE 1 TABLET BY MOUTH EVERY 8 HOURS NEEDED FOR 15 DAYS [facility] ketoconazol e 2 % topical cream Apply by topical route for 30 days. ketoconazol e 2 % topical cream Apply by topical route for 30 days. No ketoconazo le 2 % topical cream Apply by topical route for 30 days. [facility] lithium carbonate 150 mg capsule TAKE 3 CAPSULES BY MOUTH TWICE DAILY FOR MOOD lithium carbonate 150 mg capsule TAKE 3 CAPSULES BY MOUTH TWICE DAILY FOR MOOD No lithium carbonate 150 mg capsule TAKE 3 CAPSULES BY MOUTH TWICE DAILY FOR MOOD [facility] naltrexone 50 mg tablet TAKE ONE (1) TABLET(S) BY MOUTH EVERY MORNING. naltrexone 50 mg tablet TAKE ONE (1) TABLET(S) BY MOUTH EVERY MORNING. No naltrexone 50 mg tablet TAKE ONE (1) TABLET(S) BY MOUTH EVERY MORNING. [facility] omeprazole 40 mg capsule,del ayed release Take 1 capsule every day by oral route for 30 days. omeprazole 40 mg capsule,del ayed release Take 1 capsule every day by oral route for 30 days. No 1capsul e(s) Q1D omeprazole 40 mg capsule,de layed release Take 1 capsule every day by oral route for 30 days. [facility] ondansetron 4 mg disintegrat ing tablet PLACE ONE (1) TABLET ON THE TONGUE AND LET DISSOLVE FOUR TIMES A DAY NEEDED. ondansetron 4 mg disintegrat ing tablet PLACE ONE (1) TABLET ON THE TONGUE AND LET DISSOLVE FOUR TIMES A DAY NEEDED. No ondansetro n [address]inte[address] ting tablet PL[address] ONE (1) TABLET ON THE TONGUE AND LET DISSOLVE FOUR TIMES A DAY NEEDED. [facility] polyethylen e glycol 3350 17 gram/dose oral powder MIX ONE (1) CAPFUL (17 GRAMS) ACCORDING TO PACKAGE DIRECTIONS AND TAKE BY MOUTH ONCE DAILY. polyethylen e glycol 3350 17 gram/dose oral powder MIX ONE (1) CAPFUL (17 GRAMS) ACCORDING TO PACKAGE DIRECTIONS AND TAKE BY MOUTH ONCE DAILY. No polyethyle ne glycol 3350 17 gram/dose oral powder MIX ONE (1) CAPFUL (17 GRAMS) ACCORDING TO PACKAGE DIRECTIONS AND TAKE BY MOUTH ONCE DAILY. [facility] potassium chloride 20 mEq/15 mL oral liquid Take 15 mL every day by oral route in the morning for 14 days. potassium chloride 20 mEq/15 mL oral liquid Take 15 mL every day by oral route in the morning for 14 days. No potassium chloride 20 mEq/15 mL oral liquid Take 15 mL every day by oral route in the morning for 14 days. [facility] sucralfate 1 gram tablet Take 1 tablet 4 times a day by oral route for 14 days. sucralfate 1 gram tablet Take 1 tablet 4 times a day by oral route for 14 days. No 1 QID sucralfate 1 gram tablet Take 1 tablet 4 times a day by oral route for 14 days. [facility] terbinafine HCl 1 % topical cream APPLY TOPICALLY TO THE AFFECTED AND SURROUNDING AREAS OF SKIN ONCE DAILY. terbinafine HCl 1 % topical cream APPLY TOPICALLY TO THE AFFECTED AND SURROUNDING AREAS OF SKIN ONCE DAILY. No terbinafin e HCl 1 % topical cream APPLY TOPICALLY TO THE AFFECTED AND SURROUNDIN G AREAS OF SKIN ONCE DAILY. [facility] trazodone 150 mg tablet TAKE ONE (1) TABLET BY MOUTH AT BEDTIME NEEDED FOR INSOMNIA. trazodone 150 mg tablet TAKE ONE (1) TABLET BY MOUTH AT BEDTIME NEEDED FOR INSOMNIA. No trazodone 150 mg tablet TAKE ONE (1) TABLET BY MOUTH AT BEDTIME NEEDED FOR INSOMNIA. [facility] trihexyphen idyl 2 mg tablet TAKE ONE (1) TABLET(S) BY MOUTH AT BEDTIME. trihexyphen idyl 2 mg tablet TAKE ONE (1) TABLET(S) BY MOUTH AT BEDTIME. No trihexyphe nidyl 2 mg tablet TAKE ONE (1) TABLET(S) BY MOUTH AT BEDTIME. [facility] Vraylar 3 mg capsule TAKE ONE (1) CAPSULE BY MOUTH EVERY EVENING. Vraylar 3 mg capsule TAKE ONE (1) CAPSULE BY MOUTH EVERY EVENING. No Vraylar 3 mg capsule TAKE ONE (1) CAPSULE BY MOUTH EVERY EVENING. [facility] alprazolam 0.5 mg tablet TAKE ONE (1) TABLET BY MOUTH THREE TIMES A DAY NEEDED. alprazolam 0.5 mg tablet TAKE ONE (1) TABLET BY MOUTH THREE TIMES A DAY NEEDED. No alprazolam 0.5 mg tablet TAKE ONE (1) TABLET BY MOUTH THREE TIMES A DAY NEEDED. [facility] cetirizine 10 mg tablet Take 1 tablet every day by oral route for 90 days. cetirizine 10 mg tablet Take 1 tablet every day by oral route for 90 days. No cetirizine 10 mg tablet Take 1 tablet every day by oral route for 90 days. [facility] clobetasol 0.05 % ointment-hy drocolloid dressing 4" X 4" topical kit clobetasol 0.05 % ointment-hy drocolloid dressing 4" X 4" topical kit No clobetasol 0.05 % ointment-h ydrocolloi d dressing 4" X 4" topical kit [facility] ketoconazol e 2 % topical cream Apply by topical route for 30 days. ketoconazol e 2 % topical cream Apply by topical route for 30 days. No ketoconazo le 2 % topical cream Apply by topical route for 30 days. [facility] lithium carbonate 300 mg capsule TAKE ONE (1) CAPSULE BY MOUTH TWICE A DAY. lithium carbonate 300 mg capsule TAKE ONE (1) CAPSULE BY MOUTH TWICE A DAY. No lithium carbonate 300 mg capsule TAKE ONE (1) CAPSULE BY MOUTH TWICE A DAY. [facility] naltrexone 50 mg tablet TAKE ONE (1) TABLET BY MOUTH EVERY MORNING. naltrexone 50 mg tablet TAKE ONE (1) TABLET BY MOUTH EVERY MORNING. No naltrexone 50 mg tablet TAKE ONE (1) TABLET BY MOUTH EVERY MORNING. [facility] Narcan 4 mg/actuatio n nasal spray Narcan 4 mg/actuatio n nasal spray No Narcan 4 mg/actuati on nasal spray [facility] omeprazole 40 mg capsule,del ayed release Take 1 capsule every day by oral route for 30 days. omeprazole 40 mg capsule,del ayed release Take 1 capsule every day by oral route for 30 days. No omeprazole 40 mg capsule,de layed release Take 1 capsule every day by oral route for 30 days. [facility] ondansetron 4 mg disintegrat ing tablet PLACE ONE (1) TABLET ON THE TONGUE AND LET DISSOLVE FOUR TIMES A DAY NEEDED. ondansetron 4 mg disintegrat ing tablet PLACE ONE (1) TABLET ON THE TONGUE AND LET DISSOLVE FOUR TIMES A DAY NEEDED. No ondansetro n 4 [address]inte[address] ting tablet PL[address] ONE (1) TABLET ON THE TONGUE AND LET DISSOLVE FOUR TIMES A DAY NEEDED. [facility] polyethylen e glycol 3350 17 gram/dose oral powder MIX ONE (1) CAPFUL (17 GRAMS) ACCORDING TO PACKAGE DIRECTIONS AND TAKE BY MOUTH ONCE DAILY. polyethylen e glycol 3350 17 gram/dose oral powder MIX ONE (1) CAPFUL (17 GRAMS) ACCORDING TO PACKAGE DIRECTIONS AND TAKE BY MOUTH ONCE DAILY. No polyethyle ne glycol 3350 17 gram/dose oral powder MIX ONE (1) CAPFUL (17 GRAMS) ACCORDING TO PACKAGE DIRECTIONS AND TAKE BY MOUTH ONCE DAILY. [facility] terbinafine HCl 1 % topical cream APPLY TOPICALLY TO THE AFFECTED AND SURROUNDING AREAS OF SKIN ONCE DAILY. terbinafine HCl 1 % topical cream APPLY TOPICALLY TO THE AFFECTED AND SURROUNDING AREAS OF SKIN ONCE DAILY. No terbinafin e HCl 1 % topical cream APPLY TOPICALLY TO THE AFFECTED AND SURROUNDIN G AREAS OF SKIN ONCE DAILY. [facility] trazodone 150 mg tablet TAKE ONE (1) TABLET BY MOUTH AT BEDTIME NEEDED FOR INSOMNIA. trazodone 150 mg tablet TAKE ONE (1) TABLET BY MOUTH AT BEDTIME NEEDED FOR INSOMNIA. No trazodone 150 mg tablet TAKE ONE (1) TABLET BY MOUTH AT BEDTIME NEEDED FOR INSOMNIA. [facility] venlafaxine ER 37.5 mg capsule,ext ended release 24 hr TAKE ONE (1) CAPSULE BY MOUTH EVERY MORNING. venlafaxine ER 37.5 mg capsule,ext ended release 24 hr TAKE ONE (1) CAPSULE BY MOUTH EVERY MORNING. No venlafaxin e ER 37.5 mg capsule,ex tended release 24 hr TAKE ONE (1) CAPSULE BY MOUTH EVERY MORNING. [facility] Vraylar 3 mg capsule TAKE ONE (1) CAPSULE BY MOUTH EVERY EVENING. Vraylar 3 mg capsule TAKE ONE (1) CAPSULE BY MOUTH EVERY EVENING. No Vraylar 3 mg capsule TAKE ONE (1) CAPSULE BY MOUTH EVERY EVENING. [facility] acetaminoph en 300 mg-codeine 30 mg tablet TAKE 1 TO 2 TABLETS BY MOUTH EVERY 6 HOURS NEEDED FOR PAIN acetaminoph en 300 mg-codeine 30 mg tablet TAKE 1 TO 2 TABLETS BY MOUTH EVERY 6 HOURS NEEDED FOR PAIN No acetaminop hen 300 mg-codeine 30 mg tablet TAKE 1 TO 2 TABLETS BY MOUTH EVERY 6 HOURS NEEDED FOR PAIN [facility] alprazolam 0.5 mg tablet TAKE ONE (1) TABLET BY MOUTH THREE TIMES A DAY NEEDED. alprazolam 0.5 mg tablet TAKE ONE (1) TABLET BY MOUTH THREE TIMES A DAY NEEDED. No alprazolam 0.5 mg tablet TAKE ONE (1) TABLET BY MOUTH THREE TIMES A DAY NEEDED. [facility] amoxicillin 500 mg capsule TAKE 1 CAPSULE BY MOUTH TWICE DAILY FOR 7 DAYS amoxicillin 500 mg capsule TAKE 1 CAPSULE BY MOUTH TWICE DAILY FOR 7 DAYS No amoxicilli n 500 mg capsule TAKE 1 CAPSULE BY MOUTH TWICE DAILY FOR 7 DAYS [facility] cetirizine 10 mg tablet TAKE 1 TABLET BY MOUTH ONCE DAILY FOR 90 DAYS cetirizine 10 mg tablet TAKE 1 TABLET BY MOUTH ONCE DAILY FOR 90 DAYS No cetirizine 10 mg tablet TAKE 1 TABLET BY MOUTH ONCE DAILY FOR 90 DAYS [facility] chlorhexidi ne gluconate 0.12 % mouthwash RINSE WITH 1 CAPFUL BY MOUTH (15 ML) FOR 30 SECONDS IN THE MORING AND EVENING AFTER TOOTHBRUSHI NG EXPECTORATE AFTER RINSING DO NOT SWALLOW chlorhexidi ne gluconate 0.12 % mouthwash RINSE WITH 1 CAPFUL BY MOUTH (15 ML) FOR 30 SECONDS IN THE MORING AND EVENING AFTER TOOTHBRUSHI NG EXPECTORATE AFTER RINSING DO NOT SWALLOW No chlorhexid ine gluconate 0.12 % mouthwash RINSE WITH 1 CAPFUL BY MOUTH (15 ML) FOR 30 SECONDS IN THE MORING AND EVENING AFTER TOOTHBRUSH ING EXPECTORAT E AFTER RINSING DO NOT SWALLOW [facility] clobetasol 0.05 % ointment-hy drocolloid dressing 4" X 4" topical kit clobetasol 0.05 % ointment-hy drocolloid dressing 4" X 4" topical kit No clobetasol 0.05 % ointment-h ydrocolloi d dressing 4" X 4" topical kit [facility] ketoconazol e 2 % topical cream Apply by topical route for 30 days. ketoconazol e 2 % topical cream Apply by topical route for 30 days. No ketoconazo le 2 % topical cream Apply by topical route for 30 days. [facility] Lidocaine Viscous 2 % mucosal solution SWISH AND SPIT OUT 15ML BY MOUTH EVERY 3 HOURS Lidocaine Viscous 2 % mucosal solution SWISH AND SPIT OUT 15ML BY MOUTH EVERY 3 HOURS No Lidocaine Viscous 2 % mucosal solution SWISH AND SPIT OUT 15ML BY MOUTH EVERY 3 HOURS [facility] lithium carbonate 300 mg capsule TAKE ONE (1) CAPSULE BY MOUTH TWICE A DAY. lithium carbonate 300 mg capsule TAKE ONE (1) CAPSULE BY MOUTH TWICE A DAY. No lithium carbonate 300 mg capsule TAKE ONE (1) CAPSULE BY MOUTH TWICE A DAY. [facility] naltrexone 50 mg tablet TAKE ONE (1) TABLET BY MOUTH EVERY MORNING. naltrexone 50 mg tablet TAKE ONE (1) TABLET BY MOUTH EVERY MORNING. No naltrexone 50 mg tablet TAKE ONE (1) TABLET BY MOUTH EVERY MORNING. [facility] Narcan 4 mg/actuatio n nasal spray Narcan 4 mg/actuatio n nasal spray No Narcan 4 mg/actuati on nasal spray [facility] omeprazole 40 mg capsule,del ayed release Take 1 capsule every day by oral route for 30 days. omeprazole 40 mg capsule,del ayed release Take 1 capsule every day by oral route for 30 days. No omeprazole 40 mg capsule,de layed release Take 1 capsule every day by oral route for 30 days. [facility] ondansetron 4 mg disintegrat ing tablet PLACE ONE (1) TABLET ON THE TONGUE AND LET DISSOLVE FOUR TIMES A DAY NEEDED. ondansetron 4 mg disintegrat ing tablet PLACE ONE (1) TABLET ON THE TONGUE AND LET DISSOLVE FOUR TIMES A DAY NEEDED. No ondansetro n 4 mg disinte[address] ting tablet PL[address] ONE (1) TABLET ON THE TONGUE AND LET DISSOLVE FOUR TIMES A DAY NEEDED. [facility] polyethylen e glycol 3350 17 gram/dose oral powder MIX ONE (1) CAPFUL (17 GRAMS) ACCORDING TO PACKAGE DIRECTIONS AND TAKE BY MOUTH ONCE DAILY. polyethylen e glycol 3350 17 gram/dose oral powder MIX ONE (1) CAPFUL (17 GRAMS) ACCORDING TO PACKAGE DIRECTIONS AND TAKE BY MOUTH ONCE DAILY. No polyethyle ne glycol 3350 17 gram/dose oral powder MIX ONE (1) CAPFUL (17 GRAMS) ACCORDING TO PACKAGE DIRECTIONS AND TAKE BY MOUTH ONCE DAILY. [facility] terbinafine HCl 1 % topical cream APPLY TOPICALLY TO THE AFFECTED AND SURROUNDING AREAS OF SKIN ONCE DAILY. terbinafine HCl 1 % topical cream APPLY TOPICALLY TO THE AFFECTED AND SURROUNDING AREAS OF SKIN ONCE DAILY. No terbinafin e HCl 1 % topical cream APPLY TOPICALLY TO THE AFFECTED AND SURROUNDIN G AREAS OF SKIN ONCE DAILY. [facility] trazodone 150 mg tablet TAKE ONE (1) TABLET BY MOUTH AT BEDTIME NEEDED FOR INSOMNIA. trazodone 150 mg tablet TAKE ONE (1) TABLET BY MOUTH AT BEDTIME NEEDED FOR INSOMNIA. No trazodone 150 mg tablet TAKE ONE (1) TABLET BY MOUTH AT BEDTIME NEEDED FOR INSOMNIA. [facility] venlafaxine ER 37.5 mg capsule,ext ended release 24 hr TAKE ONE (1) CAPSULE BY MOUTH EVERY MORNING. venlafaxine ER 37.5 mg capsule,ext ended release 24 hr TAKE ONE (1) CAPSULE BY MOUTH EVERY MORNING. No venlafaxin e ER 37.5 mg capsule,ex tended release 24 hr TAKE ONE (1) CAPSULE BY MOUTH EVERY MORNING. [facility] Vraylar 3 mg capsule TAKE ONE (1) CAPSULE BY MOUTH EVERY EVENING. Vraylar 3 mg capsule TAKE ONE (1) CAPSULE BY MOUTH EVERY EVENING. No Vraylar 3 mg capsule TAKE ONE (1) CAPSULE BY MOUTH EVERY EVENING. [facility] acetaminoph en 300 mg-codeine 30 mg tablet TAKE 1 TO 2 TABLETS BY MOUTH EVERY 6 HOURS NEEDED FOR PAIN acetaminoph en 300 mg-codeine 30 mg tablet TAKE 1 TO 2 TABLETS BY MOUTH EVERY 6 HOURS NEEDED FOR PAIN No acetaminop hen 300 mg-codeine 30 mg tablet TAKE 1 TO 2 TABLETS BY MOUTH EVERY 6 HOURS NEEDED FOR PAIN [facility] alprazolam 0.5 mg tablet Take 1 tablet twice a day by oral route for 30 days. alprazolam 0.5 mg tablet Take 1 tablet twice a day by oral route for 30 days. No 1 BID alprazolam 0.5 mg tablet Take 1 tablet twice a day by oral route for 30 days. [facility] cetirizine 10 mg tablet TAKE 1 TABLET BY MOUTH ONCE DAILY FOR 90 DAYS cetirizine 10 mg tablet TAKE 1 TABLET BY MOUTH ONCE DAILY FOR 90 DAYS No cetirizine 10 mg tablet TAKE 1 TABLET BY MOUTH ONCE DAILY FOR 90 DAYS [facility] chlorhexidi ne gluconate 0.12 % mouthwash RINSE WITH 1 CAPFUL BY MOUTH (15 ML) FOR 30 SECONDS IN THE MORING AND EVENING AFTER TOOTHBRUSHI NG EXPECTORATE AFTER RINSING DO NOT SWALLOW chlorhexidi ne gluconate 0.12 % mouthwash RINSE WITH 1 CAPFUL BY MOUTH (15 ML) FOR 30 SECONDS IN THE MORING AND EVENING AFTER TOOTHBRUSHI NG EXPECTORATE AFTER RINSING DO NOT SWALLOW No chlorhexid ine gluconate 0.12 % mouthwash RINSE WITH 1 CAPFUL BY MOUTH (15 ML) FOR 30 SECONDS IN THE MORING AND EVENING AFTER TOOTHBRUSH ING EXPECTORAT E AFTER RINSING DO NOT SWALLOW [facility] clobetasol 0.05 % ointment-hy drocolloid dressing 4" X 4" topical kit clobetasol 0.05 % ointment-hy drocolloid dressing 4" X 4" topical kit No clobetasol 0.05 % ointment-h ydrocolloi d dressing 4" X 4" topical kit [facility] ketoconazol e 2 % topical cream Apply by topical route for 30 days. ketoconazol e 2 % topical cream Apply by topical route for 30 days. No ketoconazo le 2 % topical cream Apply by topical route for 30 days. [facility] Lidocaine Viscous 2 % mucosal solution SWISH AND SPIT OUT 15ML BY MOUTH EVERY 3 HOURS Lidocaine Viscous 2 % mucosal solution SWISH AND SPIT OUT 15ML BY MOUTH EVERY 3 HOURS No Lidocaine Viscous 2 % mucosal solution SWISH AND SPIT OUT 15ML BY MOUTH EVERY 3 HOURS [facility] lithium carbonate 300 mg capsule Take 1 capsule twice a day by oral route for 30 days. lithium carbonate 300 mg capsule Take 1 capsule twice a day by oral route for 30 days. No 1capsul e(s) BID lithium carbonate 300 mg capsule Take 1 capsule twice a day by oral route for 30 days. [facility] naltrexone 50 mg tablet TAKE ONE (1) TABLET BY MOUTH EVERY MORNING. naltrexone 50 mg tablet TAKE ONE (1) TABLET BY MOUTH EVERY MORNING. No naltrexone 50 mg tablet TAKE ONE (1) TABLET BY MOUTH EVERY MORNING. [facility] Narcan 4 mg/actuatio n nasal spray Narcan 4 mg/actuatio n nasal spray No Narcan 4 mg/actuati on nasal spray [facility] omeprazole 40 mg capsule,del ayed release Take 1 capsule every day by oral route for 30 days. omeprazole 40 mg capsule,del ayed release Take 1 capsule every day by oral route for 30 days. No omeprazole 40 mg capsule,de layed release Take 1 capsule every day by oral route for 30 days. [facility] ondansetron 4 mg disintegrat ing tablet PLACE ONE (1) TABLET ON THE TONGUE AND LET DISSOLVE FOUR TIMES A DAY NEEDED. ondansetron 4 mg disintegrat ing tablet PLACE ONE (1) TABLET ON THE TONGUE AND LET DISSOLVE FOUR TIMES A DAY NEEDED. No ondansetro n 4 mg disinte[address] ting tablet PL[address] ONE (1) TABLET ON THE TONGUE AND LET DISSOLVE FOUR TIMES A DAY NEEDED. [facility] polyethylen e glycol 3350 17 gram/dose oral powder MIX ONE (1) CAPFUL (17 GRAMS) ACCORDING TO PACKAGE DIRECTIONS AND TAKE BY MOUTH ONCE DAILY. polyethylen e glycol 3350 17 gram/dose oral powder MIX ONE (1) CAPFUL (17 GRAMS) ACCORDING TO PACKAGE DIRECTIONS AND TAKE BY MOUTH ONCE DAILY. No polyethyle ne glycol 3350 17 gram/dose oral powder MIX ONE (1) CAPFUL (17 GRAMS) ACCORDING TO PACKAGE DIRECTIONS AND TAKE BY MOUTH ONCE DAILY. [facility] terbinafine HCl 1 % topical cream APPLY TOPICALLY TO THE AFFECTED AND SURROUNDING AREAS OF SKIN ONCE DAILY. terbinafine HCl 1 % topical cream APPLY TOPICALLY TO THE AFFECTED AND SURROUNDING AREAS OF SKIN ONCE DAILY. No terbinafin e HCl 1 % topical cream APPLY TOPICALLY TO THE AFFECTED AND SURROUNDIN G AREAS OF SKIN ONCE DAILY. [facility] trazodone 150 mg tablet TAKE ONE (1) TABLET BY MOUTH AT BEDTIME NEEDED FOR INSOMNIA. trazodone 150 mg tablet TAKE ONE (1) TABLET BY MOUTH AT BEDTIME NEEDED FOR INSOMNIA. No trazodone 150 mg tablet TAKE ONE (1) TABLET BY MOUTH AT BEDTIME NEEDED FOR INSOMNIA. [facility] venlafaxine ER 37.5 mg capsule,ext ended release 24 hr Take 1 capsule every day by oral route in the morning for 30 days. venlafaxine ER 37.5 mg capsule,ext ended release 24 hr Take 1 capsule every day by oral route in the morning for 30 days. No 1capsul e(s) Q1D venlafaxin e ER 37.5 mg capsule,ex tended release 24 hr Take 1 capsule every day by oral route in the morning for 30 days. [facility] Vraylar 3 mg capsule Take 1 capsule every day by oral route in the evening for 30 days. Vraylar 3 mg capsule Take 1 capsule every day by oral route in the evening for 30 days. No 1capsul e(s) Q1D Vraylar 3 mg capsule Take 1 capsule every day by oral route in the evening for 30 days. [facility] alprazolam 0.5 mg tablet Take 1 tablet twice a day by oral route for 30 days. alprazolam 0.5 mg tablet Take 1 tablet twice a day by oral route for 30 days. No 1 BID alprazolam 0.5 mg tablet Take 1 tablet twice a day by oral route for 30 days. [facility] cetirizine 10 mg tablet TAKE 1 TABLET BY MOUTH ONCE DAILY FOR 90 DAYS cetirizine 10 mg tablet TAKE 1 TABLET BY MOUTH ONCE DAILY FOR 90 DAYS No cetirizine 10 mg tablet TAKE 1 TABLET BY MOUTH ONCE DAILY FOR 90 DAYS [facility] clobetasol 0.05 % topical ointment APPLY A THIN LAYER TO THE AFFECTED AREA(S) BY TOPICAL ROUTE 2 TIMES PER DAY clobetasol 0.05 % topical ointment APPLY A THIN LAYER TO THE AFFECTED AREA(S) BY TOPICAL ROUTE 2 TIMES PER DAY No clobetasol 0.05 % topical ointment APPLY A THIN LAYER TO THE AFFECTED AREA(S) BY TOPICAL ROUTE 2 TIMES PER DAY [facility] ketoconazol e 2 % topical cream Apply by topical route for 30 days. ketoconazol e 2 % topical cream Apply by topical route for 30 days. No ketoconazo le 2 % topical cream Apply by topical route for 30 days. [facility] lithium carbonate 300 mg capsule Take 1 capsule twice a day by oral route for 30 days. lithium carbonate 300 mg capsule Take 1 capsule twice a day by oral route for 30 days. No 1capsul e(s) BID lithium carbonate 300 mg capsule Take 1 capsule twice a day by oral route for 30 days. [facility] ondansetron 4 mg disintegrat ing tablet PLACE ONE (1) TABLET ON THE TONGUE AND LET DISSOLVE FOUR TIMES A DAY NEEDED. ondansetron 4 mg disintegrat ing tablet PLACE ONE (1) TABLET ON THE TONGUE AND LET DISSOLVE FOUR TIMES A DAY NEEDED. No ondansetro n 4 mg disintegra ting tablet PL[address] ONE (1) TABLET ON THE TONGUE AND LET DISSOLVE FOUR TIMES A DAY NEEDED. [facility] polyethylen e glycol 3350 17 gram/dose oral powder MIX ONE (1) CAPFUL (17 GRAMS) ACCORDING TO PACKAGE DIRECTIONS AND TAKE BY MOUTH ONCE DAILY. polyethylen e glycol 3350 17 gram/dose oral powder MIX ONE (1) CAPFUL (17 GRAMS) ACCORDING TO PACKAGE DIRECTIONS AND TAKE BY MOUTH ONCE DAILY. No polyethyle ne glycol 3350 17 gram/dose oral powder MIX ONE (1) CAPFUL (17 GRAMS) ACCORDING TO PACKAGE DIRECTIONS AND TAKE BY MOUTH ONCE DAILY. [facility] terbinafine HCl 1 % topical cream APPLY TOPICALLY TO THE AFFECTED AND SURROUNDING AREAS OF SKIN ONCE DAILY. terbinafine HCl 1 % topical cream APPLY TOPICALLY TO THE AFFECTED AND SURROUNDING AREAS OF SKIN ONCE DAILY. No terbinafin e HCl 1 % topical cream APPLY TOPICALLY TO THE AFFECTED AND SURROUNDIN G AREAS OF SKIN ONCE DAILY. [facility] trazodone 150 mg tablet Take 1 tablet twice a day by oral route at bedtime for 30 days. trazodone 150 mg tablet Take 1 tablet twice a day by oral route at bedtime for 30 days. No 1 BID trazodone 150 mg tablet Take 1 tablet twice a day by oral route at bedtime for 30 days. [facility] venlafaxine ER 37.5 mg capsule,ext ended release 24 hr Take 1 capsule every day by oral route in the morning for 30 days. venlafaxine ER 37.5 mg capsule,ext ended release 24 hr Take 1 capsule every day by oral route in the morning for 30 days. No 1capsul e(s) Q1D venlafaxin e ER 37.5 mg capsule,ex tended release 24 hr Take 1 capsule every day by oral route in the morning for 30 days. [facility] Vraylar 3 mg capsule Take 1 capsule every day by oral route in the evening for 30 days. Vraylar 3 mg capsule Take 1 capsule every day by oral route in the evening for 30 days. No 1capsul e(s) Q1D Vraylar 3 mg capsule Take 1 capsule every day by oral route in the evening for 30 days. [facility] alprazolam 0.5 mg tablet TAKE ONE (1) TABLET BY MOUTH THREE TIMES A DAY NEEDED. alprazolam 0.5 mg tablet TAKE ONE (1) TABLET BY MOUTH THREE TIMES A DAY NEEDED. No alprazolam 0.5 mg tablet TAKE ONE (1) TABLET BY MOUTH THREE TIMES A DAY NEEDED. [facility] Augmentin 875 mg-125 mg tablet Take 1 tablet every 12 hours by oral route for 10 days. Augmentin 875 mg-125 mg tablet Take 1 tablet every 12 hours by oral route for 10 days. No 1 Q12H Augmentin 875 mg-125 mg tablet Take 1 tablet every 12 hours by oral route for 10 days. [facility] cetirizine 10 mg tablet Take 1 tablet every day by oral route for 14 days. cetirizine 10 mg tablet Take 1 tablet every day by oral route for 14 days. No 1 Q1D cetirizine 10 mg tablet Take 1 tablet every day by oral route for 14 days. [facility] clobetasol 0.05 % topical ointment APPLY A THIN LAYER TO THE AFFECTED AREA(S) 2 TIMES PER DAY. clobetasol 0.05 % topical ointment APPLY A THIN LAYER TO THE AFFECTED AREA(S) 2 TIMES PER DAY. No clobetasol 0.05 % topical ointment APPLY A THIN LAYER TO THE AFFECTED AREA(S) 2 TIMES PER DAY. [facility] Kenalog 40 mg/mL suspension for injection Take 40 mg by injection route. Kenalog 40 mg/mL suspension for injection Take 40 mg by injection route. No 40mg Kenalog 40 mg/mL suspension for injection Take 40 mg by injection route. [facility] ketoconazol e 2 % topical cream Apply by topical route for 30 days. ketoconazol e 2 % topical cream Apply by topical route for 30 days. No ketoconazo le 2 % topical cream Apply by topical route for 30 days. [facility] lithium carbonate 150 mg capsule TAKE 3 CAPSULES BY MOUTH TWICE DAILY FOR MOOD lithium carbonate 150 mg capsule TAKE 3 CAPSULES BY MOUTH TWICE DAILY FOR MOOD No lithium carbonate 150 mg capsule TAKE 3 CAPSULES BY MOUTH TWICE DAILY FOR MOOD [facility] Narcan 4 mg/actuatio n nasal spray ADMINISTER A SINGLE SPRAY INTRANASALL Y INTO ONE NOSTRIL. CALL 911. MAY REPEAT X 1. Narcan 4 mg/actuatio n nasal spray ADMINISTER A SINGLE SPRAY INTRANASALL Y INTO ONE NOSTRIL. CALL 911. AUGUST REPEAT X 1. No Narcan 4 mg/actuati on nasal spray ADMINISTER A SINGLE SPRAY INTRANASAL LY INTO ONE NOSTRIL. CALL 91. AUGUST REPEAT X 1. [facility] Nexium 40 mg capsule,del ayed release Take by oral route for 30 days. Nexium 40 mg capsule,del ayed release Take by oral route for 30 days. No Nexium 40 mg capsule,de layed release Take by oral route for 30 days. [facility] ondansetron 4 mg disintegrat ing tablet PLACE ONE (1) TABLET ON THE TONGUE AND LET DISSOLVE FOUR TIMES A DAY NEEDED. ondansetron 4 mg disintegrat ing tablet PLACE ONE (1) TABLET ON THE TONGUE AND LET DISSOLVE FOUR TIMES A DAY NEEDED. No ondansetro n 4 mg disintegra ting tablet PL[address] ONE (1) TABLET ON THE TONGUE AND LET DISSOLVE FOUR TIMES A DAY NEEDED. [facility] Phenergan 25 mg/mL injection solution Take 25 mg by injection route. Phenergan 25 mg/mL injection solution Take 25 mg by injection route. No 25mg Phenergan 25 mg/mL injection solution Take 25 mg by injection route. [facility] polyethylen e glycol 3350 17 gram/dose oral powder MIX ONE (1) CAPFUL (17 GRAMS) ACCORDING TO PACKAGE DIRECTIONS AND TAKE BY MOUTH ONCE DAILY. polyethylen e glycol 3350 17 gram/dose oral powder MIX ONE (1) CAPFUL (17 GRAMS) ACCORDING TO PACKAGE DIRECTIONS AND TAKE BY MOUTH ONCE DAILY. No polyethyle ne glycol 3350 17 gram/dose oral powder MIX ONE (1) CAPFUL (17 GRAMS) ACCORDING TO PACKAGE DIRECTIONS AND TAKE BY MOUTH ONCE DAILY. [facility] propranolol 40 mg tablet TAKE 1 TABLET BY MOUTH THREE TIMES DAILY propranolol 40 mg tablet TAKE 1 TABLET BY MOUTH THREE TIMES DAILY No propranolo l 40 mg tablet TAKE 1 TABLET BY MOUTH THREE TIMES DAILY [facility] sucralfate 1 gram tablet Take 1 tablet 4 times a day by oral route for 14 days. sucralfate 1 gram tablet Take 1 tablet 4 times a day by oral route for 14 days. No sucralfate 1 gram tablet Take 1 tablet 4 times a day by oral route for 14 days. [facility] terbinafine HCl 1 % topical cream APPLY TOPICALLY TO THE AFFECTED AND SURROUNDING AREAS OF SKIN ONCE DAILY. terbinafine HCl 1 % topical cream APPLY TOPICALLY TO THE AFFECTED AND SURROUNDING AREAS OF SKIN ONCE DAILY. No terbinafin e HCl 1 % topical cream APPLY TOPICALLY TO THE AFFECTED AND SURROUNDIN G AREAS OF SKIN ONCE DAILY. [facility] trazodone 100 mg tablet TAKE ONE (1) TABLET BY MOUTH AT BEDTIME NEEDED INSOMNIA. trazodone 100 mg tablet TAKE ONE (1) TABLET BY MOUTH AT BEDTIME NEEDED INSOMNIA. No trazodone 100 mg tablet TAKE ONE (1) TABLET BY MOUTH AT BEDTIME NEEDED INSOMNIA. [facility] alprazolam 0.5 mg tablet TAKE ONE (1) TABLET(S) BY MOUTH THREE TIMES A DAY NEEDED. alprazolam 0.5 mg tablet TAKE ONE (1) TABLET(S) BY MOUTH THREE TIMES A DAY NEEDED. No alprazolam 0.5 mg tablet TAKE ONE (1) TABLET(S) BY MOUTH THREE TIMES A DAY NEEDED. [facility] cetirizine 10 mg tablet Take 1 tablet every day by oral route for 90 days. cetirizine 10 mg tablet Take 1 tablet every day by oral route for 90 days. No 1 Q1D cetirizine 10 mg tablet Take 1 tablet every day by oral route for 90 days. [facility] clobetasol 0.05 % topical ointment APPLY A THIN LAYER TO THE AFFECTED AREA(S) 2 TIMES PER DAY. clobetasol 0.05 % topical ointment APPLY A THIN LAYER TO THE AFFECTED AREA(S) 2 TIMES PER DAY. No clobetasol 0.05 % topical ointment APPLY A THIN LAYER TO THE AFFECTED AREA(S) 2 TIMES PER DAY. [facility] ibuprofen 800 mg tablet TAKE 1 TABLET BY MOUTH EVERY 8 HOURS NEEDED FOR 15 DAYS ibuprofen 800 mg tablet TAKE 1 TABLET BY MOUTH EVERY 8 HOURS NEEDED FOR 15 DAYS No ibuprofen 800 mg tablet TAKE 1 TABLET BY MOUTH EVERY 8 HOURS NEEDED FOR 15 DAYS [facility] ketoconazol e 2 % topical cream Apply by topical route for 30 days. ketoconazol e 2 % topical cream Apply by topical route for 30 days. No ketoconazo le 2 % topical cream Apply by topical route for 30 days. [facility] lithium carbonate 150 mg capsule TAKE 3 CAPSULES BY MOUTH TWICE DAILY FOR MOOD lithium carbonate 150 mg capsule TAKE 3 CAPSULES BY MOUTH TWICE DAILY FOR MOOD No lithium carbonate 150 mg capsule TAKE 3 CAPSULES BY MOUTH TWICE DAILY FOR MOOD [facility] naltrexone 50 mg tablet TAKE ONE (1) TABLET(S) BY MOUTH EVERY MORNING. naltrexone 50 mg tablet TAKE ONE (1) TABLET(S) BY MOUTH EVERY MORNING. No naltrexone 50 mg tablet TAKE ONE (1) TABLET(S) BY MOUTH EVERY MORNING. [facility] Nexium 40 mg capsule,del ayed release Take by oral route for 30 days. Nexium 40 mg capsule,del ayed release Take by oral route for 30 days. No Nexium 40 mg capsule,de layed release Take by oral route for 30 days. [facility] ondansetron 4 mg disintegrat ing tablet PLACE ONE (1) TABLET ON THE TONGUE AND LET DISSOLVE FOUR TIMES A DAY NEEDED. ondansetron 4 mg disintegrat ing tablet PLACE ONE (1) TABLET ON THE TONGUE AND LET DISSOLVE FOUR TIMES A DAY NEEDED. No ondansetro n 4 mg disintegra ting tablet PLACE ONE (1) TABLET ON THE TONGUE AND LET DISSOLVE FOUR TIMES A DAY NEEDED. [facility] polyethylen e glycol 3350 17 gram/dose oral powder MIX ONE (1) CAPFUL (17 GRAMS) ACCORDING TO PACKAGE DIRECTIONS AND TAKE BY MOUTH ONCE DAILY. polyethylen e glycol 3350 17 gram/dose oral powder MIX ONE (1) CAPFUL (17 GRAMS) ACCORDING TO PACKAGE DIRECTIONS AND TAKE BY MOUTH ONCE DAILY. No polyethyle ne glycol 3350 17 gram/dose oral powder MIX ONE (1) CAPFUL (17 GRAMS) ACCORDING TO PACKAGE DIRECTIONS AND TAKE BY MOUTH ONCE DAILY. [facility] potassium chloride 20 mEq/15 mL oral liquid Take 15 mL every day by oral route in the morning for 14 days. potassium chloride 20 mEq/15 mL oral liquid Take 15 mL every day by oral route in the morning for 14 days. No 15mL Q1D potassium chloride 20 mEq/15 mL oral liquid Take 15 mL every day by oral route in the morning for 14 days. [facility] sucralfate 1 gram tablet Take 1 tablet 4 times a day by oral route for 14 days. sucralfate 1 gram tablet Take 1 tablet 4 times a day by oral route for 14 days. No 1 QID sucralfate 1 gram tablet Take 1 tablet 4 times a day by oral route for 14 days. [facility] terbinafine HCl 1 % topical cream APPLY TOPICALLY TO THE AFFECTED AND SURROUNDING AREAS OF SKIN ONCE DAILY. terbinafine HCl 1 % topical cream APPLY TOPICALLY TO THE AFFECTED AND SURROUNDING AREAS OF SKIN ONCE DAILY. No terbinafin e HCl 1 % topical cream APPLY TOPICALLY TO THE AFFECTED AND SURROUNDIN G AREAS OF SKIN ONCE DAILY. [facility] trazodone 150 mg tablet TAKE ONE (1) TABLET BY MOUTH AT BEDTIME NEEDED FOR INSOMNIA. trazodone 150 mg tablet TAKE ONE (1) TABLET BY MOUTH AT BEDTIME NEEDED FOR INSOMNIA. No trazodone 150 mg tablet TAKE ONE (1) TABLET BY MOUTH AT BEDTIME NEEDED FOR INSOMNIA. [facility] trihexyphen idyl 2 mg tablet TAKE ONE (1) TABLET(S) BY MOUTH AT BEDTIME. trihexyphen idyl 2 mg tablet TAKE ONE (1) TABLET(S) BY MOUTH AT BEDTIME. No trihexyphe nidyl 2 mg tablet TAKE ONE (1) TABLET(S) BY MOUTH AT BEDTIME. [facility] Vraylar 3 mg capsule TAKE ONE (1) CAPSULE(S) BY MOUTH IN THE EVENING. Vraylar 3 mg capsule TAKE ONE (1) CAPSULE(S) BY MOUTH IN THE EVENING. No Vraylar 3 mg capsule TAKE ONE (1) CAPSULE(S) BY MOUTH IN THE EVENING. [facility] alprazolam 0.5 mg tablet TAKE ONE (1) TABLET(S) BY MOUTH THREE TIMES A DAY NEEDED. alprazolam 0.5 mg tablet TAKE ONE (1) TABLET(S) BY MOUTH THREE TIMES A DAY NEEDED. No alprazolam 0.5 mg tablet TAKE ONE (1) TABLET(S) BY MOUTH THREE TIMES A DAY NEEDED. [facility] amoxicillin 875 mg-potassiu m clavulanate 125 mg tablet Take 1 tablet every 12 hours by oral route for 10 days. amoxicillin 875 mg-potassiu m clavulanate 125 mg tablet Take 1 tablet every 12 hours by oral route for 10 days. No 1 Q12H amoxicilli n 875 mg-potassi um clavulanat e 125 mg tablet Take 1 tablet every 12 hours by oral route for 10 days. [facility] cetirizine 10 mg tablet Take 1 tablet every day by oral route for 90 days. cetirizine 10 mg tablet Take 1 tablet every day by oral route for 90 days. No cetirizine 10 mg tablet Take 1 tablet every day by oral route for 90 days. [facility] Vital Signs Vital Name Observation Time Observation Value Comments S ource BP Diastolic 2022-08-06 00:00:00 70 mm[Hg] [facility] Height 2022-08-06 00:00:00 64 [in_i] [facility] BMI (Body Mass Index) 2022-08-06 00:00:00 26.9 kg/m2 [facility] BP Systolic 2022-08-06 00:00:00 113 mm[Hg] [facility] Body Weight 2022-08-06 00:00:00 2512 [oz_av] [facility] BP Diastolic 2022-06-28 00:00:00 66 mm[Hg] [facility] Height 2022-06-28 00:00:00 64 [in_i] [facility] BMI (Body Mass Index) 2022-06-28 00:00:00 25.9 kg/m2 [facility] BP Systolic 2022-06-28 00:00:00 113 mm[Hg] [facility] Body Weight 2022-06-28 00:00:00 2418 [oz_av] [facility] BP Diastolic 2022-06-04 00:00:00 85 mm[Hg] [facility] Height 2022-06-04 00:00:00 64 [in_i] [facility] BMI (Body Mass Index) 2022-06-04 00:00:00 26.6 kg/m2 [facility] BP Systolic 2022-06-04 00:00:00 122 mm[Hg] [facility] Body Weight 2022-06-04 00:00:00 2482 [oz_av] [facility] BP Diastolic 2022-05-25 00:00:00 76 mm[Hg] [facility] Height 2022-05-25 00:00:00 64 [in_i] [facility] BMI (Body Mass Index) 2022-05-25 00:00:00 25.4 kg/m2 [facility] BP Systolic 2022-05-25 00:00:00 112 mm[Hg] [facility] Body Weight 2022-05-25 00:00:00 2371 [oz_av] [facility] Height 2022-02-15 00:00:00 64 [in_i] [facility] BMI (Body Mass Index) 2022-02-15 00:00:00 24 kg/m2 [facility] Body Weight 2022-02-15 00:00:00 2240 [oz_av] [facility] BP Diastolic 2022-01-27 00:00:00 64 mm[Hg] [facility] Height 2022-01-27 00:00:00 64 [in_i] [facility] BMI (Body Mass Index) 2022-01-27 00:00:00 25.1 kg/m2 [facility] BP Systolic 2022-01-27 00:00:00 129 mm[Hg] [facility] Body Weight 2022-01-27 00:00:00 2340.8 [oz_av] [facility] BP Diastolic 2021-11-26 00:00:00 83 mm[Hg] [facility] Height 2021-11-26 00:00:00 64 [in_i] [facility] BMI (Body Mass Index) 2021-11-26 00:00:00 25.1 kg/m2 [facility] BP Systolic 2021-11-26 00:00:00 127 mm[Hg] [facility] Body Weight 2021-11-26 00:00:00 2336 [oz_av] [facility] BP Diastolic 2021-11-05 00:00:00 81 mm[Hg] [facility] Height 2021-11-05 00:00:00 64 [in_i] [facility] BMI (Body Mass Index) 2021-11-05 00:00:00 25.6 kg/m2 [facility] BP Systolic 2021-11-05 00:00:00 140 mm[Hg] [facility] Body Weight 2021-11-05 00:00:00 2384 [oz_av] [facility] Systolic blood pressure 2021-09-15 19:28:00 104 mm[Hg] [facility] Diastolic blood pressure 2021-09-15 19:28:00 70 mm[Hg] [facility] Heart rate 2021-09-15 19:28:00 64 /min [facility] Body height 2021-09-15 19:28:00 157.5 cm [facility] Body weight 2021-09-15 19:28:00 73.936 kg [facility] BMI 2021-09-15 19:28:00 29.81 kg/m2 [facility] Oxygen saturation in Arterial blood by Pulse oximetry 2021-09-15 19:28:00 98 /min [facility] BP Diastolic 2021-08-27 00:00:00 64 mm[Hg] [facility] Height 2021-08-27 00:00:00 64 [in_i] [facility] BMI (Body Mass Index) 2021-08-27 00:00:00 27.7 kg/m2 [facility] BP Systolic 2021-08-27 00:00:00 91 mm[Hg] [facility] Body Weight 2021-08-27 00:00:00 2578 [oz_av] [facility] BP Diastolic 2021-08-06 00:00:00 66 mm[Hg] [facility] Height 2021-08-06 00:00:00 64 [in_i] [facility] BMI (Body Mass Index) 2021-08-06 00:00:00 27.4 kg/m2 [facility] BP Systolic 2021-08-06 00:00:00 95 mm[Hg] [facility] Body Weight 2021-08-06 00:00:00 2555.2 [oz_av] [facility] BP Diastolic 2021-07-21 00:00:00 70 mm[Hg] [facility] Height 2021-07-21 00:00:00 64 [in_i] [facility] BMI (Body Mass Index) 2021-07-21 00:00:00 28.2 kg/m2 [facility] BP Systolic 2021-07-21 00:00:00 107 mm[Hg] [facility] Body Weight 2021-07-21 00:00:00 2627.2 [oz_av] [facility] BP Diastolic 2021-06-11 00:00:00 78 mm[Hg] [facility] Height 2021-06-11 00:00:00 64 [in_i] [facility] BMI (Body Mass Index) 2021-06-11 00:00:00 27.5 kg/m2 [facility] BP Systolic 2021-06-11 00:00:00 127 mm[Hg] [facility] Body Weight 2021-06-11 00:00:00 2567 [oz_av] [facility] BP Diastolic 2021-05-12 00:00:00 78 mm[Hg] [facility] Height 2021-05-12 00:00:00 64 [in_i] [facility] BMI (Body Mass Index) 2021-05-12 00:00:00 27.2 kg/m2 [facility] BP Systolic 2021-05-12 00:00:00 121 mm[Hg] [facility] Body Weight 2021-05-12 00:00:00 2532.8 [oz_av] [facility] BP Diastolic 2021-05-01 00:00:00 89 mm[Hg] [facility] Height 2021-05-01 00:00:00 64 [in_i] [facility] BMI (Body Mass Index) 2021-05-01 00:00:00 27.2 kg/m2 [facility] BP Systolic 2021-05-01 00:00:00 126 mm[Hg] [facility] Body Weight 2021-05-01 00:00:00 2536 [oz_av] [facility] BP Diastolic 2021-04-23 00:00:00 81 mm[Hg] [facility] Height 2021-04-23 00:00:00 64 [in_i] [facility] BMI (Body Mass Index) 2021-04-23 00:00:00 27.7 kg/m2 [facility] BP Systolic 2021-04-23 00:00:00 120 mm[Hg] [facility] Body Weight 2021-04-23 00:00:00 2584 [oz_av] [facility] BP Diastolic 2021-03-20 00:00:00 86 mm[Hg] [facility] Height 2021-03-20 00:00:00 64 [in_i] [facility] BMI (Body Mass Index) 2021-03-20 00:00:00 27.8 kg/m2 [facility] BP Systolic 2021-03-20 00:00:00 136 mm[Hg] [facility] Body Weight 2021-03-20 00:00:00 2592 [oz_av] [facility] BP Diastolic 2021-01-19 00:00:00 78 mm[Hg] [facility] Height 2021-01-19 00:00:00 64 [in_i] [facility] BMI (Body Mass Index) 2021-01-19 00:00:00 25.2 kg/m2 [facility] BP Systolic 2021-01-19 00:00:00 114 mm[Hg] [facility] Body Weight 2021-01-19 00:00:00 2347.2 [oz_av] [facility] BP Diastolic 2021-01-02 00:00:00 70 mm[Hg] [facility] Height 2021-01-02 00:00:00 64 [in_i] [facility] BMI (Body Mass Index) 2021-01-02 00:00:00 25.4 kg/m2 [facility] BP Systolic 2021-01-02 00:00:00 98 mm[Hg] [facility] Body Weight 2021-01-02 00:00:00 147.7 [lb_av] [facility] BP Diastolic 2020-12-18 00:00:00 80 mm[Hg] [facility] Height 2020-12-18 00:00:00 64 [in_i] [facility] BMI (Body Mass Index) 2020-12-18 00:00:00 23.9 kg/m2 [facility] BP Systolic 2020-12-18 00:00:00 144 mm[Hg] [facility] Body Weight 2020-12-18 00:00:00 2224 [oz_av] [facility] BP Diastolic 2020-11-25 00:00:00 87 mm[Hg] [facility] Height 2020-11-25 00:00:00 64 [in_i] [facility] BMI (Body Mass Index) 2020-11-25 00:00:00 23.7 kg/m2 [facility] BP Systolic 2020-11-25 00:00:00 123 mm[Hg] [facility] Body Weight 2020-11-25 00:00:00 138 [lb_av] [facility] BP Diastolic 2020-11-04 00:00:00 79 mm[Hg] [facility] Height 2020-11-04 00:00:00 64 [in_i] [facility] BMI (Body Mass Index) 2020-11-04 00:00:00 24 kg/m2 [facility] BP Systolic 2020-11-04 00:00:00 120 mm[Hg] [facility] Body Weight 2020-11-04 00:00:00 140.1 [lb_av] [facility] BP Diastolic 2020-10-03 00:00:00 83 mm[Hg] [facility] Height 2020-10-03 00:00:00 64 [in_i] [facility] BMI (Body Mass Index) 2020-10-03 00:00:00 23.9 kg/m2 [facility] BP Systolic 2020-10-03 00:00:00 117 mm[Hg] [facility] Body Weight 2020-10-03 00:00:00 139.3 [lb_av] [facility] BP Diastolic 2020-09-23 00:00:00 83 mm[Hg] [facility] Height 2020-09-23 00:00:00 64 [in_i] [facility] BMI (Body Mass Index) 2020-09-23 00:00:00 24.2 kg/m2 [facility] BP Systolic 2020-09-23 00:00:00 129 mm[Hg] [facility] Body Weight 2020-09-23 00:00:00 141 [lb_av] [facility] BP Diastolic 2020-09-16 00:00:00 85 mm[Hg] [facility] Height 2020-09-16 00:00:00 64 [in_i] [facility] BMI (Body Mass Index) 2020-09-16 00:00:00 23.9 kg/m2 [facility] BP Systolic 2020-09-16 00:00:00 119 mm[Hg] [facility] Body Weight 2020-09-16 00:00:00 2230.4 [oz_av] [facility] BP Diastolic 2020-09-12 00:00:00 92 mm[Hg] [facility] Height 2020-09-12 00:00:00 64 [in_i] [facility] BMI (Body Mass Index) 2020-09-12 00:00:00 24.2 kg/m2 [facility] BP Systolic 2020-09-12 00:00:00 144 mm[Hg] [facility] Body Weight 2020-09-12 00:00:00 141 [lb_av] [facility] BP Diastolic 2020-09-03 00:00:00 71 mm[Hg] [facility] Height 2020-09-03 00:00:00 64 [in_i] [facility] BMI (Body Mass Index) 2020-09-03 00:00:00 24.8 kg/m2 [facility] BP Systolic 2020-09-03 00:00:00 108 mm[Hg] [facility] Body Weight 2020-09-03 00:00:00 2312 [oz_av] [facility] BP Diastolic 2020-08-27 00:00:00 76 mm[Hg] [facility] Height 2020-08-27 00:00:00 64 [in_i] [facility] BMI (Body Mass Index) 2020-08-27 00:00:00 25.1 kg/m2 [facility] BP Systolic 2020-08-27 00:00:00 117 mm[Hg] [facility] Body Weight 2020-08-27 00:00:00 2344 [oz_av] [facility] BP Diastolic 2020-08-12 00:00:00 84 mm[Hg] [facility] Height 2020-08-12 00:00:00 64 [in_i] [facility] BMI (Body Mass Index) 2020-08-12 00:00:00 25.1 kg/m2 [facility] BP Systolic 2020-08-12 00:00:00 126 mm[Hg] [facility] Body Weight 2020-08-12 00:00:00 2336 [oz_av] [facility] BP Diastolic 2020-07-09 00:00:00 82 mm[Hg] [facility] Height 2020-07-09 00:00:00 64 [in_i] [facility] BMI (Body Mass Index) 2020-07-09 00:00:00 25.2 kg/m2 [facility] BP Systolic 2020-07-09 00:00:00 118 mm[Hg] [facility] Body Weight 2020-07-09 00:00:00 2352 [oz_av] [facility] BP Diastolic 2020-06-13 00:00:00 81 mm[Hg] [facility] Height 2020-06-13 00:00:00 64 [in_i] [facility] BMI (Body Mass Index) 2020-06-13 00:00:00 26.4 kg/m2 [facility] BP Systolic 2020-06-13 00:00:00 133 mm[Hg] [facility] Body Weight 2020-06-13 00:00:00 2464 [oz_av] [facility] BP Diastolic 2020-04-08 00:00:00 86 mm[Hg] [facility] Height 2020-04-08 00:00:00 64 [in_i] [facility] BMI (Body Mass Index) 2020-04-08 00:00:00 25.5 kg/m2 [facility] BP Systolic 2020-04-08 00:00:00 132 mm[Hg] [facility] Body Weight 2020-04-08 00:00:00 2377.6 [oz_av] [facility] BP Diastolic 2020-03-26 00:00:00 87 mm[Hg] [facility] Height 2020-03-26 00:00:00 64 [in_i] [facility] BMI (Body Mass Index) 2020-03-26 00:00:00 24.8 kg/m2 [facility] BP Systolic 2020-03-26 00:00:00 129 mm[Hg] [facility] Body Weight 2020-03-26 00:00:00 2312 [oz_av] [facility] BP Diastolic 2020-03-10 00:00:00 78 mm[Hg] [facility] Height 2020-03-10 00:00:00 64 [in_i] [facility] BMI (Body Mass Index) 2020-03-10 00:00:00 24.8 kg/m2 [facility] BP Systolic 2020-03-10 00:00:00 120 mm[Hg] [facility] Body Weight 2020-03-10 00:00:00 2307.2 [oz_av] [facility] BP Diastolic 2020-02-25 00:00:00 59 mm[Hg] [facility] Height 2020-02-25 00:00:00 64 [in_i] [facility] BMI (Body Mass Index) 2020-02-25 00:00:00 24.7 kg/m2 [facility] BP Systolic 2020-02-25 00:00:00 96 mm[Hg] [facility] Body Weight 2020-02-25 00:00:00 2302.4 [oz_av] [facility] BP Diastolic 2020-02-18 00:00:00 74 mm[Hg] [facility] Height 2020-02-18 00:00:00 64 [in_i] [facility] BMI (Body Mass Index) 2020-02-18 00:00:00 24.9 kg/m2 [facility] BP Systolic 2020-02-18 00:00:00 110 mm[Hg] [facility] Body Weight 2020-02-18 00:00:00 2320 [oz_av] [facility] BP Diastolic 2019-12-31 00:00:00 71 mm[Hg] [facility] Height 2019-12-31 00:00:00 64 [in_i] [facility] BMI (Body Mass Index) 2019-12-31 00:00:00 24.8 kg/m2 [facility] BP Systolic 2019-12-31 00:00:00 114 mm[Hg] [facility] Body Weight 2019-12-31 00:00:00 2307.2 [oz_av] [facility] BP Diastolic 2019-11-02 00:00:00 81 mm[Hg] [facility] Height 2019-11-02 00:00:00 64 [in_i] [facility] BMI (Body Mass Index) 2019-11-02 00:00:00 24.7 kg/m2 [facility] BP Systolic 2019-11-02 00:00:00 117 mm[Hg] [facility] Body Weight 2019-11-02 00:00:00 2304 [oz_av] [facility] BMI (Body Mass Index) 2019-10-01 00:00:00 24.2 kg/m2 [facility] BP Systolic 2019-10-01 00:00:00 136 mm[Hg] [facility] Body Weight 2019-10-01 00:00:00 141 [lb_av] [facility] BP Diastolic 2019-10-01 00:00:00 80 mm[Hg] [facility] Height 2019-10-01 00:00:00 64 [in_i] [facility] BP Diastolic 2019-09-25 00:00:00 82 mm[Hg] [facility] Height 2019-09-25 00:00:00 64 [in_i] [facility] BMI (Body Mass Index) 2019-09-25 00:00:00 24.4 kg/m2 [facility] BP Systolic 2019-09-25 00:00:00 134 mm[Hg] [facility] Body Weight 2019-09-25 00:00:00 2270.4 [oz_av] [facility] BP Diastolic 2019-09-21 00:00:00 76 mm[Hg] [facility] Height 2019-09-21 00:00:00 64 [in_i] [facility] BMI (Body Mass Index) 2019-09-21 00:00:00 23.7 kg/m2 [facility] BP Systolic 2019-09-21 00:00:00 108 mm[Hg] [facility] Body Weight 2019-09-21 00:00:00 2208 [oz_av] [facility] BP Diastolic 2019-09-17 00:00:00 76 mm[Hg] [facility] Height 2019-09-17 00:00:00 64 [in_i] [facility] BMI (Body Mass Index) 2019-09-17 00:00:00 23.9 kg/m2 [facility] BP Systolic 2019-09-17 00:00:00 112 mm[Hg] [facility] Body Weight 2019-09-17 00:00:00 2224 [oz_av] [facility] BP Diastolic 2019-06-22 00:00:00 77 mm[Hg] [facility] Height 2019-06-22 00:00:00 64 [in_i] [facility] BMI (Body Mass Index) 2019-06-22 00:00:00 24.8 kg/m2 [facility] BP Systolic 2019-06-22 00:00:00 110 mm[Hg] [facility] Body Weight 2019-06-22 00:00:00 2310 [oz_av] [facility] BP Diastolic 2019-06-21 00:00:00 72 mm[Hg] [facility] Height 2019-06-21 00:00:00 64 [in_i] [facility] BMI (Body Mass Index) 2019-06-21 00:00:00 24.9 kg/m2 [facility] BP Systolic 2019-06-21 00:00:00 120 mm[Hg] [facility] Body Weight 2019-06-21 00:00:00 2320 [oz_av] [facility] BP Diastolic 2019-06-19 00:00:00 80 mm[Hg] [facility] Height 2019-06-19 00:00:00 64 [in_i] [facility] BMI (Body Mass Index) 2019-06-19 00:00:00 25 kg/m2 [facility] BP Systolic 2019-06-19 00:00:00 112 mm[Hg] [facility] Body Weight 2019-06-19 00:00:00 2327 [oz_av] [facility] BP Diastolic 2019-06-18 00:00:00 74 mm[Hg] [facility] Height 2019-06-18 00:00:00 64 [in_i] [facility] BMI (Body Mass Index) 2019-06-18 00:00:00 24.7 kg/m2 [facility] BP Systolic 2019-06-18 00:00:00 126 mm[Hg] [facility] Body Weight 2019-06-18 00:00:00 2299.2 [oz_av] [facility] BP Diastolic 2019-06-14 00:00:00 63 mm[Hg] [facility] Height 2019-06-14 00:00:00 64 [in_i] [facility] BMI (Body Mass Index) 2019-06-14 00:00:00 24.8 kg/m2 [facility] BP Systolic 2019-06-14 00:00:00 128 mm[Hg] [facility] Body Weight 2019-06-14 00:00:00 144.4 [lb_av] [facility] BP Diastolic 2019-06-11 00:00:00 54 mm[Hg] [facility] Height 2019-06-11 00:00:00 64 [in_i] [facility] BMI (Body Mass Index) 2019-06-11 00:00:00 25.6 kg/m2 [facility] BP Systolic 2019-06-11 00:00:00 115 mm[Hg] [facility] Body Weight 2019-06-11 00:00:00 149 [lb_av] [facility] BP Diastolic 2019-05-15 00:00:00 82 mm[Hg] [facility] Height 2019-05-15 00:00:00 64 [in_i] [facility] BMI (Body Mass Index) 2019-05-15 00:00:00 25.1 kg/m2 [facility] BP Systolic 2019-05-15 00:00:00 124 mm[Hg] [facility] Body Weight 2019-05-15 00:00:00 2340 [oz_av] [facility] BP Diastolic 2019-05-08 00:00:00 86 mm[Hg] [facility] Height 2019-05-08 00:00:00 64 [in_i] [facility] BMI (Body Mass Index) 2019-05-08 00:00:00 24 kg/m2 [facility] BP Systolic 2019-05-08 00:00:00 139 mm[Hg] [facility] Body Weight 2019-05-08 00:00:00 2240 [oz_av] [facility] BP Diastolic 2019-05-04 00:00:00 85 mm[Hg] [facility] Height 2019-05-04 00:00:00 64 [in_i] [facility] BMI (Body Mass Index) 2019-05-04 00:00:00 24.1 kg/m2 [facility] BP Systolic 2019-05-04 00:00:00 120 mm[Hg] [facility] Body Weight 2019-05-04 00:00:00 140.2 [lb_av] [facility] Height 2019-04-23 00:00:00 64 [in_i] [facility] BMI (Body Mass Index) 2019-04-23 00:00:00 24.2 kg/m2 [facility] Weight 2019-04-23 00:00:00 141 [lb_av] [facility] BP Diastolic 2019-04-18 00:00:00 72 mm[Hg] [facility] Height 2019-04-18 00:00:00 64 [in_i] [facility] BMI (Body Mass Index) 2019-04-18 00:00:00 24.2 kg/m2 [facility] BP Systolic 2019-04-18 00:00:00 114 mm[Hg] [facility] Body Weight 2019-04-18 00:00:00 140.8 [lb_av] [facility] BP Diastolic 2019-04-17 00:00:00 67 mm[Hg] [facility] Height 2019-04-17 00:00:00 64 [in_i] [facility] BMI (Body Mass Index) 2019-04-17 00:00:00 24.9 kg/m2 [facility] BP Systolic 2019-04-17 00:00:00 114 mm[Hg] [facility] Body Weight 2019-04-17 00:00:00 2325 [oz_av] [facility] BP Diastolic 2019-04-16 00:00:00 71 mm[Hg] [facility] Height 2019-04-16 00:00:00 64 [in_i] [facility] BMI (Body Mass Index) 2019-04-16 00:00:00 24.6 kg/m2 [facility] BP Systolic 2019-04-16 00:00:00 112 mm[Hg] [facility] Body Weight 2019-04-16 00:00:00 2291.2 [oz_av] [facility] BP Diastolic 2019-04-13 00:00:00 74 mm[Hg] [facility] Height 2019-04-13 00:00:00 64 [in_i] [facility] BMI (Body Mass Index) 2019-04-13 00:00:00 29 kg/m2 [facility] BP Systolic 2019-04-13 00:00:00 120 mm[Hg] [facility] Body Weight 2019-04-13 00:00:00 2705 [oz_av] [facility] BP Diastolic 2019-02-19 00:00:00 74 mm[Hg] [facility] Height 2019-02-19 00:00:00 64 [in_i] [facility] BMI (Body Mass Index) 2019-02-19 00:00:00 24 kg/m2 [facility] BP Systolic 2019-02-19 00:00:00 104 mm[Hg] [facility] Body Weight 2019-02-19 00:00:00 2240 [oz_av] [facility] BP Diastolic 2019-01-12 00:00:00 62 mm[Hg] [facility] BP Systolic 2019-01-12 00:00:00 116 mm[Hg] [facility] Body Weight 2019-01-12 00:00:00 2256 [oz_av] [facility] Systolic (mm Hg) 2010-12-31 16:00:00 [facility] Respitory Rate 2010-12-31 16:00:00 [facility] Diastolic (mm Hg) 2010-12-31 16:00:00 [facility] Respitory Rate 2010-12-31 15:30:00 [facility] Diastolic (mm Hg) 2010-12-31 15:30:00 [facility] Systolic (mm Hg) 2010-12-31 15:30:00 [facility] 2010-12-31 15:15[facility]mm Hg) 2010-12-31 15:15:00 [facility] 2010-12-31 [facility] 2010-[facility]31 12:44[facility]00 [facility] Weight 2010-12-29 19:04:00 [facility] Height 2010-12-29 19:04:00 157.48 cm [facility] Procedures Procedure Date / Time Performed Performing Clinician Source MAMMO, screening, digital, bilateral 2022-01-31 00:00:00 [facility] MRI, breast, bilateral, w/o contrast 2022-01-27 00:00:00 [facility] Hysterectomy/revise Vagina 2021-11-10 00:00:00 [facility] MRI, breast, bilateral, w/o contrast 2021-11-05 00:00:[address] [facility] [address] HEAD WO CONTRAST 2021-09-22 16:19:[address] [facility] ASSIGNMENT OF BENEFITS 2021-09-22 16:01:32 Docto r Unassigned, Ben Bolt [facility] MRI, breast, bilateral, w/o contrast 2021-08-06 00:00:00 [facility] MRI, brain, w/o contrast 2021-07-21 00:00:00 [facility] MRI, brain, w/wo contrast 2021-01-19 00:00:[address] [facility] [address], head, w/o contrast 2021-01-19 00:00:00 [facility] US, transvaginal 2020-09-23 00:00:00 [facility] XR, abdomen 2020-07-09 00:00:00 [facility] Appendectomy 2019-09-24 00:00:00 [facility] CT, abdomen + pelvis, w/o contrast 2019-09-17 00:00:00 [facility] NM, hepatobiliary scan, w/ CCK 2019-06-19 00:00:00 [facility] US, abdomen 2019-06-14 00:00:00 [facility] US, pelvis, complete 2019-06-11 00:00:00 [facility] XR, knee 2019-04-19 00:00:00 [facility] MRI, knee, w/o contrast 2019-04-16 00:00:00 [facility] Tubal Ligation 2010-10-25 00:00:00 [facility] Injection of Bilateral Breasts for Augmentation 2001-04-04 00:00:00 [facility] Breast [facility] Hysterectomy [facility] Plan of Care Planned Activity Planned Date Details Comments Source Diagnostic Test Pending 2022-08-06 00:00:00 [facility] A, throat [code = rapid strep group A, throat] [facility] Diagnostic Test Pending 2022-08-06 00:00:00 lithium, serum [code = lithium, serum] [facility] Diagnostic Test Pending 2022-08-06 00:00:00 BMP, serum or plasma [code = BMP, serum or plasma] [facility] Instructions [facility] Encounters Start Date/Time End Date/Time Encounter Type Admission Type Attending Clinicians Care Facility Care Department Encounter ID Source 2020-11-10 19:16:57 Preadmit nullFlavo r [facility] [id number] Tasneem Song 2022-10-27 09:14:32 2022-10-27 09:14:32 Outpatient [facility] [id number] Jef Levy 2022-10-13 08:49:32 2022-10-13 08:49:32 Outpatient [facility] [id number] Jef Levy 2022-10-11 10:53:55 2022-10-11 10:53:55 Outpatient [facility] [facility] [id number] Jef Levy 2022-09-29 08:40:20 2022-09-29 08:40:20 Outpatient SFA [facility] [id number] Jef Levy 2022-08-06 10:19:00 2022-08-06 10:19:00 Outpatient KALLIE WATSON [facility] [id number] [facility] 2022-08-06 00:00:00 2022-08-06 00:00:00 Kallie Lowe, SURVEY SUPERVISOR: [address], [place] [address] , Ph. [facility] [id number] [facility] 2022-06-28 00:00:00 2022-06-28 00:00:00 Kallie Lowe, SURVEY SUPERVISOR: [address], [place] [address] , Ph. [facility] [id number] [facility] 2022-06-04 00:00:00 2022-06-04 00:00:00 Kallie Lowe, SURVEY SUPERVISOR: [address], [place] [address] , Ph. [facility] [id number] [facility] 2022-05-25 00:00:00 2022-05-25 00:00:00 Kallie Lowe, SURVEY SUPERVISOR: [address], [place] [address] , Ph. [facility] [id number] [facility] 2022-03-01 12:23:51 2022-03-01 23:59:00 [facility] [id number] [facility] 2022-03-01 12:23:51 2022-03-01 23:59:00 Hospital Encounter Radiology [facility] [id number] 350.1.13.10 4.2.7.2.686 [id number] [facility] 2022-02-15 00:00:00 2022-02-15 00:00:00 Kallie Lowe, SURVEY SUPERVISOR: [address], [place] [address] , Ph. [facility] [id number] [facility] 2022-02-11 00:00:00 2022-02-11 00:00:00 [facility]patient [facility] [id number] [facility] 2022-01-27 16:19:00 2022-01-27 16:19:00 Outpatient KALLIE WATSON [facility] [id number] [facility] 2022-01-27 00:00:00 2022-01-27 00:00:00 Kallie Lowe, SURVEY SUPERVISOR: [address], [place] [address] , Ph. [facility] [id number] [facility] 2021-11-26 00:00:00 2021-11-26 00:00:00 Kallie Lowe, SURVEY SUPERVISOR: [address], [place] [address] , Ph. [facility] [id number] [facility] 2021-11-05 16:40:00 2021-11-05 16:40:00 Outpatient KALLIE WATSON [facility] [id number] [facility] 2021-11-05 00:00:00 2021-11-05 00:00:00 Kallie Lowe, SURVEY SUPERVISOR: [address], [place] [address] , Ph. [facility] [id number] [facility] 2021-10-13 13:20:00 2021-10-13 13:20:00 Outpatient UMER HUSAIN [facility] [id number] [facility] 2021-09-22 11:02:54 2021-09-22 23:59:00 Outpatient UMER HUSAIN [facility] [id number] [facility] 2021-09-22 11:02:54 2021-09-22 23:59:00 Hospital Encounter Umer Rocha [facility] [id number] 350.1.13.10 4.2.7.2.686 [id number] [facility] 2021-09-22 00:00:00 2021-09-22 00:00:00 Orders Only Doctor Unassigned, Ben Bolt [facility] 1.20.114 350.1.13.10 4.2.7.2.686 [id number] [facility] 2021-09-15 14:40:00 2021-09-15 16:12:26 Outpatient Antonio UMER ROCHA [facility] [id number] [facility] 2021-09-15 14:40:00 2021-09-15 16:12:26 Office Visit Umer Rocha [facility] 1.284.114 350.1.13.10 4.2.7.2.686 [id number] [facility] 2021-09-09 09:22:53 2021-09-09 23:59:00 Hospital Encounter Umer Rocha [facility] 1.2840.114 350.1.13.10 4.2.7.2.686 [id number] [facility] 2021-09-09 09:22:44 2021-09-09 23:59:00 Hospital Encounter Umer Rocha [facility] 1.2840.114 350.1.13.10 4.2.7.2.686 [id number] [facility] 2021-09-09 08:58:19 2021-09-09 09:21:00 Outpatient UMER HUSAIN [facility] [id number] [facility] 2021-09-09 08:58:19 2021-09-09 09:21:00 [facility] Soledad Vegas[place] [facility] [id number] 350.1.13.10 4.2.7.2.686 [id number] [facility] 2021-08-27 13:59:00 2021-08-27 13:59:00 Outpatient KALLIE WATSON [facility] [id number] [facility] 2021-08-27 00:00:00 2021-08-27 00:00:00 Kallie Lowe, SURVEY SUPERVISOR: [address], [place] [address] , Ph. [facility] [id number] [facility] 2021-08-20 00:00:00 2021-08-20 00:00:00 Outpatient UMER HUSAIN [facility] [id number] [facility] 2021-08-13 06:51:00 2021-08-13 06:51:00 Outpatient KAROLINA FRANCOIS [facility] [id number] [facility] 2021-08-06 14:12:00 2021-08-06 14:12:00 Outpatient KALLIE WATSON [facility] [id number] [facility] 2021-08-06 00:00:00 2021-08-06 00:00:00 Kallie Lowe, SURVEY SUPERVISOR: [address], [place] [address] , Ph. [facility] [id number] [facility] 2021-08-03 15:00:00 2021-08-03 15:39:50 Office Visit Jeny Umer Bill [facility] 1.840.114 350.1.13.10 4.2.7.2.686 [id number] [facility] 2021-08-03 15:00:00 2021-08-03 15:39:50 Outpatient Antonio JENY [facility] [id number] [facility] 2021-08-03 15:00:00 2021-08-03 15:39:50 Outpatient Antonio JENY, [facility] [id number] [facility] 2021-07-23 14:21:00 2021-07-23 14:21:00 Outpatient KALLIE WATSON [facility] [id number] [facility] 2021-07-21 00:00:00 2021-07-21 00:00:00 Kallie Lowe, SURVEY SUPERVISOR: [address], [place] [address] , Ph. G [facility] Practice [id number] [facility] 2021-07-08 00:00:00 2021-07-08 00:00:00 Letter (Out) Clinic, [facility] Neurology Continuity [facility] 1.840.114 350.1.13.10 4.2.7.2.686 [id number] [facility] 2021-07-06 00:00:00 2021-07-06 00:00:00 Orders Only Doctor Unassigned, Ben Bolt [facility] 1.840.114 350.1.13.10 4.2.7.2.686 [id number] [facility] 2021-06-11 00:00:00 2021-06-11 00:00:00 Kallie Lowe, SURVEY SUPERVISOR: [address], [place] [address] , Ph. [facility] [id number] [facility] 2021-06-09 10:31:00 2021-06-09 13:35:00 Emergency ER [facility] [id number] [facility] 2021-06-04 07:51:00 2021-06-04 07:51:00 Outpatient KAROLINA FRANCOIS [facility] [id number] [facility] 2021-05-19 08:13:00 2021-05-19 08:13:00 Outpatient JAX BROWNE [facility] [id number] [facility] 2021-05-12 00:00:00 2021-05-12 00:00:00 Kallie Lowe, SURVEY SUPERVISOR: [address], [place] [address] , Ph. [facility] [id number] [facility] 2021-05-05 00:00:00 2021-05-05 00:00:00 Jax De Paz MD: [address], [place] [address] , Ph. [phone] [facility] [id number] [facility] 2021-05-01 00:00:00 2021-05-01 00:00:00 Kallie Lowe, SURVEY SUPERVISOR: [address], [place] [address] , Ph. [facility] [id number] [facility] 2021-04-23 00:00:00 2021-04-23 00:00:00 Kallie Lowe, SURVEY SUPERVISOR: [address], [place] [address] , Ph. [facility] [id number] [facility] 2021-03-20 00:00:00 2021-03-20 00:00:00 Sariah Myers PA-C: [address], [place] [address] , Ph. [facility] [id number] [facility] 2021-03-04 08:47:00 2021-03-04 10:46:00 Emergency EM Parth Lewis [facility] [id number] [facility] 2021-02-05 09:00:00 2021-02-05 09:00:00 Outpatient KALLIE WATSON [facility] [id number] [facility] 2021-01-19 14:51:00 2021-01-19 14:51:00 Outpatient KALLIE POWERS [facility] [id number] [facility] 2021-01-19 00:00:00 2021-01-19 00:00:00 Kallie Lowe, SURVEY SUPERVISOR: [address], [place] [address] , Ph. [facility] [id number] [facility] 2021-01-02 00:00:00 2021-01-02 00:00:00 Adia Borrego MD: [address], [place] [address] , Ph. [phone] [facility] [place] [facility] [id number] [facility] 2020-12-18 00:00:00 2020-12-18 00:00:00 Kallie Lowe, SURVEY SUPERVISOR: [address], [place] [address] , Ph. [facility] [id number] [facility] 2020-11-25 00:00:00 2020-11-25 00:00:00 Adia Borrego MD: [address], [place] [address] , Ph. [phone] [facility] - [facility]YN [id number] [facility] 2020-11-11 02:13:00 2020-11-12 18:52:00 Inpatient ADIA BELTRÁN [facility] [id number] [facility] 2020-11-06 06:05:00 2020-11-06 06:05:00 Outpatient ADIA BELTRÁN [facility] [id number] [facility] 2020-11-04 00:00:00 2020-11-04 00:00:00 Adia Borrego MD: [address], [place] [address] , Ph. [phone] [facility] - OBGYN [id number] [facility] 2020-10-03 00:00:00 2020-10-03 00:00:00 Adia Borrego MD: [address], [place] [address] , Ph. [phone] [facility] [id number] [facility] 2020-09-26 11:19:00 2020-09-26 11:19:00 Outpatient ADIA BELTRÁN [facility] [id number] [facility] 2020-09-24 13:40:00 2020-09-24 13:40:00 Outpatient ADIA BELTRÁN [facility] [id number] [facility] 2020-09-23 00:00:00 2020-09-23 00:00:00 Adia Borrego MD: [address], [place] [address] , Ph. [phone] [facility] [id number] [facility] 2020-09-16 00:00:00 2020-09-16 00:00:00 Kallie Lowe SURVEY SUPERVISOR: [address], [place] [address] , Ph. [facility] [id number] [facility] 2020-09-12 00:00:00 2020-09-12 00:00:00 Christian Castañeda MD: [address], [place] [address] , Ph. [phone] [facility] [id number] [facility] 2020-09-03 00:00:00 2020-09-03 00:00:00 LAURA MossP-C: [address], [place] [address] , Ph. [facility] [id number] [facility] 2020-08-27 00:00:00 2020-08-27 00:00:00 Kallie Lowe SURVEY SUPERVISOR: [address], [place] [address] , Ph. [facility] [id number] [facility] 2020-08-12 00:00:00 2020-08-12 00:00:00 Kallie Lowe SURVEY SUPERVISOR: [address], [place] [address] , Ph. [facility] [id number] [facility] 2020-07-09 11:21:00 2020-07-09 11:21:00 SIXTO Yun [facility] [id number] [facility] 2020-07-09 00:00:00 2020-07-09 00:00:00 Sixto Shield, SURVEY SUPERVISOR: [address], [place] [address] , Ph. [facility] [id number] [facility] 2020-06-13 00:00:00 2020-06-13 00:00:00 Kallie Lowe, SURVEY SUPERVISOR: [address], [place] [address] , Ph. [facility] [id number] [facility] 2020-06-12 11:21:00 2020-06-12 13:21:00 Emergency ER J CARLOS VINCENTAlma [facility] [id number] [facility] 2020-04-08 00:00:00 2020-04-08 00:00:00 Kallie Lowe, SURVEY SUPERVISOR: [address], [place] [address] , Ph. [facility] [id number] [facility] 2020-03-26 00:00:00 2020-03-26 00:00:00 Kallie Lowe, SURVEY SUPERVISOR: [address], [place] [address] , Ph. [facility] [id number] [facility] 2020-03-10 00:00:00 2020-03-10 00:00:00 Kallie Lowe, SURVEY SUPERVISOR: [address], [place] [address] , Ph. [facility] [id number] [facility] 2020-02-25 00:00:00 2020-02-25 00:00:00 Kallie Lowe, SURVEY SUPERVISOR: [address], [place] [address] , Ph. [facility] [id number] [facility] 2020-02-18 00:00:00 2020-02-18 00:00:00 Sixto Dwyer, SURVEY SUPERVISOR: [address], [place] [address] , Ph. [facility] [id number] [facility] 2019-12-31 00:00:00 2019-12-31 00:00:00 Kallie Lowe, SURVEY SUPERVISOR: [address], [place] [address] , Ph. [facility] [id number] [facility] 2019-11-02 00:00:00 2019-11-02 00:00:00 Kallie Lowe, SURVEY SUPERVISOR: [address], [place] [address] , Ph. [facility] [id number] [facility] 2019-10-01 00:00:00 2019-10-01 00:00:00 Tone Adkins, DO: [address], [place] [address] , Ph. [phone] [facility] [id number] [facility] 2019-09-25 00:00:00 2019-09-25 00:00:00 Kallie Lowe, SURVEY SUPERVISOR: [address], [place] [address] , Ph. [facility] [id number] [facility] 2019-09-24 13:15:00 2019-09-24 19:47:00 Outpatient ER Tone Adkins [facility] [id number] [facility] 2019-09-21 00:00:00 2019-09-21 00:00:00 Kallie Lowe, SURVEY SUPERVISOR: [address], [place] [address] , Ph. [facility] [id number] [facility] 2019-09-17 00:00:00 2019-09-17 00:00:00 Kallie Lowe, SURVEY SUPERVISOR: [address], [place] [address] , Ph. [facility] [id number] [facility] 2019-08-29 00:00:00 2019-08-29 00:00:00 Sixto Dwyer, SURVEY SUPERVISOR: [address], [place] [address] , Ph. [facility] [id number] [facility] 2019-06-22 00:00:00 2019-06-22 00:00:00 Kallie Lowe, SURVEY SUPERVISOR: [address], [place] [address] , Ph. [facility] [id number] [facility] 2019-06-21 00:00:00 2019-06-21 00:00:00 Kallie Lowe, SURVEY SUPERVISOR: [address], [place] [address] , Ph. [facility] [id number] [facility] 2019-06-19 12:03:00 2019-06-19 12:03:00 Outpatient KALLIE WATSON [facility] [id number] [facility] 2019-06-19 00:00:00 2019-06-19 00:00:00 Kallie Lowe, SURVEY SUPERVISOR: [address], [place] [address] , Ph. [facility] [id number] [facility] 2019-06-18 00:00:00 2019-06-18 00:00:00 Kallie Lowe, SURVEY SUPERVISOR: [address], [place] [address] , Ph. [facility] [id number] [facility] 2019-06-14 09:51:00 2019-06-14 09:51:00 Outpatient GEOFF DE PAZJASONNN [facility] [id number] [facility] 2019-06-14 00:00:00 2019-06-14 00:00:00 Jax De Paz MD: [address], [place] [address] , Ph. [phone] [facility] surgery [id number] [facility] 2019-06-11 10:33:00 2019-06-11 10:33:00 Outpatient GEOFF GISELLA SIMSKI [facility] [id number] [facility] 2019-06-11 00:00:00 2019-06-11 00:00:00 Coby Sims NP: [address], [place] [address] , Ph. [phone] [facility] [id number] [facility] 2019-05-15 00:00:00 2019-05-15 00:00:00 Kallie Lowe, SURVEY SUPERVISOR: [address], [place] [address] , Ph. [facility] [id number] [facility] 2019-05-09 00:00:00 2019-05-09 00:00:00 Glynn Woods, RAMIREZYD: [address], [place] [address] , Ph. [phone] [facility] [id number] [facility] 2019-05-08 00:00:00 2019-05-08 00:00:00 Kallie Lowe, SURVEY SUPERVISOR: [address], [place] [address] , [facility]. [facility] [id number] [facility] 2019-05-04 00:00:00 2019-05-04 00:00:00 Coby Sims, NP: [address], [place] [address] , Ph. [phone] [facility] [id number] [facility] 2019-04-30 00:00:00 2019-04-30 00:00:00 Glynn Woods, PSYD: [address], [place] [address] , Ph. [phone] [facility] [place] [facility] [id number] [facility] 2019-04-26 00:00:00 2019-04-26 00:00:00 Glynn Woods PSYD: [address], [place] [address] , Ph. [phone] [facility] [place] [facility] [id number] [facility] 2019-04-23 00:00:00 2019-04-23 00:00:00 Sam Puentes MD: [address], [place] [address] , Ph. [phone] [facility] [place] [facility] Behavior[facility] Health [id number] [facility] 2019-04-19 08:23:00 2019-04-19 08:23:00 Outpatient COBY LOMAS [facility] [id number] [facility] 2019-04-18 00:00:00 2019-04-18 00:00:00 Coby Sims, NP: [address], [place] [address] , Ph. [phone] [facility] [place] [facility] [id number] [facility] 2019-04-17 00:00:00 2019-04-17 00:00:00 Kallie Lowe, SURVEY SUPERVISOR: [address], [place] [address] , Ph. [facility] [id number] [facility] 2019-04-16 00:00:00 2019-04-16 00:00:00 Kallie Lowe, SURVEY SUPERVISOR: [address], [place] [address] , Ph. [facility] [id number] [facility] 2019-04-13 00:00:00 2019-04-13 00:00:00 Kallie Lowe, SURVEY SUPERVISOR: [address], [place] [address] , Ph. [facility] [id number] [facility] 2019-03-14 00:00:00 2019-03-14 00:00:00 Levi Rowe MD: [address], [place] [address] , Ph. [facility] [id number] [facility] 2019-02-19 00:00:00 2019-02-19 00:00:00 Levi Rowe MD: [address], [place] [address] , Ph. [facility] [id number] [facility] 2019-01-30 09:56:00 2019-01-30 11:12:00 Emergency ER JAYCOB VALENZUELA [facility] [id number] [facility] 2019-01-25 05:43:00 2019-01-25 06:16:00 Emergency ER EARNEST ALICIA [facility] [id number] [facility] 2019-01-12 00:00:00 2019-01-12 00:00:00 Kallie Lowe, SURVEY SUPERVISOR: [address], [place] [address] , Ph. [facility] [id number] [facility] 2010-12-31 06:57:00 2010-12-31 06:57:00 DS nullFlavo r [facility] [id number] 00 Tasneem Song Results Test Description Test Time Test Comments Results Result Co mments Source rapid strep group A, [id number] 09:56:10* Test Item Value Reference Range Interpretation Comme nts Strep Result (test code = St rep Result) negative [id number] 07:16:00* Test Item Value Reference Range Interpretation Comme nts lithium level (test code = l ithium level) 0.3 mmol/L 0.5-1.2 A [facility] hormone [id number] 17:31:00* Test Item Value Reference Range Interpretation Comme nts thyroid stimulating hormone L (test code = thyroid stimulating hormone L) 2.89 uIU/mL 0.36-3.74 [id number] 17:31:00* Test Item Value Reference Range Interpretation Comme nts T4 (test code = T4) 10.4 ug/dL 4.5-11.7 [facility] - Serum or Plasma 2022-01-27 17:20:00* Test Item Value Reference Range Interpretation Comme nts glucose (test code = glucose) 96 mg/dL 74-106 blood urea nitrogen (test co de = blood urea nitrogen) 7 mg/dL 6-20 osmolality calculated,serum (test code = osmolality calculated,serum) 272 mOsm/kg 280-300 L creatinine (test code = creatinine) 0.91 mg/dL 0.50-0.90 H glomerular filtration rate ( test code = glomerular filtration rate) > 60.00 BUN/creatinine ratio (test c ode = BUN/creatinine ratio) 7.7 12.0-20.0 L sodium level (test code = so dium level) 137 mmol/L 135-145 potassium level (test code = potassium level) 3.2 mmol/L 3.5-5.2 L chloride level (test code = chloride level) 103 mmol/L 98-108 CO2 (test code = CO2) 24 mmol/L 21-32 anion gap (test code = anion gap) 13.2 mEq/L 12.0-20.0 calcium level (test code = calcium level) 9.6 mg/dL 8.6-10.0 total protein (test code = t otal protein) 7.4 g/dL 6.6-8.7 albumin (test code = albumin) 4.2 g/dL 3.5-5.2 globulin (test code = globulin) 3.2 g/dL 1.5-4.5 A/G ratio (test code = A/G ratio) 1.3 >1.0 bilirubin,total (test code = bilirubin,total) 0.5 mg/dL 0.0-1.2 AST/SGOT (test code = AST/SGOT) 14 U/L 15-32 L ALT/SGPT (test code = ALT/SGPT) 7 U/L 0-33 alkaline phosphatase, total (test code = alkaline phosphatase, total) 95 U/L 35-105 [facility] [id number] 17:20:00* Test Item Value Reference Range Interpretation Comme nts cholesterol level (test code = cholesterol level) 184 mg/dL 150-200 triglycerides level (test co de = triglycerides level) 130 mg/dL <150 HDL cholesterol (test code = HDL cholesterol) 51 mg/dL >65 L Cholesterol in LDL [Mass/vol ume] in Serum or Plasma (test code = 2089-1) 122 mg/dL <100 H cholesterol risk ratio (test code = cholesterol risk ratio) 3.607 [facility] [id number] 17:17:00* Test Item Value Reference Range Interpretation Comme nts Hemoglobin A1c/Hemoglobin.to dinh in Blood (test code = 4548-4) 5.2 % 4.0-6.0 [facility] W Auto Differential panel - [id number] 17:05:00 * Test Item Value Reference Range Interpretation Comme nts white blood count (test code = white blood count) 10.7 K/uL 4.0-11.5 red blood count (test code = red blood count) 3.58 M/uL 3.80-5.20 L hemoglobin (test code = hemoglobin) 10.8 g/dL 10.5-15.7 hematocrit (test code = hematocrit) 31.9 % 34.0-50.0 L mean corpuscular volume (inocencia t code = mean corpuscular volume) 89.1 fL 86.0-100.0 mean corpuscular hemoglobin (test code = mean corpuscular hemoglobin) 30.2 pg 26.2-33.4 mean corpuscular HGB conc (t est code = mean corpuscular HGB conc) 33.9 g/dL 30.0-34.0 red cell distribution width (test code = red cell distribution width) 15.0 % 12.0-15.5 platelet count (test code = platelet count) 200 K/uL 165-450 ipf# (test code = ipf#) 3.6 ipf% (test code = ipf%) 1.8 % 0-8 mean platelet volume (test c ode = mean platelet volume) 9.3 fL 9.4-12.6 L neutrophils % (test code = neutrophils %) 61.4 % 44.4-80.1 Ig% (test code = Ig%) 0.4 % 0.0-0.4 lymphocyte% (test code = lymphocyte%) 29.5 % 10.0-50.0 mono % (test code = mono %) 5.2 % 3.6-12.0 eos % (test code = eos %) 2.8 % 0.0-5.4 basophil % (test code = [place] %) 0.7 % 0.1-1.2 absolute neutrophil count (t est code = absolute neutrophil count) 6.60 K/uL 1.56-6.13 H Ig# (test code = Ig#) 0.04 K/uL 0.00-0.03 H lymph # (test code = lymph #) 3.16 K/uL 1.18-3.74 mono # (test code = mono #) 0.56 K/uL 0.24-0.86 eos # (test code = eos #) 0.30 K/uL 0.04-0.36 basophil # (test code = [place] #) 0.07 K/uL 0.01-0.08 NRBC% (test code = NRBC%) 0 /100 WBC 0-0.2 NRBC# (test code = NRBC#) 0 K/uL [id number] 16:53:00* Test Item Value Reference Range Interpretation Comme nts color, urine (test code = color, urine) light yellow appearance, urine (test code = appearance, urine) clear clear urine glucose (test code = urine glucose) negative negative bilirubin, urine (test code = bilirubin, urine) negative negative ketone, urine (test code = ketone, urine) negative negative specific gravity,urine (test code = specific gravity,urine) 1.009 1.003-1.030 blood urine (test code = blo od urine) trace negative pH,urine (test code = pH,urine) 6.000 5-9 protein urine (UA) (test cod e = protein urine (UA)) negative negative urobilinogen, urine (test co de = urobilinogen, urine) 2.0-3.0 0.2-1.0 A nitrate, urine (test code = nitrate, urine) negative negative urine leukocyte esterase (te st code = urine leukocyte esterase) negative negative RBC, urine (test code = RBC, urine) 1-5 0-5 WBC, urine (test code = WBC, urine) 1-5 0-5 epithelial cell (test code = epithelial cell) 1-5 0-5 bacteria, urine (test code = bacteria, urine) none detected none detect casts,urine (test code = casts,urine) none detected none detect urine culture added? (test c ode = urine culture added?) [facility] Ag [Presence] in Respiratory specimen by Rapid [id number] 16:59:00* Test Item Value Reference Range Interpretation Comme nts SARS-CoV - 2 (test code = SA RS-CoV - 2) negative [facility]Lith[facility] [Moles/volume] in Serum or [id number] 00:00:00Lithium, SerumMatagoPascagoula HospitalRheumatoid factor [Units/volume] in Serum or [id number] 00:00:00* Test Item Value Reference Range Interpretation Comme nts rheum factor (test code = rheum factor) <10 0-14 [facility] W Auto Differential panel - [id number] 12:34:00 * Test Item Value Reference Range Interpretation Comme nts white blood count (test code = white blood count) 11.2 K/uL 4.0-11.5 red blood count (test code = red blood count) 4.39 M/uL 3.80-5.20 hemoglobin (test code = hemoglobin) 13.0 g/dL 10.5-15.7 hematocrit (test code = hematocrit) 39.9 % 34.0-50.0 MCV [Entitic volume] (test c ode = 25098-2) 90.9 fL 86.0-100.0 mean corpuscular hemoglobin (test code = mean corpuscular hemoglobin) 29.6 pg 26.2-33.4 mean corpuscular HGB conc (t est code = mean corpuscular HGB conc) 32.6 g/dL 30.0-34.0 red cell distribution width (test code = red cell distribution width) 14.4 % 12.0-15.5 platelet count (test code = platelet count) 221 K/uL 165-450 mean platelet volume (test c ode = mean platelet volume) 9.8 fL 9.4-12.6 Segmented neutrophils/100 leukocytes in Blood (test code = 58484-5) 67.3 % 44.4-80.1 Immature granulocytes [#/vol ume] in Blood (test code = 63870-1) 0.03 K/uL 0.00-0.03 lymphocyte% (test code = lymphocyte%) 21.5 % 10.0-50.0 mono % (test code = mono %) 5.2 % 3.6-12.0 eos % (test code = eos %) 5.2 % 0.0-5.4 Basophils/100 leukocytes in Specimen (test code = 23966-3) 0.5 % 0.1-1.2 Band form neutrophils [#/vol ume] in Blood (test code = 28363-2) 7.52 K/uL 1.56-6.13 H Lymphocytes [#/volume] in Sp ecimen by Automated count (test code = 89601-0) 2.40 K/uL 1.18-3.74 mono # (test code = mono #) 0.58 K/uL 0.24-0.86 eos # (test code = eos #) 0.58 K/uL 0.04-0.36 H basophil # (test code = [place] #) 0.06 K/uL 0.01-0.08 NRBC% (test code = NRBC%) 0 /100 WBC 0-0.2 NRBC# (test code = NRBC#) 0 K/uL [facility] 2000 [facility] - Serum or [id number] 12:34:00* Test Item Value Reference Range Interpretation Comme nts Glucose [Mass/volume] in Ser um or Plasma (test code = 2345-7) 98 mg/dL 74-106 Urea nitrogen [Mass/volume] in Serum or Plasma (test code = 3094-0) 8 mg/dL 6-20 osmolality calculated,serum (test code = osmolality calculated,serum) 268 mOsm/kg 280-300 L creatinine (test code = creatinine) 0.99 mg/dL 0.50-0.90 H glomerular filtration rate ( test code = glomerular filtration rate) >60.00 Urea nitrogen/Creatinine [Ma ss Ratio] in Serum or Plasma (test code = 3097-3) 8.1 12.0-20.0 L sodium level (test code = so dium level) 135 mmol/L 135-145 potassium level (test code = potassium level) 3.7 mmol/L 3.5-5.2 chloride level (test code = chloride level) 100 mmol/L 98-108 CO2 (test code = CO2) 25 mmol/L 21-32 anion gap (test code = anion gap) 13.7 mEq/L 12.0-20.0 calcium level (test code = calcium level) 9.8 mg/dL 8.6-10.0 [facility][id number] 00:00:00* Test Item Value Reference Range Interpretation Comme nts prothrombin time (test code = prothrombin time) 10.7 seconds 10.3-12.3 INR in Blood by Coagulation assay (test code = 49519-6) 0.98 [facility] [id number] 00:00:00* Test Item Value Reference Range Interpretation Comme [facility] INR in Blood by Coagulation assay (test code = 92054-2) 27.6 seconds 22.5-37.0 [facility]Comprehensive [facility] 2000 panel - Serum or Plasma 2021-08-06 12:26:00* Test Item Value Reference Range Interpretation Comme nts glucose (test code = glucose) 89 mg/dL 74-106 Urea nitrogen [Mass/volume] in Serum or Plasma (test code = 3094-0) 6 mg/dL 6-20 osmolality calculated,serum (test code = osmolality calculated,serum) 267 mOsm/kg 280-300 L creatinine (test code = creatinine) 0.83 mg/dL 0.50-0.90 glomerular filtration rate ( test code = glomerular filtration rate) >60.00 Urea nitrogen/Creatinine [Ma ss Ratio] in Serum or Plasma (test code = 3097-3) 7.2 12.0-20.0 L sodium level (test code = so dium level) 135 mmol/L 135-145 Potassium [Moles/volume] in Body fluid (test code = 2821-7) 3.4 mmol/L 3.5-5.2 L chloride level (test code = chloride level) 101 mmol/L 98-108 CO2 (test code = CO2) 24 mmol/L 21-32 anion gap (test code = anion gap) 13.4 mEq/L 12.0-20.0 calcium level (test code = calcium level) 9.8 mg/dL 8.6-10.0 total protein (test code = t otal protein) 7.5 g/dL 6.6-8.7 albumin (test code = albumin) 4.7 g/dL 3.5-5.2 globulin (test code = globulin) 2.8 g/dL 1.5-4.5 A/G ratio (test code = A/G ratio) 1.7 >1.0 bilirubin,total (test code = bilirubin,total) 0.7 mg/dL 0.0-1.2 AST/SGOT (test code = AST/SGOT) 15 U/L 15-32 Alanine aminotransferase [Enzymatic activity/volume] in Serum or Plasma (test code = 1742-6) 9 U/L 0-33 Alkaline phosphatase [Enzyma tic activity/volume] in Serum or Plasma (test code = 6768-6) 100 U/L 35-105 [facility] HospitalLipid 1996 panel - Serum or [id number] 12:26:00* Test Item Value Reference Range Interpretation Comme nts cholesterol level (test code = cholesterol level) 168 mg/dL 150-200 triglycerides level (test co de = triglycerides level) 126 mg/dL <150 HDL cholesterol (test code = HDL cholesterol) 40 mg/dL >65 L LDL cholesterol direct (test code = LDL cholesterol direct) 110 mg/dL <100 H cholesterol risk ratio (test code = cholesterol risk ratio) 4.200 [facility] HospitalHemoglobin A1c [Mass/volume] in [id number] 00:00:00 * Test Item Value Reference Range Interpretation Comme nts Hemoglobin A1c [Mass/volume] in Blood (test code = 54720-4) 5.0 % 4.0-6.0 [facility] HospitalThyrotropin [Units/volume] in Serum or [id number] 00:00:00* Test Item Value Reference Range Interpretation Comme nts Thyrotropin [Units/volume] i n Serum or Plasma (test code = 3016-3) 2.65 uIU/mL 0.36-3.74 [facility] HospitalThyroxine (T4) [Mass/volume] in Serum or [id number] 00:00:00* Test Item Value Reference Range Interpretation Comme nts T4 (test code = T4) 9.2 ug/dL 4.5-11.7 [facility] HospitalUrinalysis complete panel - [id number] 11:18:00* Test Item Value Reference Range Interpretation Comme nts Color of Urine by Auto (test code = 31233-4) yellow Appearance of Urine (test co de = 5767-9) clear clear Glucose [Presence] in Urine by Automated test strip (test code = 26157-7) negative negative Bilirubin.total [Mass/volume ] in Urine (test code = 1978-6) negative negative Ketones [Mass/volume] in Uri ne by Automated test strip (test code = 83594-2) trace negative Specific gravity of Urine by Automated test strip (test code = 11800-3) 1.033 1.003-1.030 H blood urine (test code = blo od urine) trace negative pH of Urine (test code = 2756-5) 7.500 5-9 protein urine (UA) (test cod e = protein urine (UA)) =2+ (100 negative H Urobilinogen [Presence] in U rine (test code = 49947-5) =4.0 0.2-1.0 H Nitrite [Presence] in Urine by Test strip (test code = 5802-4) negative negative Leukocyte esterase [Presence ] in Urine by Automated test strip (test code = 30251-2) negative negative Erythrocytes [#/volume] in U rine by Automated count (test code = 798-9) =20-29 0-5 H Leukocytes [#/area] in Urine sediment by Automated count (test code = 67220-5) =1-5 0-5 Epithelial cells [Presence] in Urine sediment by Light microscopy (test code = 41735-5) =6-10 0-5 Bacteria identified in Urine by Culture (test code = 630-4) small(1 none detect Casts [#/area] in Urine sedi ment by Automated count (test code = 87104-4) =11-14 none detect H urine culture added? (test c ode = urine culture added?) no Mucus [Presence] in Urine by Automated (test code = 85695-2) =4 none detect [facility] W Auto Differential panel - [id number] 09:56:00 * Test Item Value Reference Range Interpretation Comme nts white blood count (test code = white blood count) 14.6 K/uL 4.0-11.5 red blood count (test code = red blood count) 4.41 M/uL 3.80-5.20 hemoglobin (test code = hemoglobin) 12.7 g/dL 10.5-15.7 hematocrit (test code = hematocrit) 39.2 % 34.0-50.0 MCV [Entitic volume] (test c ode = 95992-9) 88.9 fL 86.0-100.0 mean corpuscular hemoglobin (test code = mean corpuscular hemoglobin) 28.8 pg 26.2-33.4 mean corpuscular HGB conc (t est code = mean corpuscular HGB conc) 32.4 g/dL 30.0-34.0 red cell distribution width (test code = red cell distribution width) 15.3 % 12.0-15.5 platelet count (test code = platelet count) 290 K/uL 165-450 mean platelet volume (test c ode = mean platelet volume) 9.7 fL 9.4-12.6 Segmented neutrophils/100 leukocytes in Blood (test code = 80720-0) 83.7 % 44.4-80.1 H Immature granulocytes [#/vol ume] in Blood (test code = 27697-3) 0.05 K/uL 0.00-0.03 H lymphocyte% (test code = lymphocyte%) 10.8 % 10.0-50.0 mono % (test code = mono %) 4.3 % 3.6-12.0 eos % (test code = eos %) 0.4 % 0.0-5.4 Basophils/100 leukocytes in Specimen (test code = 67199-3) 0.5 % 0.1-1.2 Band form neutrophils [#/vol ume] in Blood (test code = 92943-3) 12.17 K/uL 1.56-6.13 H Lymphocytes [#/volume] in Sp ecimen by Automated count (test code = 18521-4) 1.57 K/uL 1.18-3.74 mono # (test code = mono #) 0.63 K/uL 0.24-0.86 eos # (test code = eos #) 0.06 K/uL 0.04-0.36 basophil # (test code = [place] #) 0.07 K/uL 0.01-0.08 NRBC% (test code = NRBC%) 0 /100 WBC 0-0.2 NRBC# (test code = NRBC#) 0 K/uL [facility]Com[facility] 2000 [facility] - Serum or Plasma 2021-06-09 09:56:00* Test Item Value Reference Range Interpretation Comme nts Glucose [Mass/volume] in Ser um or Plasma (test code = 2345-7) 139 mg/dL 74-106 H Urea nitrogen [Mass/volume] in Serum or Plasma (test code = 3094-0) 15 mg/dL 6-20 osmolality calculated,serum (test code = osmolality calculated,serum) 281 mOsm/kg 280-300 creatinine (test code = creatinine) 0.73 mg/dL 0.50-0.90 glomerular filtration rate ( test code = glomerular filtration rate) >60.00 Urea nitrogen/Creatinine [Ma ss Ratio] in Serum or Plasma (test code = 3097-3) 20.5 12.0-20.0 H sodium level (test code = so dium level) 139 mmol/L 135-145 potassium level (test code = potassium level) 3.8 mmol/L 3.5-5.2 chloride level (test code = chloride level) 101 mmol/L 98-108 CO2 (test code = CO2) 24 mmol/L 21-32 anion gap (test code = anion gap) 17.8 mEq/L 12.0-20.0 calcium level (test code = calcium level) 10.7 mg/dL 8.6-10.0 H total protein (test code = t otal protein) 8.6 g/dL 6.6-8.7 albumin (test code = albumin) 5.2 g/dL 3.5-5.2 globulin (test code = globulin) 3.4 g/dL 1.5-4.5 A/G ratio (test code = A/G ratio) 1.5 >1.0 bilirubin,total (test code = bilirubin,total) 0.5 mg/dL 0.0-1.2 AST/SGOT (test code = AST/SGOT) 18 U/L 15-32 Alanine aminotransferase [Enzymatic activity/volume] in Serum or Plasma (test code = 1742-6) 16 U/L 0-33 Alkaline phosphatase [Enzyma tic activity/volume] in Serum or Plasma (test code = 6768-6) 114 U/L 35-105 H [facility]Differential panel, method unspecified - [id number] 00:00:00NeutrophilsBandLymphocyteAtypical LymphMonocyteEosinophilBasophilAbs Neutrophil Count (Man)Abs Lymph Count (Man)Abs Monocyte Count (Man)Abs Eosinophil Count (Man)Abs Basophil Count (Man)Platelet EstimatePlatelet MorphologyTarget CellsMatagorda Medical GroupLipase [Enzymatic activity/volume] in Serum or [id number] 00:00:00* Test Item Value Reference Range Interpretation Comme nts lipase (test code = lipase) 37 U/L 13-60 [facility] HospitalHIV 1+2 Ab [Presence] in [id number] 00:00:00HIV P24 AgHIV-1/2 AbOcean [facility] HospitalCBC W Auto Differential panel - Blood 2021-06-01 02:26:00* Test Item Value Reference Range Interpretation Comme nts white blood count (test code = white blood count) 11.8 K/uL 4.0-11.5 red blood count (test code = red blood count) 4.18 M/uL 3.80-5.20 hemoglobin (test code = hemoglobin) 12.1 g/dL 10.5-15.7 hematocrit (test code = hematocrit) 37.7 % 34.0-50.0 MCV [Entitic volume] (test c ode = 72571-1) 90.2 fL 86.0-100.0 mean corpuscular hemoglobin (test code = mean corpuscular hemoglobin) 28.9 pg 26.2-33.4 mean corpuscular HGB conc (t est code = mean corpuscular HGB conc) 32.1 g/dL 30.0-34.0 red cell distribution width (test code = red cell distribution width) 15.7 % 12.0-15.5 H platelet count (test code = platelet count) 211 K/uL 165-450 mean platelet volume (test c ode = mean platelet volume) 9.4 fL 9.4-12.6 Segmented neutrophils/100 leukocytes in Blood (test code = 29390-8) 69.6 % 44.4-80.1 Immature granulocytes [#/vol ume] in Blood (test code = 68911-2) 0.04 K/uL 0.00-0.03 H lymphocyte% (test code = lymphocyte%) 20.2 % 10.0-50.0 mono % (test code = mono %) 5.4 % 3.6-12.0 eos % (test code = eos %) 4.0 % 0.0-5.4 Basophils/100 leukocytes in Specimen (test code = 42794-3) 0.5 % 0.1-1.2 Band form neutrophils [#/vol ume] in Blood (test code = 81132-3) 8.21 K/uL 1.56-6.13 H Lymphocytes [#/volume] in Sp ecimen by Automated count (test code = 18840-8) 2.39 K/uL 1.18-3.74 mono # (test code = mono #) 0.64 K/uL 0.24-0.86 eos # (test code = eos #) 0.47 K/uL 0.04-0.36 H basophil # (test code = [place] #) 0.06 K/uL 0.01-0.08 NRBC% (test code = NRBC%) 0 /100 WBC 0-0.2 NRBC# (test code = NRBC#) 0 K/uL [facility]PT/[id number] 02:26:00* Test Item Value Reference Range Interpretation Comme nts prothrombin time (test code = prothrombin time) 9.8 seconds 10.3-12.3 L INR in Blood by Coagulation assay (test code = 31979-7) <0.94 [facility]Com[facility] 2000 [facility] - Serum or Plasma 2021-06-01 02:26:00* Test Item Value Reference Range Interpretation Comme nts Glucose [Mass/volume] in Ser um or Plasma (test code = 2345-7) 97 mg/dL 74-106 Urea nitrogen [Mass/volume] in Serum or Plasma (test code = 3094-0) 6 mg/dL 6-20 osmolality calculated,serum (test code = osmolality calculated,serum) 271 mOsm/kg 280-300 L creatinine (test code = creatinine) 0.79 mg/dL 0.50-0.90 glomerular filtration rate ( test code = glomerular filtration rate) >60.00 Urea nitrogen/Creatinine [Ma ss Ratio] in Serum or Plasma (test code = 3097-3) 7.6 12.0-20.0 L sodium level (test code = so dium level) 137 mmol/L 135-145 potassium level (test code = potassium level) 4.1 mmol/L 3.5-5.2 chloride level (test code = chloride level) 103 mmol/L 98-108 CO2 (test code = CO2) 24 mmol/L 21-32 anion gap (test code = anion gap) 14.1 mEq/L 12.0-20.0 calcium level (test code = calcium level) 9.8 mg/dL 8.6-10.0 total protein (test code = t otal protein) 8.0 g/dL 6.6-8.7 albumin (test code = albumin) 4.8 g/dL 3.5-5.2 globulin (test code = globulin) 3.2 g/dL 1.5-4.5 A/G ratio (test code = A/G ratio) 1.5 >1.0 bilirubin,total (test code = bilirubin,total) 0.3 mg/dL 0.0-1.2 AST/SGOT (test code = AST/SGOT) 30 U/L 15-32 Alanine aminotransferase [Enzymatic activity/volume] in Serum or Plasma (test code = 1742-6) 39 U/L 0-33 H Alkaline phosphatase [Enzyma tic activity/volume] in Serum or Plasma (test code = 6768-6) 106 U/L 35-105 H [facility]in [id number] 00:00:00* Test Item Value Reference Range Interpretation Comme nts INR in Blood by Coagulation assay (test code = 69205-3) 25.4 seconds 22.5-37.0 [facility] strep group A, [id number] 12:28:00* Test Item Value Reference Range Interpretation Comme nts Strep Result (test code = St rep Result) negative [facility]rap[facility] + B and SARS CoV + SARS CoV 2 Ag panel, IA, upper respiratory [id number] 12:28:00* Test Item Value Reference Range Interpretation Comme nts RAPID SARS COV (test code = RAPID SARS COV) negative RAPID FLU A (test code = RAP ID FLU A) negative RAPID FLU B (test code = RAP ID FLU B) negative [facility]COMPREHENSIVE METABOLIC [id number] 09:40:00* Test Item Value Reference Range Interpretation Comme nts SODIUM (test code = NA) 136 mmol/L 135-145 N POTASSIUM (test code = K) 4.1 mmol/L 3.6-5.0 N CHLORIDE (test code = CL) 103 mmol/L 101-111 N CARBON DIOXIDE (test code = CO2) 23 mmol/L 21-31 N GLUCOSE (test code = GLU) 93 mg/dl 70-100 N BLOOD UREA NITROGEN (test code = BUN) 5 mg/dl 6-20 L GLOMERULAR FILTRATION RATE (test code = GFR) >=60 max estimate >60 The estimated glomerular filtration rate is computed usingpatient race, age (>18), sex, and serum creatinine. If anyof the needed data elements are missing the Laboratory cannot compute an estimation of the glomerular filtration rate. CREATININE (test code = CREAT) 0.91 mg/dL 0.44-1.03 N TOTAL PROTEIN (test code = PROT) 7.1 g/dL 6.7-8.2 N ALBUMIN (test code = ALB) 4.0 g/dL 3.2-5.5 N CALCIUM (test code = CA) 9.1 mg/dL 8.5-10.5 N BILIRUBIN TOTAL (test code = BILT) 0.60 mg/dL 0.2-1.3 N SGOT/AST (test code = AST) 18 U/L 10-42 N SGPT/ALT (test code = ALT) 12 U/L 10-60 N ALKALINE PHOSPHATASE (test code = ALKP) 67 U/L 42-121 N CBC W/AUTO [id number] 09:36:00* Test Item Value Reference Range Interpretation Comme nts WHITE BLOOD CELL (test code = WBC) 9.7 x10 3/uL 3.2-11.5 N RED BLOOD CELL (test code = RBC) 4.26 x10(6)/m 3.70-5.10 N HEMOGLOBIN (test code = HGB) 11.4 g/dL 12.0-15.0 L HEMATOCRIT (test code = HCT) 36.3 % 35.7-44.8 N MEAN CELL VOLUME (test code = MCV) 85 fL 80-100 N MEAN CELL HGB (test code = MCH) 26.8 pg 26.2-33.8 N MEAN CELL HGB CONCENTRATION (test code = MCHC) 31.4 g/dL 30.0-34.0 N RED CELL DISTRIBUTION WIDTH (test code = RDW) 17.7 % 11.3-14.5 H PLATELET COUNT (test code = PLT) 186 x10 3/uL 130-408 N MEAN PLATELET VOLUME (test c ode = MPV) 9.9 fL 8.6-12.6 N NEUTROPHIL % (test code = NT%) 69.5 % 40.0-70.0 N LYMPHOCYTE % (test code = LY%) 17.6 % 20-40 L MONOCYTE % (test code = MO%) 5.7 % 1-10 N EOSINOPHIL % (test code = EO%) 6.3 % 0.0-5.0 H BASOPHIL % (test code = BA%) 0.7 % 0.0-1.0 N NUCLEATED RBC % (test code = NRBC%) 0.0 % 0.0-0.9 N NEUTROPHIL # (test code = NT#) 6.8 x10 3/uL 1.6-7.2 N LYMPHOCYTE # (test code = LY#) 1.71 x10 3/uL 1.1-2.7 N MONOCYTE # (test code = MO#) 0.6 x10 3/uL 0.3-0.8 N EOSINOPHIL # (test code = EO#) 0.6 x10 3/uL 0.0-0.5 H IMMATURE GRANULOCYTE % (test code = IG%) 0.2 % 0.0-2.0 N BASOPHIL # (test code = BA#) 0.1 x10 3/uL 0.0-0.1 N [id number] 09:36:00* Test Item Value Reference Range Interpretation Comme nts TROPONIN-I (test code = TROPI) <0.020 ng/mL 0.000-0.034 N CBC W Auto Differential panel - [id number] 03:57:00* Test Item Value Reference Range Interpretation Comme nts white blood count (test code = white blood count) 9.4 K/uL 4.0-11.5 red blood count (test code = red blood count) 2.81 M/uL 3.80-5.20 L hemoglobin (test code = hemoglobin) 8.8 g/dL 10.5-15.7 hematocrit (test code = hematocrit) 26.9 % 34.0-50.0 MCV [Entitic volume] (test c ode = 14353-6) 95.7 fL 86-100 mean corpuscular hemoglobin (test code = mean corpuscular hemoglobin) 31.3 pg 26.2-33.4 mean corpuscular HGB conc (t est code = mean corpuscular HGB conc) 32.7 g/dL 30-34 red cell distribution width (test code = red cell distribution width) 15.3 % 12.0-15.5 platelet count (test code = platelet count) 183 K/uL 165-450 mean platelet volume (test c ode = mean platelet volume) 9.3 fL 9.4-12.6 L Segmented neutrophils/100 leukocytes in Blood (test code = 20038-3) 65.9 % 44.4-80.1 Immature granulocytes [#/vol ume] in Blood (test code = 42598-2) 0.1 K/uL 0.0-0.03 H lymphocyte% (test code = lymphocyte%) 23.0 % 10.0-50.0 mono % (test code = mono %) 9.1 % 3.6-12.0 eos % (test code = eos %) 1.2 % 0.0-5.4 Basophils/100 leukocytes in Unspecified specimen (test code = 69880-0) 0.3 % 0.1-1.2 Band form neutrophils [#/vol ume] in Blood (test code = 02329-6) 6.17 K/uL 1.56-6.13 H Lymphocytes [#/volume] in Unspecified specimen by Automated count (test code = 32449-5) 2.2 K/uL 1.18-3.74 mono # (test code = mono #) 0.85 K/uL 0.24-0.86 eos # (test code = eos #) 0.11 K/uL 0.04-0.36 basophil # (test code = [place] #) 0.03 K/uL 0.01-0.08 NRBC% (test code = NRBC%) 0 /100 WBC 0-0.2 NRBC# (test code = NRBC#) 0 K/uL [facility] 2000 [facility] - Serum or Plasma 2020-11-11 03:57:00* Test Item Value Reference Range Interpretation Comme nts Glucose [Mass/volume] in Ser um or Plasma (test code = 2345-7) 115 mg/dL 74-106 H Urea nitrogen [Mass/volume] in Serum or Plasma (test code = 3094-0) 9 mg/dL 6-20 osmolality calculated,serum (test code = osmolality calculated,serum) 274 mOsm/kg 280-300 L creatinine (test code = creatinine) 0.7 mg/dL 0.50-0.90 glomerular filtration rate ( test code = glomerular filtration rate) >60.00 Urea nitrogen/Creatinine [Ma ss Ratio] in Serum or Plasma (test code = 3097-3) 12.9 12-20 sodium level (test code = so dium level) 137 mmol/L 135-145 potassium level (test code = potassium level) 3.4 mmol/L 3.5-5.2 L chloride level (test code = chloride level) 106 mmol/L 98-108 CO2 (test code = CO2) 20 mmol/L 21-32 L anion gap (test code = anion gap) 14.4 mEq/L 12-20 calcium level (test code = calcium level) 8.3 mg/dL 8.6-10.0 L total protein (test code = t otal protein) 6.4 g/dL 6.6-8.7 L albumin (test code = albumin) 3.6 g/dL 3.5-5.2 globulin (test code = globulin) 2.8 gm/dL A/G ratio (test code = A/G ratio) 1.3 >1.0 bilirubin,total (test code = bilirubin,total) 0.5 mg/dL 0.0-1.2 AST/SGOT (test code = AST/SGOT) 17 U/L 15-32 Alanine aminotransferase [Enzymatic activity/volume] in Serum or Plasma (test code = 1742-6) 9 U/L 0-33 Alkaline phosphatase [Enzyma tic activity/volume] in Serum or Plasma (test code = 6768-6) 55 U/L 35-105 [facility]) RNA [Presence] in Respiratory specimen by JAVIER with probe [id number]:36:[id number] [facility] GroupSA[facility] Differential panel - [id number] 00:00:00* Test Item Value Reference Range Interpretation Comme nts white blood count (test code = white blood count) 9.9 K/uL 4.0-11.5 red blood count (test code = red blood count) 4.54 M/uL 3.80-5.20 hemoglobin (test code = hemoglobin) 14.1 g/dL 10.5-15.7 hematocrit (test code = hematocrit) 43.1 % 34.0-50.0 MCV [Entitic volume] (test c ode = 43179-7) 94.9 fL 86-100 mean corpuscular hemoglobin (test code = mean corpuscular hemoglobin) 31.1 pg 26.2-33.4 mean corpuscular HGB conc (t est code = mean corpuscular HGB conc) 32.7 g/dL 30-34 red cell distribution width (test code = red cell distribution width) 14.9 % 12.0-15.5 platelet count (test code = platelet count) 228 K/uL 165-450 mean platelet volume (test c ode = mean platelet volume) 9.7 fL 9.4-12.6 Segmented neutrophils/100 leukocytes in Blood (test code = 97481-0) 57.3 % 44.4-80.1 Immature granulocytes [#/vol ume] in Blood (test code = 22250-3) 0.0 K/uL 0.0-0.03 lymphocyte% (test code = lymphocyte%) 34.1 % 10.0-50.0 mono % (test code = mono %) 6.4 % 3.6-12.0 eos % (test code = eos %) 1.5 % 0.0-5.4 Basophils/100 leukocytes in Unspecified specimen (test code = 94808-5) 0.5 % 0.1-1.2 Band form neutrophils [#/vol ume] in Blood (test code = 24520-9) 5.68 K/uL 1.56-6.13 Lymphocytes [#/volume] in Unspecified specimen by Automated count (test code = 98493-0) 3.4 K/uL 1.18-3.74 mono # (test code = mono #) 0.63 K/uL 0.24-0.86 eos # (test code = eos #) 0.15 K/uL 0.04-0.36 basophil # (test code = [place] #) 0.05 K/uL 0.01-0.08 NRBC% (test code = NRBC%) 0 /100 WBC 0-0.2 NRBC# (test code = NRBC#) 0 K/uL [facility], method unspecified - [id number] 00:00:00NeutrophilsBandLymphocyteAtypical LymphMonocyteEosinophilBasophilMetamyelocyteMyelocytePromyelocyteBlastsNucleated Red Blood CellDifferential CommentAbs Neutrophil Count (Man)Abs Lymph Count (Man)AbsMonocyte Count (Man)Abs Eosinophil Count (Man)Abs Basophil Count (Man)Platelet EstimatePlatelet Morp hologyPolychromasiaHypochromasiaPoikilocytosisAnisocytosisMicrocytosisMacrocytos isTear Drop CellsOvalocytesStomatocyteToxic GranulationDohle BodiesAcanthocytesSmudge CellsMataUMMC Holmes Countypap, LB + CT/NG/TV 2020-09-25 00:00:00* Test Item Value Reference Range Interpretation Comme nts chlamydia trachomatis by real-time PCR (reflex to azithromycin resistance by pyrosequencing) (test code = chlamydia trachomatis by real-time PCR (reflex to azithromycin resistance by pyrosequencing)) negative trichomonas vaginalis by real-time PCR (reflex to metronidazole resistance) (test code = trichomonas vaginalis by real-time PCR (reflex to metronidazole resistance)) negative mycoplasma genitalium by real-time PCR (reflex to azithromycin and fluoroquinolone resistance) (test code = mycoplasma genitalium by real-time PCR (reflex to azithromycin and fluoroquinolone resistance)) negative neisseria gonorrhoeae by real-time PCR (reflex to antibiotic resistance by molecular analysis) (test code = neisseria gonorrhoeae by real-time PCR (reflex to antibiotic resistance by molecular analysis)) negative HPV type-detect 3.0 by next gen sequencing (reflex to HPV-16 risk assessment status) (test code = HPV type-detect 3.0 by next gen sequencing (reflex to HPV-16 risk assessment status)) not detected liquid Pap test (test code = liquid Pap test) normal [facility]Urinalysis macro (dipstick) panel - [id number] 14:29:00* Test Item Value Reference Range Interpretation Comme nts Leukocytes (test code = Leukocytes) Negative Nitrite (test code = Nitrite) negative Urobilinogen (test code = Urobilinogen) 1 Protein (test code = Protein) Negative pH (test code = pH) 5.5 Blood (test code = Blood) Moderate Specific [place] (test code = Specific [place]) 1.030 Ketone (test code = Ketone) Trace Bilirubin (test code = Bilirubin) Small Glucose (test code = Glucose) Negative Appearance (test code = Appearance) Cloudy Color (test code = Color) Yellow [facility] W Auto Differential panel - [id number] 09:32:00 * Test Item Value Reference Range Interpretation Comme nts white blood count (test code = white blood count) 10.1 K/uL 4.0-11.5 red blood count (test code = red blood count) 4.77 M/uL 3.80-5.20 hemoglobin (test code = hemoglobin) 15.0 g/dL 10.5-15.7 hematocrit (test code = hematocrit) 44.7 % 34.0-50.0 MCV [Entitic volume] (test c ode = 10774-5) 93.7 fL 86-100 mean corpuscular hemoglobin (test code = mean corpuscular hemoglobin) 31.4 pg 26.2-33.4 mean corpuscular HGB conc (t est code = mean corpuscular HGB conc) 33.6 g/dL 30-34 red cell distribution width (test code = red cell distribution width) 13.9 % 12.0-15.5 platelet count (test code = platelet count) 205 K/uL 165-450 mean platelet volume (test c ode = mean platelet volume) 10.5 fL 9.4-12.6 Segmented neutrophils/100 leukocytes in Blood (test code = 75773-3) 65.9 % 44.4-80.1 Immature granulocytes [#/vol ume] in Blood (test code = 40861-4) 0.0 K/uL 0.0-0.03 lymphocyte% (test code = lymphocyte%) 25.2 % 10.0-50.0 mono % (test code = mono %) 6.3 % 3.6-12.0 eos % (test code = eos %) 1.7 % 0.0-5.4 Basophils/100 leukocytes in Unspecified specimen (test code = 82558-6) 0.6 % 0.1-1.2 Band form neutrophils [#/vol ume] in Blood (test code = 94591-8) 6.65 K/uL 1.56-6.13 H Lymphocytes [#/volume] in Unspecified specimen by Automated count (test code = 85897-4) 2.5 K/uL 1.18-3.74 mono # (test code = mono #) 0.63 K/uL 0.24-0.86 eos # (test code = eos #) 0.17 K/uL 0.04-0.36 basophil # (test code = [place] #) 0.06 K/uL 0.01-0.08 NRBC% (test code = NRBC%) 0 /100 WBC 0-0.2 NRBC# (test code = NRBC#) 0 K/uL [facility]Different[facility], method unspecified - [id number] 09:32:00NeutrophilsBandLymphocyteAtypical LymphMonocyteEosinophilBasophilMetamyelocyteMyelocytePromyelocyteBlastsNucleated Red Blood CellDifferential CommentAbs Neutrophil Count (Man)Abs Lymph Count (Man)AbsMonocyte Count (Man)Abs Eosinophil Count (Man)Abs Basophil Count (Man)Platelet EstimatePlatelet Morp hologyPolychromasiaHypochromasiaPoikilocytosisAnisocytosisMicrocytosisMacrocytos isSchistocytesTarget CellsTear Drop CellsOvalocytesToxic GranulationHypersegmented PolysToxic VacuolationSmudge CellsGiant PlateletsSickle CellsMataSpringfield Hospital GroupUrinalysis complete W Reflex Culture panel - [id number] 09:32:00* Test Item Value Reference Range Interpretation Comme nts Color of Urine by Auto (test code = 15548-8) dk. yellow Appearance of Urine (test co de = 5767-9) turbid clear Glucose [Mass/volume] in Uri ne (test code = 2350-7) negative negative bilirubin, urine (test code = bilirubin, urine) moderate negative ketone, urine (test code = ketone, urine) trace negative H Specific gravity of Urine by Automated test strip (test code = 93938-9) 1.020 1.003-1.030 Hemoglobin [Presence] in Uri ne by Test strip (test code = 5794-3) negative H pH of Urine (test code = 2756-5) 6.500 5-9 protein urine (UA) (test cod e = protein urine (UA)) =1+ (30 negative H Urobilinogen [Presence] in U rine (test code = 98502-1) 4.0 E.U./dL 0.2-1.0 Nitrite [Presence] in Urine by Test strip (test code = 5802-4) positive negative urine leukocyte esterase (te st code = urine leukocyte esterase) trace negative H Erythrocytes [Presence] in U rine (test code = 74702-3) =4-6 0-5 H WBC, urine (test code = WBC, urine) =0-2 0-5 bacteria, urine (test code = bacteria, urine) few none detect Casts [#/area] in Urine sedi ment by Automated count (test code = 86561-6) =2-5 none detect urine culture added? (test c ode = urine culture added?) yes squamous epithelial cell uri ne (test code = squamous epithelial cell urine) =0-5 0-5 Amorphous sediment [Presence ] in Urine sediment by Light microscopy (test code = 8246-1) moderate none seen [facility] HospitalBacteria identified in Urine by [id number] 09:32:00* Test Item Value Reference Range Interpretation Comme nts Bacteria identified in Urine by Culture (test code = 630-4) scant skin ambrose present. pathogen not present at 2 days. [facility] HospitalUrinalysis macro (dipstick) panel - [id number] 11:47:00* Test Item Value Reference Range Interpretation Comme nts Leukocytes (test code = Leukocytes) Negative Nitrite (test code = Nitrite) negative Urobilinogen (test code = Urobilinogen) .2 Protein (test code = Protein) Negative pH (test code = pH) 7.0 Blood (test code = Blood) Hemolyzed: Trace Specific [place] (test code = Specific [place]) 1.015 Ketone (test code = Ketone) Negative Bilirubin (test code = Bilirubin) Negative Glucose (test code = Glucose) Negative Appearance (test code = Appearance) Cloudy Color (test code = Color) Yellow [facility] W Auto Differential panel - [id number] 11:00:00 * Test Item Value Reference Range Interpretation Comme nts white blood count (test code = white blood count) 10.1 K/uL 4.0-11.5 red blood count (test code = red blood count) 3.82 M/uL 3.80-5.20 hemoglobin (test code = hemoglobin) 12.1 g/dL 10.5-15.7 hematocrit (test code = hematocrit) 35.6 % 34.0-50.0 MCV [Entitic volume] (test c ode = 84788-8) 93.2 fL 86-100 mean corpuscular hemoglobin (test code = mean corpuscular hemoglobin) 31.7 pg 26.2-33.4 mean corpuscular HGB conc (t est code = mean corpuscular HGB conc) 34.0 g/dL 30-34 red cell distribution width (test code = red cell distribution width) 14.8 % 12.0-15.5 platelet count (test code = platelet count) 206 K/uL 165-450 mean platelet volume (test c ode = mean platelet volume) 10.0 fL 9.4-12.6 Segmented neutrophils/100 leukocytes in Blood (test code = 50204-2) 66.9 % 44.4-80.1 Immature granulocytes [#/vol ume] in Blood (test code = 51216-3) 0.0 K/uL 0.0-0.03 lymphocyte% (test code = lymphocyte%) 25.1 % 10.0-50.0 mono % (test code = mono %) 4.1 % 3.6-12.0 eos % (test code = eos %) 3.0 % 0.0-5.4 Basophils/100 leukocytes in Unspecified specimen (test code = 07457-6) 0.6 % 0.1-1.2 Band form neutrophils [#/vol ume] in Blood (test code = 05689-5) 6.77 K/uL 1.56-6.13 H Lymphocytes [#/volume] in Unspecified specimen by Automated count (test code = 22577-1) 2.5 K/uL 1.18-3.74 mono # (test code = mono #) 0.41 K/uL 0.24-0.86 eos # (test code = eos #) 0.30 K/uL 0.04-0.36 basophil # (test code = [place] #) 0.06 K/uL 0.01-0.08 NRBC% (test code = NRBC%) 0 /100 WBC 0-0.2 NRBC# (test code = NRBC#) 0 K/uL [facility]Differential panel, method unspecified - [id number] 11:00:00NeutrophilsBandLymphocyteAtypical LymphMonocyteEosinophilBasophilMetamyelocyteMyelocytePromyelocyteBlastsNucleated Red Blood CellAbs Neutrophil Count (Man)Abs Lymph Count (Man)Abs Monocyte Count (Man)Abs Eosinophil Count (Man)Abs Basophil Count (Man)Platelet EstimatePlatelet MorphologyPoikilocytosisToxic GranulationBurr CellsOcean [facility] HospitalBasic metabolic 2000 panel - Serum or [id number] 11:00:00* Test Item Value Reference Range Interpretation Comme nts glucose (test code = glucose) 86 mg/dL 74-106 Urea nitrogen [Mass/volume] in Serum or Plasma (test code = 3094-0) 9 mg/dL 6-20 osmolality calculated,serum (test code = osmolality calculated,serum) 272 mOsm/kg 280-300 L creatinine (test code = creatinine) 0.8 mg/dL 0.50-0.90 glomerular filtration rate ( test code = glomerular filtration rate) >60.00 Urea nitrogen/Creatinine [Ma ss Ratio] in Serum or Plasma (test code = 3097-3) 11.3 12-20 L sodium level (test code = so dium level) 137 mmol/L 135-145 Potassium [Moles/volume] in Body fluid (test code = 2821-7) 3.9 mmol/L 3.5-5.2 chloride level (test code = chloride level) 108 mmol/L 98-108 CO2 (test code = CO2) 21 mmol/L 21-32 anion gap (test code = anion gap) 11.9 mEq/L 12-20 L calcium level (test code = calcium level) 8.7 mg/dL 8.6-10.0 [facility] GroupUrinalysis complete panel - [id number] 10:43:00* Test Item Value Reference Range Interpretation Comme nts Color of Urine by Auto (test code = 48453-3) yellow Appearance of Urine (test co de = 5767-9) cloudy clear A Glucose [Presence] in Urine by Automated test strip (test code = 06728-3) negative negative Bilirubin.total [Mass/volume ] in Urine (test code = 1978-6) negative negative Ketones [Mass/volume] in Uri ne by Automated test strip (test code = 23516-2) negative negative Specific gravity of Urine by Automated test strip (test code = 66397-5) 1.027 1.003-1.030 blood urine (test code = blo od urine) =1 negative H pH of Urine (test code = 2756-5) 8.500 5-9 protein urine (UA) (test cod e = protein urine (UA)) trace negative Urobilinogen [Presence] in Urine (test code = 05391-7) normal 0.2-1.0 Nitrite [Presence] in Urine by Test strip (test code = 5802-4) negative negative Leukocyte esterase [Presence ] in Urine by Automated test strip (test code = 61308-0) =1 negative H Erythrocytes [#/volume] in Urine by Automated count (test code = 798-9) =1-5 0-5 Leukocytes [#/area] in Urine sediment by Automated count (test code = 21685-7) =1-5 0-5 Epithelial cells [Presence] in Urine sediment by Light microscopy (test code = 20413-4) =1-5 0-5 Bacteria identified in Urine by Culture (test code = 630-4) trace none detect Casts [#/area] in Urine sediment by Automated count (test code = 84984-0) none detected none detect urine culture added? (test c ode = urine culture added?) yes [facility] GroupBacteria identified in Urine by [id number] 10:43:00* Test Item Value Reference Range Interpretation Comme nts Bacteria identified in Urine by Culture (test code = 630-4) no growth at 1 day [facility] GroupUrinalysis complete panel - [id number] 09:25:00* Test Item Value Reference Range Interpretation Comme nts Color of Urine by Auto (test code = 26309-3) yellow Appearance of Urine (test co de = 5767-9) SL cloudy clear A Glucose [Presence] in Urine by Automated test strip (test code = 96055-7) negative negative Bilirubin.total [Mass/volume ] in Urine (test code = 1978-6) negative negative Ketones [Mass/volume] in Uri ne by Automated test strip (test code = 34113-7) =1 negative H Specific gravity of Urine by Automated test strip (test code = 79780-1) 1.032 1.003-1.030 H blood urine (test code = blo od urine) =2 negative H pH of Urine (test code = 2756-5) 6.000 5-9 protein urine (UA) (test cod e = protein urine (UA)) =1+ (30 negative H Urobilinogen [Presence] in U rine (test code = 34121-4) =2.0 0.2-1.0 H Nitrite [Presence] in Urine by Test strip (test code = 5802-4) negative negative Leukocyte esterase [Presence ] in Urine by Automated test strip (test code = 58989-2) negative negative Erythrocytes [#/volume] in U rine by Automated count (test code = 798-9) =11-14 0-5 H Leukocytes [#/area] in Urine sediment by Automated count (test code = 68576-9) =1-5 0-5 Epithelial cells [Presence] in Urine sediment by Light microscopy (test code = 35535-3) =6-10 0-5 Bacteria identified in Urine by Culture (test code = 630-4) small(1 none detect Casts [#/area] in Urine sedi ment by Automated count (test code = 60543-4) =2-5 none detect urine culture added? (test c ode = urine culture added?) [facility] W Auto Differential panel - [id number] 08:06:00 * Test Item Value Reference Range Interpretation Comme nts white blood count (test code = white blood count) 13.2 K/uL 4.0-11.5 red blood count (test code = red blood count) 4.84 M/uL 3.80-5.20 hemoglobin (test code = hemoglobin) 14.8 g/dL 10.5-15.7 hematocrit (test code = hematocrit) 43.4 % 34.0-50.0 MCV [Entitic volume] (test c ode = 32635-7) 89.7 fL 86-100 mean corpuscular hemoglobin (test code = mean corpuscular hemoglobin) 30.6 pg 26.2-33.4 mean corpuscular HGB conc (t est code = mean corpuscular HGB conc) 34.1 g/dL 30-34 H red cell distribution width (test code = red cell distribution width) 13.1 % 12.0-15.5 platelet count (test code = platelet count) 182 K/uL 165-450 mean platelet volume (test c ode = mean platelet volume) 10.3 fL 9.4-12.6 Segmented neutrophils/100 leukocytes in Blood (test code = 07461-3) 72.9 % 44.4-80.1 Immature granulocytes [#/vol ume] in Blood (test code = 42899-3) 0.0 K/uL 0.0-0.03 lymphocyte% (test code = lymphocyte%) 19.5 % 10.0-50.0 mono % (test code = mono %) 5.1 % 3.6-12.0 eos % (test code = eos %) 1.7 % 0.0-5.4 Basophils/100 leukocytes in Unspecified specimen (test code = 97023-5) 0.5 % 0.1-1.2 Band form neutrophils [#/vol ume] in Blood (test code = 11650-0) 9.66 K/uL 1.56-6.13 H Lymphocytes [#/volume] in Unspecified specimen by Automated count (test code = 40053-9) 2.6 K/uL 1.18-3.74 mono # (test code = mono #) 0.67 K/uL 0.24-0.86 eos # (test code = eos #) 0.23 K/uL 0.04-0.36 basophil # (test code = [place] #) 0.06 K/uL 0.01-0.08 NRBC% (test code = NRBC%) 0 /100 WBC 0-0.2 NRBC# (test code = NRBC#) 0 K/uL [facility] HospitalDifferential panel, method unspecified - [id number] 08:06:00NeutrophilsBandLymphocyteMonocyteEosinophilPlatelet EstimateMataUMMC Holmes CountyComprehensive metabolic 2000 panel - Serum or [id number] 08:06:00* Test Item Value Reference Range Interpretation Comme nts Glucose [Mass/volume] in Ser um or Plasma (test code = 2345-7) 103 mg/dL 74-106 Urea nitrogen [Mass/volume] in Serum or Plasma (test code = 3094-0) 11 mg/dL 6-20 osmolality calculated,serum (test code = osmolality calculated,serum) 274 mOsm/kg 280-300 L creatinine (test code = creatinine) 0.8 mg/dL 0.50-0.90 glomerular filtration rate ( test code = glomerular filtration rate) >60.00 Urea nitrogen/Creatinine [Ma ss Ratio] in Serum or Plasma (test code = 3097-3) 13.8 12-20 sodium level (test code = so dium level) 137 mmol/L 135-145 potassium level (test code = potassium level) 4.1 mmol/L 3.5-5.2 chloride level (test code = chloride level) 103 mmol/L 98-108 CO2 (test code = CO2) 21 mmol/L 21-32 anion gap (test code = anion gap) 17.1 mEq/L 12-20 calcium level (test code = calcium level) 9.5 mg/dL 8.6-10.0 total protein (test code = t otal protein) 7.8 g/dL 6.6-8.7 albumin (test code = albumin) 4.6 g/dL 3.5-5.2 globulin (test code = globulin) 3.2 gm/dL A/G ratio (test code = A/G ratio) 1.4 >1.0 bilirubin,total (test code = bilirubin,total) 1.2 mg/dL 0.0-1.2 AST/SGOT (test code = AST/SGOT) 17 U/L 15-32 Alanine aminotransferase [Enzymatic activity/volume] in Serum or Plasma (test code = 1742-6) 10 U/L 0-33 Alkaline phosphatase [Enzyma tic activity/volume] in Serum or Plasma (test code = 6768-6) 63 U/L 35-105 [facility] HospitalLipase [Enzymatic activity/volume] in Serum or Plasma 2019-09-24 08:06:00* Test Item Value Reference Range Interpretation Comme nts lipase (test code = lipase) 27 U/L 13-60 [facility] [id number] 01:35:00Results [facility] HospitalUrinalysis macro (dipstick) panel - [id number] 08:40:00* Test Item Value Reference Range Interpretation Comme nts Leukocytes (test code = Leukocytes) Negative Nitrite (test code = Nitrite) negative Urobilinogen (test code = Urobilinogen) 1 Protein (test code = Protein) Negative pH (test code = pH) 8.5 Blood (test code = Blood) Hemolyzed: Trace Specific [place] (test code = Specific [place]) 1.025 Ketone (test code = Ketone) Negative Bilirubin (test code = Bilirubin) Negative Glucose (test code = Glucose) Negative Appearance (test code = Appearance) Cloudy Color (test code = Color) Yellow [facility] HospitalAcute hepatitis 2000 panel - Serum [id number] 10:52:00* Test Item Value Reference Range Interpretation Comme nts hep B core Ab,IgM (test code = hep B core Ab,IgM) negative negative hepatitis C virus antibody ( test code = hepatitis C virus antibody) <0.1 0.0-0.9 hepatitis A IgM antibody (te st code = hepatitis A IgM antibody) negative negative .hepatitis B surface antigen (test code = .hepatitis B surface antigen) negative negative [facility] HospitalAmylase [Enzymatic activity/volume] in Serum or Plasma 2019-06-19 10:05:00* Test Item Value Reference Range Interpretation Comme nts Amylase [Enzymatic activity/ volume] in Serum or Plasma (test code = 1798-8) 60 U/L 28-100 [facility] HospitalLipase [Enzymatic activity/volume] in Serum or Plasma 2019-06-19 10:05:00* Test Item Value Reference Range Interpretation Comme nts lipase (test code = lipase) 52 U/L 13-60 [facility]CBC W Auto Differential panel - [id number] 08:00:00 * Test Item Value Reference Range Interpretation Comme nts white blood count (test code = white blood count) 7.6 K/uL 4.0-11.5 red blood count (test code = red blood count) 4.41 M/uL 3.80-5.20 hemoglobin (test code = hemoglobin) 13.8 g/dL 10.5-15.7 hematocrit (test code = hematocrit) 40.7 % 34.0-50.0 Erythrocyte mean corpuscular volume [Entitic volume] (test code = 42774-6) 92.3 fL 86-100 mean corpuscular hemoglobin (test code = mean corpuscular hemoglobin) 31.3 pg 26.2-33.4 mean corpuscular HGB conc (t est code = mean corpuscular HGB conc) 33.9 g/dL 30-34 red cell distribution width (test code = red cell distribution width) 13.4 % 12.0-15.5 platelet count (test code = platelet count) 185 K/uL 165-450 mean platelet volume (test c ode = mean platelet volume) 10.3 fL 9.4-12.6 Neutrophils.segmented/100 leukocytes in Blood (test code = 75477-3) 60.5 % 44.4-80.1 Granulocytes Immature [#/vol ume] in Blood (test code = 47050-2) 0.0 K/uL 0.0-0.03 lymphocyte% (test code = lymphocyte%) 30.4 % 10.0-50.0 mono % (test code = mono %) 6.3 % 3.6-12.0 eos % (test code = eos %) 2.0 % 0.0-5.4 Basophils/100 leukocytes in Unspecified specimen (test code = 61901-8) 0.4 % 0.1-1.2 Neutrophils.band form [#/vol ume] in Blood (test code = 94347-6) 4.59 K/uL 1.56-6.13 Lymphocytes [#/volume] in Unspecified specimen by Automated count (test code = 15779-8) 2.3 K/uL 1.18-3.74 mono # (test code = mono #) 0.48 K/uL 0.24-0.86 eos # (test code = eos #) 0.15 K/uL 0.04-0.36 basophil # (test code = [place] #) 0.03 K/uL 0.01-0.08 NRBC% (test code = NRBC%) 0 /100 WBC 0-0.2 NRBC# (test code = NRBC#) 0 K/uL [facility]differential panel, [id number] 08:00:00 NeutrophilsBandLymphocyteAtypical LymphMonocyteEosinophilBasophilMetamyelocyteMyelocyteNucleated Red Blood CellPlatelet EstimatePlatelet MorphologyPolychromasiaPoikilocytosisAnisocytosisMacrocytosisToxic GranulationDohle BodiesBurr CellsRouleauToxic VacuolationGiant PlateletsDifferential comment-[facility] CountyComprehensive metabolic 2000 panel - Serum or [id number] 08:00:00* Test Item Value Reference Range Interpretation Comme nts glucose (test code = glucose) 100 mg/dL 74-106 Urea nitrogen [Mass/volume] in Serum or Plasma (test code = 3094-0) 8 mg/dL 6-20 osmolality calculated,serum (test code = osmolality calculated,serum) 276 mOsm/kg 280-300 L creatinine (test code = creatinine) 0.8 mg/dL 0.50-0.90 glomerular filtration rate ( test code = glomerular filtration rate) >60.00 Urea nitrogen/Creatinine [Ma ss Ratio] in Serum or Plasma (test code = 3097-3) 10.0 12-20 L sodium level (test code = so dium level) 139 mmol/L 135-145 Potassium [Moles/volume] in Body fluid (test code = 2821-7) 4.0 mmol/L 3.5-5.2 chloride level (test code = chloride level) 100 mmol/L 98-108 CO2 (test code = CO2) 27 mmol/L 21-32 anion gap (test code = anion gap) 16.0 mEq/L 12-20 calcium level (test code = calcium level) 9.5 mg/dL 8.6-10.0 total protein (test code = t otal protein) 7.8 g/dL 6.6-8.7 albumin (test code = albumin) 4.6 g/dL 3.5-5.2 globulin (test code = globulin) 3.2 gm/dL A/G ratio (test code = A/G ratio) 1.4 >1.0 bilirubin,total (test code = bilirubin,total) 0.8 mg/dL 0.0-1.2 AST/SGOT (test code = AST/SGOT) 16 U/L 15-32 Alanine aminotransferase [Enzymatic activity/volume] in Serum or Plasma (test code = 1742-6) 9 U/L 0-33 Alkaline phosphatase [Enzyma tic activity/volume] in Serum or Plasma (test code = 6768-6) 64 U/L 35-105 [facility] HospitalUrinalysis macro (dipstick) panel - [id number] 10:09:35* Test Item Value Reference Range Interpretation Comme nts Leukocytes (test code = Leukocytes) Negative Nitrite (test code = Nitrite) negative Urobilinogen (test code = Urobilinogen) 1 Protein (test code = Protein) Trace pH (test code = pH) 6.0 Blood (test code = Blood) Hemolyzed: Trace Specific [place] (test code = Specific [place]) 1.030 Ketone (test code = Ketone) Trace Bilirubin (test code = Bilirubin) Moderate Glucose (test code = Glucose) Negative Appearance (test code = Appearance) Clear Color (test code = Color) Dark Yellow [facility] - [id number] 08:58:00 * Test Item Value Reference Range Interpretation Comme nts white blood count (test code = white blood count) 8.6 K/uL 4.0-11.5 red blood count (test code = red blood count) 4.35 M/uL 3.80-5.20 hemoglobin (test code = hemoglobin) 13.5 g/dL 10.5-15.7 hematocrit (test code = hematocrit) 40.8 % 34.0-50.0 Erythrocyte mean corpuscular volume [Entitic volume] (test code = 12714-1) 93.8 fL 86-100 mean corpuscular hemoglobin (test code = mean corpuscular hemoglobin) 31.0 pg 26.2-33.4 mean corpuscular HGB conc (t est code = mean corpuscular HGB conc) 33.1 g/dL 30-34 red cell distribution width (test code = red cell distribution width) 13.4 % 12.0-15.5 platelet count (test code = platelet count) 178 K/uL 165-450 mean platelet volume (test c ode = mean platelet volume) 10.0 fL 9.4-12.6 Neutrophils.segmented/100 leukocytes in Blood (test code = 63125-0) 63.6 % 44.4-80.1 Granulocytes Immature [#/vol ume] in Blood (test code = 06533-4) 0.0 K/uL 0.0-0.03 lymphocyte% (test code = lymphocyte%) 26.4 % 10.0-50.0 mono % (test code = mono %) 6.3 % 3.6-12.0 eos % (test code = eos %) 2.8 % 0.0-5.4 Basophils/100 leukocytes in Unspecified specimen (test code = 65342-5) 0.7 % 0.1-1.2 Neutrophils.band form [#/vol ume] in Blood (test code = 58908-6) 5.49 K/uL 1.56-6.13 Lymphocytes [#/volume] in Unspecified specimen by Automated count (test code = 24131-8) 2.3 K/uL 1.18-3.74 mono # (test code = mono #) 0.54 K/uL 0.24-0.86 eos # (test code = eos #) 0.24 K/uL 0.04-0.36 basophil # (test code = [place] #) 0.06 K/uL 0.01-0.08 NRBC% (test code = NRBC%) 0 /100 WBC 0-0.2 NRBC# (test code = NRBC#) 0 K/uL [facility], [id number] 08:58:00 NeutrophilsBandLymphocyteAtypical LymphMonocyteEosinophilBasophilMetamyelocyteMyelocytePlatelet EstimatePlatelet MorphologyRouleauDifferential comment-[facility] 2000 panel - Serum or [id number] 08:58:00* Test Item Value Reference Range Interpretation Comme nts glucose (test code = glucose) 96 mg/dL 74-106 Urea nitrogen [Mass/volume] in Serum or Plasma (test code = 3094-0) 8 mg/dL 6-20 osmolality calculated,serum (test code = osmolality calculated,serum) 274 mOsm/kg 280-300 L creatinine (test code = creatinine) 0.6 mg/dL 0.50-0.90 glomerular filtration rate ( test code = glomerular filtration rate) >60.00 Urea nitrogen/Creatinine [Ma ss Ratio] in Serum or Plasma (test code = 3097-3) 13.3 12-20 sodium level (test code = so dium level) 138 mmol/L 135-145 Potassium [Moles/volume] in Body fluid (test code = 2821-7) 4.1 mmol/L 3.5-5.2 chloride level (test code = chloride level) 99 mmol/L 98-108 CO2 (test code = CO2) 26 mmol/L 21-32 anion gap (test code = anion gap) 17.1 mEq/L 12-20 calcium level (test code = calcium level) 9.2 mg/dL 8.6-10.0 total protein (test code = t otal protein) 7.5 g/dL 6.6-8.7 albumin (test code = albumin) 4.4 g/dL 3.5-5.2 globulin (test code = globulin) 3.1 gm/dL A/G ratio (test code = A/G ratio) 1.4 >1.0 bilirubin,total (test code = bilirubin,total) 0.6 mg/dL 0.0-1.2 AST/SGOT (test code = AST/SGOT) 16 U/L 15-32 Alanine aminotransferase [Enzymatic activity/volume] in Serum or Plasma (test code = 1742-6) 9 U/L 0-33 Alkaline phosphatase [Enzyma tic activity/volume] in Serum or Plasma (test code = 6768-6) 67 U/L 35-105 [facility] 2000 panel - Serum or [id number] 08:58:00* Test Item Value Reference Range Interpretation Comme nts Bilirubin.direct [Mass/volum e] in Serum or Plasma (test code = 1968-7) <0.20 0.0-0.3 [facility], [id number] 00:00:00* Test Item Value Reference Range Interpretation Comme nts gardnerella vaginalis by real-time PCR (test code = gardnerella vaginalis by real-time PCR) negative atopobium vaginae by real-ti me PCR (test code = atopobium vaginae by real-time PCR) negative bacterial vaginosis associat ed bacterium 2 (bvab2) by real-time PCR (test code = bacterial vaginosis associated bacterium 2 (bvab2) by real-time PCR) negative megasphaera species (type 1 and type 2) by real-time PCR (test code = megasphaera species (type 1 and type 2) by real-time PCR) negative lactobacillus (bv & av panel ) by real time PCR (test code = lactobacillus (bv & av panel) by real time PCR) see comment [facility], LB + reflex [id number] 00:00:00* Test Item Value Reference Range Interpretation Comme nts chlamydia trachomatis by real-time PCR (reflex to azithromycin resistance by pyrosequencing) (test code = chlamydia trachomatis by real-time PCR (reflex to azithromycin resistance by pyrosequencing)) negative trichomonas vaginalis by real-time PCR (reflex to metronidazole resistance) (test code = trichomonas vaginalis by real-time PCR (reflex to metronidazole resistance)) positive A neisseria gonorrhoeae by real-time PCR (reflex to antibiotic resistance by molecular analysis) (test code = neisseria gonorrhoeae by real-time PCR (reflex to antibiotic resistance by molecular analysis)) negative human papillomavirus types 1 6 and 18 by multiplex real-time PCR (test code = human papillomavirus types 16 and 18 by multiplex real-time PCR) not detected liquid Pap test (test code = liquid Pap test) normal [facility] W Auto Differential panel - [id number] 07:42:00 * Test Item Value Reference Range Interpretation Comme nts white blood count (test code = white blood count) 9.3 K/uL 4.0-11.5 red blood count (test code = red blood count) 4.33 M/uL 3.80-5.20 hemoglobin (test code = hemoglobin) 13.5 g/dL 10.5-15.7 hematocrit (test code = hematocrit) 41.2 % 34.0-50.0 Erythrocyte mean corpuscular volume [Entitic volume] (test code = 57402-0) 95.2 fL 86-100 mean corpuscular hemoglobin (test code = mean corpuscular hemoglobin) 31.2 pg 26.2-33.4 mean corpuscular HGB conc (t est code = mean corpuscular HGB conc) 32.8 g/dL 30-34 red cell distribution width (test code = red cell distribution width) 12.4 % 12.0-15.5 platelet count (test code = platelet count) 177 K/uL 165-450 mean platelet volume (test c ode = mean platelet volume) 10.9 fL 9.4-12.6 Neutrophils.segmented/100 leukocytes in Blood (test code = 86221-8) 66.1 % 44.4-80.1 Granulocytes Immature [#/vol ume] in Blood (test code = 85716-2) 0.0 K/uL 0.0-0.03 lymphocyte% (test code = lymphocyte%) 24.4 % 10.0-50.0 mono % (test code = mono %) 5.2 % 3.6-12.0 eos % (test code = eos %) 3.8 % 0.0-5.4 Basophils/100 leukocytes in Unspecified specimen (test code = 14975-3) 0.3 % 0.1-1.2 Neutrophils.band form [#/vol ume] in Blood (test code = 53902-3) 6.15 K/uL 1.56-6.13 H Lymphocytes [#/volume] in Unspecified specimen by Automated count (test code = 07603-7) 2.3 K/uL 1.18-3.74 mono # (test code = mono #) 0.48 K/uL 0.24-0.86 eos # (test code = eos #) 0.35 K/uL 0.04-0.36 basophil # (test code = [place] #) 0.03 K/uL 0.01-0.08 NRBC% (test code = NRBC%) 0 /100 WBC 0-0.2 NRBC# (test code = NRBC#) 0 K/uL [facility], [id number] 07:42:00 NeutrophilsBandLymphocyteAtypical LymphMonocyteBasophilPlatelet EstimateDifferential comment-[facility] CountyComprehensive metabolic 1999 panel - Serum or [id number] 07:42:00* Test Item Value Reference Range Interpretation Comme nts Glucose [Mass/volume] in Ser um or Plasma (test code = 2345-7) 88 mg/dL 74-106 Urea nitrogen [Mass/volume] in Serum or Plasma (test code = 3094-0) 9 mg/dL 6-20 osmolality calculated,serum (test code = osmolality calculated,serum) 276 mOsm/kg 280-300 L creatinine (test code = creatinine) 0.7 mg/dL 0.50-0.90 glomerular filtration rate ( test code = glomerular filtration rate) >60.00 Urea nitrogen/Creatinine [Ma ss Ratio] in Serum or Plasma (test code = 3097-3) 12.9 12-20 sodium level (test code = so dium level) 139 mmol/L 135-145 potassium level (test code = potassium level) 4.1 mmol/L 3.5-5.2 chloride level (test code = chloride level) 102 mmol/L 98-108 CO2 (test code = CO2) 24 mmol/L 21-32 anion gap (test code = anion gap) 17.1 mEq/L 12-20 calcium level (test code = calcium level) 9.1 mg/dL 8.6-10.0 total protein (test code = t otal protein) 7.0 g/dL 6.6-8.7 albumin (test code = albumin) 4.3 g/dL 3.5-5.2 globulin (test code = globulin) 2.7 gm/dL A/G ratio (test code = A/G ratio) 1.6 >1.0 bilirubin,total (test code = bilirubin,total) 0.5 mg/dL 0.0-1.2 AST/SGOT (test code = AST/SGOT) 15 U/L 15-32 Alanine aminotransferase [Enzymatic activity/volume] in Serum or Plasma (test code = 1742-6) 10 U/L 0-33 Alkaline phosphatase [Enzyma tic activity/volume] in Serum or Plasma (test code = 6768-6) 53 U/L 35-105 [facility]Lipid 1995 panel - Serum or [id number] 07:42:00* Test Item Value Reference Range Interpretation Comme nts cholesterol level (test code = cholesterol level) 141 mg/dL 150-200 L triglycerides level (test co de = triglycerides level) 110 mg/dL <150 HDL cholesterol (test code = HDL cholesterol) 54 mg/dL >65 L LDL cholesterol direct (test code = LDL cholesterol direct) 77 mg/dL <100 cholesterol risk ratio (test code = cholesterol risk ratio) 2.611 [facility] GroupThyrotropin [Units/volume] in Serum or [id number] 07:42:00* Test Item Value Reference Range Interpretation Comme nts Thyrotropin [Units/volume] i n Serum or Plasma (test code = 3016-3) 1.29 uIU/mL 0.36-3.74 [facility] GroupHIV 1+2 Ab [Presence] in [id number] 07:42:00HIV P24 AgHIV-1/2 AbMatagorda Medical GroupThyroxine (T4) free [Mass/volume] in Serum or [id number] 07:42:00* Test Item Value Reference Range Interpretation Comme nts free T4 (test code = free T4) 1.42 NG/dL 0.93-1.7 [facility] GroupReagin Ab [Presence] in Serum by [id number] 07:42:00* Test Item Value Reference Range Interpretation Comme nts Reagin Ab [Presence] in Seru m by RPR (test code = 49042-1) nonreactive nonreactive [facility] GroupFollitropin [Units/volume] in Serum or [id number] 07:42:00* Test Item Value Reference Range Interpretation Comme nts follicle stimulating hormone (test code = follicle stimulating hormone) 4.1 mIU/mL . [facility] GroupProlactin [Mass/volume] in Serum or [id number] 07:42:00* Test Item Value Reference Range Interpretation Comme nts Prolactin [Mass/volume] in S orlin or Plasma (test code = 2842-3) 11.2 NG/mL 4.8-23.3 [facility] GroupEstradiol (E2) [Mass/volume] in Serum or [id number] 07:42:00* Test Item Value Reference Range Interpretation Comme nts estradiol serum (test code = estradiol serum) 70.5 pg/mL . [facility]He[facility] hospitaltis B virus surface Ag [Presence] in Serum 2019-04-19 07:42:00* Test Item Value Reference Range Interpretation Comme nts .hepatitis B surface antigen (test code = .hepatitis B surface antigen) negative negative [facility] hospitaltis C virus RNA [Units/volume] (viral load) in Serum or Plasma by Probe and signal amplification [id number] 07:42:00* Test Item Value Reference Range Interpretation Comme nts hepatitis C RNA JAVIER,qual (te st code = hepatitis C RNA JAVIER,qual) negative negative [facility] HospitalUrinalysis macro (dipstick) panel - [id number] 10:09:00* Test Item Value Reference Range Interpretation Comme nts Leukocytes (test code = Leukocytes) Negative Nitrite (test code = Nitrite) negative Urobilinogen (test code = Urobilinogen) .2 Protein (test code = Protein) Negative pH (test code = pH) 7.0 Blood (test code = Blood) Negative Specific [place] (test code = Specific [place]) 1.015 Ketone (test code = Ketone) Negative Bilirubin (test code = Bilirubin) Negative Glucose (test code = Glucose) Negative Appearance (test code = Appearance) Clear Color (test code = Color) Yellow [facility] [id number] 12:50:00* Test Item Value Reference Range Interpretation Comme nts Antibody Scrn (test code = Antibody Scrn) Positive 1(12/31/2010 07:50:00) ?? N [facility] [id number] 12:38:00* Test Item Value Reference Range Interpretation Comme nts U Preg (test code = U Preg) Negative (12/31/2010 07:38:00) ?? N [facility] AustinNqtmtkpWBAAKHFYBT9710-37-57 12:37:00* Test Item Value Reference Range Interpretation Comme nts INR (test code = INR) 1.1 1 0.85-1.17 N [facility] AustinCugdhxtUZYFEPUUTR1726-59-92 16:00:00* Test Item Value Reference Range Interpretation Comme nts MPV (test code = MPV) 9.3 7.4-10.4 [facility] Date/Time Note Provider Source 2021-03-04 09:01:00 [id number] [address] PATIENT NAME: LATOSHA JUAREZ ADMIT DATE: 03/04/21 ACCOUNT NO: [id number] ROOM NO: AGE: 40 REPORT TYPE: ELECTROCARDIOGRAM SEX: F ADMITTING PHYSICIAN: ATTENDING PHYSICIAN: Order: [id number] Test Reason : Resting 12-lead ECG Test Date/Time Stamp: TueMar 04 2021 09:01:39 Blood Pressure : / mmHG Vent. Rate : 082 BPM Atrial Rate : 000 BPM P-R Int : 144 ms QRS Dur : 085 ms QT Int : 351 ms P-R-T Axes : 053 054 038 degrees QTc Int : 390 ms SINUS RHYTHM LOW QRS VOLTAGE IN PRECORDIAL LEADS NONSPECIFIC T-WAVE ABNORMALITY BORDERLINE ECG Reviewed by Confirmed by ERIN AKERS ([id number]) on 03/05/2021 3:45:02 PM Referred By: Parth Lewis Confirmed by:ERIN AKERS at 1545 PATIENT NAME LATOSHA JUAREZ [facility] 2021-03-04 08:53:00 [facility] ([facility]) EMERGENCY PROVIDER REPORT REPORT#:[id number] REPORT STATUS: Signed DATE:03/04/21 TIME: 0853 PATIENT: LATOSHA JUAREZ UNIT #: [id number] ROOM: BED: AGE: 40 SEX: F PCP PHYS: Undefined Provider SERVICE AUTHOR: Parth Lewis MD * ALL edits or amendments must be made on the electronic/computer document * HPI-Chest Pain 40 and Over General Initial Greet Date/Time 03/04/21 0849 Presentation Chief Complaint Chest pain Sudden in Onset? No Free Text HPI Notes Free Text HPI Notes Patient arrived from [facility]. Patient was scheduled to have electroconvulsive therapy today. However upon initial evaluation patient complained of substernal chest pressure. Patient is sent here for evaluation. Patient states it feels like a mild heaviness in her chest. Patient states she feels is just her anxiety and she really needs to have her therapy done today. Patient denies shortness of breath. Patient rated the pain a 2 out of 10. Pain has since resolved. Pain is nonradiating. Pain has no associated symptoms. Review of Systems ROS Statements All systems rev neg except as marked. Complete sys rev neg except as marked. Free Text ROS Notes Free Text ROS Notes All systems reviewed and negative except as marked. (CPT 53798 requires 10) GEN: reports no fever, reports no malaise, reports no gen weakness EYES: reports no vision changes, reports no eye pain, reports no discharge EAR: reports no ear pain, reports no hearing loss, reports no tinnitus NOSE: reports no rhinorhea, reports no nasal congestion THROAT: reports no pain, reports no swelling, reports no toothache RESP: reports no cough, reports no SOB, reports no wheezing CV: reports CP, reports no palpitations, reports no syncope GI: reports no abd pain, reports no diarrhea, reports no vomiting : reports no dysuria, reports no lesions, reports no discharge MS: reports no back pain, reports no neck pain, reports no extremity pain HEME: reports no bleeding, reports no bruising ENDO: reports no wt change, reports no polyuria, reports no polydipsia SKIN: reports no lesions, reports no contusions, reports no rash ALLERGY: reports no itching, reports no sneezing NEURO: reports no focal weakness, reports no headache, reports no seizure PSYCH: reports no anxiety, reports no delusions, reports no hallucinations Past Medical History - Adult Stated Complaint "CHEST PRESSURE SINCCE YESTERDAY" Allergies Coded Allergies: benztropine (From COGENTIN) (UNKNOWN 03/04/21) butorphanol (From STADOL) (UNKNOWN 03/04/21) diphenhydramine (From BENADRYL) (UNKNOWN 03/04/21) Additional Medical History Anxiety, history of stroke while Additional Surgical History Denies Pt reports no Fam Hx pert to chief complaint. Smoking status: Smoking status for patients 13 years old or older: Unknown,if ever smoked Physical Exam Vital Signs Vital Signs First Documented: Result Date Time Pulse Ox 100 03/04 849 B/P 145/69 12/01 0849 B/P Mean 94 03/04 0849 O2 Delivery Room air 03/04 0849 Temp 36.9 03/04 0849 Pulse 86 03/04 0849 Resp 16 03/04 0849 Last Documented: Result Date Time Pulse Ox 98 03/04 1044 B/P 121/67 03/04 1044 B/P Mean 85 03/04 1044 O2 Delivery Room air 03/04 104 Pulse 83 03/04 1044 Resp 23 03/04 1044 Temp 36.9 03/04 0849 Review of Vital Signs Reviewed Focused PE General/Const General/Const Awake, Alert Eyes Eyes PERRL MS Neck Neck Supple, Full range of motion, No swelling, Non-tender, No masses, No JVD Resp/Chest Respiratory/Chest Breath sounds NL, Breath sounds = bilat, No respiratory distress, No rales, No rhonchi, No wheezing, No chest tenderness Cardiovascular Cardiovascular Heart rate NL, Regular rhythm, Heart sounds NL, No murmurs, Peripheral circulation NL, Pulses = bilaterally, No gross BP differential Abdomen/GI Abdomen/GI Soft, Non-tender, No guarding, No rebound MS Back Back Inspection NL, Non-tender, No CVA tenderness MS Lower Extrem Lower Ext/Pelvis/MS Inspection NL, No swelling, Non-tender, No erythema, No deformity, Neurologic intact, Vascular intact, No edema Skin Skin Color NL, Warm, Dry, Turgor NL Neurologic Neurologic Oriented X3, Speech NL, No motor deficits, No sensory deficits Psychiatric Psychiatric Affect NL, Mood NL, Thought content NL Interpretation Diagnostics Lab Results Interpretation Results Laboratory Tests 03/04/21902: [Embedded Image Not Available] Laboratory Tests: 03/04 03/04 09 0903 Chemistry Sodium (135 - 145 mmol/L) 136 Potassium (3.6 - 5.0 mmol/L) 4.1 Chloride (101 - 111 mmol/L) 103 Carbon Dioxide (21 - 31 mmol/L) 23 BUN (6 - 20 mg/dl) 5 L Creatinine (0.44 - 1.03 mg/dL) 0.91 Glomerular Filtr Rate (>60) >=60 max estimate Glucose (70 - 100 mg/dl) 93 Calcium (8.5 - 10.5 mg/dL) 9.1 Total Bilirubin (0.2 - 1.3 mg/dL) 0.60 AST (10 - 42 U/L) 18 ALT (10 - 60 U/L) 12 Total Alk Phosphatase (42 - 121 U/L) 67 Troponin I (0.000 - 0.034 ng/mL) <0.020 Total Protein (6.7 - 8.2 g/dL) 7.1 Albumin (3.2 - 5.5 g/dL) 4.0 Hematology WBC (3.2 - 11.5 x10 3/uL) 9.7 RBC (3.70 - 5.10 x10(6)/m) 4.26 Hgb (12.0 - 15.0 g/dL) 11.4 L Hct (35.7 - 44.8 %) 36.3 MCV (80 - 100 fL) 85 MCH (26.2 - 33.8 pg) 26.8 MCHC (30.0 - 34.0 g/dL) 31.4 RDW (11.3 - 14.5 %) 17.7 H Plt Count (130 - 408 x10 3/uL) 186 MPV (8.6 - 12.6 fL) 9.9 Neut % (Auto) (40.0 - 70.0 %) 69.5 Lymph % (Auto) (20 - 40 %) 17.6 L [place] % (Auto) (1 - 10 %) 5.7 Eos % (Auto) (0.0 - 5.0 %) 6.3 H Baso % (Auto) (0.0 - 1.0 %) 0.7 Neut # (Auto) (1.6 - 7.2 x10 3/uL) 6.8 Lymph # (Auto) (1.1 - 2.7 x10 3/uL) 1.71 [place] # (Auto) (0.3 - 0.8 x10 3/uL) 0.6 Eos # (Auto) (0.0 - 0.5 x10 3/uL) 0.6 H Baso # (Auto) (0.0 - 0.1 x10 3/uL) 0.1 Immature Gran % (0.0 - 2.0 %) 0.2 Nucleated RBC % (0.0 - 0.9 %) 0.0 ECG #1 Interpretation Text/Dict Note Normal sinus rhythm rate of [address] elevations. Nonspecific T wave changes Patient Discharge Departure Vital Signs/Condition Vital Signs First Documented: Result Date Time Pulse Ox 100 03/04 849 B/P 145/69 03/04 0849 B/P Mean 94 03/04 0849 O2 Delivery Room air 03/04 849 Temp 36.9 03/04 0849 Pulse 86 03/04 0849 Resp 16 03/04 0849 Last Documented: Result Date Time Pulse Ox 98 03/04 1044 B/P 121/67 03/04 1044 B/P Mean 85 03/04 1044 O2 Delivery Room air 03/04 1044 Pulse 83 03/04 1044 Resp 23 03/04 1044 Temp 36.9 03/04 0849 All vital signs available at the time of this entry have been reviewed. Condition Stable, Improved Clinical Impression Clinical Impression Primary Impression: Chest pain Disposition Decision Discharge )( Discharged to Home Yes )( Time 1025 )( Date 03/04/21 Discharge/Care Plan Patient Instructions ED Chest Pain, Uncertain Cause Referrals Bridger Saldivar MD Discharge Note I have spoken with the patient and/or caregivers. I have explained the patient's condition, diagnoses and treatment plan based on the information available to me at this time. I have answered the patient's and/or caregiver's questions and addressed any concerns. The patient and/or caregivers have as good an understanding of the patient's diagnosis, condition and treatment plan as can be expected at this point. The vital signs have been stable. The patient's condition is stable and appropriate for discharge from the emergency department. The patient will pursue further outpatient evaluation with the primary care physician or other designated or consulting physician as outlined in the discharge instructions. The patient and/or caregivers are agreeable to this plan of care and follow-up instructions have been explained in detail. The patient and/or caregivers have received these instructions in written format and have expressed an understanding of the discharge instructions. The patient and/or caregivers are aware that any significant change in condition or worsening of symptoms should prompt an immediate return to this or the closest emergency department or a call to 911. at 2139 RPT #:[id number] END OF REPORT HCANW
[2024-11-19] MEDS ORDERED: LIDOCAINE 2% W/EPI 1:200,000 MPF 20 ML VIAL IM ONE (14:19)
[2024-11-19] MEDS ORDERED: ONDANSETRON 4 MG (ODT) TAB ONE (14:52)
--- NOTE | 2024-11-19 15:28 | ER ---
Nurse's Notes [facility] Name: Ashley Boykin Age: 43 yrs Sex: Female : 1980 Arrival Date: 11/19/2024 Time: 13:39 Bed 7 Private MD: Diagnosis: Cutaneous abscess of neck Presentation: 11/19 13:49 Chief complaint: Patient states: "I felt something bite me on the left side of my neck aa5 on Tuesday and now it's swollen and getting worse". Coronavirus screen: At this time, the client does not indicate any symptoms associated with coronavirus-19. Ebola Screen: Patient denies travel to an Ebola-affected area in the 21 days before illness onset. Initial Sepsis Screen: Does the patient meet any 2 criteria? No. Patient's initial sepsis screen is negative. Does the patient have a suspected source of infection? No. Patient's initial sepsis screen is negative. Risk Assessment: Do you want to hurt yourself or someone else? Patient reports no desire to harm self or others. Onset of symptoms was November 2024. 13:49 Acuity: CHRISTOPH 4 aa5 13:49 Method Of Arrival: Ambulatory aa5 Triage Assessment: 13:50 General: Appears in no apparent distress. uncomfortable, Behavior is cooperative, bp appropriate for age, anxious. Pain: Complains of pain in back of neck. EENT: No deficits noted. Neuro: No deficits noted. Cardiovascular: No deficits noted. Respiratory: No deficits noted. GI: No signs and/or symptoms were reported involving the gastrointestinal system. : No signs and/or symptoms were reported regarding the genitourinary system. Derm: Abscess located on back of neck. Musculoskeletal: No deficits noted. Historical: - Allergies: 13:51 Benadryl; aa5 13:51 Cogentin; aa5 13:51 Stadol; aa5 13:51 steroids; aa5 - PMHx: 13:51 Anxiety; Depression; Schizophrenia; aa5 - PSHx: 13:51 Appendectomy; breast augmentation; hysterectomy; aa5 - Immunization history:: Adult Immunizations unknown. - Infectious Disease History:: Denies. - Social history:: Smoking status: Reported history of juuling and/or vaping. Screenin:02 [facility] ED Fall Risk Assessment (Adult) History of falling in the last 3 months, bp including since admission No falls in past 3 months (0 pts) Confusion or Disorientation No (0 pts) Intoxicated or Sedated No (0 pts) Impaired Gait No (0 pts) Mobility Assist Device Used No (0 pt) Altered Elimination No (0 pt) Score/Fall Risk Level 0 - 2 = Low Risk Oriented to surroundings. Abuse screen: Denies threats or abuse. Denies injuries from another. Nutritional screening: No deficits noted. Tuberculosis screening: No symptoms or risk factors identified. Assessment: 13:50 General: SEE TRIAGE NOTE. Neuro: Level of Consciousness is awake, alert, obeys bp commands, Oriented to Appropriate for age. 16:02 Reassessment: Patient appears in no apparent distress at this time. Patient is alert, bp oriented x 3, equal unlabored respirations, skin warm/dry/pink. Vital Signs: 13:49 BP 149 / 100; Pulse 83; Resp 16 S; Temp 97.6(TE); Pulse Ox 99% on R/A; Weight 54.43 kg aa5 (R); Height 5 ft. 2 in. (R); 16:02 BP 137 / 85; Pulse 87; Resp 16; Pulse Ox 100% ; bp 13:49 Body Mass Index 21.95 (54.43 kg, 157.48 cm) aa5 ED Course: 13:43 Patient arrived in ED. im 13:47 Gregory Ma FNP-C is PHCP. dr5 13:47 Oscar Olea DO is Attending Physician. dr5 13:49 Arm band placed on. aa5 13:51 Triage completed. aa5 13:52 Curtis Glasgow, RN is Primary Nurse. bp 16:02 Patient has correct armband on for positive identification. bp 16:02 Assist provider with I \\T\\ D: of an abscess on NECK Set up I\\T\\D tray. Performed by Gregory MONTIEL-C Dressing with 4X4s. Patient did not have IV access during this emergency room visit. Administered Medications: 14:20 Drug: Lidocaine-Epinephrine Infiltration -1%: (1:100,000) 20 ml 20 ml Infiltration bp once; to bedside Volume: 20 ml; Route: Infiltration; 15:00 Drug: Ondansetron PO 4 mg PO once Route: PO; bp 16:01 Follow up: Response: No adverse reaction bp Medication: 16:02 VIS not applicable for this client. bp Outcome: 15:28 Discharge ordered by . dr5 16:02 Discharged to home ambulatory, bp 16:02 Condition: stable 16:02 Discharge instructions given to patient, Instructed on discharge instructions, follow up and referral plans. medication usage, wound care, Demonstrated understanding of instructions, follow-up care, medications, wound care, Prescriptions given X 2, 16:09 Patient left the ED. bp Signatures: Ofe Bermeo RN RN aa5 Curtis Glasgow RN RN bp Eneida Paul Dustin, MD OPHTHALMOLOGIST-C MD OPHTHALMOLOGIST-Cdr5
--- NOTE | 2024-11-19 15:28 | EDPHYS ---
Physician Documentation [facility] Name: Ashley Boykin Age: 43 yrs Sex: Female : 1980 Arrival Date: 11/19/2024 Time: 13:39 Bed 7 Private MD: ED Physician Oscar Olea HPI: 11/19 18:40 This 43 yrs old Female presents to ER via Ambulatory with complaints of Neck dr5 Swelling, Facial pain, Insect Bite. 18:40 The patient or guardian complains of an injury. The symptoms are located Left side of dr5 neck in hairline. Onset: The symptoms/episode began/occurred 2 day(s) ago. Patient is a 43-year-old female with history of anxiety, depression, schizophrenia coming in with bite/abscess to back of head at hairline on left side. Patient reports that she feels like the pain is getting worse and might becoming infected.. Historical: - Allergies: 13:51 Benadryl; aa5 13:51 Cogentin; aa5 13:51 Stadol; aa5 13:51 steroids; aa5 - PMHx: 13:51 Anxiety; Depression; Schizophrenia; aa5 - PSHx: 13:51 Appendectomy; breast augmentation; hysterectomy; aa5 - Immunization history:: Adult Immunizations unknown. - Infectious Disease History:: Denies. - Social history:: Smoking status: Reported history of juuling and/or vaping. ROS: 18:40 Constitutional: as per hpi dr5 Exam: 18:40 Constitutional: This is a well developed, well nourished patient who is awake, alert, dr5 and in no acute distress. Head/Face: Normocephalic, atraumatic. Eyes: Pupils equal round and reactive to light, extra-ocular motions intact. Lids and lashes normal. Conjunctiva and sclera are non-icteric and not injected. Cornea within normal limits. Periorbital areas with no swelling, redness, or edema. Neck: Trachea midline, no thyromegaly or masses palpated, and no cervical lymphadenopathy. Supple, full range of motion without nuchal rigidity, or vertebral point tenderness. No Meningismus. Chest/axilla: Normal chest wall appearance and motion. Nontender with no deformity. No lesions are appreciated. Cardiovascular: Regular rate and rhythm with a normal S1 and S2. Normal PMI, no JVD. No pulse deficits. Respiratory: Lungs have equal breath sounds bilaterally, clear to auscultation. No rales, rhonchi or wheezes noted. No increased work of breathing, no retractions or nasal flaring. Back: No spinal tenderness. No costovertebral tenderness. Full range of motion. MS/ Extremity: Pulses equal, no cyanosis. Neurovascular intact. Full, normal range of motion. Neuro: Awake and alert, GCS 15, oriented to person, place, time, and situation. Cranial nerves II-XII grossly intact. Motor strength 5/5 in all extremities. Sensory grossly intact. Cerebellar exam normal. Normal gait. 18:40 Skin: abscess, that is moderate sized, of the base of the skull, with fluctuance, that is moderate, with induration, Vital Signs: 13:49 BP 149 / 100; Pulse 83; Resp 16 S; Temp 97.6(TE); Pulse Ox 99% on R/A; Weight 54.43 kg aa5 (R); Height 5 ft. 2 in. (R); 16:02 BP 137 / 85; Pulse 87; Resp 16; Pulse Ox 100% ; bp 13:49 Body Mass Index 21.95 (54.43 kg, 157.48 cm) aa5 Procedures: 18:40 I \T\ D: Incision and drainage was performed for an abscess of the left back of neck dr5 Anesthetized with 2 ml's 1% Lidocaine w/ Epi. Incised with #11 blade. Drained moderate amount purulent fluid. Loculations removed. Abscess cavity explored. Dressing: Band-Aid and gauze the patient tolerated the procedure well. MDM: 13:47 Medical Screening Exam initiated dr5 18:40 Differential diagnosis: arthritis, Abscess, cellulitis. Data reviewed: vital signs, dr5 nurses notes. Consideration of Admission/Observation Escalation of care including admission/observation considered. Escalation considered patient was febrile with marked cellulitis on back of head. I considered the following discharge prescriptions or medication management in the emergency department I discussed and recommended Over The Counter medications, Medications were administered in the Emergency Department. See MAR. Historians other than the Patient: Spouse/Significant Other: at bedside. Care significantly affected by the following chronic conditions: Schizophrenia, anxiety, depression. Care significantly affected by the following Social Determinants of Health: Poor access to healthcare and/or lack of insurance, Poor access to transportation, Misuse of alcohol and/or drugs, Problems related to employment. Counseling: I had a detailed discussion with the patient and/or guardian regarding the historical points, exam findings, and any diagnostic results supporting the discharge/admit diagnosis, the presence of at least one elevated blood pressure reading (>120/80) during this emergency department visit, the need for outpatient follow up, for definitive care, a family practitioner, to return to the emergency department if symptoms worsen or persist or if there are any questions or concerns that arise at home. Medication response: Lidocaine. Response to treatment: the patient's symptoms have markedly improved after treatment, the patient is now symptom free. Special discussion: I have referred the patient to see his PCP for further evaluation of high blood pressure. I discussed with the patient/guardian in detail that at this point there is no indication for admission to the hospital. It is understood, however, that if the symptoms persist or worsen the patient needs to return immediately for re-evaluation. Based on the history and exam findings, there is no indication for further emergent testing or inpatient evaluation. I discussed with the patient/guardian the need to see the primary care provider for further evaluation of the symptoms. ED course: Patient reports she is feeling much better after I\T\D. Will give patient antibiotics. Strict ER precautions given. All question answered.. 11/19 14:10 Order name: Incision \T\ Drainage Setup; Complete Time: 14:20 dr5 Administered Medications: 14:20 Drug: Lidocaine-Epinephrine Infiltration -1%: (1:100,000) 20 ml 20 ml Infiltration bp once; to bedside Volume: 20 ml; Route: Infiltration; 15:00 Drug: Ondansetron PO 4 mg PO once Route: PO; bp 16:01 Follow up: Response: No adverse reaction bp Disposition: 20:05 I was immediately available on-site in the Emergency Department for consultation in the ms3 care of the patient. Disposition Summary: 11/19/24 15:28 Discharge Ordered Notes: Location: Home dr5 Condition: Stable dr5 Diagnosis - Cutaneous abscess of neck dr5 Followup: dr5 - With: Emergency Department - When: As needed - Reason: Worsening of condition Followup: dr5 - With: Private Physician - When: 1 - 2 days - Reason: Recheck today's complaints, Continuance of care, Re-evaluation by your physician Discharge Instructions: - Discharge Summary Sheet dr5 - Skin Abscess dr5 - Incision and Drainage dr5 Forms: - Family Work Release iw - Medication Reconciliation Form dr5 - Antibiotic Education dr5 - Patient Portal Instructions dr5 - Leadership Thank You Letter dr5 Prescriptions: - Cephalexin 500 mg Oral Capsule - take 1 capsule ORAL route every 12 hours for 10 days; 20 capsule; Refills: 0, dr5 Product Selection Permitted - Bactrim DS 800-160 mg Oral Tablet - take 1 tablet ORAL route every 12 hours for 7 days; 14 tablet; Refills: 0, dr5 Product Selection Permitted Signatures: Ofe Bermeo, RN RN aa5 Curtis Glasgow RN RN bp Oscar Olea, DO DO ms3 Gregory Ma, ASSISTANT CENTER DIRECTOR-C ASSISTANT CENTER DIRECTOR-Cdr5 Corrections: (The following items were deleted from the chart) 18:43 18:40 I \T\ D: Incision and drainage was performed for an abscess of the left back of dr5 neck Anesthetized with 2 ml's 1% Lidocaine w/ Epi. Incised with #11 blade. Drained moderate amount purulent fluid. Dressing: Band-Aid and gauze the patient tolerated the procedure well, dr5
[2024-11-19 21:44] VITALS: TEMP 97.6
[2024-11-19 21:49] VITALS: BP 137/85; O2SAT 100
== END 2024-11-19 16:09 | disposition home or self-care (01) ==
LOC: ER 13:39
PROC: 0H94XZZ Drainage of Neck Skin, External Approach (ICD-10-PCS; principal; 2024-11-19)
DX: L02.11 Cutaneous abscess of neck (principal); Z98.82 Breast implant status
CPT/HCPCS: 99283; 10060; Q0162